=== PATIENT | male | born 1935 | race Caucasian/White ===

== ENCOUNTER 2019-03-10 11:37 | Inpatient (IN) | payer OTHER ==
[~2019-03-10] VITALS: Ht 182.9 cm; Wt 143.2 kg
[2019-03-10 12:26] LABS: BASOPHILS 0.4 % (0-2); EOSINOPHILS 2.3 % (0-7); HEMATOCRIT 40.6 % (42.0-54.0); HEMOGLOBIN 13.6 g/dL (13.5-17.5); IMMATURE GRANULOCYTES 0.4 % (0-5); LYMPHOCYTES 33.3 % (15-50); MCH 31.1 pg (26.0-34.0); MCHC 33.5 g/dL (31.0-37.0); MCV 92.7 fL (80.0-100.0); MEAN PLATELET VOLUME 10.9 fL (7.4-10.4); MONOCYTES 9.8 % (2-11); NEUTROPHILS 53.8 % (40-80); PLATELET COUNT 155 10x3/uL (130-400); RBC 4.38 10x6/uL (4.20-6.10); RDW 13.9 % (11.5-14.5); WBC 7.7 10x3/uL (4.8-10.8)
[2019-03-10 12:51] LABS: ANION GAP 8.2 mmol/L (8-16); BILIRUBIN - TOTAL 0.63 mg/dL (0.2-1.3); CALCIUM 8.9 mg/dL (8.5-10.1); CARBON DIOXIDE 32.2 mmol/L (21.0-32.0); CREATININE - SERUM 1.2 mg/dL (0.6-1.3); POTASSIUM - SERUM 4.4 mmol/L (3.5-5.1); PROTEIN - SERUM 5.4 g/dL (6.4-8.2)
[2019-03-10 13:42] LABS: CKMB 2.4 U/L (0.0-3.6)
[2019-03-10 13:47] LABS: TROPONIN-I < 0.017 ng/mL (0.000-0.060)
[2019-03-10 14:06] LABS: APPEARANCE SL CLDY (CLEAR); COLOR DK YELLOW (YELLOW)
[2019-03-10 14:07] LABS: BILIRUBIN NEGATIVE (NEGATIVE); GLUCOSE NEGATIVE (NEGATIVE); KETONE NEGATIVE (NEGATIVE); NITRITE NEGATIVE (NEGATIVE); PROTEIN 1+ mg/dL (NEGATIVE); UROBILINOGEN NORMAL (NORMAL)
[2019-03-10 14:08] LABS: BACTERIA FEW /hpf (NONE SEEN); EPITHELIAL CELLS 0-5 /hpf (0-5); MUCUS <1+ /lpf (NONE SEEN); RED CELLS - URINE 0-5 /hpf (0-5)
--- NOTE | 2019-03-10 14:21 | NUR ---
PT RESTING IN BED AT THIS TIME. WILL CON'T TO MONITOR FOR CHANGES.
--- NOTE | 2019-03-10 14:50 | NUR ---
REPORT GIVEN TO Amy PAYAN RN, UTILIZING SBAR FORMAT.
--- NOTE | 2019-03-10 17:08 | NUR ---
PT ARRIVED ON UNIT VIA STRETCHER ESCORTED BY ER STAFF AND FAMILY MEMBERS. TRANSFERRED TO BED AND POSITIONED FOR COMFORT. PT CONFUSED TO WHY HE IS HERE AND BECOMES VERBALLY ABUSIVE IF YOU DON'T GIVE THE ANSWERS HE WANTS. SIDE RAILS UP X3 AND BED ALARM IN USE FOR SAFETY.
[2019-03-10] MEDS ORDERED: LISINOPRIL20 MG PO (17:09)
[2019-03-10] MEDS ORDERED: MULTI-DAY VITAM1 TAB PO (17:09)
[2019-03-10] MEDS ORDERED: MYRBETRIQ50 MG PO (17:10)
[2019-03-10] MEDS ORDERED: NORVASC10 MG PO (17:11)
[2019-03-10] MEDS ORDERED: ZOLOFT100 MG PO (17:11)
[2019-03-10] MEDS ORDERED: ASPIRIN81 MG PO (17:12)
[2019-03-10] MEDS ORDERED: RANITIDINE HCL150 M1 PO (17:12)
[2019-03-10] MEDS ORDERED: PRAVACHOL40 MG PO (17:13)
[2019-03-10] MEDS ORDERED: ARICEPT23 MG PO (17:14)
[2019-03-10] MEDS ORDERED: [UNRECOGNIZED DRUG - OTHER] PO (17:17)
[2019-03-10] MEDS ORDERED: SEROQUEL25 MG PO (17:18)
[2019-03-10] MEDS ORDERED: K-DUR20 MEQ PO (17:18)
--- NOTE | 2019-03-10 17:25 | MORECARE ---
CASE MANAGEMENT DISCHARGE SUMMARY PATIENT: CHUCK BLANCA UNIT: [id number] ADM DATE: 03/10/19 AGE: 83 : 36 SEX: M ROOM/BED: D.2202 AUTHOR: LARRY LOERA PHYSICIAN: REFERRING PHYSICIAN: AZEB SANON DO DATE OF SERVICE: 03/10/19 Discharge Plan Patient Name: CHUCK BLANCA Facility: [facility]:[place] : 1935 Planned Disposition: Anticipated Discharge Date: Discharge Date: Expected LOS: Initial Reviewer: [email or web address] Initial Review Date: 03/10/2019 Generated: 03/10/19 6:25 pm Comments DCP- Discharge Planning Updated by [email or web address]: Hillary Rodriguez on 03/10/19 4:[address] CM met with patient, Svitlana Blanca and son Ming Blanca regarding dc plans/needs. Patient has an AMS. Patient lives with his , Nicole Blanca, who has requested that his children find placement for him either in a Senior psych, when medically cleared, then a skilled facility. CM provided a list of facilities to family. Patient is a total care patient and is caregiver, she is currently @[facility] having had surgery. PCP: Dr. Amy Antonio. Pharmacy: [facility], [facility]. DME: canflora walker. States incontinent at times. HHS: none. Family denies hospital admission in past 30 days. Transportation at time of dc: accepting facility. Emergency contact: #1 Nory Blanca (d-i-l) #[phone], #2 Nicole Blanca (d-I-l) [phone], to patient's son, Chuck Blanca Jr @[phone]. Linda Blanca () [phone]. Family states that patient has fallen multiple times and EMS was called to assist in getting patient out of the floor. CM will follow and assist with dc planning. Hillary Rodriguez RN Patient Name: CHUCK BLANCA Page [id number] at 9405 All edits/amendments must be made on the electronic document DICTATION DATE: 03/10/191723 ADULT LIVE IN CAREGIVER: LITZY 03/10/191723 RPT#: [id number] DC DATE: STATUS: ADM IN [facility] [address] [place] [address] END OF REPORT
--- NOTE | 2019-03-10 17:32 | MORECARE ---
CASE MANAGEMENT DISCHARGE SUMMARY PATIENT: CHUCK BLANCA UNIT: [id number] ADM DATE: 03/10/19 AGE: 83 : 36 SEX: M ROOM/BED: D.2202 AUTHOR: EVARISTO,DOC PHYSICIAN: REFERRING PHYSICIAN: AZEB SANON DO DATE OF SERVICE: 03/10/19 Discharge Plan Patient Name: CHUCK BLANCA Facility: [facility]:[place] : 1935 Planned Disposition: Anticipated Discharge Date: Discharge Date: Expected LOS: Initial Reviewer: [email or web address] Initial Review Date: 03/10/2019 Generated: 03/10/19 6:32 pm Comments DCP- Discharge Planning Updated by [email or web address]: Hillary Rodriguez on 03/10/19 4:[address] CM met with patient, Svitlana Blanca and son Ming Blanca regarding dc plans/needs. Patient has an AMS. Patient lives with his , Nicole Blanca, who has requested that his children find placement for him either in a Senior psych, when medically cleared, then a skilled facility. CM provided a list of facilities to family. Patient is a total care patient and is caregiver, she is currently @[facility] having had surgery. PCP: Dr. Amy Antonio. Pharmacy: [facility], [facility]. DME: canflora walker. States incontinent at times. HHS: none. Family denies hospital admission in past 30 days. Transportation at time of dc: accepting facility. Emergency contact: #1 Nory Blanca (judy-i-l) #[phone], #2 Nicole Blanca (d-I-l) [phone], to patient's son, Chuck Blanca Jr @[phone]. Linda Blanca () [phone]. Family states that patient has fallen multiple times and EMS was called to assist in getting patient out of the floor. CM will follow and assist with dc planning. Hillary Rodriguez RN DCPIA - Discharge Planning Initial Assessment Updated by [email or web address]: Hillary Rodriguez on 03/10/19 5:26 pm * Is the patient Alert and Oriented? No * How many steps to enter\exit or inside your home? 4 w/rails * PCP Dr. Amy Antonio * Pharmacy [facility]. * Preadmission Environment Home with Family * ADLs Total Dependent * Equipment Walker * Other Equipment NA * List name and contact numbers for known caregivers / representatives who currently or will assist patient after discharge: Nory Evangelist (d-i-l) [phone]. Nicole Evangelist (d-i-l) [phone]. Chuck Blanca (son) [phone]. Linda Blanca () [phone]. * Verbal permission to speak to the caregivers and representatives has been obtained from the patient. Yes * Please name any agencies selected above. NA * Additional services required to return to the preadmission environment? Yes * Can the patient safely return to the preadmission environment? No * Has this patient been hospitalized within the prior 30 days at any hospital? No Last DP export: 03/10/19 4:25 p Patient Name: CHUCK BLANCA Page 34528 at 1732 All edits/amendments must be made on the electronic document DICTATION DATE: 03/10/191730 SUPERVISOR FUSING ROOM: LITZY 03/10/191730 RPT#: [id number] DC DATE: STATUS: ADM IN [facility] [address] [place] [address] END OF REPORT
--- NOTE | 2019-03-10 19:27 | NUR ---
CALLED [facility] TO ADDRESS HOME MEDICATIONS AND MED FOR AGGRESSIVE BEHAVIOR. ORDERS RECEIVED FOR SEROQUEL AND ARICEPT PO QHS PER HOME MEDS, GEODON 20 MG IM BIDPRN, AND TO START THE ELECTROLYTE PROTOCOL.
--- NOTE | 2019-03-10 20:00 | NUR ---
PT PULLED OUT IV AND REFUSES TO HAVE RE-SITED. WILL TRY LATER TO ENCOURAGE PT TO ALLOW IV TO BE RE-SITED.
[2019-03-10 22:09] VITALS: BP 142/46; Ht 182.9 cm; Wt 143.2 kg
--- NOTE | 2019-03-10 22:34 | NUR ---
PT YELLING AND THROWING HIS URINAL IN THE FERNANDEZ. VERY UPSET THAT HIS ISN'T HERE. GAVE GEODON 20 MG IM VIA RIGHT VENTROGLUTEAL. WILL MONITOR FOR EFFECTIVENESS.
--- NOTE | 2019-03-10 23:00 | NUR ---
PT SITTING UP ON SIDE OF BED AGAIN ASKING WHERE HE IS AND WHERE HIS IS...VERY CONFUSED AND BECOMES AGGITATED. ASSISTED TO USE RESTROOM. POSITIONED BACK IN BED FOR COMFORT.
[2019-03-11 01:06] VITALS: BP 153/58
--- NOTE | 2019-03-11 04:37 | NUR ---
WAS ABLE TO TALK PT INTO ALLOWING ME TO RE-SITE HIS IV. PLACED 20 GUAGE IN RIGHT WRIST IN ONE STICK, AND RODRIGO AM LABS PRIOR TO STARTING IV FLUIDS. ENCOURAGED PT TO NOT PULL OUT IV. WILL CONTINUE TO MONITOR FOR NEEDS.
[2019-03-11 04:56] VITALS: BP 120/54
[2019-03-11 05:13] LABS: BASOPHILS 0.4 % (0-2); EOSINOPHILS 2.6 % (0-7); HEMATOCRIT 41.9 % (42.0-54.0); HEMOGLOBIN 14.2 g/dL (13.5-17.5); IMMATURE GRANULOCYTES 0.3 % (0-5); LYMPHOCYTES 31.8 % (15-50); MCH 30.9 pg (26.0-34.0); MCHC 33.9 g/dL (31.0-37.0); MCV 91.3 fL (80.0-100.0); MEAN PLATELET VOLUME 11.8 fL (7.4-10.4); MONOCYTES 9.7 % (2-11); NEUTROPHILS 55.2 % (40-80); PLATELET COUNT 170 10x3/uL (130-400); RBC 4.59 10x6/uL (4.20-6.10); RDW 13.8 % (11.5-14.5); WBC 9.1 10x3/uL (4.8-10.8)
[2019-03-11 05:32] LABS: ALKALINE PHOSPHATASE 66 U/L (46-116); ALT (SGPT) 23 U/L (10-68); BILIRUBIN - TOTAL 0.94 mg/dL (0.2-1.3); CALC OSMOLALITY 287 mosm/kg (275-300); CHLORIDE - SERUM 107 mmol/L (98-107); CREATININE - SERUM 0.9 mg/dL (0.6-1.3); GLUCOSE 114 mg/dL (74-106); MAGNESIUM - SERUM 2.2 mg/dL (1.8-2.4); PROTEIN - SERUM 6.1 g/dL (6.4-8.2); SODIUM 143 mmol/L (136-145); UREA NITROGEN 18 mg/dL (7-18); eGFR NON AFRICAN AMERICAN 86 mL/min (90-120)
[2019-03-11 06:17] LABS: POTASSIUM - SERUM 4.2 mmol/L (3.5-5.1)
--- NOTE | 2019-03-11 08:00 | NUR ---
IN PATIENTS ROOM ASSISTED TO BR. STATED HE WANTED ME TO GET THE HELL OUT OF HIS ROOM. EXPLAINED I CANT NOT LEAVE HIM BY HIMSELF. VERBALIZED UNDERSTANDING. ASSISTED PATIENT BACK TO BED. SET HIM UP TO EAT BREAKFAST. CALL LIGHT WITHIN REACH. BED ALARM ON.
--- NOTE | 2019-03-11 10:05 | NUR ---
Rehab Prescreening Consult recieved and the chart has been reviewed. She is managed Medicare and will require a preauth. She is a new admit but when workup is completed, she will need a PT/OT eval to submit to her insurance for authorization. Blanche Pascal RN Clinical Liaison, Rehab
[2019-03-11 10:15] VITALS: BP 139/67
--- NOTE | 2019-03-11 11:45 | NUR ---
PATIENT IN BED WITH EYES CLOSED RESTING QUIETLY.
[2019-03-11 12:28] VITALS: BP 136/72
--- NOTE | 2019-03-11 13:45 | NUR ---
PATIENT IN BED WITH EYES CLOSED RESTING QUIETLY. CALL LIGHT WITHIN REACH.
--- NOTE | 2019-03-11 15:13 | NUR ---
Rehab Note- PreAuth started with Kendra/tari Colons faxed in for review for possible PreAuth for inpatient acute rehab stay. Will conitnue to follow at this time. Thank you for this referral! Pastora Lovelace RN Clinical Liaison, [facility] Rehab
--- NOTE | 2019-03-11 17:00 | NUR ---
PATIENT PULLED IV OUT AT THIS TIME. REFUSES TO LET IT BE RESTARTED BECAUSE HE SAYS HE IS GOING HOME. SITTING ON SIDE OF BED FULLY DRESSED WITH BAG AT SIDE. STATED HE IS LEAVING AND WANTING TO SPEAK WITH IS . EXPLAINED I DIDNT HAVE HER NUMBER BUT I WOULD CALL FAMILY AFTER MRI. VERBALIZED UNDERSTANDING.
--- NOTE | 2019-03-11 17:05 | NUR ---
OT NOTE: PT EXHIBITS SELF LIMITING BEHAVIOR. PT COMPLETED BED MOB AND ADL MOB WITH CGA. PT COMPLETED TOILETING WITH TOTAL A FOR HYGIENE. PT COMPLETED CLOTHING MANAGEMENT WITH MIN A. PT STATED HE WANTED TO SEE HIS SO HE COULD SERVE HER DIVORCE PAPERS. THANK YOU, MERLY KRUSE
[2019-03-11 17:30] VITALS: BP 140/59
--- NOTE | 2019-03-11 20:00 | NUR ---
ALERT BUT CONFUSED WALKING OUT IN HALLWAY WITH STREET CLOTHES ON AND BAG PACKED STATES IM GOING HOME CALL SOME ONE TO COME GET ME, INSTRUCTED DR HAS NOT RELEASED HIM TO GO HOME, BECOMES AGITATED REQUESTING FAMILY BE CALLED, DAUGHTER IN LAW DEON CALLED AND SPOKE WITH PT, PT THEN AGREED TO STAY TONIGHT AND WAIT FOR DR IN AM, BACK TO ROOM STATES IM GOING TO BED NOW, REFUSED HOSPITAL GOWN, POSY MAT IN USE, CALL LIGHT IN REACH, SEE SHIFT ASSESSMENT
[2019-03-12 04:00] VITALS: BP 147/64
[2019-03-12 06:28] LABS: BASOPHILS 0.3 % (0-2); EOSINOPHILS 1.9 % (0-7); HEMATOCRIT 38.5 % (42.0-54.0); HEMOGLOBIN 12.8 g/dL (13.5-17.5); IMMATURE GRANULOCYTES 0.4 % (0-5); LYMPHOCYTES 31.6 % (15-50); MCH 30.5 pg (26.0-34.0); MCHC 33.2 g/dL (31.0-37.0); MCV 91.7 fL (80.0-100.0); NEUTROPHILS 55.8 % (40-80); PLATELET COUNT 154 10x3/uL (130-400); RDW 13.8 % (11.5-14.5); WBC 7.3 10x3/uL (4.8-10.8)
[2019-03-12 06:57] LABS: ALBUMIN 2.7 g/dL (3.4-5.0); ALKALINE PHOSPHATASE 60 U/L (46-116); ALT (SGPT) 19 U/L (10-68); BILIRUBIN - TOTAL 0.41 mg/dL (0.2-1.3); CALC OSMOLALITY 287 mosm/kg (275-300); CALCIUM 8.8 mg/dL (8.5-10.1); CHLORIDE - SERUM 108 mmol/L (98-107); GLUCOSE 117 mg/dL (74-106); POTASSIUM - SERUM 3.8 mmol/L (3.5-5.1); PROTEIN - SERUM 5.4 g/dL (6.4-8.2); SODIUM 143 mmol/L (136-145); UREA NITROGEN 18 mg/dL (7-18); eGFR NON AFRICAN AMERICAN 76 mL/min (90-120)
--- NOTE | 2019-03-12 08:00 | NUR ---
IV STARTED IN LEFT HAND FOR ST SCAN. PATIENT TO CT.
[2019-03-12 09:13] VITALS: BP 149/59
--- NOTE | 2019-03-12 09:43 | NUR ---
Rehab Note- Called to f/u on pending authorization, Lauro with Kendra/Darlene/Tim stated that their system is currently updating & are unable to look up any information at this time. Will continue to await. Pastora Lovelace RN Clinical Liaison, [facility] Rehab
--- NOTE | 2019-03-12 10:15 | NUR ---
PATIENT IN BED WITH IV INTACT.N O COMPLAINTS OR SIGNS OF DISTRESS. CALL L IGHT WITHIN REACH.
--- NOTE | 2019-03-12 11:17 | NUR ---
OT NOTE: AMB TO BATHROOM WITH CGA; TOILET TRANSFER WITH MIN ASSIST; ABLE TO DOFF AND GINETTE PULL UP WITH SET UP; TOILET HYGIENE WITH SET UP; AMB BACK TO BED WITH CGA; ALL BED MOB INDEP INCLUDING SCOOTING UP IN BED. DEON PEREZ, OTR/L
[2019-03-12 12:29] VITALS: BP 152/71
--- NOTE | 2019-03-12 12:54 | NUR ---
Rehab Note- Spoke with Misael with [facility]ra/[facility]. Was discussing the patient's acute inpatient stay- forwarded the message onto HOLDEN Rivera to contact Misael @ [phone] Ext. [phone], he staed that her acute inpatient rehab stay was still pending at this time. Will continue to await determination. Pastora Lovelace RN CLinical Liaison, [facility] Rehab
--- NOTE | 2019-03-12 13:45 | NUR ---
PATIENT SITTING UP IN BED WITH IV INTACT.N O COMPLAINTS. BA ON. CALL LIGHT WITHIN REACH.
[2019-03-12 16:14] VITALS: BP 166/70
--- NOTE | 2019-03-12 16:42 | NUR ---
OT NOTE: PT COMPLETED ADL MOB WITH SBA. PT COMPLETED TOILETING TASKS WITH CGA. PT COMPLETED BUE AROM EXS. PT COMPLETED BED MOB WITH SPV. PT EXHIBITS DECREASED SAFETY AWARENESS AND EXHIBITS SELF LIMITING BEHAVIOR. PT REQUIRED EXTENSIVE CUES FOR INCREASED SAFETY WITH ADL TASKS. THANK YOU, MERLY KRUSE
--- NOTE | 2019-03-12 18:47 | NUR ---
PATIENT SITTING UP ON SIDE OF BED WITH IV INTACT. NO COMPLAINTS OR SIGNS OF DISTRESS. CALL LIGHT WITHIN REAC. BA ON.
--- NOTE | 2019-03-12 20:00 | NUR ---
ALERT PEROIDS OF CONFUSION, SEE SHIFT ASSESSMENT, MARILYN MAT IN USE, CALL LIGHT IN REACH, NO REQUEST AT THIS TIME
[2019-03-12 20:24] VITALS: BP 154/78
[2019-03-13] VITALS (11 sets, daily range): BP systolic 104–178; BP diastolic 49–75
[2019-03-13 04:57] LABS: BASOPHILS 0.4 % (0-2); HEMOGLOBIN 13.2 g/dL (13.5-17.5); IMMATURE GRANULOCYTES 0.3 % (0-5); LYMPHOCYTES 31.7 % (15-50); MCH 30.6 pg (26.0-34.0); MCHC 33.8 g/dL (31.0-37.0); MCV 90.5 fL (80.0-100.0); MEAN PLATELET VOLUME 11.9 fL (7.4-10.4); MONOCYTES 12.1 % (2-11); NEUTROPHILS 53.5 % (40-80); PLATELET COUNT 145 10x3/uL (130-400); RBC 4.31 10x6/uL (4.20-6.10); RDW 13.5 % (11.5-14.5)
[2019-03-13 05:16] LABS: ALBUMIN 2.7 g/dL (3.4-5.0); ALKALINE PHOSPHATASE 57 U/L (46-116); BILIRUBIN - TOTAL 0.57 mg/dL (0.2-1.3); CALC OSMOLALITY 280 mosm/kg (275-300); CALCIUM 8.6 mg/dL (8.5-10.1); CARBON DIOXIDE 29.3 mmol/L (21.0-32.0); CHLORIDE - SERUM 106 mmol/L (98-107); CREATININE - SERUM 0.8 mg/dL (0.6-1.3); GLUCOSE 115 mg/dL (74-106); MAGNESIUM - SERUM 1.7 mg/dL (1.8-2.4); POTASSIUM - SERUM 3.6 mmol/L (3.5-5.1); PROTEIN - SERUM 5.5 g/dL (6.4-8.2); SODIUM 140 mmol/L (136-145); UREA NITROGEN 15 mg/dL (7-18); eGFR NON AFRICAN AMERICAN > 90 mL/min (90-120)
[2019-03-13 05:29] LABS: ALT (SGPT) 17 U/L (10-68)
--- NOTE | 2019-03-13 07:44 | NUR ---
ALERT AND ORIENTED TO SELF. LUNGS CLEAR BILATERALLY IN ALL HINDS. HEART SOUNDS S1 AND S2 HEARD IN ALL HINDS. BOWEL SOUNDS ACTIVE X 4. SKIN INTACT WITHOUT REDNESS. DENIES PAIN. DENIES NEEDS. BED LOW. MARILYN ALARM ON. CALL BEDLL AND PERSONAL ITEMS IN REACH. IV TO LEFT HAND PATENT WITHOUT REDNESS. WILL CONTINUE TO MONITOR.
--- NOTE | 2019-03-13 07:57 | NUR ---
SPOKE WITH SURGERY TO GET APPROXIMATE TIME FOR PATIENT PROCEDURE. STATED SOMETIME AFTERNOON AND "LIKELY AROUND 1300." DAUGHTER DEON NOTIFIED.
--- NOTE | 2019-03-13 09:33 | MORECARE ---
CASE MANAGEMENT DISCHARGE SUMMARY PATIENT: CHUCK BLANCA UNIT: [id number] ADM DATE: 03/10/19 AGE: 83 : 36 SEX: M ROOM/BED: D.2202 AUTHOR: EVARISTODOC PHYSICIAN: REFERRING PHYSICIAN: AZEB SANON DO DATE OF SERVICE: 03/13/19 Discharge Plan Patient Name: CHUCK BLANCA Facility: [facility]:[place] : 1935 Planned Disposition: Anticipated Discharge Date: Discharge Date: Expected LOS: Initial Reviewer: [email or web address] Initial Review Date: 03/10/2019 Generated: 03/13/19 10:33 am Comments DCP- Discharge Planning Updated by [id number]: Nicole Henry on 03/13/19 8:[address] Patient Name: CHUCK BLANCA Admission Status: ER Accout number: [id number] Admission Date: 03-10-2019 : 1935 Admission Diagnosis:URINARY TRACT INFECTION, SITE NOT SPECIFIED Attending: AZEB SANON Current LOS: 3 Anticipated DC Date: Planned Disposition: Primary Insurance: [employer] Local Discharge Planning Comments: INSURANCE HAS APPROVED [facility] FOR HIM. CM TO FOLLOW. Supervisory Historian: Nicole Henry DCP- Discharge Planning Updated by [id number]: Hillary Rodriguez on 03/10/19 4:[address] CM met with patient, Svitlana Blanca and son Ming Blanca regarding dc plans/needs. Patient has an AMS. Patient lives with his , Nicole Blanca, who has requested that his children find placement for him either in a Senior psych, when medically cleared, then a skilled facility. CM provided a list of facilities to family. Patient is a total care patient and is caregiver, she is currently @[facility] having had surgery. PCP: Dr. Amy Antonio. Pharmacy: [facility], [facility]. DME: [employer]ines. States incontinent at times. HHS: none. Family denies hospital admission in past 30 days. Transportation at time of dc: accepting facility. Emergency contact: #1 Nory Blanca (judy-i-l) #[phone], #2 Nicole Blanca (judy-I-l) [phone], to patient's son, Chuck Blanca Jr @[phone]. Linda Blanca () [phone]. Family states that patient has fallen multiple times and EMS was called to assist in getting patient out of the floor. CM will follow and assist with dc planning. Hillary Rodriguez RN DCPIA - Discharge Planning Initial Assessment Updated by [id number]: Hillary Rodriguez on 03/10/19 5:26 pm * Is the patient Alert and Oriented? No * How many steps to enter\exit or inside your home? 4 w/rails * PCP Dr. Amy Antonio * Pharmacy [facility]. * Preadmission Environment Home with Family * ADLs Total Dependent * Equipment Walker * Other Equipment NA * List name and contact numbers for known caregivers / representatives who currently or will assist patient after discharge: Nory Blanca (d-i-l) [phone]. Nicole Blanca (d-i-l) [phone]. Chuck Blanca Jr (son) [phone]. Linda Blanca () [phone]. * Verbal permission to speak to the caregivers and representatives has been obtained from the patient. Yes * Please name any agencies selected above. NA * Additional services required to return to the preadmission environment? Yes * Can the patient safely return to the preadmission environment? No * Has this patient been hospitalized within the prior 30 days at any hospital? No Last DP export: 03/10/19 4:32 p Patient Name: CHUCK BLANCA Page 35203 at 0933 All edits/amendments must be made on the electronic document DICTATION DATE: 03/13/19932 GLUE BONE CRUSHER: LITZY 03/13/19932 RPT#: [id number] DC DATE: STATUS: ADM IN [facility] [address] [place] [address] END OF REPORT
--- NOTE | 2019-03-13 12:32 | NUR ---
PATIENT SLEEPING. WILL CONTINUE TO MONITOR.
--- NOTE | 2019-03-13 13:23 | NUR ---
PREOP MEDICATIONS GIVEN PER ORDER.
--- NOTE | 2019-03-13 13:55 | NUR ---
OT NOTE: PERFORMED BED MOB WITH SPV; AMB TO BATHROOM WITH CGA; HYGIENE WITH MIN ASSIST; BED MOB WITH SPV BACK TO BED. DEON PEREZ, OTR/L
--- NOTE | 2019-03-13 14:12 | NUR ---
OT NOTE: PT COMPLETED TOILETING TASKS WITH SPV. PT COMPLETED LB DRESSING WITH SPV. PT COMPLETED UB DRESSING WITH SPV . PT COMPLETED ADL MOB WITH SBA. PT COMPLETED BED MOB WITH SPV. PT REQUIRED CUES FOR ATTENTION TO TASK AND INCREASED SAFETY. PT CONTINUALLY ASK FOR 'S WHEREABOUTS AND STATES HE WANTS TO DIVORCE HER. PT REQUIRED REDIRECTION FOR TASK COMPLETION. THANK YOU, MERLY KRUSE
--- NOTE | 2019-03-13 14:34 | NUR ---
PATIENT TAKEN FOR PROCEDURE.
--- NOTE | 2019-03-13 16:47 | NUR ---
PATIENT RETURNED FROM PROCEDURE. VITALS STABLE. DAVOL DRAIN IN PLACE TO LEFT LOWER LEG. WILL CONTINUE TO MONITOR.
--- NOTE | 2019-03-13 18:17 | NUR ---
RESTING IN BED. DENIES PAIN. DENIES NEEDS. BED LOW. CALL JESSICA AND PERSONAL ITESM IN REACH. VITALS REMAIN STABLE. WILL CONTINUE TO MONITOR.
--- NOTE | 2019-03-13 21:00 | NUR ---
PT DISCONNECTED SELF FROM HEMOVAC AND KNOTTED TUBING BECAUSE, "IT WAS LEAKING BLOOD EVERYWHERE." HAD RN UN-KNOT TUBING AND RECONNECT HEMOVAC. INFORMED PT NOT TO UNHOOK. SECURED HEMOVAC TO LEG. WILL CONTINUE TO MONITOR.
[2019-03-14 00:46] VITALS: BP 150/62
--- NOTE | 2019-03-14 04:11 | NUR ---
I have reviewed this patient and I concur with the Shift Assessment completed by the Licensed Practical Nurse today this shift.
[2019-03-14 04:58] VITALS: BP 160/56
[2019-03-14 06:05] LABS: ALBUMIN 2.8 g/dL (3.4-5.0); ALKALINE PHOSPHATASE 60 U/L (46-116); ALT (SGPT) 21 U/L (10-68); BILIRUBIN - TOTAL 0.62 mg/dL (0.2-1.3); CALC OSMOLALITY 279 mosm/kg (275-300); CALCIUM 8.6 mg/dL (8.5-10.1); CARBON DIOXIDE 30.9 mmol/L (21.0-32.0); CHLORIDE - SERUM 106 mmol/L (98-107); CREATININE - SERUM 0.8 mg/dL (0.6-1.3); GLUCOSE 107 mg/dL (74-106); MAGNESIUM - SERUM 1.7 mg/dL (1.8-2.4); POTASSIUM - SERUM 3.5 mmol/L (3.5-5.1); PROTEIN - SERUM 5.5 g/dL (6.4-8.2); SODIUM 141 mmol/L (136-145); eGFR NON AFRICAN AMERICAN > 90 mL/min (90-120)
[2019-03-14 06:11] LABS: BASOPHILS 0.4 % (0-2); EOSINOPHILS 1.7 % (0-7); HEMATOCRIT 38.9 % (42.0-54.0); HEMOGLOBIN 13.1 g/dL (13.5-17.5); IMMATURE GRANULOCYTES 0.3 % (0-5); LYMPHOCYTES 31.1 % (15-50); MCH 30.5 pg (26.0-34.0); MCHC 33.7 g/dL (31.0-37.0); MCV 90.5 fL (80.0-100.0); MEAN PLATELET VOLUME 11.5 fL (7.4-10.4); MONOCYTES 11.4 % (2-11); NEUTROPHILS 55.1 % (40-80); PLATELET COUNT 146 10x3/uL (130-400); RDW 13.4 % (11.5-14.5); UREA NITROGEN 11 mg/dL (7-18)
--- NOTE | 2019-03-14 07:36 | NUR ---
ALERT AND ORIENTED TO SELF. RESTING IN BED. LUNGS CLEAR BILATERALLY IN ALL HINDS. HEART SOUNDS S1 AND S2 HEARD IN ALL HINDS. BOWEL SOUNDS ACTIVE X 4. REFUSES TO PUT ON GOWN. WEARING BRIEF. DRAIN TO LEFT LOWER LEG IN PLACE WRAPPED WITH KERLIX D/T PATIENT PULLING DRAIN OFF THROUGHOUT THE NIGHT. BED LOW. MARILYN ALARM ON. CALL JESSICA AND PERSONAL ITEMS IN REACH. WILL CONTINUE TO MONITOR.
[2019-03-14 08:30] VITALS: BP 172/78
--- NOTE | 2019-03-14 09:49 | NUR ---
IV INFILTRATED TO LEFT WRIST. RESITED TO RIGHT WRIST.
--- NOTE | 2019-03-14 10:48 | NUR ---
SLEEPING. WILL CONTINUE TO MONITOR.
--- NOTE | 2019-03-14 11:10 | NUR ---
REQUESTED TO TALK TO . IN HOSPITAL AT [facility]. NOTIFIED SON OF PATIENT'S REQUEST. STATED WILL HAVE PATIENT'S CALL.
--- NOTE | 2019-03-14 12:00 | NUR ---
PATIENT TALKING WITH ON PHONE. DENIES NEEDS.
[2019-03-14 12:55] VITALS: BP 170/66
--- NOTE | 2019-03-14 13:55 | NUR ---
SLEEPING. WILL CONTINUE TO MONITOR.
--- NOTE | 2019-03-14 16:30 | NUR ---
RESTING IN BED. DENIES PAIN. DENIES NEEDS. WILL CONTINUE TO MONITOR.
[2019-03-14 16:38] VITALS: BP 122/69
--- NOTE | 2019-03-14 18:25 | NUR ---
OT NOTE: PT COMPLETED EOB SITTING WITH FUNCTIONAL AX WITH SPV. PT COMPLETED SIT TO STAND WITH SBA. PT COMPLETED SELF FEEDING WITH SET UP. PT COMPLETED HYGIENE WITH SBA. PT EXHIBITS SELF LIMITING BEHAVIOR. THANK YOU, MERLY KRUSE
--- NOTE | 2019-03-14 18:27 | NUR ---
SLEEPING. BED LOW. CALL JESSICA AND PERSONAL ITEMS IN REACH. FALL PRECAUTIONS IN PLACE.
[2019-03-14 20:00] VITALS: BP 163/78
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
--- NOTE | 2019-03-15 03:09 | NUR ---
I have reviewed this patient and I concur with the Shift Assessment completed by the Licensed Practical Nurse today this shift.
[2019-03-15 04:00] VITALS: BP 182/82
[2019-03-15 04:03] LABS: BASOPHILS 0.3 % (0-2); EOSINOPHILS 3.5 % (0-7); HEMATOCRIT 39.6 % (42.0-54.0); HEMOGLOBIN 13.6 g/dL (13.5-17.5); IMMATURE GRANULOCYTES 0.3 % (0-5); LYMPHOCYTES 31.7 % (15-50); MCH 30.9 pg (26.0-34.0); MCHC 34.3 g/dL (31.0-37.0); MEAN PLATELET VOLUME 11.7 fL (7.4-10.4); MONOCYTES 11.2 % (2-11); PLATELET COUNT 147 10x3/uL (130-400); RDW 13.5 % (11.5-14.5); WBC 6.1 10x3/uL (4.8-10.8)
[2019-03-15 04:24] LABS: ALBUMIN 2.9 g/dL (3.4-5.0); ALKALINE PHOSPHATASE 66 U/L (46-116); ALT (SGPT) 21 U/L (10-68); BILIRUBIN - TOTAL 0.53 mg/dL (0.2-1.3); CALC OSMOLALITY 283 mosm/kg (275-300); CARBON DIOXIDE 30.1 mmol/L (21.0-32.0); CHLORIDE - SERUM 107 mmol/L (98-107); CREATININE - SERUM 0.8 mg/dL (0.6-1.3); GLUCOSE 135 mg/dL (74-106); MAGNESIUM - SERUM 1.9 mg/dL (1.8-2.4); POTASSIUM - SERUM 3.5 mmol/L (3.5-5.1); PROTEIN - SERUM 5.6 g/dL (6.4-8.2); SODIUM 142 mmol/L (136-145); UREA NITROGEN 10 mg/dL (7-18); eGFR NON AFRICAN AMERICAN > 90 mL/min (90-120)
--- NOTE | 2019-03-15 07:39 | NUR ---
PT LETHARGIC AND NOT ANSWERING QUESTIONS AT THIS TIME. FREQUENT DRY COUGH. BREATH SOUNDS CLEAR BILAT. NO IV ACCESS AT THIS TIME. DERRICK WRAP TO LEFT LOWER LEG, DAVOL DRAIN IN PLACE, DRAINAGE BLOODY. BED LOW, CALL LIGHT IN REACH. NO OTHER NEEDS AT THIS TIME.
[2019-03-15 08:38] VITALS: BP 187/55
--- NOTE | 2019-03-15 09:53 | MORECARE ---
CASE MANAGEMENT DISCHARGE SUMMARY PATIENT: CHUCK BLANCA UNIT: [id number] ADM DATE: 03/10/19 AGE: 83 : 36 SEX: M ROOM/BED: D.2202 AUTHOR: EVARISTO,DOC PHYSICIAN: REFERRING PHYSICIAN: AZEB SANON DO DATE OF SERVICE: 03/15/19 Discharge Plan Patient Name: CHUCK BLANCA Facility: [facility]:[place] : 1935 Planned Disposition: Anticipated Discharge Date: Discharge Date: Expected LOS: Initial Reviewer: [id number] Initial Review Date: 03/10/2019 Generated: 03/15/19 10:52 am Comments DCP- Discharge Planning Updated by [id number]: Martha García on 03/15/19 8:[address] Patient's DIL (Nicole Blanca) called me and states she would like her father to go to LT and has [facility]. I called [facility] and spoke to tari Bentley faxed. CM will continue to follow and assist with discharge planning/needs. DCP- Discharge Planning Updated by [id number]: Nicole Henry on 03/13/19 8:[address] Patient Name: CHUCK BLANCA Admission Status: ER Accout number: [id number] Admission Date: 03-10-2019 : 1935 Admission Diagnosis:URINARY TRACT INFECTION, SITE NOT SPECIFIED Attending: AZEB SANON Current LOS: 3 Anticipated DC Date: Planned Disposition: Primary Insurance: [employer] Discharge Planning Comments: INSURANCE HAS APPROVED [facility] FOR HIM. CM TO FOLLOW. Termite Control Technician: Nicole Henry DCP- Discharge Planning Updated by [id number]: Hillary Rodriguez on 03/10/19 4:[address] CM met with patient, D-I-L Nory Blanca and son Ming Blanca regarding dc plans/needs. Patient has an AMS. Patient lives with his , Nicole Blanca, who has requested that his children find placement for him either in a Senior psych, when medically cleared, then a skilled facility. CM provided a list of facilities to family. Patient is a total care patient and is caregiver, she is currently @[facility] having had surgery. PCP: Dr. Amy Antonio. Pharmacy: [facility]. DME: cane, walker. States incontinent at times. HHS: none. Family denies hospital admission in past 30 days. Transportation at time of dc: accepting facility. Emergency contact: #1 Nory Blanca (d-i-l) #[phone], #2 Nicole Blanca (d-I-l) [phone], to patient's son, Chuck Blanca Jr @[phone]. Linda Blanca () [phone]. Family states that patient has fallen multiple times and EMS was called to assist in getting patient out of the floor. CM will follow and assist with dc planning. Hillary Rodriguez RN DCPIA - Discharge Planning Initial Assessment Updated by [email or web address]: Hillary Rodriguez on 03/10/19 5:26 pm * Is the patient Alert and Oriented? No * How many steps to enter\exit or inside your home? 4 w/rails * PCP Dr. Amy Antonio * Pharmacy [facility]. * Preadmission Environment Home with Family * ADLs Total Dependent * Equipment Walker * Other Equipment NA * List name and contact numbers for known caregivers / representatives who currently or will assist patient after discharge: Nory Blanca (judy-i-l) [phone]. Nicole Blanca (d-i-l) [phone]. Chuck Blanca Jr (son) [phone]. Linda Blanca () [phone]. * Verbal permission to speak to the caregivers and representatives has been obtained from the patient. Yes * Please name any agencies selected above. NA * Additional services required to return to the preadmission environment? Yes * Can the patient safely return to the preadmission environment? No * Has this patient been hospitalized within the prior 30 days at any hospital? No Coverage Notice Reviewer: [id number] - Martha García Notice Issued Date-Time: 03/15/2019 9:52 Notice Type: Patient Choice Letter Notice Delivered To: Family Member Relationship to Patient: Daughter in Law Tent Assembler Name: Nicole Blanca Delivery Method: PHONE - Phone Renetta Days: Prior Verbal Notification: Recipient Understood Notice: Yes Recipient Signature: Med Rec Note Co-signed by Attending: Coverage Notice Comment: HIRAM for [facility] Last DP export: 03/13/19 8:33 am Patient Name: CHUCK BLANCA Page [id number] at 0953 All edits/amendments must be made on the electronic document DICTATION DATE: 03/15/19951 INTERNATIONAL SALES REPRESENTATIVE: LITZY 03/15/19951 RPT#: [id number] DC DATE: STATUS: ADM IN [facility] [address] [place] [address] END OF REPORT
--- NOTE | 2019-03-15 10:01 | MORECARE ---
CASE MANAGEMENT DISCHARGE SUMMARY PATIENT: CHUCK BLANCA UNIT: [id number] ADM DATE: 03/10/19 AGE: 83 : 36 SEX: M ROOM/BED: D.2202 AUTHOR: EVARISTO,DOC PHYSICIAN: REFERRING PHYSICIAN: AZEB SANON DO DATE OF SERVICE: 03/15/19 Discharge Plan Patient Name: CHUCK BLANCA Facility: [facility]:[place] : 1935 Planned Disposition: Anticipated Discharge Date: Discharge Date: Expected LOS: Initial Reviewer: [id number] Initial Review Date: 03/10/2019 Generated: 03/15/19 11:01 am Comments DCP- Discharge Planning Updated by [email or web address]: Martha García on 03/15/19 8:[address] Patient's DIL (Nicole Blanca) called me and states she would like her father to go to LT and has chosen [place] [facility] [facility] and [facility]. I called Sarah [facility] and spoke to tari Bentley faxed. CM will continue to follow and assist with discharge planning/needs. DCP- Discharge Planning Updated by [id number]: Nicole Henry on 03/13/19 8:[address] Patient Name: CHUCK BLANCA Admission Status: ER Accout number: [id number] Admission Date: 03-10-2019 : 1935 Admission Diagnosis:URINARY TRACT INFECTION, SITE NOT SPECIFIED Attending: AZEB SANON Current LOS: 3 Anticipated DC Date: Planned Disposition: Primary Insurance: [employer] Discharge Planning Comments: INSURANCE HAS APPROVED [facility] FOR HIM. CM TO FOLLOW. Marketing Teacher: Nicole Henry DCP- Discharge Planning Updated by [email or web address]: Hillary Rodriguez on 03/10/19 4:[address] CM met with patient, D-I-L Nory Blanca and son Ming Blanca regarding dc plans/needs. Patient has an AMS. Patient lives with his , Nicole Blanca, who has requested that his children find placement for him either in a Senior psych, when medically cleared, then a skilled facility. CM provided a list of facilities to family. Patient is a total care patient and is caregiver, she is currently @[facility] having had surgery. PCP: Dr. Amy Antonio. Pharmacy: [facility]. DME: cane, walker. States incontinent at times. HHS: none. Family denies hospital admission in past 30 days. Transportation at time of dc: accepting facility. Emergency contact: #1 Nory Blanca (d-i-l) #[phone], #2 Nicole Blanca (d-I-l) [phone], to patient's son, Chuck Blanca Jr @[phone]. Linda Blanca () [phone]. Family states that patient has fallen multiple times and EMS was called to assist in getting patient out of the floor. CM will follow and assist with dc planning. Hillary Rodriguez RN DCPIA - Discharge Planning Initial Assessment Updated by [id number]: Hillary Rodriguez on 03/10/19 5:26 pm * Is the patient Alert and Oriented? No * How many steps to enter\exit or inside your home? 4 w/rails * PCP Dr. Amy Antonio * Pharmacy [facility]. * Preadmission Environment Home with Family * ADLs Total Dependent * Equipment Walker * Other Equipment NA * List name and contact numbers for known caregivers / representatives who currently or will assist patient after discharge: Nory Blanca (judy-i-l) [phone]. Nicole Blanca (d-i-l) [phone]. Chuck Blanca Jr (son) [phone]. Linda Blanca () [phone]. * Verbal permission to speak to the caregivers and representatives has been obtained from the patient. Yes * Please name any agencies selected above. NA * Additional services required to return to the preadmission environment? Yes * Can the patient safely return to the preadmission environment? No * Has this patient been hospitalized within the prior 30 days at any hospital? No External Providers External Provider: [facility] Next Contact Date: Service Request Date: Service Type: Resolution: Reviewer: Comments: Coverage Notice Reviewer: [email or web address] Bennett García Notice Issued Date-Time: 03/15/2019 9:52 Notice Type: Patient Choice Letter Notice Delivered To: Family Member Relationship to Patient: Daughter in Law Baker Test Name: Nicole Blanca Delivery Method: PHONE - Phone Renetta Days: Prior Verbal Notification: Recipient Understood Notice: Yes Recipient Signature: Med Rec Note Co-signed by Attending: Coverage Notice Comment: HIRAM for [place] [facility], then [facility] Last DP export: 03/15/19 8:53 am Patient Name: CHUCK BLANCA Page [id number] at 1001 All edits/amendments must be made on the electronic document DICTATION DATE: 03/15/19 1000 VENEER SAMPLE MAKER: DM 03/15/19 1000 RPT#: [id number] DC DATE: STATUS: ADM IN [facility] [address] [place] [address] END OF REPORT
--- NOTE | 2019-03-15 11:30 | MORECARE ---
CASE MANAGEMENT DISCHARGE SUMMARY PATIENT: CHUCK BLANCA UNIT: [id number] ADM DATE: 03/10/19 AGE: 83 : 36 SEX: M ROOM/BED: D.2202 AUTHOR: EVARISTO,DOC PHYSICIAN: REFERRING PHYSICIAN: AZEB SANON DO DATE OF SERVICE: 03/15/19 Discharge Plan Patient Name: CHUCK BLANCA Facility: [facility]:[place] : 1935 Planned Disposition: Anticipated Discharge Date: Discharge Date: Expected LOS: Initial Reviewer: [id number] Initial Review Date: 03/10/2019 Generated: 03/15/19 12:29 pm Comments DCP- Discharge Planning Updated by [email or web address]: Martha Raquel on 03/15/19 10:[address] I spoke with patient's daughter in law, Nicole Blanca, she agrees with discharging today to inpatient rehab. I called Pamela Gibson APN for discharge orders. CM will continue to follow and assist with discharge planning/needs. DCP- Discharge Planning Updated by [email or web address]: Martha Raquel on 03/15/19 8:[address] Patient's DIL (Nicole Blanca) called me and states she would like her father to go to LTC and has chosen [place] [facility] and [facility]. I called Sarah [facility] and spoke to tari Bentley faxed. CM will continue to follow and assist with discharge planning/needs. DCP- Discharge Planning Updated by [email or web address]: Nicole Henry on 03/13/19 8:[address] Patient Name: CHUCK BLANCA Admission Status: ER Accout number: [id number] Admission Date: 03-10-2019 : 1935 Admission Diagnosis:URINARY TRACT INFECTION, SITE NOT SPECIFIED Attending: AZEB SANON Current LOS: 3 Anticipated DC Date: Planned Disposition: Primary [facility] Discharge Planning Comments: INSURANCE HAS APPROVED [facility] FOR HIM. CM TO FOLLOW. Library Media Specialist: Nicole Henry DCP- Discharge Planning Updated by [email or web address]: Hillary Rodriguez on 03/10/19 4:[address] CM met with patient, D-I-L Nory Blanca and son Ming Blanca regarding dc plans/needs. Patient has an AMS. Patient lives with his , Nicole Blanca, who has requested that his children find placement for him either in a Senior psych, when medically cleared, then a skilled facility. CM provided a list of facilities to family. Patient is a total care patient and is caregiver, she is currently @[facility] having had surgery. PCP: Dr. Amy Antonio. Pharmacy: [facility]. DME: cane, walker. States incontinent at times. HHS: none. Family denies hospital admission in past 30 days. Transportation at time of dc: accepting facility. Emergency contact: #1 Nory Blanca (d-i-l) #[phone], #2 Nicole Blanca (d-I-l) [phone], to patient's son, Chuck Blanca Jr @[phone]. Linda Blanca () [phone]. Family states that patient has fallen multiple times and EMS was called to assist in getting patient out of the floor. CM will follow and assist with dc planning. Hillary Rodriguez RN DCPIA - Discharge Planning Initial Assessment Updated by [id number]: Hillary Rodriguez on 03/10/19 5:26 pm * Is the patient Alert and Oriented? No * How many steps to enter\exit or inside your home? 4 w/rails * PCP Dr. Amy Antonio * Pharmacy [facility]. * Preadmission Environment Home with Family * ADLs Total Dependent * Equipment Walker * Other Equipment NA * List name and contact numbers for known caregivers / representatives who currently or will assist patient after discharge: Nory Blanca (d-i-l) [phone]. Nicole Blanca (d-i-l) [phone]. Chuck Blanca Jr (son) [phone]. Linda Blacna () [phone]. * Verbal permission to speak to the caregivers and representatives has been obtained from the patient. Yes * Please name any agencies selected above. NA * Additional services required to return to the preadmission environment? Yes * Can the patient safely return to the preadmission environment? No * Has this patient been hospitalized within the prior 30 days at any hospital? No Coverage Notice Reviewer: [id number] Bennett García Notice Issued Date-Time: 03/15/2019 9:52 Notice Type: Patient Choice Letter Notice Delivered To: Family Member Relationship to Patient: Daughter in Law Paper Spooler Name: Nicole Blanca Delivery Method: PHONE - Phone Renetta Days: Prior Verbal Notification: Recipient Understood Notice: Yes Recipient Signature: Med Rec Note Co-signed by Attending: Coverage Notice Comment: HIRAM for [place] [facility], then [facility] Last DP export: 03/15/19 9:01 am Patient Name: CHUCK BLANCA Page [id number] at 1130 All edits/amendments must be made on the electronic document DICTATION DATE: 03/15/191128 SALES ATTENDANT: LITZY 03/15/19 112 RPT#: [id number] DC DATE: STATUS: ADM IN [facility] [address] [place] [address] END OF REPORT
[2019-03-15 13:00] VITALS: BP 151/67
--- NOTE | 2019-03-15 16:07 | MORECARE ---
CASE MANAGEMENT DISCHARGE SUMMARY PATIENT: CHUCK BLANCA UNIT: [id number] ADM DATE: 03/10/19 AGE: 83 : 36 SEX: M ROOM/BED: D.2202 AUTHOR: LARRY LOERA PHYSICIAN: REFERRING PHYSICIAN: AZEB SANON DO DATE OF SERVICE: 03/15/19 Discharge Plan Patient Name: CHUCK BLANCA Facility: [facility]:[place] : 1935 Planned Disposition: Inpatient Rehab Anticipated Discharge Date: 03/15/19 Discharge Date: Expected LOS: 5 Initial Reviewer: [id number] Initial Review Date: 03/10/2019 Generated: 03/15/19 5:07 pm Comments DCP- Discharge Planning Updated by [id number]: Martha Raquel on 03/15/19 10:[address] I spoke with patient's daughter in law, Nicole Blanca, she agrees with discharging today to inpatient rehab. I called Pamela Gibson APN for discharge orders. CM will continue to follow and assist with discharge planning/needs. DCP- Discharge Planning Updated by [email or web address]: Martha Raquel on 03/15/19 8:[address] Patient's DIL (Nicole Blanca) called me and states she would like her father to go to LTC and has chosen [facility] [facility] and [facility]. I called [facility] and spoke to tari Bentleyxjose f. CM will continue to follow and assist with discharge planning/needs. DCP- Discharge Planning Updated by [email or web address]: Nicole Henry on 03/13/19 8:[address] Patient Name: CHUCK BLANCA Admission Status: ER Accout number: [id number] Admission Date: 03-10-2019 : 1935 Admission Diagnosis:URINARY TRACT INFECTION, SITE NOT SPECIFIED Attending: AZEB SANON Current LOS: 3 Anticipated DC Date: Planned Disposition: Primary Insurance: [employer] Discharge Planning Comments: INSURANCE HAS APPROVED [facility] FOR HIM. CM TO FOLLOW. Software Quality Automation Engineer: Nicole Henry DCP- Discharge Planning Updated by [id number]: Hillary Rodriguez on 03/10/19 4:[address] CM met with patient, D-I-L Nory Blanca and son Ming Blanca regarding dc plans/needs. Patient has an AMS. Patient lives with his , Nicole Blanca, who has requested that his children find placement for him either in a Senior psych, when medically cleared, then a skilled facility. CM provided a list of facilities to family. Patient is a total care patient and is caregiver, she is currently @[facility] having had surgery. PCP: Dr. Amy Antonio. Pharmacy[facility]. DME: cane, walker. States incontinent at times. HHS: none. Family denies hospital admission in past 30 days. Transportation at time of dc: accepting facility. Emergency contact: #1 Nory Blanca (d-i-l) #[phone], #2 Nicole Blanca (d-I-l) [phone], to patient's son, Chuck Blanca Jr @[phone]. Linda Blanca () [phone]. Family states that patient has fallen multiple times and EMS was called to assist in getting patient out of the floor. CM will follow and assist with dc planning. Hillary Rodriguez RN DCPIA - Discharge Planning Initial Assessment Updated by [email or web address]: Hillary Rodriguez on 03/10/19 5:26 pm * Is the patient Alert and Oriented? No * How many steps to enter\exit or inside your home? 4 w/rails * PCP Dr. Amy Antonio * Pharmacy [facility]. * Preadmission Environment Home with Family * ADLs Total Dependent * Equipment Walker * Other Equipment NA * List name and contact numbers for known caregivers / representatives who currently or will assist patient after discharge: Nory Blanca (d-i-l) [phone]. Nicole Blanca (d-i-l) [phone]. Chuck Blanca Jr (son) [phone]. Linda Blanca () [phone]. * Verbal permission to speak to the caregivers and representatives has been obtained from the patient. Yes * Please name any agencies selected above. NA * Additional services required to return to the preadmission environment? Yes * Can the patient safely return to the preadmission environment? No * Has this patient been hospitalized within the prior 30 days at any hospital? No Coverage Notice Reviewer: [id number] Bennett García Notice Issued Date-Time: 03/15/2019 9:52 Notice Type: Patient Choice Letter Notice Delivered To: Family Member Relationship to Patient: Daughter in Law Fabrication And Assembly Supervisor Name: Nicole Blanca Delivery Method: PHONE - Phone Renetta Days: Prior Verbal Notification: Recipient Understood Notice: Yes Recipient Signature: Med Rec Note Co-signed by Attending: Coverage Notice Comment: HIRAM for [place] [facility], then [facility] Last DP export: 03/15/19 10:30 am Patient Name: CHUCK BLANCA Page [id number] at 1607 All edits/amendments must be made on the electronic document DICTATION DATE: 03/15/191605 PLASTERER MAINTENANCE: LITZY 03/15/191605 RPT#: [id number] DC DATE: STATUS: ADM IN [facility] [address] [place] [address] END OF REPORT
--- NOTE | 2019-03-15 16:15 | MORECARE ---
CASE MANAGEMENT DISCHARGE SUMMARY PATIENT: CHUCK BLANCA UNIT: [id number] ADM DATE: 03/10/19 AGE: 83 : 36 SEX: M ROOM/BED: D.2202 AUTHOR: EVARISTODOC PHYSICIAN: REFERRING PHYSICIAN: AZEB SANON DO DATE OF SERVICE: 03/15/19 Discharge Plan Patient Name: CHUCK BLANCA Facility: [facility]:[place] : 1935 Planned Disposition: Inpatient Rehab Anticipated Discharge Date: 03/15/19 Discharge Date: Expected LOS: 5 Initial Reviewer: [id number] Initial Review Date: 03/10/2019 Generated: 03/15/19 5:15 pm Comments DCP- Discharge Planning Updated by [email or web address]: Karyna Stauffer on 03/15/19 3:[address] LATE ENTRY 1100 PATIENT WAS ACCEPTED TO INPATIENT REHAB. THE DAUGHTER IN LAW HAS AGREEDED TO THE DISCHARGE TO RE[facility] AT [facility]. PATIENT WAS ASSGNED TO RM 1112 B WITH TRANSFER TIME BETWEEN 1400- 1500. DCP- Discharge Planning Updated by [id number]: Martha García on 03/15/19 10:[address] I spoke with patient's daughter in law, Nicole Blanca, she agrees with discharging today to inpatient rehab. I called Pamela Gibson APN for discharge orders. CM will continue to follow and assist with discharge planning/needs. DCP- Discharge Planning Updated by [id number]: Martha Machucaraúl on 03/15/19 8:[address] Patient's DIL (Nicole Blanca) called me and states she would like her father to go to LTC and has chosen [facility] [facility] and [facility]. I called [facility] and spoke to tari Bentleyxjose f. CM will continue to follow and assist with discharge planning/needs. DCP- Discharge Planning Updated by [id number]: Nicole Henry on 03/13/19 8:[address] Patient Name: CHUCK BLANCA Admission Status: ER Accout number: [id number] Admission Date: 03-10-2019 : 1935 Admission Diagnosis:URINARY TRACT INFECTION, SITE NOT SPECIFIED Attending: AZEB SANON Current LOS: 3 Anticipated DC Date: Planned Disposition: Primary [facility] Discharge Planning Comments: INSURANCE HAS APPROVED [facility] FOR HIM. CM TO FOLLOW. Automatic Toe Laster: Nicole Henry DCP- Discharge Planning Updated by [email or web address]: Hillary Jennifer on 03/10/19 4:[address] CM met with patient, Natasha Blanca and son Ming Blanca regarding dc plans/needs. Patient has an AMS. Patient lives with his , Nicole Blanca, who has requested that his children find placement for him either in a Senior psych, when medically cleared, then a skilled facility. CM provided a list of facilities to family. Patient is a total care patient and is caregiver, she is currently @[facility] having had surgery. PCP: Dr. Amy Antonio. Pharmacy: [facility]. DME: [facility]. States incontinent at times. HHS: none. Family denies hospital admission in past 30 days. Transportation at time of dc: accepting facility. Emergency contact: #1 Nory Blanca (natasha) #[phone], #2 Nicole Blanca (judy-I-l) [phone], to patient's son, Chuck Blanca Jr @[phone]. Linda Blanca () [phone]. Family states that patient has fallen multiple times and EMS was called to assist in getting patient out of the floor. CM will follow and assist with dc planning. Hillary Rodriguez RN DCPIA - Discharge Planning Initial Assessment Updated by [id number]: Hillary Rodriguez on 03/10/19 5:26 pm * Is the patient Alert and Oriented? No * How many steps to enter\exit or inside your home? 4 w/rails * PCP Dr. Amy Antonio * Pharmacy [facility]. * Preadmission Environment Home with Family * ADLs Total Dependent * Equipment Walker * Other Equipment NA * List name and contact numbers for known caregivers / representatives who currently or will assist patient after discharge: Nory Blanca (natasha) [phone]. Nicole Blanca (judy-i-l) [phone]. Chuck De La Vega Evangelist Nino (son) [phone]. Linda Blanca () [phone]. * Verbal permission to speak to the caregivers and representatives has been obtained from the patient. Yes * Please name any agencies selected above. NA * Additional services required to return to the preadmission environment? Yes * Can the patient safely return to the preadmission environment? No * Has this patient been hospitalized within the prior 30 days at any hospital? No Coverage Notice Reviewer: [id number] Bennett García Notice Issued Date-Time: 03/15/2019 9:52 Notice Type: Patient Choice Letter Notice Delivered To: Family Member Relationship to Patient: Daughter in Law Reel Stripper Name: Nicole Blanca Delivery Method: PHONE - Phone Renetta Days: Prior Verbal Notification: Recipient Understood Notice: Yes Recipient Signature: Med Rec Note Co-signed by Attending: Coverage Notice Comment: HIRAM for [place] [facility], then [facility] Last DP export: 03/15/19 3:07 pm Patient Name: CHUCK BLANCA Page [id number] at 1615 All edits/amendments must be made on the electronic document DICTATION DATE: 03/15/19 1614 BUCKET HOOKER: LITZY 03/15/19 1614 RPT#: [id number] DC DATE: STATUS: ADM IN [facility] [address] [place] [address] END OF REPORT
--- NOTE | 2019-03-15 16:20 | NUR ---
DISCHARGE PAPERWORK SIGNED, ALL QUESTIONS ANSWERED. PT TAKEN TO REHAB BY WHEELCHAIR.
--- NOTE | 2019-03-15 16:44 | MORECARE ---
CASE MANAGEMENT DISCHARGE SUMMARY PATIENT: CHUCK BLANCA UNIT: [id number] ADM DATE: 03/10/19 AGE: 83 : 36 SEX: M ROOM/BED: D.2202 AUTHOR: LARRY LOERA PHYSICIAN: REFERRING PHYSICIAN: AZEB SANON DO DATE OF SERVICE: 03/15/19 Discharge Plan Patient Name: CHUCK BLANCA Facility: [facility]:[place] : 1935 Planned Disposition: Inpatient Rehab Anticipated Discharge Date: 03/15/19 Discharge Date: 03/15/2019 Expected LOS: 5 Initial Reviewer: [email or web address] Initial Review Date: 03/10/2019 Generated: 03/15/19 5:44 pm Comments DCP- Discharge Planning Updated by [email or web address]: Karyna Stauffer on 03/15/19 3:[address] LATE ENTRY 1100 PATIENT WAS ACCEPTED TO INPATIENT REHAB. THE DAUGHTER IN LAW HAS AGREEDED TO THE DISCHARGE TO REHAB AT [facility]. PATIENT WAS ASSGNED TO RM 1112 B WITH TRANSFER TIME BETWEEN 1400- 1500. PATIENT IS CONFUSED AT TIMES AND VERY LETHARGIC THIS AM. DISCHARGE IMM NOT OBTAINED. DCP- Discharge Planning Updated by [id number]: Martha García on 03/15/19 10:[address] I spoke with patient's daughter in law, Nicole Blanca, she agrees with discharging today to inpatient rehab. I called Pamela Gibson APN for discharge orders. CM will continue to follow and assist with discharge planning/needs. DCP- Discharge Planning Updated by [id number]: Martha García on 03/15/19 8:[address] Patient's DIL (Nicole Blanca) called me and states she would like her father to go to LTC and has chosen [facility]. I called Sarah Beth and spoke to tari Bentley faxjose f. CM will continue to follow and assist with discharge planning/needs. DCP- Discharge Planning Updated by [email or web address]: Nicole Henry on 03/13/19 8:[address] Patient Name: CHUCK BLANCA Admission Status: ER Accout number: [id number] Admission Date: 03-10-2019 : 1935 Admission Diagnosis:URINARY TRACT INFECTION, SITE NOT SPECIFIED Attending: AZEB SANON Current LOS: 3 Anticipated DC Date: Planned Disposition: Primary Insurance: [employer] Discharge Planning Comments: INSURANCE HAS APPROVED [facility] FOR HIM. CM TO FOLLOW. Ferryboat Operator Cable: Nicole Henry DCP- Discharge Planning Updated by [id number]: Hillary Rodriguez on 03/10/19 4:[address] CM met with patient, Svitlana Blanca and son Ming Blanca regarding dc plans/needs. Patient has an AMS. Patient lives with his , Nicole Blanca, who has requested that his children find placement for him either in a Senior psych, when medically cleared, then a skilled facility. CM provided a list of facilities to family. Patient is a total care patient and is caregiver, she is currently @[facility] having had surgery. PCP: Dr. Amy Antonio. Pharmacy: [facility]. DME: cananthony hines. States incontinent at times. HHS: none. Family denies hospital admission in past 30 days. Transportation at time of dc: accepting facility. Emergency contact: #1 Nory Blanca (judy-alexey-l) #[phone], #2 Nicole Blanca (judy-I-l) [phone], to patient's son, Chuck Blanca Jr @[phone]. Linda Blanca () [phone]. Family states that patient has fallen multiple times and EMS was called to assist in getting patient out of the floor. CM will follow and assist with dc planning. Hillary Rodriguez RN DCPIA - Discharge Planning Initial Assessment Updated by [email or web address]: Hillary Rodriguez on 03/10/19 5:26 pm * Is the patient Alert and Oriented? No * How many steps to enter\exit or inside your home? 4 w/rails * PCP Dr. Amy Antonio * Pharmacy [facility]. * Preadmission Environment Home with Family * ADLs Total Dependent * Equipment Walker * Other Equipment NA * List name and contact numbers for known caregivers / representatives who currently or will assist patient after discharge: Nory Evangelist (d-i-l) [phone]. Nicole Blanca (d-i-l) [phone]. Chuck Blanca (son) [phone]. Linda Blanca () [phone]. * Verbal permission to speak to the caregivers and representatives has been obtained from the patient. Yes * Please name any agencies selected above. NA * Additional services required to return to the preadmission environment? Yes * Can the patient safely return to the preadmission environment? No * Has this patient been hospitalized within the prior 30 days at any hospital? No Coverage Notice Reviewer: [id number] Bennett García Notice Issued Date-Time: 03/15/2019 9:52 Notice Type: Patient Choice Letter Notice Delivered To: Family Member Relationship to Patient: Daughter in Law Kiss Mixer Name: Nicole Blanca Delivery Method: PHONE - Phone Renetta Days: Prior Verbal Notification: Recipient Understood Notice: Yes Recipient Signature: Med Rec Note Co-signed by Attending: Coverage Notice Comment: HIRAM for [facility], then [facility] Last DP export: 03/15/19 3:15 pm Patient Name: CHUCK BLANCA Page 22898 at 1644 All edits/amendments must be made on the electronic document DICTATION DATE: 03/15/191642 BULL RIVETER: LITZY 03/15/191642 RPT#: [id number] DC DATE:03/15/19 STATUS: DIS IN [facility] [address] [place] [address] END OF REPORT
--- NOTE | 2019-03-15 18:41 | MORECARE ---
CASE MANAGEMENT DISCHARGE SUMMARY PATIENT: CHUCK BLANCA UNIT: [id number] ADM DATE: 03/10/19 AGE: 83 : 36 SEX: M ROOM/BED: D.2202 AUTHOR: LARRY LOERA PHYSICIAN: REFERRING PHYSICIAN: AZEB SANON DO DATE OF SERVICE: 03/15/19 Discharge Plan Patient Name: CHUCK BLANCA Facility: [facility]:[place] : 1935 Planned Disposition: Inpatient Rehab Anticipated Discharge Date: 03/15/19 Discharge Date: 03/15/2019 Expected LOS: 5 Initial Reviewer: [email or web address] Initial Review Date: 03/10/2019 Generated: 03/15/19 7:41 pm Comments DCP- Discharge Planning Updated by [email or web address]: Karyna Stauffer on 03/15/19 3:[address] LATE ENTRY 1100 PATIENT WAS ACCEPTED TO INPATIENT REHAB. THE DAUGHTER IN LAW HAS AGREEDED TO THE DISCHARGE TO REHAB AT [facility]. PATIENT WAS ASSGNED TO RM 1112 B WITH TRANSFER TIME BETWEEN 1400- 1500. PATIENT IS CONFUSED AT TIMES AND VERY LETHARGIC THIS AM. DISCHARGE IMM NOT OBTAINED. DCP- Discharge Planning Updated by [email or web address]: Martha García on 03/15/19 10:[address] I spoke with patient's daughter in law, Nicole Blacna, she agrees with discharging today to inpatient rehab. I called Pamela Gibson APN for discharge orders. CM will continue to follow and assist with discharge planning/needs. DCP- Discharge Planning Updated by [id number]: Martha García on 03/15/19 8:[address] Patient's DIL (Nicole Blanca) called me and states she would like her father to go to LTC and has chosen [facility]. I called Sarah Beth and spoke to tari Bentley faxjose f. CM will continue to follow and assist with discharge planning/needs. DCP- Discharge Planning Updated by [email or web address]: Nicole Henry on 03/13/19 8:[address] Patient Name: CHUCK BLANCA Admission Status: ER Accout number: [id number] Admission Date: 03-10-2019 : 1935 Admission Diagnosis:URINARY TRACT INFECTION, SITE NOT SPECIFIED Attending: AZEB SANON Current LOS: 3 Anticipated DC Date: Planned Disposition: Primary Insurance: [employer] Discharge Planning Comments: INSURANCE HAS APPROVED [facility] FOR HIM. CM TO FOLLOW. Personnel Director: Nicole Henry DCP- Discharge Planning Updated by [id number]: Hillary Rodriguez on 03/10/19 4:[address] CM met with patient, Svitlana Blanca and son Ming Blanca regarding dc plans/needs. Patient has an AMS. Patient lives with his , Nicole Blanca, who has requested that his children find placement for him either in a Senior psych, when medically cleared, then a skilled facility. CM provided a list of facilities to family. Patient is a total care patient and is caregiver, she is currently @[facility] having had surgery. PCP: Dr. Amy Antonio. Pharmacy: [facility]. DME: cananthony hines. States incontinent at times. HHS: none. Family denies hospital admission in past 30 days. Transportation at time of dc: accepting facility. Emergency contact: #1 Nory Blanca (judy-alexey-l) #[phone], #2 Nicole Blanca (judy-I-l) [phone], to patient's son, Chuck Blanca Jr @[phone]. Linda Blanca () [phone]. Family states that patient has fallen multiple times and EMS was called to assist in getting patient out of the floor. CM will follow and assist with dc planning. Hillary Rodriguez RN DCPIA - Discharge Planning Initial Assessment Updated by [email or web address]: Hillary Rodriguez on 03/10/19 5:26 pm * Is the patient Alert and Oriented? No * How many steps to enter\exit or inside your home? 4 w/rails * PCP Dr. Amy Antonio * Pharmacy [facility]. * Preadmission Environment Home with Family * ADLs Total Dependent * Equipment Walker * Other Equipment NA * List name and contact numbers for known caregivers / representatives who currently or will assist patient after discharge: Nory Evangelist (d-i-l) [phone]. Nicole Blanca (d-i-l) [phone]. Chuck Blanca Jr (son) [phone]. Linda Blanca () [phone]. * Verbal permission to speak to the caregivers and representatives has been obtained from the patient. Yes * Please name any agencies selected above. NA * Additional services required to return to the preadmission environment? Yes * Can the patient safely return to the preadmission environment? No * Has this patient been hospitalized within the prior 30 days at any hospital? No Coverage Notice Reviewer: [id number] Bennett García Notice Issued Date-Time: 03/15/2019 9:52 Notice Type: Patient Choice Letter Notice Delivered To: Family Member Relationship to Patient: Daughter in Law Lead Pony Rider Name: Nicole Blanca Delivery Method: PHONE - Phone Renetta Days: Prior Verbal Notification: Recipient Understood Notice: Yes Recipient Signature: Med Rec Note Co-signed by Attending: Coverage Notice Comment: HIRAM for [facility], then [facility] Last DP export: 03/15/19 3:44 pm Patient Name: CHUCK BLANCA Page 40799 at 1841 All edits/amendments must be made on the electronic document DICTATION DATE: 03/15/191840 HARDBOARD GRINDER: LITZY 03/15/191840 RPT#: [id number] DC DATE:03/15/19 STATUS: DIS IN [facility] [address] [place] [address] END OF REPORT
--- NOTE | 2019-03-16 08:05 | NUR ---
OT NOTE: (DOS 03/15/19) PT COMPLETED BED MOB TASKS WITH SBA. PT COMPLETED UE AROM AXS. PT COMPLETED FACE WASH WITH SET UP. PT REQUIRED EXTENSIVE CUES FOR INCREASED TASK SEQUENCING. THANK YOU, MERLY KRUSE
== END 2019-03-15 16:21 | DRG 604 ==
LOC: D.ER 11:37 → D.MS 16:30
PROVIDERS: Family Medicine; Orthopaedic Surgery; ADMIT Family Medicine; ATTEND Family Medicine
PROC: 0JCP0ZZ Extirpation of Matter from Left Lower Leg Subcutaneous Tissue and Fascia, Open Approach (ICD-10-PCS; principal; 2019-03-13 11:15)
DX: S80.12XA Contusion of left lower leg, initial encounter (principal); G93.41 Metabolic encephalopathy; N39.0 Urinary tract infection, site not specified; F03.90 Unspecified dementia, unspecified severity, without behavioral disturbance, psychotic disturbance, mood disturbance, and anxiety; I10 Essential (primary) hypertension

== ENCOUNTER 2019-03-15 16:06 | Inpatient (IN) | payer OTHER ==
[~2019-03-15] VITALS: Ht 182.9 cm; Wt 105.2 kg
[~2019-03-15 16:06] MED LIST: ARICEPT23 MG PO; ASPIRIN81 MG PO; K-DUR20 MEQ PO; LISINOPRIL20 MG PO; MULTI-DAY VITAM1 TAB PO; MYRBETRIQ50 MG PO; NORVASC10 MG PO; PRAVACHOL40 MG PO; RANITIDINE HCL150 M1 PO; SEROQUEL25 MG PO; ZOLOFT100 MG PO; [UNRECOGNIZED DRUG - OTHER] PO
[2019-03-15 16:16] VITALS: BP 155/62; BMI 31.5
[2019-03-15 16:25] VITALS: BP 155/90
--- NOTE | 2019-03-15 17:37 | NUR ---
SITTING UP IN BED FINISHING SUPPER. IS ALERT AND ANSWERS QUESTIONS. IS CONFUSED. STILL THINKS ITS 2012. CALL LIGHT IN REACH
[2019-03-15 19:28] VITALS: BP 182/73
--- NOTE | 2019-03-15 21:37 | NUR ---
THE PATIENT APPEARED TO BE SLEEPING BUT EASILY AWOKE WHEN STAFF ENTERED HIS ROOM. BED IS IN THE LOW POSITION WITH SIDERAILS X2 AND CALL LIGHT WITHIN REACH. THE PATIENT WAS EDUCATED ON THE NEED TO CALL FOR STAFF WHENEVER HE NEEDS TO GET OUT OF BED AND DEMONSTRATES UNDERSTANDING VIA TEACHBACK METHOD. THE PATIENT APPEARS COMFORTABLE WITH NO QUESTIONS OR COCNERNS AT THIS TIME.
--- NOTE | 2019-03-16 05:10 | NUR ---
THE PATIENT IA AWAKE AND TALKING TO STAFF. HE HAS NO QUESTIONS OR CONCERNS AT THIS TIME.
[2019-03-16 07:01] LABS: BASOPHILS 0.4 % (0-2); EOSINOPHILS 3.4 % (0-7); HEMATOCRIT 38.7 % (42.0-54.0); IMMATURE GRANULOCYTES 0.4 % (0-5); LYMPHOCYTES 33.8 % (15-50); MCH 30.6 pg (26.0-34.0); MCHC 33.6 g/dL (31.0-37.0); MCV 91.1 fL (80.0-100.0); MEAN PLATELET VOLUME 11.4 fL (7.4-10.4); MONOCYTES 11.3 % (2-11); NEUTROPHILS 50.7 % (40-80); PLATELET COUNT 149 10x3/uL (130-400); RBC 4.25 10x6/uL (4.20-6.10); RDW 13.6 % (11.5-14.5)
[2019-03-16 07:29] LABS: CALC OSMOLALITY 284 mosm/kg (275-300); CALCIUM 8.9 mg/dL (8.5-10.1); CARBON DIOXIDE 30.3 mmol/L (21.0-32.0); CHLORIDE - SERUM 109 mmol/L (98-107); CREATININE - SERUM 0.9 mg/dL (0.6-1.3); GLUCOSE 113 mg/dL (74-106); SODIUM 143 mmol/L (136-145); UREA NITROGEN 10 mg/dL (7-18); eGFR NON AFRICAN AMERICAN 86 mL/min (90-120)
[2019-03-16 07:31] LABS: POTASSIUM - SERUM 4.1 mmol/L (3.5-5.1)
[2019-03-16 07:55] VITALS: BP 145/80
--- NOTE | 2019-03-16 08:15 | NUR ---
PT IN BATHROOM WITH THERAPIST TAKING SHOWER I TOLD PT THAT I BROUGHT HIS TRAY AND IT WAS ON HIS BEDSIDE TABLE HE SAID ARE YOU GONNA FEED ME. I TOLD HIM NO THAT HE WAS ABLE TO DO THAT FOR HIM SELF
[2019-03-16 11:33] VITALS: Ht 182.9 cm; Wt 105.2 kg
--- NOTE | 2019-03-16 12:54 | NUR ---
I have reviewed this patient and I concur with the Shift Assessment completed by the Licensed Practical Nurse today this shift.
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
--- NOTE | 2019-03-16 13:30 | NUR ---
CALLED HIS DAUGHTER AND EXPLAINED HIS BEHAVOIR DAUGHTER SAID THAT SHE WOULD LIKE FOR HIM TO HAVE A PSYCH CONSULT WILL ADRESS WITH DR NGUYEN
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
--- NOTE | 2019-03-16 18:15 | NUR ---
PT RESTING IN BED WITH EYES OPEN WATCHING TV REFUSED TO EAT SUPPER SAID IT STUNK GET IT OUT OF ROOM CALL LIGHT IN REACH BED ALARM ON
--- NOTE | 2019-03-16 18:27 | NUR ---
HELPED PATIENT OUT OF BR TO BED. REPLACED SMALL DRESSING TO L LEG, PATIENT HAD TAKEN OFF PER SELF. DOES NOT LIKE TO BE INSTRUCTED ON TRANSFERS OR SAFETY. WOULDN'T WAIT FOR US TO POSITION WC OR TO LOCK WC. JUMPED OUT OF CHAIR AND WHEN WE TRIED TO SUPPORT HIM FOR SAFETY (TOUCHED HIM ARM) HE SAID "DON'T TOUCH ME."
--- NOTE | 2019-03-16 20:00 | NUR ---
THE PATIENT WAS LYING IN BED AND WATCHING TELEVISION WHEN STAFF ENTERED HIS ROOM. BED IS IN THE LOW POSITION WITH SIDERAILS X2 AND CALL LIGHT WITHIN REACH. THE PATIENT WAS EDUCATED ON THE NEED TO CALL FOR STAFF WHENEVER HE NEEDS TO GET OUT OF BED. RE-EDUCATION IS NEEDED. THE PATIENT APPEARS COMFORTABLE WITH NO QUESTIONS OR COCNERNS AT THIS TIME.
[2019-03-16 20:38] VITALS: BP 157/65
--- NOTE | 2019-03-17 07:40 | NUR ---
PT RESTING ON THE SIDE OF BED SHAVING CALL LIGHT IN REACH WILL MONITER
--- NOTE | 2019-03-17 12:46 | NUR ---
I have reviewed this patient and I concur with the Shift Assessment completed by the Licensed Practical Nurse today this shift.
--- NOTE | 2019-03-17 17:49 | NUR ---
PT RESTING IN BED WITH EYES OPEN CALL LIGHT IN REACH WILL MONITER
--- NOTE | 2019-03-17 20:25 | NUR ---
THE PATIENT WAS LYING IN BED AND WATCHING TELEVISION WHEN STAFF ENTERED HIS ROOM. BED IS IN THE LOW POSITION WITH SIDERAILS X2 AND CALL LIGHT WITHIN REACH. THE PATIENT WAS EDUCATED TO CALL FOR STAFF WHENEVER HE NEEDS TO GET OUT OF BED. FURTHER EDUCATION NEEDED. THE PATIENT APPEARS COMFORTABLE WITH NO QUESTIONS OR COCNERNS AT THIS TIME.
[2019-03-17 20:37] VITALS: BP 130/64
[2019-03-18 06:32] LABS: BASOPHILS 0.4 % (0-2); EOSINOPHILS 3.7 % (0-7); HEMATOCRIT 43.3 % (42.0-54.0); HEMOGLOBIN 14.4 g/dL (13.5-17.5); IMMATURE GRANULOCYTES 0.6 % (0-5); LYMPHOCYTES 27.6 % (15-50); MCH 30.7 pg (26.0-34.0); MCHC 33.3 g/dL (31.0-37.0); MCV 92.3 fL (80.0-100.0); MEAN PLATELET VOLUME 11.8 fL (7.4-10.4); MONOCYTES 10.3 % (2-11); NEUTROPHILS 57.4 % (40-80); PLATELET COUNT 109 10x3/uL (130-400); RBC 4.69 10x6/uL (4.20-6.10); RDW 13.6 % (11.5-14.5); WBC 7.3 10x3/uL (4.8-10.8)
[2019-03-18 06:46] LABS: CALC OSMOLALITY 288 mosm/kg (275-300); CALCIUM 9.1 mg/dL (8.5-10.1); CARBON DIOXIDE 29.3 mmol/L (21.0-32.0); CHLORIDE - SERUM 108 mmol/L (98-107); CREATININE - SERUM 0.9 mg/dL (0.6-1.3); GLUCOSE 118 mg/dL (74-106); POTASSIUM - SERUM 4.1 mmol/L (3.5-5.1); SODIUM 144 mmol/L (136-145); eGFR NON AFRICAN AMERICAN 86 mL/min (90-120)
[2019-03-18 06:59] LABS: UREA NITROGEN 14 mg/dL (7-18)
--- NOTE | 2019-03-18 09:06 | NUR ---
PT AM MEDS ADMINISTERED. PT RESTING IN BED AND DENIES NEEDS. WCTM.
[2019-03-18 09:29] VITALS: BP 142/65
--- NOTE | 2019-03-18 10:03 | NUR ---
SPOKE WTH DAUGHTER N LAW AND THE FAMILY WANTS PATIENT TO DISCHARGE TO [facility] INSURANCE APPROVES. WILL CONTINE TO FOLLOW WITH PATIENT.
--- NOTE | 2019-03-18 11:13 | NUR ---
NUTRITION F/U CHART REVIEWED, PT OOR. TOLERATING REG DIET BUT PO INTAKE VARIES FROM MEAL TO MEAL. WILL CONTINUE TO PROVIDE DIET, MONITOR PO INTAKE. RD FOLLOWING
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
--- NOTE | 2019-03-18 19:15 | NUR ---
RESTING IN BED WITH EYES CLOSED AND RESPIRATIONS UNLABORED. NO ACUTE DISTRESS NOTED. CALL LIGHT IN REACH.
[2019-03-18 20:22] VITALS: BP 164/63
--- NOTE | 2019-03-19 02:22 | NUR ---
RESTING IN BED WITH RESPIRAITONS [id number]. NO DISTRESS NOTED. CALL SHALONDA NEGRON.
--- NOTE | 2019-03-19 05:04 | NUR ---
AWAKE AND SITTING ON SIDE OF BED DRINKING COFFEE. WANTS HIS TO COME HERE. I TOLD HIM PERHAPS SHE WOULD VISIT LATER THIS MORNING. HE DID SLEEP LONG INTERVALS TONIGHT. NO ACUTE DISTRESS NOTED.
[2019-03-19 08:00] VITALS: BP 140/59
--- NOTE | 2019-03-19 08:16 | NUR ---
PT AM MEDS ADMINISTERED. PRN ATIVAN GIVEN FOR AGITATION THIS AM. PT DENIES NEEDS. WCTM.
--- NOTE | 2019-03-19 19:36 | NUR ---
RESTING IN BED WITH EYES CLOSED AND RESPIRATIONS UNLABORED. NO ACUTE DISTRESS NOTED. CALL LIGHT IN REACH.
[2019-03-19 20:02] VITALS: BP 130/47
--- NOTE | 2019-03-20 03:43 | NUR ---
RESTING IN BED WITH RESPIRATIONS UNLABORED. NO DISTRESS NOTED. CALL LIGHTIN REACH.
--- NOTE | 2019-03-20 04:57 | NUR ---
RESTING IN BED WITH RESPIRATIONS UNLABORED. NO DISTRESS NOTED. CALL LIGHT IN REACH.
[2019-03-20 08:02] VITALS: BP 154/81
--- NOTE | 2019-03-20 08:04 | NUR ---
ALERT WITH CONFUSION NOTED. NO C/O PAIN. CL IN REACH. RESP EVEN AND UNLABORED.
[2019-03-20 08:20] LABS: CALC OSMOLALITY 288 mosm/kg (275-300); CALCIUM 8.8 mg/dL (8.5-10.1); CARBON DIOXIDE 32.9 mmol/L (21.0-32.0); CHLORIDE - SERUM 107 mmol/L (98-107); CREATININE - SERUM 0.9 mg/dL (0.6-1.3); GLUCOSE 136 mg/dL (74-106); SODIUM 143 mmol/L (136-145); UREA NITROGEN 19 mg/dL (7-18); eGFR NON AFRICAN AMERICAN 86 mL/min (90-120)
[2019-03-20 08:23] LABS: BASOPHILS 0.2 % (0-2); EOSINOPHILS 2.2 % (0-7); HEMATOCRIT 42.1 % (42.0-54.0); HEMOGLOBIN 13.9 g/dL (13.5-17.5); IMMATURE GRANULOCYTES 0.5 % (0-5); LYMPHOCYTES 24.9 % (15-50); MCH 30.9 pg (26.0-34.0); MCV 93.6 fL (80.0-100.0); MEAN PLATELET VOLUME 11.7 fL (7.4-10.4); MONOCYTES 9.4 % (2-11); NEUTROPHILS 62.8 % (40-80); RDW 13.9 % (11.5-14.5); WBC 8.8 10x3/uL (4.8-10.8)
[2019-03-20 08:25] LABS: PLATELET COUNT 172 10x3/uL (130-400)
--- NOTE | 2019-03-20 12:09 | RHP ---
PATIENT: CHUCK FERNANDEZ MEDICAL RECORD: [id number] ACCOUNT: [id number] LOCATION:[place] [address] : [birth year] ADMISSION DATE: 03/15/19 REHABILITATION HISTORY AND PHYSICAL EXAMINATION POST ADMISSION PHYSICIAN EXAMINATION DATE OF ADMISSION: 03/15/2019 ADMITTING DIAGNOSIS: Metabolic encephalopathy. HISTORY OF PRESENT ILLNESS: The patient admitted for a nontraumatic diagnosis of metabolic encephalopathy. The patient is an 83-year-old morbidly obese gentleman with dementia and hypertension, presented to ED with left leg swelling. He had increased confusion, weakness, recent falls and loss of ADLs. He was admitted to the acute hospital with UTI, multiple falls, fracture of the left tibial tuberosity. He had an orthopedic surgery consult for left knee during his acute stay and an I&D for hematoma. He has progressed with therapy and is confused. His confusion is slowly clearing. He is continued on IV antibiotics, receiving OT and PT. Monitoring intake and output. He has got increased confusion, impaired mobility, gait disturbance, deconditioning, debility, he is high fall risk and self-care deficits. These are all barriers to his discharge home. He lives at home with his . He was recently being hospitalized. He is moderately independent with his mobility with use of single point cane, was independent with moderately independent with his ADLs prior to this hospitalization. Currently set up for max assist with ADLs and mod assist to total assist with mobility. He and his family would like for him to return home at his prior level of functioning or better if possible. COMORBIDITIES: Include altered mental status, mass of lower leg, fracture of the left tibial tuberosity, morbid obesity, dementia, UTI, metabolic encephalopathy, multiple falls, fracture of the left tibial tuberosity, left tib-fib hematoma, dementia and hypertension. PAST MEDICAL HISTORY: Significant for problems with his vision. He has also got a history of hypertension and also dementia. PAST SURGICAL HISTORY: Includes a total knee replacement. ALLERGIES: No known drug allergies. CURRENT MEDICATIONS: Include a multivitamin daily, lisinopril 20 mg daily, aspirin chewable 81 mg daily, Norvasc 10 mg daily, Zoloft 50 mg b.i.d., famotidine 20 mg b.i.d., Seroquel 25 mg at bedtime, Pravachol 40 mg at bedtime, potassium 10 mEq at bedtime, Aricept 20 mg at bedtime and also polyethylene glycol 17 grams in 8 ounces of water daily. HABITS: No current alcohol or tobacco use. FAMILY HISTORY: Noncontributory. SOCIAL HISTORY: The patient hopes to return back home and get back to his prior level of functioning. REVIEW OF SYSTEMS: GENERAL: He does complain of weakness and fatigue. HISTORY AND PHYSICAL [id number] CHUCK FERNANDEZ HEENT: Denies cold, cough, or congestion. CARDIOVASCULAR: Denies any chest pain. LUNGS: Does complain of occasional shortness of breath. PHYSICAL EXAMINATION: VITAL SIGNS: Stable. He is afebrile. GENERAL: A morbidly obese gentleman in no acute distress upon exam. HEENT: Normocephalic and atraumatic. Mucosa moist. NECK: Supple, with no lymphadenopathy. LUNGS: Clear in upper herrera. HEART: Regular rate and rhythm. No murmurs, rubs or gallops. ABDOMEN: Benign. EXTREMITIES: Does have postop changes noted, but normal postop swelling. No signs of infection. NEUROLOGIC: He does have difficulty with mentation. LABORATORY DATA: His white count is 7.0, H&H of 13 and 38 and platelet count is noted to be 149. Sodium 143, potassium 4.1, BUN and creatinine of 10 and 0.9, blood sugar is noted to be 113. ASSESSMENT: This is an 83-year-old gentleman admitted to the rehab with a working diagnosis of metabolic encephalopathy complicated by a fracture of his lower extremity. The patient has potential to make improvement. We instituted the following multidisciplinary therapies include, but not limited to physical, occupational, respiratory, speech, nutritional services, prosthetics and orthotics. Given his complex medical condition and risks for more complications, rehabilitation services cannot be provided at a low level of care such as skilled nurse facility. PLAN: 1. Admit to [facility] for inpatient therapy to include the following disciplines; A. Physical therapy to improve gait, all transfer skills and bed mobility to a modified independent level. B. Occupational therapy to a modified independent level. C. Case management to assist with discharge planning and placement options. D. Nutrition to assist with nutritional needs. E. Rehabilitation nursing to assist in monitoring the patient's underlying medical conditions and to assist with any type of bowel or bladder management. 2. The patient's current medication and medical care will be continued. 3. The patient will be placed on standard fall precautions. 4. The patient's estimated length of stay is approximately 7-10 days. 5. We will discuss this patient during care team staff meeting this week. TRANSINT:[id number] Voice Confirmation ID: [id number] DOCUMENT ID: [id number] ALLYSSA notes whether there has been none or any medical/functional change since admission: - No change since prescreen. ALLYSSA attests patient continues to be appropriate for IRF: - Continues to be appropriate. HISTORY AND PHYSICAL [id number] CHUCK FERNANDEZ,FLIP RICKS MD at 1209 CC: [id number] DICTATION DATE: 03/16/19913 FAMILY LITERACY COORDINATOR: 03/16/19 0949 ADM IN [place] [id number] [place] [id number]
--- NOTE | 2019-03-20 12:49 | NUR ---
SHOWER GIVEN TODAY PER OT.
--- NOTE | 2019-03-20 12:56 | NUR ---
DR HERNANDEZ NOTIFIED OF PATIENT STILL MAKING INAPPROPRIATE COMMENTS TO WOMEN ABOUT THEIR BODY PARTS. HE WILL SPEAK TO PATIENT AGAIN TODAY.
--- NOTE | 2019-03-20 13:18 | NUR ---
REFUSED TO DO THERAPY THIS AFTERNOON.
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
--- NOTE | 2019-03-20 17:19 | NUR ---
NO CHANGE IN ASSESSMENT. RESTING WO DISTRESS. CL IN REACH.
[2019-03-20 21:28] VITALS: BP 143/65
--- NOTE | 2019-03-21 04:33 | NUR ---
I have reviewed this patient and I concur with the Shift Assessment completed by the Licensed Practical Nurse today this shift.
--- NOTE | 2019-03-21 04:34 | NUR ---
I have reviewed this patient and I concur with the Shift Assessment completed by the Licensed Practical Nurse today this shift.
--- NOTE | 2019-03-21 06:49 | NUR ---
PT IN BED LOWEST POSITION, EYES CLOSED, AROUSES EASILY, RESPIRATIONS EVEN AND UNLABORED, NO IMMEDIATE NEEDS NOTED, FLUIDS AND CALL LIGHT WITHIN REACH
[2019-03-21 08:00] VITALS: BP 156/60
[2019-03-21] MEDS ORDERED: GEODON20 MG PO (08:27)
--- NOTE | 2019-03-21 09:40 | NUR ---
PATIENT HAS BEEN ACCEPTED TO [facility] AND WILL TRANSPORT THERE VIA FACILITY VAN TODAY PER FAMILY REQUEST. FACILITY WILL MAKE A FOLLOW UP APPOINTMENT WITH PATIENT PCP, DR. DARWIN SALCIDO AT DISCHARGE . NO HOME HEALTH OR DME NEEDED AT THIS TIME.PATIENT CHOICE FORM AND IMFM FORMS SIGNED, COPY SENT WITH PATIENT. DISCHARGE INSTRUCTIONS WITH FIM DATA FAXED TO PCP, SNF AND REVIEWED WITH PATIENT PER NURSE.
--- NOTE | 2019-03-21 09:50 | NUR ---
PT AM MEDS ADMINISTERED. PT DISCHARGE INSTRUCTIONS REV'D. PT IS CONFUSED TO WHY HE IS GOING TO [facility] AND IS REQUESTING TO BE WITH HIS . CALLED PHONE NUMBER ON RECORD, NO ANSWER. WAITING ON [facility] STAFF TO ARRIVE TO LINE SERVICE ATTENDANT PT AT THIS TIME.
--- NOTE | 2019-03-21 11:39 | NUR ---
PT DISCHARGED WITH [facility] AT THIS TIME.
--- NOTE | 2019-03-21 13:10 | NUR ---
CLINICAL UPDATES WITH CLINICAL DISCHARGE FAXED TO MARGAR[facility] AT , AUTH. # [id number] WITH CONFORMATION RECIEVED
--- NOTE | 2019-03-21 13:25 | PN ---
PATIENT:CHUCK FERNANDEZ MEDICAL RECORD: [id number] LOCATION:[facility]111 ADMISSION DATE: 03/15/19 PROGRESS NOTE DATE OF SERVICE: 03/20/2019 SUBJECTIVE: The patient's case was discussed with staff. He has no new complaint. OBJECTIVE: The patient denies intent to harm himself or others. He denies that he has had any interactions that are problematic with the staff. He is poorly oriented. He says he wants to go home. He does not want to be on rehab. He does not want to be on the behavioral unit. ASSESSMENT: 1. Major depression. 2. Senile dementia of the Alzheimer's type. PLAN: The patient has been started on medications. I think they have been effective. There have been some reports of some threatening behavior where he shook his fist or raised his cane at someone in anger, but no actual open aggression that I am aware of. On the other hand, he has also been very inappropriate with the staff, rude, abusive, condescending, and made a number of sexually inappropriate comments. I think that this is probably related to his underlying personality and is unlikely to respond to either therapy or pharmacologic management. I suspect he has probably been an exceptionally pleasant man through much of his adult life and now that he has developed dementia he has lost the filters that prevented him from interacting in that way. He is taking the Geodon and I think that has helped his behavior. He is also taking the Zoloft for his depression. He does not meet criteria for an inpatient psychiatric hospitalization and he does not want an inpatient psychiatric hospitalization and frankly the symptoms that I could address or treat are very marginal at best. Because of his inappropriate behavior and only marginal participation in any kind of therapy, I would suggest that he just be discharged if he is not manageable there. I do not think there is much that can be done about his underlying personality disorder and behaviors beyond sternly and strictly enforcing civilized protocol in his interactions with others. Naturally, the decision to discharge him lies solely in the hands of the attending physician, but I do not think he would benefit from a stay on geropsych unit. TRANSINT:[id number] Voice Confirmation ID: [id number] DOCUMENT ID: [id number] GE HERNANDEZ MD at 3709 CC: [id number] DICTATION DATE: 03/20/19 1308 MERCHANDISE EXECUTION LEADER: 03/20/19 1331 DIS IN 03/21/19 [place] [id number] [place] [id number]
== END 2019-03-21 11:40 | DRG 71 ==
LOC: D.REHAB 16:06
PROVIDERS: ADMIT Emergency Medicine; ATTEND Emergency Medicine
DX: G93.41 Metabolic encephalopathy (principal); F03.91 Unspecified dementia, unspecified severity, with behavioral disturbance; N39.0 Urinary tract infection, site not specified; E66.01 Morbid (severe) obesity due to excess calories; S82.152D Displaced fracture of left tibial tuberosity, subsequent encounter for closed fracture with routine healing; I10 Essential (primary) hypertension; T14.8XXD Other injury of unspecified body region, subsequent encounter; W19.XXXD Unspecified fall, subsequent encounter; R22.40 Localized swelling, mass and lump, unspecified lower limb; Z68.31 Body mass index [BMI] 31.0-31.9, adult

== ENCOUNTER 2019-04-09 18:22 | Inpatient (IN) | payer OTHER ==
[~2019-04-09] VITALS: Ht 182.9 cm; Wt 144.1 kg
[~2019-04-09 18:22] MED LIST changes: +GEODON20 MG PO
[2019-04-09 20:23] VITALS: BP 138/57
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
--- NOTE | 2019-04-09 22:25 | NUR ---
PATIENT CAME OUT OF ROOM AND STATED, "I HEARD LATTER DAY MUSIC! DID YOU HEAR IT? I MAY NOT BE WELL AFTER ALL!" PATIENT'S HEARING AIDS WERE OUT AT THE TIME.
--- NOTE | 2019-04-09 22:44 | NUR ---
NEW ADMIT TO DOCTOR HERNANDEZ FROM [facility] RELATED TO ALTERED MENTAL STATUS AND AGGRESSION WITH STAFF. PATIENT RECEIVED VIA EMS. NOTED ANXIETY AND AGITATION ON ADMIT. REFUSED ADMIT ASSESSMENT. PATIENTS CALLED AND ADMIT CONSENT RECEIVED. CODE WORD OF INJURY RECEIVED. CODE STATUS OF DNR RECEIVED. REDIRECT AND REORIENT NEEDED. RESTING IN BED WITH EYES CLOSED AT THIS TIME.
[2019-04-09] MEDS ORDERED: MELATONIN 3 MG1 TAB PO (23:30)
[2019-04-09] MEDS ORDERED: NYAMYC60 GM TP (23:34)
[2019-04-09] MEDS ORDERED: KLOR-CON 1010 MEQ PO (23:38)
[2019-04-09 23:54] VITALS: BMI 43.2
[2019-04-10 06:29] LABS: BASOPHILS 0.3 % (0-2); EOSINOPHILS 2.2 % (0-7); HEMATOCRIT 43.1 % (42.0-54.0); HEMOGLOBIN 14.5 g/dL (13.5-17.5); IMMATURE GRANULOCYTES 0.3 % (0-5); LYMPHOCYTES 31.6 % (15-50); MCH 30.7 pg (26.0-34.0); MCHC 33.6 g/dL (31.0-37.0); MCV 91.1 fL (80.0-100.0); MONOCYTES 10.7 % (2-11); NEUTROPHILS 54.9 % (40-80); PLATELET COUNT 159 10x3/uL (130-400); RBC 4.73 10x6/uL (4.20-6.10); RDW 13.4 % (11.5-14.5); WBC 7.8 10x3/uL (4.8-10.8)
[2019-04-10 07:20] LABS: ALBUMIN 3.1 g/dL (3.4-5.0); ALKALINE PHOSPHATASE 80 U/L (46-116); ALT (SGPT) 15 U/L (10-68); BILIRUBIN - TOTAL 0.79 mg/dL (0.2-1.3); CALC OSMOLALITY 284 mosm/kg (275-300); CARBON DIOXIDE 31.9 mmol/L (21.0-32.0); CHLORIDE - SERUM 104 mmol/L (98-107); CHOL - HDL RATIO 3.3 ratio (2.3-4.9); CHOLESTEROL, TOTAL 147 mg/dL (0-200); CREATININE - SERUM 0.9 mg/dL (0.6-1.3); GLUCOSE 132 mg/dL (74-106); HDL CHOLESTEROL 45 mg/dL (32-96); LDL CHOLESTEROL 74 mg/dL (0-100); LDL-HDL RATIO 1.6 ratio (1.5-3.5); POTASSIUM - SERUM 3.9 mmol/L (3.5-5.1); PROTEIN - SERUM 6.6 g/dL (6.4-8.2); SODIUM 142 mmol/L (136-145); THYROID STIMULATING HORMONE 1.86 uIU/mL (0.36-3.74); TRIGLYCERIDE 141 mg/dL (30-200); UREA NITROGEN 13 mg/dL (7-18); eGFR NON AFRICAN AMERICAN 86 mL/min (90-120)
--- NOTE | 2019-04-10 10:26 | NUR ---
RECEIVED PATIENT IN DINING ROOM FOR B'FAST, ALERT, CALM, COOPERATIVE, NO EXIT-SEEKING NOTED THUS FAR TODAY. PT EAGERLY AWAITING THE ARRIVAL OF DOCTOR. NO BEHAVIORAL ISSUES NOTED AT THIS TIME. CONT POC DIRECTED.
[2019-04-10 10:59] VITALS: BP 135/69
[2019-04-10 12:46] VITALS: BMI 43.2
[2019-04-10 13:40] VITALS: Ht 182.9 cm; Wt 144.1 kg
--- NOTE | 2019-04-10 21:52 | NUR ---
PATIENT IS CONFUSED, DEMANDING, CAN MAKE NEEDS KNOWN, COMPLIANT WITH MEDS. WILL FOLLOW POC
[2019-04-11 06:09] LABS: RAPID PLASMA REAGIN Non Reactive (Non Reactive)
--- NOTE | 2019-04-11 10:37 | NUR ---
Team Treatment Review: Diet: Regular Diet PO Intake: 73% avg per 3 meals Wt: 317 lbs (No recent wt changes) Meds: KCl, MVI -Will Monitor Closely -Will Provide supplements if PO <50% for meals -Clinical Dietitian Following
[2019-04-11 10:44] VITALS: BP 141/53
--- NOTE | 2019-04-11 11:21 | PSY ---
PATIENT NAME:CHUCK FERNANDEZ MEDICAL RECORD: [id number] : 36 LOCATION:[facility]Y Gonzalez6 ADMISSION DATE: 04/09/19 ACCOUNT: [id number] PSYCHIATRIC EVALUATION DATE OF EVALUATION: 04/10/19 PSYCHIATRIC EVALUATION IDENTIFYING DATA: The patient is 83 years old and he is admitted to the hospital on a voluntary basis. CHIEF COMPLAINT: Agitation. HISTORY OF PRESENT ILLNESS: The patient lives in a local halfway. He has a history of dementia and he has been or was agitated. He apparently has been disruptive at the halfway. Upon arriving here, he continued to be disruptive, making verbal attacks on the staff and throwing racial epithets about. When interviewed, he is cooperative, but clearly quite confused. He apparently does not take this business very seriously and he is being flippant and making jokes that are not wildly inappropriate, but they are designed either to cover or mask the fact that he can answer questions clearly because he cannot remember or perhaps some other reason. He, for this reason, is giving me information that I do not think is very reliable. I actually do know the patient from previous contact. About a month ago, he was hospitalized on the rehab unit for deconditioning of all things. I did not know that that was something that rehab units did. At any rate, he was aggressive and verbally abusive with the staff there and I saw him. At that time, I diagnosed him with dementia and said that he was delirious secondary to multiple metabolic factors. He, at that time, did not want to be admitted to the behavioral unit and was not having symptoms that were acute enough to mandate it. PAST MEDICAL HISTORY: Significant for hypertension and obesity. He has also had a total knee replacement, although I cannot remember which side. PAST PSYCHIATRIC HISTORY: Significant for the interaction I had with him a month ago and diagnosed him with dementia. I suspect he has a long-standing history of being an exceptionally difficult and unpleasant man, but he probably was able to mask most of his thoughts and behaviors to be functional in a civil society. He was in the [employer] for many years and retired as a senior master sergeant, so I know he at least in the past had the ability to control his impulses. FAMILY HISTORY: Unknown. ALLERGIES: No known drug allergies. CURRENT MEDICINES: See the admission's MAR. SOCIAL HISTORY: The patient is . He does have adult children. He has no history of drug or alcohol abuse at least by his report. MENTAL STATUS EXAMINATION: The patient is awake, alert, and oriented to person and place only. He is not oriented to situation. His mood is angry. His affect is constricted. Thought processes are circumstantial and he is minimally cooperative with the mental status exam. Either by direct examination or inference, his memory, concentration, and abstraction abilities are at least moderately impaired. He denies thoughts of harming himself or others. He denies psychotic symptoms and in fact is very insulted by the questions. ASSETS: Supportive family members. LIABILITIES: Limited insight. DIAGNOSTIC IMPRESSION: AXIS I: Major neurocognitive disorder of the Alzheimer's type with behavioral disturbances. AXIS II: Cluster B personality traits. AXIS III: Obesity, hypertension, and osteoarthritis. AXIS IV: Moderate psychosocial stressors. AXIS V: Global assessment of functioning is 30. PLAN: The patient is admitted to the hospital secondary to confused, agitated, vulgar, disruptive, and combative behavior at the halfway. He has displayed some of those behaviors here just in the first 18 hours of his admission. At this point, I am going to enroll him in the usual pradhan therapies and activities and we will continue to observe. I am going to continue his medications from the halfway and I will be starting him on medications for mood stabilization as appropriate based upon the outcome of my evaluation. I am hopeful that he can return to the halfway and be cared for. It appears that that is the least restrictive environment that is practically available to him and his is also a patient at that particular halfway. TRANSINT:[id number] Voice Confirmation ID: [id number] DOCUMENT ID: [id number] GE HERNANDEZ MD at 1121 CC: [id number] DICTATION DATE: 04/10/19 1650 EMERGENCY SERVICE WORKER: 04/10/19 191 [facility] IN [facility] [address] [place] [id number]
--- NOTE | 2019-04-11 18:32 | NUR ---
CONFUSED AND DISORIENTED.VERY POOR SHORT TERM MEMORY.COMPLIANT WITH STAFF AND MEDS.CAN TRANSFER SELF FROM WHEELCHAIR TO CHAIR,ETC.WILL CONTINUE WITH PLAN OF CARE,MONITOR FOR CHANGES AND SAFETY,
[2019-04-11 19:36] VITALS: BP 103/76
--- NOTE | 2019-04-11 21:00 | NUR ---
PATIENT IS VERY CONFUSED, DEMANDING AT TIMES, HE DOES NOT RESPECT OTHERS. COMPLIANT WITH MEDS, WILL FOLLOW POC
[2019-04-12 08:23] VITALS: BP 145/64
--- NOTE | 2019-04-12 15:14 | PN ---
PATIENT:CHUCK FERNANDEZ MEDICAL RECORD: [id number] LOCATION:[facility] Barnhart112 ADMISSION DATE: 04/09/19 PROGRESS NOTE DATE OF SERVICE: 04/11/2019 SUBJECTIVE: The patient's case was discussed with staff. He has no new complaint. OBJECTIVE: The patient is eating and sleeping well, but he has been very aggressive and disruptive with the staff. ASSESSMENT: No change in diagnoses. PLAN: Current medicines have been reviewed and will be maintained. I am going to give them another day to see if they are going to have any effect on his behaviors. TRANSINT:[id number] Voice Confirmation ID: [id number] DOCUMENT ID: [id number] GE HERNANDEZ MD at 1514 CC: [id number] DICTATION DATE: 04/11/19 1303 PAPER BOX MAKER: 04/11/19 1315 ADM IN [place] [id number] [place] [address]
--- NOTE | 2019-04-12 16:13 | NUR ---
SPOKE WITH PATIENT . CODEWORD GIVEN. INQUIRED ABOUT PATIENT BEHAVIOR AND IF SHE SHOULD COME TO VISIT DURING WEEKEND VISITATION HOURS. NURSE DID EXPLAIN WE WOULD RECOMMAND TIME FOR PATIENT TO SETTLE INTO ENVIROMENT BEFORE VISITORS. NURSE RECOMMANDED IF COMING FOR VISIT TO CALL AND SEE HOW THE PATIENT IS DOING THAT DAY FOR VISITATION.
--- NOTE | 2019-04-12 18:13 | NUR ---
PATIENT WANTED TO SPEAK WITH POLICE OFFICERS. THIS NURSE HAD SECURITY COME TO THE UNIT TO SPEAK WITH PATIENT. PRIOR TO SECURITY COMING TO UNIT PATIENT WAS VERY AGITATED WITH STAFF AND SACARSTIC. WHEN SECURITY CAME HE BECOME CALM AND TALKED WITH SECURITY. PATIENT HAS POOR SHORT TERM MEMORY. WILL CONT TO REDIRECT AND PLAN OF CARE.
[2019-04-12 20:50] VITALS: BP 102/56
--- NOTE | 2019-04-13 03:33 | NUR ---
B) patient is alert and oriented to person and place at times, calm and cooperative, I) Administered scheduled medications as ordered, redirected and reoriented as needed, R) Mediation compliant, follows instructions P) Continue plan of care.
[2019-04-13 06:59] LABS: APPEARANCE TURBID (CLEAR); BACTERIA NONE SEEN /hpf (NONE SEEN); BILIRUBIN NEGATIVE (NEGATIVE); COLOR BROWN (YELLOW); GLUCOSE NEGATIVE (NEGATIVE); KETONE SMALL mg/dL (NEGATIVE); NITRITE NEGATIVE (NEGATIVE); PROTEIN 2+ mg/dL (NEGATIVE); RED CELLS - URINE >50 /hpf (0-5); UROBILINOGEN NORMAL (NORMAL); WHITE CELLS - URINE RARE /hpf (0-5)
[2019-04-13 08:06] VITALS: BP 125/54
--- NOTE | 2019-04-13 11:16 | PN ---
PATIENT:CHUCK FERNANDEZ MEDICAL RECORD: [id number] LOCATION:JOS[facility] Barnhart112 ADMISSION DATE: 04/09/19 PROGRESS NOTE DATE OF SERVICE: 04/12/2019 SUBJECTIVE: The patient's case was discussed with staff. He has no new complaint. OBJECTIVE: The patient is severely impaired cognitively. Repeatedly, asks the same questions and then argues with the answers. He does so in a way that is marginally confrontational. He has almost no insight about his situation or his inability to properly care for himself. He is convinced that he has nothing wrong with his cognition. ASSESSMENT: No change in diagnoses. PLAN: The patient will be given Aricept at a dose of 5 mg at bedtime. Aricept is being used to treat his underlying cognitive impairment. He will be monitored for clinical changes associated with its use. TRANSINT:[id number] Voice Confirmation ID: [id number] DOCUMENT ID: [id number] GE HERNANDEZ MD at 1116 CC: [id number] DICTATION DATE: 04/12/19 1522 TECHNICAL SUPPORT CONSULTANT: 04/12/19 1528 ADM IN [place] [id number] [place] [id number]
--- NOTE | 2019-04-13 14:14 | NUR ---
IS ORIENTED TO SELF ONLY.HAS VERY POOR SHORT TERM MEMORY.STATES"I'M JUST COMMING BACK FROM [place],I HAVEN'T SEEN MY IN 3 YEARS." REPEATEDLY ASK THE SAME QUESTIONS OVER AND OVER.IS COMPLIANT WITH STAFF AND MEDS.NO EXIT SEEKING OBSERVED TODAY.WILL CONTINUE WITH PLAN OF CARE,MONITOR FOR SAFETY AND CHANGES.
[2019-04-13 20:40] VITALS: BP 116/59
--- NOTE | 2019-04-14 01:56 | NUR ---
B) Patient is alert and oriented to person, can be oriented to place but he will soon forget, I) Administered scheduled medications as ordered, oriented as needed, assisted with needs R) Mediation compliant, transfer independantly P) Continue plan of care.
[2019-04-14 07:00] VITALS: BP 112/65
--- NOTE | 2019-04-14 11:09 | NUR ---
RECEIVED PATIENT IN D/R FOR B'FAST, ALERT, CALM, POOR SHORT TERM MEMORY, DEMANDING, CONFUSED, INSISTS THAT HE IS BEING HELD HOSTAGE. NO AGGRESSION. COOPERATIVE WITH PLAN OF CARE. CONT POC INCLUDING MEDS AND GROUP THERAPY DIRECTED.
--- NOTE | 2019-04-14 13:34 | PN ---
PATIENT:CHUCK FERNANDEZ MEDICAL RECORD: [id number] LOCATION:JOSY Gonzalez ADMISSION DATE: 04/09/19 PROGRESS NOTE DATE OF SERVICE: 04/13/2019 SUBJECTIVE: The patient's case was discussed with staff. He has no new complaint. OBJECTIVE: The patient is somewhat sleepy today. I am not sure what I can attribute this to. He did not receive any p.r.n. medication last night. ASSESSMENT: No change in diagnoses. PLAN: The patient's medicines have been reviewed. I am going to consolidate his antidepressant into a single daily dose. He is not receiving anything on a scheduled basis that would be notoriously responsible for his sedation. TRANSINT:[id number] Voice Confirmation ID: [id number] DOCUMENT ID: [id number] GE HERNANDEZ MD at 1334 CC: [id number] DICTATION DATE: 04/13/19 1121 PERFUME AND TOILET WATER MAKER: 04/13/19 1141 ADM IN [place] [id number] [place] [address]
--- NOTE | 2019-04-14 21:37 | NUR ---
B.) PATIENT IS DEMANDING AT TIMES. HE IS AMBULATORY BUT WITH AN UNSTEADY GAIT. I.) PROVIDED PM MEDICATIONS. INFORMED OF FALL RISK AND OFFERED A WHEELCHAIR FOR ASSISTANCE. R.) PATIENT IS COMPLIANT WITH ALL MEDICATIONS. PT USES ZIA-CHAIR TO ASSIST. P.) CONTINUE PLAN OF CARE
[2019-04-15 07:00] VITALS: BP 146/72
--- NOTE | 2019-04-15 14:03 | NUR ---
PT IS AWAKE AND ALERT TO PERSON AND PLACE. CALM AND COOPERATIVE WITH ASSESSMENT. REDIRECT AND REORIENT NEEDED. MED COMPLIANT. NO AGGRESSION. FALL PRECAUTIONS IN PLACE. WILL CPOC.
[2019-04-15 20:27] VITALS: BP 163/65
--- NOTE | 2019-04-15 21:09 | NUR ---
RECEIVED IN DAYROOM. SITTING IN A WHEELCHAIR WITH STAFF AND PEERS BY HIS SIDE. CALM AND COOPERATIVE WITH CARE AND ASSESSMENT. NO SIGNS OF AGGRESSION. CONFUSED. POOR SHORT TERM MEMORY. REDIRECT AND REORIENT NEEDED. STANDING AT NURSES STATION AT THIS TIME TALKING TO STAFF. CONTINUE PLAN OF CARE.
--- NOTE | 2019-04-15 21:36 | NUR ---
GROIN WITH REDNESS NOTED. NYSTOP POWDER APPLIED TO GROIN AREA PER ORDERS.
[2019-04-16 07:00] VITALS: BP 132/70
--- NOTE | 2019-04-16 07:34 | NUR ---
REC'D PT SITING IN W/C WITH PEERS IN HALLWAY BY THE NURSES STATION. PT IS VERY DEMANDING THIS MORNING. PT IS DEMANDING STAFF CALL HIS AND HE LEAVES UNIT AT THIS TIME. REDIRECTED AND REORIENTED PER STAFF. PT BECOMES UPSET AND ROLLS AWAY IN HIS W/C. PT IS VERY CONFUSED. PT HAS NO OR VERY LITTLE SHORT TERM MEMORY AT THIS TIME. PT ROLLED HIMSELF TO BATHROOM AFTER BECOMING UPSET. SHORTLY AFTER PT CAN NOT REMEMBER HE WAS UPSET AND DEMANDING TO LEAVE THE UNIT. MED COMPLIANT. COOPERATIVE WITH ASSESSMENT. FALL PRECAUTIONS IN PLACE. WILL CPOC.
--- NOTE | 2019-04-16 14:05 | PN ---
PATIENT:CHUCK FERNANDEZ MEDICAL RECORD: [id number] LOCATION:JOSY Gonzalez ADMISSION DATE: 04/09/19 PROGRESS NOTE DATE OF SERVICE: 04/14/2019 SUBJECTIVE: The patient's case was discussed with staff. He has no new complaint. OBJECTIVE: The patient is cooperative and has severe memory impairment. He insists he can care for himself, but he cannot get up out of the wheelchair without assistance. ASSESSMENT: No change in diagnoses. PLAN: The patient will be maintained on current medicines. His long-term prognosis is guarded. TRANSINT:[id number] Voice Confirmation ID: [id number] DOCUMENT ID: [id number] GE HERNANDEZ MD at 1405 CC: [id number] DICTATION DATE: 04/14/19 1351 VARNISH DIPPER: 04/14/19 1744 ADM IN [place] [id number] [place] [address]
--- NOTE | 2019-04-16 14:05 | PN ---
PATIENT:CHUCK FERNANDEZ MEDICAL RECORD: [id number] LOCATION:JOSY Gonzalez ADMISSION DATE: 04/09/19 PROGRESS NOTE DATE OF SERVICE: 04/15/2019 SUBJECTIVE: The patient's case was discussed with staff. He has no new complaint. OBJECTIVE: The patient is demanding and rude, but he has not been so in a way that is dangerous to others at this point, at least today. He has almost no insight about his situation everyday, seems to think he has met me for the first time. He insists he can go home and care for himself, which obviously is not the case. ASSESSMENT: No change in diagnoses. PLAN: The patient is in need of 14-kiuw-x-day supervision. His underlying personality is one that is somewhat abrasive. I would think he could reasonably be managed in long-term care at this point if there is tolerance for his vulgar and aggressive language. TRANSINT:[id number] Voice Confirmation ID: [id number] DOCUMENT ID: [id number] GE HERNANDEZ MD at 1405 CC: [id number] DICTATION DATE: 04/15/19 1417 ENTRY LEVEL MANAGER: 04/15/19 1504 ADM IN [facility] [address] [place] [address]
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
[2019-04-16 18:52] VITALS: BP 143/57
--- NOTE | 2019-04-16 19:18 | NUR ---
RECEIVED IN BEDROOM. RESTING QUIETLY IN BED WITH EYES OPEN. CALM AND COOPERATIVE WITH CARE AND ASSESSMENT. DEMANDING AT TIMES. POOR SHORT TERM MEMORY. NO SIGNS OF AGGRESSION. REDIRECT AND REORIENT NEEDED. RESTING IN BED WITH EYES CLOSED AT THIS TIME. CONTINUE PLAN OF CARE
--- NOTE | 2019-04-17 08:37 | NUR ---
PATIENT WAS AT DESK IN WHEELCHAIR AND STARTED ARGUING, AND THREATENED THIS NURSE TO COME OVER NUSES DESK AND TAKE CARE OF HER. DIFFICULT TO REDIRECT. HE WAS DEMANDING TO GO TO [facility]. HE GOT UPSET, FINALLY WENT TO HIS ROOM AND GOT IN BED. ATIVAN 0.5 MG AND HALDOL 2 MG IM GIVEN FOR SEVER AGITATION.
--- NOTE | 2019-04-17 08:37 | NUR ---
PHARMACY NOTIFIED OF SITUATION: ATIVAN 0.5 MG PO, ACCIDENTALLY RETURNED ATIVAN IM 0.5 MG. BUT ATIVAN 0.5 MG IM NOT RETURNED DUE TO PO ATIVAN RETURNED. IM NOT WASTEDIN PYXIS DUE TO SHOWS RETURNED. SPOKE WITH PARTH IN PHARMACY. NOTE PLACED IN INTERNAL BIN.
--- NOTE | 2019-04-17 09:30 | NUR ---
GOOD RESULTS OBTAINED FROM PRN MEDICATION. CALMER AND IN BETTER MOOD.
[2019-04-17 09:41] VITALS: BP 116/66
--- NOTE | 2019-04-17 14:19 | NUR ---
Nutrition Note: Diet: Regular PO ~62% avg. x last 5 days Wt trend stable +BM Labs and meds reviewed RD will continue to monitor
--- NOTE | 2019-04-17 15:09 | PN ---
PATIENT:CHUCK FERNANDEZ MEDICAL RECORD: [id number] LOCATION:JOSY Barnhart112 ADMISSION DATE: 04/09/19 PROGRESS NOTE DATE OF SERVICE: 04/16/2019 SUBJECTIVE: The patient's case was discussed with staff. He has no new complaint. OBJECTIVE: The patient is sleeping well and he is also eating well. He is over 300 pounds and that is way too much weight for his frame. 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 The patient is sleeping well, but he becomes easily agitated and angry. On a couple of occasions today, it has required 2 staff members to move him from the day room and then interact with him and redirect him. He did not require p.r.n. medication, but that was only because he was being monitored in a 1:1 situation. His short-term memory is so bad that he soon forgot what he was angry about and he could be returned to the day room, but then the same thing happened again. I think at this time in a less restrictive and less well staffed environment such as any detention that his anger would likely lead to an incident that would be unacceptable. ASSESSMENT: No change in diagnoses. PLAN: Somewhat reluctantly I am going to try the patient on a low dose of Klonopin to see if that will take the edge off his anger. Certainly worsening his cognition is an issue, but weighing the risks and benefit, I think that it is reasonable to try this. There is no real issue with making a little unsteady since he is wheelchair bound. TRANSINT:[id number] Voice Confirmation ID: [id number] DOCUMENT ID: [id number] GE HERNANDEZ MD at 1509 CC: [id number] DICTATION DATE: 04/16/19 1425 GARDE MANGER: 04/16/19 1629 ADM IN [place] [id number] [place] [address]
--- NOTE | 2019-04-17 15:12 | NUR ---
PT IS SITTING IN DAYROOM IN W/C WITH PEERS. ALERT TO PERSON. CALM AMD COOPERATIVE WITH ASSESSMENT. MED COMPLIANT. REDIRECT AND REORIENT NEEDED. FALL PRECAUTIONS IN PLACE. WILL CPOC.
[2019-04-17 19:39] VITALS: BP 120/60
--- NOTE | 2019-04-17 20:49 | NUR ---
B) Patient is alert and oriented to person, very short memory, demanding at times, has made threats toward staff, ' I am glad I'm not a violent man' I) Administered scheduled medications as ordered, redirected as needed, monitored for safety R) Mediation compliant, impatient and attention seeking, P) Continue plan of care.
--- NOTE | 2019-04-18 09:00 | NUR ---
RECEIVED PATIENT FOR B'FAST, DROWSY, CALM, COOPERATIVE, CONFUSED, ORIENTED TO PERSON. MEDS ADMIN PER ORDERS WITH COMPLETE MED COMPLIANCE NOTED. COOPERATIVE PLAN OF CARE AND STAFF REQUESTS, NO EXIT-SEEKING NOTED. CONTINUE POC DIRECTED.
[2019-04-18 13:13] VITALS: BP 132/68
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
[2019-04-19 05:19] VITALS: BP 130/67
[2019-04-19 07:53] VITALS: BP 123/50
--- NOTE | 2019-04-19 16:29 | PN ---
PATIENT:CHUCK FERNANDEZ MEDICAL RECORD: [id number] LOCATION:[facility] ADMISSION DATE: 04/09/19 PROGRESS NOTE DATE OF SERVICE: 04/18/2019 SUBJECTIVE: The patient's case was discussed with staff. He has no new complaint. OBJECTIVE: The patient once again meets me for the first time by his recollection. He has had a rough path few days lately. He has been very agitated and p.r.n.'ed multiple times. Today, I informed him about the plan. He seems calm and I know he will not remember this, but I feel it is important to at least tell him once or twice what is going to happen and why. I tell him that he cannot go back home. His is unable to care for him and that he is unable to care for himself and that he is going to be going to a [facility]. He argues with me a little as he has done before about being able to care for himself and insisting that his can care for him even though that is not true, but I am pleased to say he did not lose control of his temper. In fact, it was somewhat sad to see him, so despondent and his eyes teared up. He is not suicidal though and again he did not lose his temper when I told him this. I have given him parts of this when I felt like it was appropriate on previous days, but this is the first time I have given him the whole story in a way that is coherent and logical and I have to say he tolerated it well. ASSESSMENT: No change in diagnoses. PLAN: Current medicines and therapies will be maintained. Long-term prognosis is guarded. TRANSINT:[id number] Voice Confirmation ID: [id number] DOCUMENT ID: [id number] GE HERNANDEZ MD at 1629 CC: [id number] DICTATION DATE: 04/19/19 4130 SENIOR UI UX DEVELOPER: 04/19/19 1606 ADM IN [place] [address] [place] [address]
[2019-04-19 21:00] VITALS: BP 132/64
--- NOTE | 2019-04-20 02:51 | NUR ---
PATIENT IS CONFUSED ALWAYS, NO INSIGHT TO SITUATION, CAN MAKE NEEDS KNOWN, SOMEWHAT DEMANDING AT TIMES. COMPLIANT WITH MEDS. WILL FOLLOW POC
--- NOTE | 2019-04-20 09:30 | PN ---
PATIENT:CHUCK FERNANDEZ MEDICAL RECORD: [id number] LOCATION:[facility] ADMISSION DATE: 04/09/19 PROGRESS NOTE DATE OF SERVICE: 04/19/2019 SUBJECTIVE: The patient's case was discussed with staff. He has no new complaint. OBJECTIVE: The patient is in good behavioral control. He once again met me for the first time today and was startled when I told him things about his past history. He clearly has no short term memory. He has been agitated since I saw him and has required p.r.n. medication. ASSESSMENT: No change in diagnoses. PLAN: I am going to start the patient on a scheduled dose of gabapentin to assist with his mood stabilization. Hopefully, he will respond reasonably to this. I think his overall personality state is one that is accustomed to the behaviors he is displaying and that much of what we are seeing is coarsening of an underlying personality style that has been somewhat maximized by the dementia, which of course is inhibiting him or making him less inhibited. TRANSINT:[id number] Voice Confirmation ID: [id number] DOCUMENT ID: [id number] GE HERNANDEZ MD at 0930 CC: [id number] DICTATION DATE: 04/19/19 1705 CAROUSEL ATTENDANT: 04/19/19 2315 ADM IN [place] [id number] [place] [address]
[2019-04-20 13:07] VITALS: BP 146/74
--- NOTE | 2019-04-20 15:22 | NUR ---
ARGUMENTIVE,WANTS TO LEAVE FACILITY.WILL NOT REDIRECT.CHASED MHT DOWN FERNANDEZ ,POUNDING ON DOOR SHE IS TRYING TO CLOSE IT.ATIVAN 0.5MG AND HALDOL 2MG IM TO LEFT DELTOID.SECURITY WAS CALLED AND HERE TO ASSIST.WOOD CALKER HERE.
--- NOTE | 2019-04-20 16:30 | NUR ---
GOOD RESPONSE TO ATIVAN AND HALDOL INJECTION.SITTING QUIETLY IN RECLINER WITH EYES CLOSED.
--- NOTE | 2019-04-21 02:20 | NUR ---
PATIENT IS CONFUSED, ALWAYS HAS TO BE ORIENTED TO PLACE. PT. IS DEMANDING AND DEMEANING TO OTHERS. COMPLIANT WITH MEDS. WILL FOLLOW POC
[2019-04-21 03:11] VITALS: BP 144/76
[2019-04-21 10:32] VITALS: BP 108/43
--- NOTE | 2019-04-21 10:49 | PN ---
PATIENT:CHUCK FERNANDEZ MEDICAL RECORD: [id number] LOCATION:[facility] ADMISSION DATE: 04/09/19 PROGRESS NOTE DATE OF SERVICE: 04/20/2019 SUBJECTIVE: The patient's case was discussed with staff. He has no new complaint. OBJECTIVE: The patient is significantly calmer. He is sleeping well. He again thinks he is meeting me for the first time today that is consistent with his presentation. He has virtually no short term memory. ASSESSMENT: No change in diagnoses. PLAN: The patient requires 84-ysoz-p-day supervision. What is not clear is what environment or situation would be the least restrictive. TRANSINT:[id number] Voice Confirmation ID: [id number] DOCUMENT ID: [id number] GE HERNANDEZ MD at 1049 CC: [id number] DICTATION DATE: 04/20/19 1131 LEAD SOFTWARE ENGINEER: 04/20/19 1402 ADM IN [place] [id number] [place] [address]
[2019-04-21 20:00] VITALS: BP 139/85
--- NOTE | 2019-04-22 00:09 | NUR ---
RECEIVED IN DAYROOM. RESTING IN A WHEELCHAIR. CALM AND COOPERATIVE WITH CARE AND ASSESSMENT. NO SIGNS OF AGGRESSION. REDIRECT AND REORIENT NEEDED. ASSIST TO BED. RESTING WITH EYES CLOSED. CONTINUE PLAN OF CARE
[2019-04-22 07:00] VITALS: BP 121/64
--- NOTE | 2019-04-22 13:58 | NUR ---
PT IS AWAKE AND ALERT TO PERSON. PT CAN BE VERY DEMADING AND ATTENTION SEEKING WITH STAFF AT TIMES. CALM AND COOPERATIVE WITH ASSESSMENT. MED COMPLIANT. FALL PRECAUTIONS IN PLACE. WILL CPOC.
--- NOTE | 2019-04-22 16:47 | PN ---
PATIENT:CHUCK FERNANDEZ MEDICAL RECORD: [id number] LOCATION:[facility] ADMISSION DATE: 04/09/19 PROGRESS NOTE DATE OF SERVICE: 04/21/2019 SUBJECTIVE: The patient's case was discussed with staff. He has no new complaint. OBJECTIVE: The patient is calm and cooperative today. He did not eat much food yesterday, only about an average of 25% of what was offered to him through the day. This is certainly of concern; however, as he is morbidly obese, it is not an immediate concern. TRANSINT:[id number] Voice Confirmation ID: [id number] DOCUMENT ID: [id number] GE HERNANDEZ MD at 1647 CC: [id number] DICTATION DATE: 04/21/19 1203 SILVER CHASER: 04/21/19 1524 ADM IN [facility] [address] [place] [address]
[2019-04-22 20:03] VITALS: BP 167/86
--- NOTE | 2019-04-22 21:39 | NUR ---
B.) PT IS ALERT AND ORIENTED TO SELF. HE IS OFTEN DISORIENTED OF HIS LOCATION AND SITUATION. HE STATES THAT HE WANTS TO GO HOME TO HIS . I.) PROVIDED PM MEDICATIONS AND REDIRECTED NEEDED. R.) COMPLIANT WITH PM MEDICATIONS. STILL REMAINS CONFUSED DESPITE MULTIPLE ATTEMPTS TO REORIENT. P.) CONTINUE PLAN OF CARE.
[2019-04-23 07:00] VITALS: BP 116/71
--- NOTE | 2019-04-23 14:57 | PN ---
PATIENT:CHUCK FERNANDEZ MEDICAL RECORD: [id number] LOCATION:[facility] ADMISSION DATE: 04/09/19 PROGRESS NOTE DATE OF SERVICE: 04/22/2019 SUBJECTIVE: The patient's case was discussed with staff. He has no new complaint. OBJECTIVE: The patient is in good behavioral control with limited insight about his condition. He does tolerate his medicines well. ASSESSMENT: No change in diagnoses. PLAN: Brief supportive and educational interventions were made. Long-term prognosis is guarded. TRANSINT:[id number] Voice Confirmation ID: [id number] DOCUMENT ID: [id number] GE HERNANDEZ MD at 1457 CC: [id number] DICTATION DATE: 04/22/19 170 GAS REVERSER: 04/22/19 192 ADM IN [place] [address] [place] [address]
--- NOTE | 2019-04-23 15:53 | NUR ---
Nutrition Follow-up: Diet: Regular + Ensure with meals PO intake: 53% average x 9 meals/3 days Wt: 311 (04/21/19)- noted pt down 7# since admit Labs reviewed, started Megace yesterday +BM RD Following
--- NOTE | 2019-04-23 20:30 | NUR ---
RECEIVED SITTING IN CHAIR. MOBILE IN WHEELCHAIR AND CAN AMBULATE SHORT DISTANCES. ASSISTED TO BED. ASKING ABOUT GATHERING ALL HIS CLOTHES. ORIENTED TO SELF AND TIME BUT NOT PLACE OR SITUATION. PATIENT IS DEMANDING AND IMPATIENT. POOR INTERACTION WITH PEERS. ATTEMPTS TO TELL PEERS WHAT TO DO. ADMINISTER MEDS Q SHIFT AND MONITOR COMPLIANCE. REDIRECT WHEN TELLS OTHERS WHAT TO DO. MED COMPLIANT. POOR REDIRECTION. PT BECOMES ARGUMENTATIVE AND WILL BECOME LOUD AND DEMANDING. CONTINUE POC AND PROVIDE SAFE ENVIRONMENT.
[2019-04-23 21:25] VITALS: BP 120/56
[2019-04-24 10:13] VITALS: BP 128/49
--- NOTE | 2019-04-24 13:03 | NUR ---
RECEIVED PATIENT IN DINING ROOM FOR B'FAST, ALERT, CALM, ARGUMENTATIVE WITH MEDS. HOWEVER, MEDS WERE ADMIN PER ORDERS AND PATIENT WAS COMPLIANT. COOPERATIVE WITH PLAN OF CARE, BUT GRUMBLES QUITE OFTEN. CONT POC DIRECTED.
--- NOTE | 2019-04-24 14:55 | PN ---
PATIENT:CHUCK FERNANDEZ MEDICAL RECORD: [id number] LOCATION:[facility] ADMISSION DATE: 04/09/19 PROGRESS NOTE DATE OF SERVICE: 04/23/2019 SUBJECTIVE: The patient's case was discussed with staff. He has no new complaint. OBJECTIVE: The patient is eating and sleeping well. He has been much less agitated. ASSESSMENT: No change in diagnoses. PLAN: Current medicines have been reviewed and will be maintained. Long-term prognosis is guarded. TRANSINT:[id number] Voice Confirmation ID: [id number] DOCUMENT ID: [id number] GE HERNANDEZ MD at 1455 CC: [id number] DICTATION DATE: 04/23/19 1519 CAR FERRIER: 04/23/19 1615 ADM IN [place] [address] [place] [address]
--- NOTE | 2019-04-24 20:30 | NUR ---
RECEIVED PATIENT SITTING IN A WHEELCHAIR IN THE DAYROOM. PATIENT IS DEMANDING. ANGERS EASILY IF EVERYTHING IS NOT DONE THE WAY HE EXPECTS IT TO BE AND WILL ACT OUT PHYSICALLY AND VERBALLY. ALSO TRIES TO TELL PEERS WHAT TO DO. ADMINISTER MEDS PER ORDERS AND MONITOR COMPLIANCE. REDIRECT FOR INAPPROPRIATE BEHAVIORS. MED COMPLIANT. POOR REDIRECTION AND AT TIMES HAS TO BE REMOVED FROM THE DAYROOM UNTIL CAN FOLLOW REDIRECTION. CONTINUE POC AND PROVIDE SAFE ENVIRONMENT.
[2019-04-24 22:52] VITALS: BP 125/60
[2019-04-25 09:00] VITALS: BP 114/51
--- NOTE | 2019-04-25 12:23 | NUR ---
NUTRITION F//U CHART REVIEWED. 7.6# WT LOSS SINCE ADMIT WT OF 317.8# REG DIET, PO INTAKE APPEARS TO HAVE IMPROVED 95% AVERAGE INTAKE RECENT MEALS. NOTE MEGACE HAS BEEN STARTED AND ENSURE ADDED TO MEALS. WILL CONTINUE TO HONOR FOOD PREFERENCES, MONITOR PO INTAKE AND WT, PROVIDE ENSURE. RD FOLLOWING
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
[2019-04-25] MEDS ORDERED: DONEPEZIL HCL10 MG PO (14:47)
[2019-04-25] MEDS ORDERED: KLONOPIN0.5 MG PO (14:48)
[2019-04-25] MEDS ORDERED: GABAPENTIN100 MG PO (14:48)
[2019-04-25] MEDS ORDERED: ZOLOFT100 MG PO (14:48)
[2019-04-25] MEDS ORDERED: LINZESS145 MCG PO (14:49)
[2019-04-25] MEDS ORDERED: MELATONIN 3 MG1 TAB PO (14:49)
[2019-04-25] MEDS ORDERED: FLORAJEN3 CAPS460 MG PO (14:49)
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
[2019-04-25 19:31] VITALS: BP 120/60
--- NOTE | 2019-04-26 09:15 | NUR ---
PATIENT SITTING IN CHAIR EATING BREAKFAST. RESP EVEN AND NONLABORED. NO ACUTE DISTRESS NOTED. PATIENT IS COOPERATIVE THIS SHIFT. PT COMPLIANT WITH MEDS, ASSESSMENTS AND VITALS. NO BEHAVIORS NOTED. PREVIOUS SHIFT DID NOT REPORT ANY BEHAVIORS THIS SHIFT. PT CAN TRANSFER. CHAIR ALARM IN PLACE AND ACTIVE. ASSIST 1X WITH TRANSFER. WILL CONT PLAN OF CARE.
[2019-04-26 09:56] VITALS: BP 142/70
--- NOTE | 2019-04-26 15:42 | PN ---
PATIENT:CHUCK FERNANDEZ MEDICAL RECORD: [id number] LOCATION:[facility] ADMISSION DATE: 04/09/19 PROGRESS NOTE DATE OF SERVICE: 04/25/2019 SUBJECTIVE: The patient's case was discussed with staff. He has no new complaint. OBJECTIVE: The patient is eating and sleeping well. He has no active thoughts of harming himself and has not been aggressive. I think he has reached his baseline level of functioning and does not represent a direct danger to himself or others. I think he can be transitioned out of the hospital tomorrow. TRANSINT:[id number] Voice Confirmation ID: [id number] DOCUMENT ID: [id number] GE HERNANDEZ MD at 1542 CC: [id number] DICTATION DATE: 04/25/19 144 PAYING TELLER: 04/25/[address] [facility] [address] [place] [address]
[2019-04-26 20:00] VITALS: BP 121/49
--- NOTE | 2019-04-26 22:20 | NUR ---
B.) PT IS ALERT AND ORIENTED TO SELF ONLY. NO BEHAVIORS NOTED THE PAST TWO SHIFTS. I.) PROVIDED PM MEDICATIONS PRESCRIBED. R.) COMPLIANT WITH ALL MEDICATIONS P.) CONTINUE PLAN OF CARE
--- NOTE | 2019-04-27 08:08 | NUR ---
Called Jaylyn Rivero APN, the patient's blood pressure is low, and his pulse is 38 manually. She ordered lab and an EKG. His EKG shows low voltage QRS, and an incomplete right bundle branch block, and possible lateral infarct, age undetermined.
[2019-04-27 08:54] LABS: BASOPHILS 0.2 % (0-2); EOSINOPHILS 1.7 % (0-7); HEMATOCRIT 42.3 % (42.0-54.0); HEMOGLOBIN 14.2 g/dL (13.5-17.5); IMMATURE GRANULOCYTES 0.2 % (0-5); LYMPHOCYTES 30.1 % (15-50); MCH 30.5 pg (26.0-34.0); MCHC 33.6 g/dL (31.0-37.0); MEAN PLATELET VOLUME 11.6 fL (7.4-10.4); MONOCYTES 9.7 % (2-11); NEUTROPHILS 58.1 % (40-80); PLATELET COUNT 187 10x3/uL (130-400); RBC 4.65 10x6/uL (4.20-6.10); RDW 14.1 % (11.5-14.5); WBC 9.7 10x3/uL (4.8-10.8)
[2019-04-27 09:09] LABS: ALBUMIN 2.9 g/dL (3.4-5.0); ANION GAP 12.2 mmol/L (8-16); BILIRUBIN - TOTAL 0.63 mg/dL (0.2-1.3); CALCIUM 9.2 mg/dL (8.5-10.1); CARBON DIOXIDE 27.6 mmol/L (21.0-32.0); CREATININE - SERUM 1.2 mg/dL (0.6-1.3); POTASSIUM - SERUM 4.8 mmol/L (3.5-5.1); PROTEIN - SERUM 5.6 g/dL (6.4-8.2)
[2019-04-27 10:51] VITALS: BP 102/47
--- NOTE | 2019-04-27 11:35 | NUR ---
RECEIVED PATIENT IN DINING ROOM FOR B'FAST, ALERT, CALM, CONFUSED, COOPERATIVE. ORIENTED TO PERSON. POOR STM. LARGE DIARRHEA STOOL NOTED BUT WITHIN 20 MINUTES PATIENT HAD FORGOTTEN ABOUT HAVING DIARRHEA, MEDS ADMIN PER ORDERS WITH COMPLETE MED COMPLIANCE NOTED. COOPERATIVE WITH PLAN OF CARE, CONT POC DIRECTED.
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
[2019-04-27 15:14] LABS: CKMB 2.3 U/L (0.0-3.6); CREATINE KINASE 117 UL (21-232)
[2019-04-27 15:18] LABS: TROPONIN-I < 0.017 ng/mL (0.000-0.060)
[2019-04-27 20:00] VITALS: BP 151/73
[2019-04-27 20:32] LABS: CREATINE KINASE 120 UL (21-232)
[2019-04-27 20:33] LABS: TROPONIN-I < 0.017 ng/mL (0.000-0.060)
[2019-04-28 02:16] LABS: CKMB 1.8 U/L (0.0-3.6); CREATINE KINASE 106 UL (21-232); TROPONIN-I < 0.017 ng/mL (0.000-0.060)
--- NOTE | 2019-04-28 03:39 | NUR ---
B) patient is alert and oriented to person, restless at times changing seats frequently, calm and cooperative I) Administered scheduled medications as ordered, assisted with ambulation and self care, R) Mediation compliant, calm and quiet P) Continue plan of care.
[2019-04-28 07:00] VITALS: BP 147/76
--- NOTE | 2019-04-28 09:58 | NUR ---
PATIENT ALERT, CALM, APPETITE GOOD FOR B'FAST, COOPERATIVE. MEDS ADMIN PER ORDERS WITH COMPLETE MED COMPLIANCE NOTED. MEMORY CONT POOR, NO AGGRESSION NOTED. CONT POC DIRECTED.
--- NOTE | 2019-04-28 12:29 | PN ---
PATIENT:CHUCK FERNANDEZ MEDICAL RECORD: [id number] LOCATION:[facility]hart112 ADMISSION DATE: 04/09/19 PROGRESS NOTE DATE OF SERVICE: 04/27/2019 SUBJECTIVE: The patient's case was discussed with staff. He has no new complaint. OBJECTIVE: The patient is in good behavioral control with limited insight about his condition. He has not been aggressive today. ASSESSMENT: No change in diagnoses. PLAN: Current medicines have been reviewed and will be maintained. Long-term prognosis is guarded. TRANSINT:[id number] Voice Confirmation ID: [id number] DOCUMENT ID: [id number] GE HERNANDEZ MD at 1229 CC: [id number] DICTATION DATE: 04/27/19 1233 ENVIRONMENTAL DESIGNER: 04/27/19 1444 ADM IN [place] [address] [place] [address]
[2019-04-28 20:15] VITALS: BP 125/68
--- NOTE | 2019-04-28 23:09 | NUR ---
B.) PT IS ALERT AND ORIENTED TO SELF ONLY. HE HAS POOR INSIGHT INTO HIS SITUATION. I.) REORIENT TO SITUATION OFTEN. R.) DESPITE MULTIPLE ATTEMPTS TO REORIENT HE REMAINS CONFUSED ABOUT HIS SITUATION. P.) CONTINUE PLAN OF CARE
[2019-04-29 07:00] VITALS: BP 142/56
--- NOTE | 2019-04-29 12:59 | NUR ---
RECEIVED PT IN DINING ROOM FOR B'FAST, ALERT, CALM, CONFUSED, DEMANDING AT TIMES. MEDS ADMIN PER ORDERS WITH COMPLETE MED COMPLIANCE NOTED. COOPERATIVE WITH PLAN OF CARE. PT TO DISCHARGE FROM UNIT LATER THIS SHIFT.
--- NOTE | 2019-04-29 14:28 | PN ---
PATIENT:CHUCK FERNANDEZ MEDICAL RECORD: [id number] LOCATION:[facility]hart112 ADMISSION DATE: 04/09/19 PROGRESS NOTE DATE OF SERVICE: 04/28/2019 SUBJECTIVE: The patient's case was discussed with staff. He has no new complaint. OBJECTIVE: The patient denies intent to harm himself or others. He is tolerating his medicines well. Eye contact is fair. ASSESSMENT: No change in diagnoses. PLAN: Current medicines will be maintained. I anticipate he can be transitioned out of the hospital soon. He has had no aggression this weekend. TRANSINT:[id number] Voice Confirmation ID: [id number] DOCUMENT ID: [id number] GE HERNANDEZ MD at 1428 CC: [id number] DICTATION DATE: 04/28/19 1241 AUTOMATION TEST ENGINEER: 04/28/[address] [facility] [address] [place] [id number]
--- NOTE | 2019-04-29 14:30 | EC ---
PATIENT:CHUCK FERNANDEZ DATE OF SERVICE: 04/09/19 SEX: M MEDICAL RECORD: [id number] DATE OF : 37 LOCATION:[facility] AGE OF PATIENT: 83 ADMISSION DATE: 04/09/19 REFERRING PHYSICIAN: INTERPRETING PHYSICIAN: LEATHA RICHMOND MD ECHOCARDIOGRAM REPORT ECHO CHARGES 4 ECHO COMPLETE Date: 04/28/19 CLINICAL DIAGNOSIS: BRADYCARDIA ECHOCARDIOGRAPHIC MEASUREMENTS (adult normal given) AC root (d.<3.7cm) 3.8 cm LV Septum d (<1.2 cm> 1.1 cm Valve Excursion 1.7 cm LV Septum (systole) 1.4 cm Left Atria (s.<4.0cm> 3.9 cm LVPW d(<1.2cm) 1.0 cm RV (d.<2.3cm) 3.7 cm LVPW (sytole) 1.1 cm LV diastole(<5.6CM) 4.8 cm MV E-F(>70mm/sec) cm LV systole 3.7 cm LVOT Diameter 2.2 cm MV exc.(>10mm) cm Est.ejection fraction (50-75%) % DOPPLER: LVIT cm/sec A 116 cm/sec E 68 cm/sec LA cm/sec RVSP 17.5 mmHg LVOT 119 cm/sec AOP1/2T m/s Asc. Ao 149 cm/sec RVOT cm/sec RA cm/sec PA cm/sec AV Gradient Peak 8.9 mmHg AV Mean 5.0 mmHg AV Area 3.0 cm MV Gradient Peak 5.3 mmHg MV Mean 2.8 mmHg MV Area cm COMMENTS: Product Designer: Angelika [facility] Bilingual Office Assistant: 3 Dr. Mendoza TAPE# PACS Pericardial Effusion N DATE OF SERVICE: Adequate 2D, color flow, spectral Doppler, and M-Mode. No LVH. LV internal dimensions are normal. Wall motion is normal. EF is greater than or equal to 55%. Aortic valve is tricuspid. No evidence of stenosis by Doppler interrogation. Left atrium is normal. Mitral valve shows no prolapse. Trace MR. Right-sided chambers are grossly normal. Trace TR. TRANSINT:[id number] Voice Confirmation ID: [id number] DOCUMENT ID: [id number] ECHOCARDIOGRAM REPORT [id number] CHUCK FERNANDEZ LEATHA RICHMOND MD at 1430 CC: [id number] DICTATION DATE: 04/29/19917 AIRLINE RESERVATIONIST: 04/29/1942 ADM IN [facility] [address] [place] [address]
--- NOTE | 2019-04-29 14:33 | NUR ---
REPORT CALLED TO [facility], PERSONAL BELONGINGS RETURNED TO PATIENT. DISCHARGED FROM UNIT IN C/O [facility] PERSONNEL. PT DENIES PAIN, NO S/S DISTRESS, NO BEHAVIORAL ISSUES NOTED.
--- NOTE | 2019-05-01 11:35 | DS ---
PATIENT:CHUCK FERNANDEZ :37 MEDICAL RECORD: [id number] DISCHARGE SUMMARY ADMISSION DATE: 04/09/19 DISCHARGE DATE: 04/29/19 IDENTIFYING DATA: The patient is 83 years old and he was admitted to the hospital on a voluntary basis because of agitation. The patient lives in a local assisted and has a history of dementia. He has been quite agitated at times. He apparently had been disruptive at the assisted and had made some verbal attacks on the staff through some racial epithets or bout, and was generally uncooperative and threatening. He is a very angry man. He is also a very large man over 300 pounds and the assisted felt they could simply not manage him in this condition. HOSPITAL COURSE: The patient was admitted to the hospital and fully evaluated from both a medical, psychological, and social standpoint. He was treated with both mood stabilizing and memory enhancing medications. He was initially extremely disruptive and verbally abusive, but did calm through the course of the hospitalization and it was subsequently felt that he could reasonably be transitioned out of the hospital into a assisted. He indeed was subsequently transitioned to a assisted. DISCHARGE DIAGNOSES: AXIS I: Major neurocognitive disorder of the Alzheimer's type with behavioral disturbances. AXIS II: Cluster B personality traits. AXIS III: Obesity, hypertension and osteoarthritis. AXIS IV: Moderate psychosocial stressors. AXIS V: Global assessment of functioning is 35. PLAN: At the time of discharge, the patient was in good behavioral control with limited insight about his condition. He does tolerate his medicines well. His long-term prognosis is guarded. TRANSINT:[id number] Voice Confirmation ID: [id number] DOCUMENT ID: [id number] GE HERNANDEZ MD at 1135 CC: [id number] DICTATION DATE: 04/30/19 1638 DATA NETWORK ARCHITECT: 04/30/19 2322 DIS IN 04/29/19 [place] [address] [place] [address]
== END 2019-04-29 14:34 | DRG 57 ==
LOC: D.PSYCH 18:22
PROVIDERS: Family Medicine; ADMIT Psychiatry & Neurology Psychiatry; ATTEND Psychiatry & Neurology Psychiatry
DX: G30.9 Alzheimer's disease, unspecified (principal); F02.81 Dementia in other diseases classified elsewhere, unspecified severity, with behavioral disturbance; E66.9 Obesity, unspecified; I10 Essential (primary) hypertension; M19.90 Unspecified osteoarthritis, unspecified site; S82.155D Nondisplaced fracture of left tibial tuberosity, subsequent encounter for closed fracture with routine healing; R53.81 Other malaise; R32 Unspecified urinary incontinence; E78.5 Hyperlipidemia, unspecified; K21.9 Gastro-esophageal reflux disease without esophagitis; F32.9 Major depressive disorder, single episode, unspecified

== ENCOUNTER 2019-05-24 01:52 | Inpatient (IN) | payer OTHER ==
[~2019-05-24] VITALS: Ht 182.9 cm; Wt 128.7 kg
[~2019-05-24 01:52] MED LIST changes: +DONEPEZIL HCL10 MG PO; +FLORAJEN3 CAPS460 MG PO; +GABAPENTIN100 MG PO; +KLONOPIN0.5 MG PO; +KLOR-CON 1010 MEQ PO; +LINZESS145 MCG PO; +MELATONIN 3 MG1 TAB PO; +NYAMYC60 GM TP
[2019-05-24 02:07] LABS: BASOPHILS 0.3 % (0-2); EOSINOPHILS 3.2 % (0-7); HEMOGLOBIN 14.6 g/dL (13.5-17.5); IMMATURE GRANULOCYTES 0.6 % (0-5); LYMPHOCYTES 31.2 % (15-50); MCH 31.1 pg (26.0-34.0); MCHC 34.8 g/dL (31.0-37.0); MCV 89.6 fL (80.0-100.0); MEAN PLATELET VOLUME 11.4 fL (7.4-10.4); MONOCYTES 9.5 % (2-11); NEUTROPHILS 55.2 % (40-80); PLATELET COUNT 200 10x3/uL (130-400); RBC 4.69 10x6/uL (4.20-6.10); RDW 13.5 % (11.5-14.5); WBC 10.1 10x3/uL (4.8-10.8)
--- NOTE | 2019-05-24 02:20 | NUR ---
PT SENT FROM [facility] FOR ABNORMAL LABS, ELEVATED D-DIMER DUE TO PT HAVING BLUE FINGER TIPS.
[2019-05-24 02:22] LABS: ALBUMIN 2.7 g/dL (3.4-5.0); ALKALINE PHOSPHATASE 120 U/L (46-116); ALT (SGPT) 29 U/L (10-68); BILIRUBIN - TOTAL 0.61 mg/dL (0.2-1.3); CALC OSMOLALITY 281 mosm/kg (275-300); CALCIUM 8.8 mg/dL (8.5-10.1); CARBON DIOXIDE 29.3 mmol/L (21.0-32.0); CHLORIDE - SERUM 107 mmol/L (98-107); GLUCOSE 109 mg/dL (74-106); POTASSIUM - SERUM 4.3 mmol/L (3.5-5.1); PROTEIN - SERUM 5.5 g/dL (6.4-8.2); SODIUM 140 mmol/L (136-145); UREA NITROGEN 19 mg/dL (7-18); eGFR NON AFRICAN AMERICAN 76 mL/min (90-120)
[2019-05-24 02:30] LABS: PRO BNP 330 pg/mL (0-450); TROPONIN-I < 0.017 ng/mL (0.000-0.060)
--- NOTE | 2019-05-24 03:20 | NUR ---
OXYGEN DECREASED TO 2 LPM PER ABG RESULTS.
--- NOTE | 2019-05-24 04:00 | NUR ---
URINE SENT TO LAB.
--- NOTE | 2019-05-24 04:09 | NUR ---
PT BREIF CHANGED. PT HAD MACERATED SKIN AROUND BUTTOCKS AND ANUS THAT WAS TENDER TO TOUCH. PT CLEANED WITH WIPES AND BED LINENS STRAIGHTENED. PT TURNED ON RIGHT SIDE FOR COMFORT AT THIS TIME.
--- NOTE | 2019-05-24 04:19 | NUR ---
PT WAS SENT FROM [facility].
[2019-05-24 05:25] VITALS: BP 132/60; BMI 39.3
[2019-05-24] MEDS ORDERED: ASPIRIN81 MG PO (05:57)
[2019-05-24] MEDS ORDERED: IPRAT-ALBUT 0.5-3 ML UPD (05:58)
[2019-05-24] MEDS ORDERED: FUROSEMIDE10 MG/M1 PO (06:00)
[2019-05-24] MEDS ORDERED: FUROSEMIDE20 MG PO (06:01)
--- NOTE | 2019-05-24 07:54 | NUR ---
SLEEPING, FAMILY AT BEDSIDE. TELEMEMERTY SHOWS SR [id number] DEGREE BLOCK.BED ALARM ON. LEFT WRIST WITH NS AT 125. O2 AT 2 L/M PER NC. WILL MONITOR
[2019-05-24 12:53] VITALS: Ht 182.9 cm; Wt 128.7 kg
[2019-05-24 13:45] VITALS: BP 146/56
--- NOTE | 2019-05-24 14:40 | NUR ---
I have reviewed this patient and I concur with the Shift Assessment completed by the Licensed Practical Nurse today this shift.
--- NOTE | 2019-05-24 15:34 | EC ---
PATIENT:CHUCK FERNANDEZ DATE OF SERVICE: 05/24/19 SEX: M MEDICAL RECORD: [id number] DATE OF : 37 LOCATION:D. D.212 AGE OF PATIENT: 83 ADMISSION DATE: 05/24/19 REFERRING PHYSICIAN: INTERPRETING PHYSICIAN: JUAN DAVID FREDERICK MD ECHOCARDIOGRAM REPORT ECHO CHARGES 5 ECHO LIMITED Date: 05/24/19 1 DOPPLER ECHO COLOR FLOW 2 DOPPLER ECHO PULSE CLINICAL DIAGNOSIS: ARRHYTHMIAS ECHOCARDIOGRAPHIC MEASUREMENTS (adult normal given) AC root (d.<3.7cm) 0 cm LV Septum d (<1.2 cm> 0 cm Valve Excursion 0 cm LV Septum (systole) 0 cm Left Atria (s.<4.0cm> 0 cm LVPW d(<1.2cm) 0 cm RV (d.<2.3cm) 0 cm LVPW (sytole) 0 cm LV diastole(<5.6CM) 0 cm MV E-F(>70mm/sec) 0 cm LV systole 0 cm LVOT Diameter 2.2 cm MV exc.(>10mm) 0 cm Est.ejection fraction (50-75%) 0 % DOPPLER: LVIT cm/sec A 0 cm/sec E 0 cm/sec LA 0 cm/sec RVSP 23.4 mmHg LVOT 0 cm/sec AOP1/2T 0 m/s Asc. Ao 0 cm/sec RVOT 0 cm/sec RA 0 cm/sec PA 0 cm/sec AV Gradient Peak 0 mmHg AV Mean 0 mmHg AV Area 0 cm MV Gradient Peak 0 mmHg MV Mean 0 mmHg MV Area 0 cm COMMENTS: LIMITED STUDY (2-D,COLOR,DOPPLER) COMPLETE ECHO DONE ON 04/28/19 Resin Coater: Margret RIOSOE Study Hall Supervisor: 1 Dr. Frederick TAPE# PACS Pericardial Effusion N DATE OF SERVICE: 05/24/2019 PROCEDURE: Echocardiogram. FINDINGS: 1. Left ventricular chamber size is within normal limits. Left ventricular systolic function is normal at 45% to 50%. 2. Left atrium, right atrium, and right ventricular chamber sizes are mildly dilated. 3. Valvular structures have normal structure and motion. ECHOCARDIOGRAM REPORT [id number] CHUCK FERNANDEZ 4. Doppler interrogation reveals no significant valvular insufficiency or stenosis and pulmonary systolic pressure is estimated at 23 mmHg. 5. No evidence of pericardial effusion or left ventricular thrombus. TRANSINT:[id number] Voice Confirmation ID: [id number] DOCUMENT ID: [id number] JUAN DAVID FREDERICK MD at 1534 CC: [id number] DICTATION DATE: 05/24/19 1135 COMMANDER POLICE RESERVES: 05/24/19 1252 ADM IN [facility] [address] [place] [address]
--- NOTE | 2019-05-24 16:16 | MORECARE ---
CASE MANAGEMENT DISCHARGE SUMMARY PATIENT: CHUCK FERNANDEZ UNIT: [id number] ADM DATE: 05/24/19 AGE: 83 : 36 SEX: M ROOM/BED: D.2120 AUTHOR: LARRY LOERA PHYSICIAN: REFERRING PHYSICIAN: DRAKE JAUREGUI MD DATE OF SERVICE: 05/24/19 Discharge Plan Patient Name: CHUCK FERNANDEZ [facility] [facility] 1935 Planned Disposition: Nursing Facility [facility] Anticipated Discharge Date: Discharge Date: Expected LOS: Initial Reviewer: [email or web address] Initial Review Date: 05/24/2019 Generated: 05/24/19 5:16 pm Patient Name: CHUCK FERNANDEZ Page 25170 at 1616 All edits/amendments must be made on the electronic document DICTATION DATE: 05/24/19 1615 OCEAN LIFEGUARD SPECIALIST: LITZY 05/24/195 RPT#: [id number] DC DATE: STATUS: ADM IN [facility] [address] [place] [address] END OF REPORT
--- NOTE | 2019-05-24 16:26 | MORECARE ---
CASE MANAGEMENT DISCHARGE SUMMARY PATIENT: CHUCK FERNANDEZ UNIT: [id number] ADM DATE: 05/24/19 AGE: 83 : 36 SEX: M ROOM/BED: D.2120 AUTHOR: LARRY LOERA PHYSICIAN: REFERRING PHYSICIAN: DRAKE JAUREGUI MD DATE OF SERVICE: 05/24/19 Discharge Plan Patient Name: CHUCK FERNANDEZ Facility: [facility]:[place] : 1935 Planned Disposition: Nursing Facility LUCY Cert Anticipated Discharge Date: Discharge Date: Expected LOS: Initial Reviewer: [email or web address] Initial Review Date: 05/24/2019 Generated: 05/24/19 5:26 pm DCPIA - Discharge Planning Initial Assessment Updated by [email or web address]: Suzy Chapman on 05/24/19 4:20 pm * How many steps to enter\exit or inside your home? * PCP Amy SALCIDO * Pharm[facility] * Preadmission Environment Custodial Facility * Facility Name [facility] * ADLs Partial Dependent * Partial ADLs (Assistance needed) Ambulation Bathing Dressing Eating Medication Management Toileting Transfers * Other Equipment BEDRAILS, WALKER W SEAT, STEP IN SHOWER WITH GRAB BARS * List name and contact numbers for known caregivers / representatives who currently or will assist patient after discharge: JHONY FERNANDEZ - - [phone] DEONNA / MRATHA FERNANDEZ - SON/ DIL - [phone], * Verbal permission to speak to the caregivers and representatives has been obtained from the patient. Yes * Community resources currently utilized None * Additional services required to return to the preadmission environment? No * Can the patient safely return to the preadmission environment? Yes * Has this patient been hospitalized within the prior 30 days at any hospital? Yes Last DP export: 05/24/19 3:16 p Patient Name: CHUCK FERNANEDZ Page 71929 at 1626 All edits/amendments must be made on the electronic document DICTATION DATE: 05/24/198 TEXTILES AND CLOTHING TEACHER: LITZY 05/24/191624 RPT#: [id number] DC DATE: STATUS: ADM IN [facility] [address] [place] [address] END OF REPORT
[2019-05-24 16:32] VITALS: BP 121/57
--- NOTE | 2019-05-24 16:42 | MORECARE ---
CASE MANAGEMENT DISCHARGE SUMMARY PATIENT: CHUCK FERNANDEZ UNIT: [id number] ADM DATE: 05/24/19 AGE: 83 : 36 SEX: M ROOM/BED: D.4520 AUTHOR: EVARISTO,DOC PHYSICIAN: REFERRING PHYSICIAN: DRAKE JAUREGUI MD DATE OF SERVICE: 05/24/19 Discharge Plan Patient Name: CHUCK FERNANDEZ Facility: [facility]:[place] : 1935 Planned Disposition: Nursing Facility LUCY Cert Anticipated Discharge Date: Discharge Date: Expected LOS: Initial Reviewer: [email or web address] Initial Review Date: 05/24/2019 Generated: 05/24/19 5:41 pm Comments DCP- Discharge Planning Updated by [email or web address]: Suzy Chapman on 05/24/19 3:[address] Patient Name: CHUCK FERNANDEZ Admission Status: ER Accout number: [id number] Admission Date: 05-24-2019 : 1935 Admission Diagnosis: Attending: DRAKE JAUREGUI Current LOS: 1 Anticipated DC Date: Planned Disposition: Nursing Facility [facility] Cert [facility] Discharge Planning Comments: CM met with patient and spouse (Jhony) at bedside after explaining CM role and obtaining verbal consent. Patient was admitted from [facility]. Patient's spouse is requesting placement into [facility] upon discharge into Assisted Care. Jhony (spouse) states that she has been working with Rosemarie at [place] trying to get this arranged. Patient will need ONEL his [facility]. CM discussed availability / needs of home health and medical equipment. Patient's denies any discharge needs at this time. CM will continue to follow and assist as needed with discharge planning / needs. Supervisor Curing Room: Suzy Chapman DCPIA - Discharge Planning Initial Assessment Updated by [email or web address]: Suzy Chapman on 05/24/19 4:20 pm * How many steps to enter\exit or inside your home? * PCP Amy SALCIDO * Pharmacy [facility] * Preadmission Environment Snf Facility * Facility Name [facility] * ADLs Partial Dependent * Partial ADLs (Assistance needed) Ambulation Bathing Dressing Eating Medication Management Toileting Transfers * Other Equipment BEDRAILS, WALKER W SEAT, STEP IN SHOWER WITH GRAB BARS * List name and contact numbers for known caregivers / representatives who currently or will assist patient after discharge: JHONY FERNANDEZ - - [phone] DEONNA / MARTHA FERNANDEZ - SON/ DIL - [phone], * Verbal permission to speak to the caregivers and representatives has been obtained from the patient. Yes * Community resources currently utilized None * Additional services required to return to the preadmission environment? No * Can the patient safely return to the preadmission environment? Yes * Has this patient been hospitalized within the prior 30 days at any hospital? Yes Last DP export: 05/24/19 3:26 p Patient Name: CHUCK FERNANDEZ Page 27460 at 1642 All edits/amendments must be made on the electronic document DICTATION DATE: 05/24/191640 ADJUNCT LATIN PROFESSOR: LITZY 05/24/191640 RPT#: [id number] DC DATE: STATUS: ADM IN [facility] [address] [place] [address] END OF REPORT
--- NOTE | 2019-05-24 17:25 | MORECARE ---
CASE MANAGEMENT DISCHARGE SUMMARY PATIENT: CHUCK FERNANDEZ UNIT: [id number] ADM DATE: 05/24/19 AGE: 83 : 36 SEX: M ROOM/BED: D.8860 AUTHOR: EVARISTODOC PHYSICIAN: REFERRING PHYSICIAN: DRAKE JAUREGUI MD DATE OF SERVICE: 05/24/19 Discharge Plan Patient Name: CHUCK FERNANDEZ Facility: [facility]:[place] : 1935 Planned Disposition: Nursing Facility LUCY Cert Anticipated Discharge Date: Discharge Date: Expected LOS: Initial Reviewer: [email or web address] Initial Review Date: 05/24/2019 Generated: 05/24/19 6:25 pm Comments DCP- Discharge Planning Updated by [id number]: Suzy Chapman on 05/24/19 4:[address] Patient Name: CHUCK FERNANDEZ Admission Status: ER Accout number: [id number] Admission Date: 05-24-2019 : 1935 Admission Diagnosis: Attending: DRAKE JAUREGUI Current LOS: 1 Anticipated DC Date: Planned Disposition: Nursing Facility [facility] Cert [facility] Discharge Planning Comments: CM met with patient and spouse (Jhony) at bedside after explaining CM role and obtaining verbal consent. [facility] Patient's spouse is requesting placement into [facility] upon discharge into Snf Care. Jhony (spouse) states that she has been working with Rosemarie at [place] trying to get this arranged. Patient will need ONEL [facility]. CM discussed availability / needs of home health and medical equipment. Patient's denies any discharge needs at this time. CM will continue to follow and assist as needed with discharge planning / needs. Mathematical Technician: Suzy Chapman Appended by Suzy Chapman on 05/24/2019 17:23 CDT: [phone] to find out patients status at facility and if he was LTC / SNF bed. CM was going to find out if patient would need a ONEL before return to facility. CM was also going to inform them that family was seeking a different facility. CM will continue to follow and assist as needed with discharge planning / needs. DCPIA - Discharge Planning Initial Assessment Updated by [id number]: Suzy Chapman on 05/24/19 4:20 pm * How many steps to enter\exit or inside your home? * PCP Amy SALCIDO * Pharmacy [facility] * Preadmission Environment [facility] * Facility Name [facility] * ADLs Partial Dependent * Partial ADLs (Assistance needed) Ambulation Bathing Dressing Eating Medication Management Toileting Transfers * Other Equipment BEDRAILS, WALKER W SEAT, STEP IN SHOWER WITH GRAB BARS * List name and contact numbers for known caregivers / representatives who currently or will assist patient after discharge: JHONY FERNANDEZ - - [phone] DEONNA / MARTHA HALL - SON/ [facility] - [phone], * Verbal permission to speak to the caregivers and representatives has been obtained from the patient. Yes * Community resources currently utilized None * Additional services required to return to the preadmission environment? No * Can the patient safely return to the preadmission environment? Yes * Has this patient been hospitalized within the prior 30 days at any hospital? Yes Last DP export: 05/24/19 3:42 p Patient Name: CHUCK FERNANDEZ Page 02453 at 1720 All edits/amendments must be made on the electronic document DICTATION DATE: 05/24/191724 K 12 SCHOOL PROFESSIONAL: LITZY 05/24/191724 RPT#: [id number] DC DATE: STATUS: ADM IN [facility] [address] [place] [address] END OF REPORT
--- NOTE | 2019-05-24 18:09 | NUR ---
LYING QUIETLY. NO NEEDS VOICED.FAMILY AT BEDSIDE.TELEMERTY SHOWS SR WITH 1ST DEGREE AV BLOCK.BED ALARM ON. WILL MONITOR
--- NOTE | 2019-05-24 19:40 | NUR ---
RECEIVED BEDSIDE REPORT. PATIENT IS AAO TO PERSON. RESPIRATIONS ARE EVEN AND UNLABORED. PATIENT REMAINS ON 2L NASAL CANNULA. NO S/S OF DISTRESS. NO C/O PAIN. FAMILY AT BEDSIDE. CALL LIGHT WITHIN REACH. WILL CPOC.
[2019-05-24 20:00] VITALS: BP 133/55
[2019-05-25] VITALS: BP 130/61
[2019-05-25 04:00] VITALS: BP 136/76
[2019-05-25 05:22] LABS: BASOPHILS 0.3 % (0-2); EOSINOPHILS 2.1 % (0-7); HEMATOCRIT 38.6 % (42.0-54.0); HEMOGLOBIN 12.9 g/dL (13.5-17.5); IMMATURE GRANULOCYTES 0.4 % (0-5); LYMPHOCYTES 19.2 % (15-50); MCH 30.1 pg (26.0-34.0); MCHC 33.4 g/dL (31.0-37.0); MCV 90.2 fL (80.0-100.0); MEAN PLATELET VOLUME 11.6 fL (7.4-10.4); PLATELET COUNT 172 10x3/uL (130-400); RBC 4.28 10x6/uL (4.20-6.10); RDW 13.5 % (11.5-14.5); WBC 11.9 10x3/uL (4.8-10.8)
[2019-05-25 05:45] LABS: CALC OSMOLALITY 279 mosm/kg (275-300); CALCIUM 8.2 mg/dL (8.5-10.1); CHLORIDE - SERUM 109 mmol/L (98-107); CREATININE - SERUM 0.9 mg/dL (0.6-1.3); GLUCOSE 101 mg/dL (74-106); SODIUM 140 mmol/L (136-145); eGFR NON AFRICAN AMERICAN 86 mL/min (90-120)
[2019-05-25 05:48] LABS: UREA NITROGEN 14 mg/dL (7-18)
--- NOTE | 2019-05-25 07:15 | NUR ---
PT RESTING IN BED, SHIFT ASSESSMENT PERFORMED. DENIES ANY NEEDS AT THIS TIME. WILL CONT TO FOLLOW POC
[2019-05-25 08:53] VITALS: BP 128/64
--- NOTE | 2019-05-25 12:10 | NUR ---
PT RESTING IN BED EATING LUNCH, FAMILY AT BEDSIDE. DENIES ANY NEEDS AT THIS TIME, WILL CONT TO FOLLOW POC.
[2019-05-25 13:54] VITALS: BP 159/74
--- NOTE | 2019-05-25 15:07 | NUR ---
PIV TO LEFT WRIST INFILTRATED, PIV REMOVED WITH CATHETER TIP INTACT. 20G PIV INSERTED TO RIGHT AC X2 ATTEMPTS. PT TOLERATED WELL
--- NOTE | 2019-05-25 17:00 | NUR ---
PT WENT TO PT ROOM TO CHECK TELEMETRY. UPON ASSESSMENT, PT HAD PULLED OUT BOTH PIV, CATHETER TIPS WERE STILL INTACT. TELEMETRY WAS SITTING ON BEDSIDE TABLE, REPLACED TELEMETRY ON PT. BED ALARM ON. CALL LIGHT WITHIN REACH
[2019-05-25 18:25] VITALS: BP 127/61
[2019-05-25 20:00] VITALS: BP 105/42
--- NOTE | 2019-05-25 23:02 | NUR ---
INITIAL ROUNDS COMPLETED AT 1920 HRS. PT INCONTINENT OF URINE. INCONTINENT CARE DONE. ASSESSMENT COMPLETED AT 2010 HRS. VSS. SR WITH 1ST DEGREE AV BLOCK HR 78. PT ALERT AND ORIENTED TO PERSON ONLY. ATTEMPTED TO REORIENT TO PLACE, TIME AND SITUATION WITHOUT SUCCESS. NO IV AT THIS TIME. O2 2LNC. LUNGS DIMIMINISHED IN BASES BILAT. HER. BUTTOCKS EXCORIATED. CHENG'S BUTTE PASTE PLACE ON EXCORIATED AREAS. BED ALRM IN USE. PT INCONTINENT OF URINE AND STOOL AT 2200 HRS. INCONTINENT CARE DONE. REPOSITIONED IN BED FOR COMFORT. PM PO MEDS GIVEN. IV STARTED #22 TO L HAND WITH ATTEMPT X1. PT VERY UNCOOPERATIVE. IVAB STARTED AT THAT TIME. PT CURRENTLY PULLING ON BLANKETS. SR UP X2, CALL LIGHT WITHIN REACH AND BED ALARM ON.
[2019-05-26] VITALS: BP 104/46
--- NOTE | 2019-05-26 01:46 | NUR ---
PT RESTING WITH EYES CLOSED. RESP EVEN AND REGULAR. SR UP X2, CALL LIGHT WITHIN REACH.
[2019-05-26 04:00] VITALS: BP 111/48
--- NOTE | 2019-05-26 04:13 | NUR ---
PT RESTING WITH EYES CLOSED. RESP EVEN AND REGULAR. SR UP X2, CALL LIGHT WITHIN REACH AND BED ALARM ON.
--- NOTE | 2019-05-26 06:18 | NUR ---
VSS THROUGHOUT NIGHT. SR WITH 1ST DEGREE AV BLOCK RATE IN 50'S TO 70'S. RESTED WELL AFTER PM MED ADMINISTRATION. THIS AM OPENS EYES TO VERBAL STIMULI, FOLLOWS COMMANDS THEN QUICKLY FALLS BACK TO SLEEP. CLEAN AND DRY AT THIS TIME. NEEDS MET; WILL CONTINUE TO MONITOR.
[2019-05-26 07:30] VITALS: BP 139/62
--- NOTE | 2019-05-26 09:30 | NUR ---
PT VERY LETHARGIC AND HARD TO AROUSE EVEN WITH STERNAL RUB. TIFF MARSHALL HERE ON THE FLOOR AND ASSESSED PT. NEW ORDER RECIEVED TO GIVE FLUMAZENIL NOW. ONE TIME DOSE GIVEN AND PT BEGAN TO WAKE UP. PT ABLE TO ANSWER SIMPLE YES NO QUESTIONS. PT THIRSTY AND TOOK A DRINK OF NECTAR THICK WATER AND ASKED FOR HIS FOOD. NEW ORDER FROM TIFF MARSHALL TO DECREASE CLONAZEPAM TO 0.5MG DAILY.
[2019-05-26 10:23] LABS: BASOPHILS 0.4 % (0-2); EOSINOPHILS 3.9 % (0-7); HEMATOCRIT 38.6 % (42.0-54.0); IMMATURE GRANULOCYTES 0.9 % (0-5); LYMPHOCYTES 27.2 % (15-50); MCH 30.7 pg (26.0-34.0); MCHC 33.7 g/dL (31.0-37.0); MEAN PLATELET VOLUME 11.5 fL (7.4-10.4); MONOCYTES 9.7 % (2-11); NEUTROPHILS 57.9 % (40-80); PLATELET COUNT 160 10x3/uL (130-400); RBC 4.24 10x6/uL (4.20-6.10); RDW 13.8 % (11.5-14.5); WBC 7.7 10x3/uL (4.8-10.8)
[2019-05-26 10:33] LABS: CALC OSMOLALITY 279 mosm/kg (275-300); CALCIUM 8.6 mg/dL (8.5-10.1); CHLORIDE - SERUM 110 mmol/L (98-107); GLUCOSE 88 mg/dL (74-106); POTASSIUM - SERUM 3.9 mmol/L (3.5-5.1); SODIUM 141 mmol/L (136-145); UREA NITROGEN 12 mg/dL (7-18); eGFR NON AFRICAN AMERICAN 76 mL/min (90-120)
[2019-05-26 11:30] VITALS: BP 142/78
--- NOTE | 2019-05-26 12:15 | NUR ---
PT RESTING IN BED, TRAY SET UP PROVIDED. FAMILY AT BEDSIDE, DENIES ANY NEEDS AT THIS TIME, WILL CONT TO FOLLOW POC
[2019-05-26 15:30] VITALS: BP 142/58
--- NOTE | 2019-05-26 18:27 | NUR ---
PT RESTING IN BED, BED ALARM ON DENIES ANY NEEDS AT THIS TIME. WILL CONT TO FOLLOW POC
[2019-05-26 20:00] VITALS: BP 130/88
--- NOTE | 2019-05-26 20:05 | NUR ---
INITIAL ROUNDS COMPLETED AT 191 HRS. PT ALERT, DENIES ANY DISCOMFORT. ASSESSMENT COMPLETED AT 194 HRS, O2 2LNC. 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 IV TO L HAND WITH NS AT 50CC/HR. IV PATENT. LUNGS DIMINISHED IN BASES BILAT. BUTTOCKS EXCORIATED. CHENG'S APPLIED. SR UP X3, CALL LIGHT WITHIN REACH AND BED ALARM ON.
--- NOTE | 2019-05-26 20:48 | NUR ---
PT PULLED IV OUT WITH CATHETER INTACT.
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
--- NOTE | 2019-05-26 23:36 | NUR ---
PT PULLED OUT IV WITH CATHETER INTACT. NEW IV STARTED #22 TO INNER L FA WITH ATEMPT X1. PT UNCOOPERATIVE DURING PROCEDURE.
[2019-05-27] VITALS: BP 118/53
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
--- NOTE | 2019-05-27 00:54 | NUR ---
MONITOR PATCHES REPLACED ON PT >10 TIMES THIS SHIFT SO FAR. REFUSES TO WEAR. BLACK LEATHER BUFFER NOTIFIED.
--- NOTE | 2019-05-27 02:03 | NUR ---
PT PICKING AT BLANKETS. NO DISTRESS NOTED. SR UP X2, CALL LIGHT WITHIN REACH AND BED ALARM ON.
[2019-05-27 04:30] VITALS: BP 149/72
[2019-05-27 04:40] LABS: BASOPHILS 0.4 % (0-2); EOSINOPHILS 4.6 % (0-7); HEMATOCRIT 38.1 % (42.0-54.0); HEMOGLOBIN 12.8 g/dL (13.5-17.5); IMMATURE GRANULOCYTES 0.7 % (0-5); LYMPHOCYTES 31.3 % (15-50); MCHC 33.6 g/dL (31.0-37.0); MCV 89.2 fL (80.0-100.0); MEAN PLATELET VOLUME 11.7 fL (7.4-10.4); MONOCYTES 10.2 % (2-11); NEUTROPHILS 52.8 % (40-80); PLATELET COUNT 163 10x3/uL (130-400); RBC 4.27 10x6/uL (4.20-6.10); RDW 13.4 % (11.5-14.5); WBC 7.2 10x3/uL (4.8-10.8)
--- NOTE | 2019-05-27 04:41 | NUR ---
PT INCONTINENT OF URINE. INCONTINENT CARE DONE. PT UNCOOPERTIVE DURING ACTIVITY. MONITOR PLACED BACK ON PT. VSS. SR UP X2, CALL LIGHT WITHIN REACH.
[2019-05-27 04:54] LABS: CALC OSMOLALITY 289 mosm/kg (275-300); CALCIUM 8.4 mg/dL (8.5-10.1); CHLORIDE - SERUM 112 mmol/L (98-107); GLUCOSE 81 mg/dL (74-106); POTASSIUM - SERUM 3.4 mmol/L (3.5-5.1); SODIUM 146 mmol/L (136-145); UREA NITROGEN 12 mg/dL (7-18); eGFR NON AFRICAN AMERICAN 76 mL/min (90-120)
--- NOTE | 2019-05-27 05:41 | NUR ---
VSS THROUGHOUT NIGHT. SR WITH 1ST DEGREE AV BLOCK AND PVC'S PER CM. PT CURRENTLY RESTING WITH EYES CLOSED. RESP EVEN AND REGULAR. SR UP X2, CALL LIGHT WITHIN REACH.
--- NOTE | 2019-05-27 07:19 | NUR ---
AWAKE AND CONFUSED. PT PULLS TELEMERTY OFF AND IVS OUT. IV WAS REPLACED 5 TIMES LAST NIGHT AND 1 TIME THIS MORNING. WILL TALK WITH DR ABOUT CHANGING MEDS TO PO. NO NEEDS NOTED. SR UP WITH BED ALARM ON
[2019-05-27 08:30] VITALS: BP 153/60
--- NOTE | 2019-05-27 12:05 | NUR ---
I have reviewed this patient and I concur with the Shift Assessment completed by the Licensed Practical Nurse today this shift.
--- NOTE | 2019-05-27 12:52 | NUR ---
Nutrition Follow-up: Pt sleeping. No family at bedside. Chart reviewed. Pt seen by ST who rec regular solids and nectar thick liquids. Noted IVs pulled out multiple times. Diet: Regular, Shallow Water Thick Liquids PO intake: 0-50% Wt: 286# Last BM: 05/26 Labs noted: Na 146, K+ 3.4, Ca 8.4 Meds noted: Lasix, Micro K, NS 0.9% @ 125 mL/hr Continue current diet as tolerated. +Ensure with meals. RD following.
[2019-05-27 13:04] VITALS: BP 169/84
--- NOTE | 2019-05-27 14:11 | MORECARE ---
CASE MANAGEMENT DISCHARGE SUMMARY PATIENT: CHUCK FERNANDEZ UNIT: [id number] ADM DATE: 05/24/19 AGE: 83 : 36 SEX: M ROOM/BED: D.2120 AUTHOR: EVARISTO,DOC PHYSICIAN: REFERRING PHYSICIAN: DRAKE JAUREGUI MD DATE OF SERVICE: 05/27/19 Discharge Plan Patient Name: CHUCK FERNANDEZ Facility: [facility]:[place] : 1935 Planned Disposition: Nursing Facility LUCY Cert Anticipated Discharge Date: Discharge Date: Expected LOS: Initial Reviewer: [email or web address] Initial Review Date: 05/24/2019 Generated: 05/27/19 3:10 pm Comments DCP- Discharge Planning Updated by [email or web address]: Guy Almaraz on 05/27/19 1:[address] Patient Name: CHUCK FERNANDEZ Encounter No: [id number] : 1935 Primary Insurance: [employer] Anticipated DC Date: Planned Disposition: Nursing Facility LUCY Cert External Planned Provider: TO BE DETERMINED DCP follow-up note: CM SPOKE TO PT'S SPOUSE, LINDA, AT HER REQUEST AT NURSES STATION. LINDA REPORTS SHE DOES NOT WANT PT PLACED BACK AT THE [facility] AT DISCHARGE. PT [facility] TO ADMISSION TO [facility] AND SHE WOULD LIKE TO SEE IF PT CAN GO BACK THERE BUT CANNOT GET ANYONE THERE TO RETURN HER CALLS. PT'S SPOUSE WILL BE GOING TO [place] TODAY TO LOOK AT [facility] FOR POSSIBLE PLACEMENT THERE PT'S DAUGHTER LIVES IN [place]. CHOICE SIGNED FOR [facility], [facility] AND [facility]. IMPORTANT MESSAGE FROM MEDICARE PROVIDED AND EXPLAINED. CM [facility], , SPOKE TO CONNIE WHO WILL ACCEPT REFERRAL AND CONSIDER PT FOR INTERMEDIATE CARE. CM FA[facility], .CM SPOKE TO NANCY OF THE [facility], , WHO CALLED FOR UPDATE. CM ADVISED THAT FAMILY DOES NOT WANT PT TO RETURN TO FACILITY AT HOSPITAL DISCHARGE. CM WAITING ADMISSION DETERMINATION FROM [facility]. Guy Almaraz, CASE MANAGEMENT DCP- Discharge Planning Updated by [email or web address]: Suzy Chapman on 05/24/19 4:[address] Patient Name: CHUCK FERNANDEZ Admission Status: ER Accout number: [id number] Admission Date: 05-24-2019 : 1935 Admission Diagnosis: Attending: DRAKE JAUREGUI Current LOS: 1 Anticipated DC Date: Planned Disposition: Nursing Facility [facility] Primary Insurance: [employer] Discharge Planning Comments: CM met with patient and spouse (Linda) at bedside after explaining CM role and obtaining verbal consent. [facility] Patient's spouse is requesting placement into [facility] upon discharge into Custodial Care. Linda (spouse) states that she has been working with Connie at [place] trying to get this arranged. Patient will need ONEL his last admission was into Snf. CM discussed availability / needs of home health and medical equipment. Patient's denies any discharge needs at this time. CM will continue to follow and assist as needed with discharge planning / needs. Aircraft Pilot: Suzy Chapman Appended by Suzy Chapman on 05/24/2019 17:23 CDT: [phone] to find out patients status at facility and if he was LTC / SNF bed. CM was going to find out if patient would need a ONEL before return to facility. CM was also going to inform them that family was seeking a different facility. CM will continue to follow and assist as needed with discharge planning / needs. DCPIA - Discharge Planning Initial Assessment Updated by [id number]: Suzy Chapman on 05/24/19 4:20 pm * How many steps to enter\exit or inside your home? * PCP Amy SALCIDO * Pharmacy [facility] * Preadmission Environment [facility] Home Facility * Facility Name [facility] * ADLs Partial Dependent * Partial ADLs (Assistance needed) Ambulation Bathing Dressing Eating Medication Management Toileting Transfers * Other Equipment BEDRAILS, WALKER W SEAT, STEP IN SHOWER WITH GRAB BARS * List name and contact numbers for known caregivers / representatives who currently or will assist patient after discharge: LINDA FERNANDEZ - - [phone] DEONNA / MARTHA FERNANDEZ - SON/ DIL - [phone], * Verbal permission to speak to the caregivers and representatives has been obtained from the patient. Yes * Community resources currently utilized None * Additional services required to return to the preadmission environment? No * Can the patient safely return to the preadmission environment? Yes * Has this patient been hospitalized within the prior 30 days at any hospital? Yes Last DP export: 05/24/19 4:25 p Patient Name: CHUCK FERNANDEZ Page 66927 at 1411 All edits/amendments must be made on the electronic document DICTATION DATE: 05/27/191409 SALES ASSISTANT ENTERTAINMENT AND MEDIA: LITZY 05/27/191409 RPT#: [id number] DC DATE: STATUS: ADM IN [facility] [address] [place] [address] END OF REPORT
--- NOTE | 2019-05-27 14:19 | MORECARE ---
CASE MANAGEMENT DISCHARGE SUMMARY PATIENT: CHUCK FERNANDEZ UNIT: [id number] ADM DATE: 05/24/19 AGE: 83 : 36 SEX: M ROOM/BED: D.2120 AUTHOR: EVARISTO,DOC PHYSICIAN: REFERRING PHYSICIAN: DRAKE JAUREGUI MD DATE OF SERVICE: 05/27/19 Discharge Plan Patient Name: CHUCK FERNANDEZ Facility: [facility]:[place] : 1935 Planned Disposition: Nursing Facility [facility] Cert Anticipated Discharge Date: Discharge Date: Expected LOS: Initial Reviewer: [id number] Initial Review Date: 05/24/2019 Generated: 05/27/19 3:19 pm Comments DCP- Discharge Planning Updated by [id number]: Guy Almaraz on 05/27/19 1:[address] Patient Name: CHUCK FERNANDEZ Encounter No: [id number] : 1935 Primary Insurance: NOVASYSMCR Anticipated DC Date: Planned Disposition: Nursing Facility L[facility] Cert External Planned Provider: TO BE DETERMINED DCP follow-up note: CM SPOKE TO PT'S SPOUSE, LINDA, AT HER REQUEST AT NURSES STATION. LINDA REPORTS SHE DOES NOT WANT PT PLACED BACK AT THE [facility] AT DISCHARGE. PT WAS [facility] TO ADMISSION TO THE [facility] AND SHE WOULD LIKE TO SEE IF PT CAN GO BACK THERE BUT CANNOT GET ANYONE THERE TO RETURN HER CALLS. PT'S SPOUSE WILL BE GOING TO [place] TODAY TO LOOK AT [facility] AND [facility] FOR POSSIBLE PLACEMENT THERE PT'S DAUGHTER LIVES IN [place]. CHOICE SIGNED FOR [facility], [facility]. IMPORTANT MESSAGE FROM MEDICARE PROVIDED AND EXPLAINED. CM [facility]ED [facility], , SPOKE TO CONNIE WHO WILL ACCEPT REFERRAL AND CONSIDER PT FOR [facility]. CM FAXED REFERRAL TO [facility], .CM SPOKE TO NANCY OF THE [facility], , WHO CALLED FOR UPDATE. CM ADVISED THAT FAMILY DOES NOT WANT PT TO RETURN TO FACILITY AT HOSPITAL DISCHARGE. CM WAITING ADMISSION DETERMINATION FROM [facility]. Guy Almaraz, CASE MANAGEMENT DCP- Discharge Planning Updated by [id number]: Suzy Chapman on 05/24/19 4:[address] Patient Name: CHUCK FERNANDEZ Admission Status: ER Accout number: [id number] Admission Date: 05-24-2019 : 1935 Admission Diagnosis: Attending: DRAKE JAUREGUI Current LOS: 1 Anticipated DC Date: Planned Disposition: Nursing Facility [facility] Primary Insurance: [employer] Discharge Planning Comments: CM met with patient and spouse (Linda) at bedside after explaining CM role and obtaining verbal consent. [facility] Patient's spouse is requesting placement into [facility]. Linda (spouse) states that she has been working with Connie at [place] trying to get this arranged. Patient will need ONEL his last admission was into Nursing Home. CM discussed availability / needs of home health and medical equipment. Patient's denies any discharge needs at this time. CM will continue to follow and assist as needed with discharge planning / needs. Reception: Suzy Chapman Appended by Suzy Chapman on 05/24/2019 17:23 CDT: [phone] to find out patients status at facility and if he was LTC / SNF bed. CM was going to find out if patient would need a ONEL before return to facility. CM was also going to inform them that family was seeking a different facility. CM will continue to follow and assist as needed with discharge planning / needs. DCPIA - Discharge Planning Initial Assessment Updated by [id number]: Suzy Chapman on 05/24/19 4:20 pm * How many steps to enter\exit or inside your home? * PCP Amy SALCIDO * [facility] * Preadmission Environment Snf Facility * Facility [facility] * ADLs Partial Dependent * Partial ADLs (Assistance needed) Ambulation Bathing Dressing Eating Medication Management Toileting Transfers * Other Equipment BEDRAILS, WALKER W SEAT, STEP IN SHOWER WITH GRAB BARS * List name and contact numbers for known caregivers / representatives who currently or will assist patient after discharge: LINDA FERNANDEZ - - [phone] DEONNA / MARTHA FERNANDEZ - SON/ DIL - [phone], * Verbal permission to speak to the caregivers and representatives has been obtained from the patient. Yes * Community resources currently utilized None * Additional services required to return to the preadmission environment? No * Can the patient safely return to the preadmission environment? Yes * Has this patient been hospitalized within the prior 30 days at any hospital? Yes External Providers External Provider: [facility] Next Contact Date: 05/27/2019 Service Request Date: Service Type: Resolution: Reviewer: Comments: Last DP export: 05/27/19 1:10 p Patient Name: CHUCK FERNANDEZ Page [id number] at 1419 All edits/amendments must be made on the electronic document DICTATION DATE: 05/27/191418 HYDROELECTRIC MECHANIC: LITZY 05/27/191418 RPT#: [id number] DC DATE: STATUS: ADM IN [facility] [address] [place] [address] END OF REPORT
[2019-05-27 15:56] VITALS: BP 162/78
[2019-05-27 20:00] VITALS: BP 105/54
[2019-05-28] VITALS: BP 110/46
[2019-05-28 04:00] VITALS: BP 120/55
[2019-05-28 06:34] LABS: BASOPHILS 0.3 % (0-2); EOSINOPHILS 3.5 % (0-7); HEMATOCRIT 38.4 % (42.0-54.0); HEMOGLOBIN 13.4 g/dL (13.5-17.5); IMMATURE GRANULOCYTES 0.7 % (0-5); LYMPHOCYTES 30.3 % (15-50); MCH 30.5 pg (26.0-34.0); MCHC 34.9 g/dL (31.0-37.0); MCV 87.5 fL (80.0-100.0); MEAN PLATELET VOLUME 12.2 fL (7.4-10.4); MONOCYTES 9.5 % (2-11); NEUTROPHILS 55.7 % (40-80); PLATELET COUNT 179 10x3/uL (130-400); RBC 4.39 10x6/uL (4.20-6.10); RDW 13.1 % (11.5-14.5); WBC 7.2 10x3/uL (4.8-10.8)
[2019-05-28 08:16] LABS: CALC OSMOLALITY 290 mosm/kg (275-300); CALCIUM 8.8 mg/dL (8.5-10.1); CARBON DIOXIDE 28.9 mmol/L (21.0-32.0); CHLORIDE - SERUM 111 mmol/L (98-107); CREATININE - SERUM 0.9 mg/dL (0.6-1.3); GLUCOSE 88 mg/dL (74-106); SODIUM 147 mmol/L (136-145); UREA NITROGEN 12 mg/dL (7-18); eGFR NON AFRICAN AMERICAN 86 mL/min (90-120)
[2019-05-28 08:17] LABS: POTASSIUM - SERUM 4.3 mmol/L (3.5-5.1)
[2019-05-28 10:03] VITALS: BP 148/65
--- NOTE | 2019-05-28 11:30 | MORECARE ---
CASE MANAGEMENT DISCHARGE SUMMARY PATIENT: CHUCK FERNANDEZ UNIT: [id number] ADM DATE: 05/24/19 AGE: 83 : 36 SEX: M ROOM/BED: D.2120 AUTHOR: EVARISTO,DOC PHYSICIAN: REFERRING PHYSICIAN: DARKE JAUREGUI MD DATE OF SERVICE: 05/28/19 Discharge Plan Patient Name: CHUCK FERNANDEZ Facility: [facility]:[place] : 1935 Planned Disposition: Nursing Facility [facility] Cert Anticipated Discharge Date: Discharge Date: Expected LOS: Initial Reviewer: [id number] Initial Review Date: 05/24/2019 Generated: 05/28/19 12:29 pm Comments DCP- Discharge Planning Updated by [id number]: Guy Almaraz on 05/27/19 1:[address] Patient Name: CHUCK FERNANDEZ Encounter No: [id number] : 1935 Primary Insurance: NOVASYSMCR Anticipated DC Date: Planned Disposition: Nursing Facility [facility] Cert External Planned Provider: TO BE DETERMINED DCP follow-up note: CM SPOKE TO PT'S SPOUSE, LINDA, AT HER REQUEST AT NURSES STATION. LINDA REPORTS SHE DOES NOT WANT PT PLACED BACK AT THE [facility] AT DISCHARGE. PT WAS [facility] TO ADMISSION TO THE [facility] AND SHE WOULD LIKE TO SEE IF PT CAN GO BACK THERE BUT CANNOT GET ANYONE THERE TO RETURN HER CALLS. PT'S SPOUSE WILL BE GOING TO [place] TODAY TO LOOK AT [facility] AND [facility] FOR POSSIBLE PLACEMENT THERE PT'S DAUGHTER LIVES IN [place]. CHOICE SIGNED FOR [facility], [facility] AND [facility]. IMPORTANT MESSAGE FROM MEDICARE PROVIDED AND EXPLAINED. CM [facility]ED [facility], , SPOKE TO ROSEMARIE WHO WILL ACCEPT REFERRAL AND CONSIDER PT FOR [facility] [employer] CARE. CM FA[facility]ED [facility], .CM SPOKE TO NANCY OF THE [facility], , WHO CALLED FOR UPDATE. CM ADVISED THAT FAMILY DOES NOT WANT PT TO RETURN TO FACILITY AT HOSPITAL DISCHARGE. CM WAITING ADMISSION DETERMINATION FROM [facility]. Guy Almaraz, CASE MANAGEMENT DCP- Discharge Planning Updated by [id number]: Suzy Chapman on 05/24/19 4:[address] Patient Name: CHUCK FERNANDEZ Admission Status: ER Accout number: [id number] Admission Date: 05-24-2019 : 1935 Admission Diagnosis: Attending: DRAKE JAUREGUI Current LOS: 1 Anticipated DC Date: Planned Disposition: Nursing Facility [facility] Primary Insurance: [employer] Discharge Planning Comments: CM met with patient and spouse (Linda) at bedside after explaining CM role and obtaining verbal consent. [facility] Patient's spouse is [facility]. Linda (spouse) states that she has been working with Rosemarie at [place] trying to get this arranged. Patient will need ONEL his last admission was into [facility]. CM discussed availability / needs of home health and medical equipment. Patient's denies any discharge needs at this time. CM will continue to follow and assist as needed with discharge planning / needs. Business Data Analyst: Suzy Chapman Appended by Suzy Chapman on 05/24/2019 17:23 CDT: [phone] to find out patients status at facility and if he was LTC / SNF bed. CM was going to find out if patient would need a ONEL before return to facility. CM was also going to inform them that family was seeking a different facility. CM will continue to follow and assist as needed with discharge planning / needs. DCPIA - Discharge Planning Initial Assessment Updated by [id number]: Suzy Chapman on 05/24/19 4:20 pm * How many steps to enter\exit or inside your home? * PCP Amy SALCIDO * Pharmacy [facility] * Preadmission Environment Snf Facility * Facility Name [facility] * ADLs Partial Dependent * Partial ADLs (Assistance needed) Ambulation Bathing Dressing Eating Medication Management Toileting Transfers * Other Equipment BEDRAILS, WALKER W SEAT, STEP IN SHOWER WITH GRAB BARS * List name and contact numbers for known caregivers / representatives who currently or will assist patient after discharge: LINDA FERNANDEZ - - [phone] DEONNA / MARTHA FERNANDEZ - SON/ DIL - [phone], * Verbal permission to speak to the caregivers and representatives has been obtained from the patient. Yes * Community resources currently utilized None * Additional services required to return to the preadmission environment? No * Can the patient safely return to the preadmission environment? Yes * Has this patient been hospitalized within the prior 30 days at any hospital? Yes External Providers External Provider: [facility] Next Contact Date: 05/28/2019 Service Request Date: Service Type: Resolution: Reviewer: Comments: Coverage Notice Reviewer: STACIE Almaraz Notice Issued Date-Time: 05/27/2019 9:50 Notice Type: IM Discharge Notice Notice Delivered To: Family Member Relationship to Patient: Spouse Chop Saw Operator Name: LINDA FERNANDEZ Delivery Method: HAND - Hand Delivered Renetta Days: Prior Verbal Notification: Recipient Understood Notice: Yes Recipient Signature: Yes Med Rec Note Co-signed by Attending: Coverage Notice Comment: Reviewer: STACIE Almaraz Notice Issued Date-Time: 05/27/2019 9:50 Notice Type: Patient Choice Letter Notice Delivered To: Family Member Relationship to Patient: Spouse Chop Saw Operator Name: LINDA FERNANDEZ Delivery Method: HAND - Hand Delivered Renetta Days: Prior Verbal Notification: Recipient Understood Notice: Yes Recipient Signature: Yes Med Rec Note Co-signed by Attending: Coverage Notice Comment: ELIER SINGH LENANEYDA Last DP export: 05/27/19 1:19 p Patient Name: CHUCK FERNANDEZ Page 31726 at 1130 All edits/amendments must be made on the electronic document DICTATION DATE: 05/28/19 1129 FORGE SHOP MACHINE REPAIRER: LITZY 05/28/19 1129 RPT#: [id number] DC DATE: STATUS: ADM IN [facility] [address] [place] [address] END OF REPORT
--- NOTE | 2019-05-28 11:43 | MORECARE ---
CASE MANAGEMENT DISCHARGE SUMMARY PATIENT: CHUCK FERNANDEZ UNIT: [id number] ADM DATE: 05/24/19 AGE: 83 : 36 SEX: M ROOM/BED: D.2120 AUTHOR: EVARISTO,DOC PHYSICIAN: REFERRING PHYSICIAN: DRAKE JAUREGUI MD DATE OF SERVICE: 05/28/19 Discharge Plan Patient Name: CHUCK FERNANDEZ Facility: [facility]:[place] : 1935 Planned Disposition: Nursing Facility [facility] Cert Anticipated Discharge Date: Discharge Date: Expected LOS: Initial Reviewer: [id number] Initial Review Date: 05/24/2019 Generated: 05/28/19 12:43 pm Comments DCP- Discharge Planning Updated by [id number]: Guy Almaraz on 05/28/19 10:[address] Patient Name: CHUCK FERNANDEZ Encounter No: [id number] : 1935 Primary Insurance: NOVASYSMCR Anticipated DC Date: Planned Disposition: Nursing Facility [facility] Cert External Planned Provider: [facility], ALF CARE MEDICAID BED DCP follow-up note: CM FAXED UPDATE TO ROSEMARIE AT [facility], . CM CALLED AND SPOKE TO JENY OF [facility], , DISCUSSED REFERRAL FOR [facility], FAXED REFERRAL TO [facility] VIA JENY AT [phone]. CM WAITING ADMISSION DETERMINATIONS FROM [facility]. Guy Almaraz, IHSAN MOREJON DCP- Discharge Planning Updated by [email or web address]: Guy Almaraz on 05/27/19 1:[address] Patient Name: CHUCK FERNANDEZ Encounter No: [id number] : 1935 Primary Insurance: NOVASYSMCR Anticipated DC Date: Planned Disposition: Nursing Facility [facility] Cert External Planned Provider: TO BE DETERMINED DCP follow-up note: CM SPOKE TO PT'S SPOUSE, LINDA, AT HER REQUEST AT NURSES STATION. LINDA REPORTS SHE DOES NOT WANT PT PLACED BACK AT THE [facility] AT DISCHARGE. PT WAS IN [facility] PRIOR TO ADMISSION TO THE [facility] AND SHE WOULD LIKE TO SEE IF PT CAN GO BACK THERE BUT CANNOT GET ANYONE THERE TO RETURN HER CALLS. PT'S SPOUSE WILL BE GOING TO [place] TODAY TO LOOK AT [facility] FOR POSSIBLE PLACEMENT THERE PT'S DAUGHTER LIVES IN [place]. CHOICE SIGNED FOR [facility], [facility]. IMPORTANT MESSAGE FROM MEDICARE PROVIDED AND EXPLAINED. CM CALLED [facility], , SPOKE TO ROSEMARIE WHO WILL ACCEPT REFERRAL AND CONSIDER PT FOR ALF CARE. CM FAXED REFERRAL TO [facility], .CM SPOKE TO NANCY OF [facility], , WHO CALLED FOR UPDATE. CM ADVISED THAT FAMILY DOES NOT WANT PT TO RETURN TO FACILITY AT HOSPITAL DISCHARGE. CM WAITING ADMISSION [facility] Guy Almaraz, CASE MANAGEMENT DCP- Discharge Planning Updated by [id number]: Suzy Chapman on 05/24/19 4:[address] Patient Name: CHUCK FERNANDEZ Admission Status: ER Accout number: [id number] Admission Date: 05-24-2019 : 1935 Admission Diagnosis: Attending: DRAKE JAUREGUI Current LOS: 1 Anticipated DC Date: Planned Disposition: Nursing Facility [facility] Primary Insurance: [employer] Discharge Planning Comments: CM met with patient and spouse (Linda) at bedside after explaining CM role and obtaining verbal consent. [facility] Patient's spouse is requesting placement [facility]. Linda (spouse) states that she has been working with Rosemarie at [place] trying to get this arranged. Patient will need ONEL his last admission was into [facility]illed Nursing. CM discussed availability / needs of home health and medical equipment. Patient's denies any discharge needs at this time. CM will continue to follow and assist as needed with discharge planning / needs. Medical Supervisor: Suzy Chapman Appended by Suzy Chapman on 05/24/2019 17:23 CDT: CM [phone] to find out patients status at facility and if he was LTC / SNF bed. CM was going to find out if patient would need a ONEL before return to facility. CM was also going to inform them that family was seeking a different facility. CM will continue to follow and assist as needed with discharge planning / needs. DCPIA - Discharge Planning Initial Assessment Updated by [id number]: Suzy Chapman on 05/24/19 4:20 pm * How many steps to enter\exit or inside your home? * PCP Amy SLACIDO * Pharmacy [facility] * Preadmission Environment Residential Facility * Facility Name [facility] * ADLs Partial Dependent * Partial ADLs (Assistance needed) Ambulation Bathing Dressing Eating Medication Management Toileting Transfers * Other Equipment BEDRAILS, WALKER W SEAT, STEP IN SHOWER WITH GRAB BARS * List name and contact numbers for known caregivers / representatives who currently or will assist patient after discharge: LINDA FERNANDEZ - - [phone] DEONNA / MARTHA FERNANDEZ - SON/ DIL - [phone], * Verbal permission to speak to the caregivers and representatives has been obtained from the patient. Yes * Community resources currently utilized None * Additional services required to return to the preadmission environment? No * Can the patient safely return to the preadmission environment? Yes * Has this patient been hospitalized within the prior 30 days at any hospital? Yes Coverage Notice Reviewer: [id number] Bennett Almaraz Notice Issued Date-Time: 05/27/2019 9:50 Notice Type: IM Discharge Notice Notice Delivered To: Family Member Relationship to Patient: Spouse Squeezer Operator Name: LINDA FERNANDEZ Delivery Method: HAND - Hand Delivered Renetta Days: Prior Verbal Notification: Recipient Understood Notice: Yes Recipient Signature: Yes Med Rec Note Co-signed by Attending: Coverage Notice Comment: Reviewer: [id number] Bennett Almaraz Notice Issued Date-Time: 05/27/2019 9:50 Notice Type: Patient Choice Letter Notice Delivered To: Family Member Relationship to Patient: Spouse Squeezer Operator Name: LINDA FERNANDEZ Delivery Method: HAND - Hand Delivered Renetta Days: Prior Verbal Notification: Recipient Understood Notice: Yes Recipient Signature: Yes Med Rec Note Co-signed by Attending: Coverage Notice Comment: ELIER SINGH [facility] Last DP export: 05/28/19 10:30 a Patient Name: CHUCK FERNANDEZ Page 93055 at 1143 All edits/amendments must be made on the electronic document DICTATION DATE: 05/28/19 1143 COOK CHEF: LITZY 05/28/19 1143 RPT#: [id number] DC DATE: STATUS: ADM IN [facility] [address] [place] [address] END OF REPORT
[2019-05-28 12:00] VITALS: BP 123/61
--- NOTE | 2019-05-28 16:20 | MORECARE ---
CASE MANAGEMENT DISCHARGE SUMMARY PATIENT: CHUCK FERNANDEZ UNIT: [id number] ADM DATE: 05/24/19 AGE: 83 : 36 SEX: M ROOM/BED: D.2120 AUTHOR: EVARISTO,DOC PHYSICIAN: REFERRING PHYSICIAN: DRAKE JAUREGUI MD DATE OF SERVICE: 05/28/19 Discharge Plan Patient Name: CHUCK FERNANDEZ Facility: [facility]:[place] : 1935 Planned Disposition: Nursing Facility L[facility] Cert Anticipated Discharge Date: Discharge Date: Expected LOS: Initial Reviewer: [id number] Initial Review Date: 05/24/2019 Generated: 05/28/19 5:20 pm Comments DCP- Discharge Planning Updated by [id number]: Guy Almaraz on 05/28/19 10:[address] Patient Name: CHUCK FERNANDEZ Encounter No: [id number] : 1935 Primary Insurance: NOVASYSMCR Anticipated DC Date: Planned Disposition: Nursing Facility [facility] Cert External Planned Provider: [facility], [employer] MEDICAID BED DCP follow-up note: CM FAXED UPDATE TO ROSEMARIE AT [facility], . CM CALLED AND SPOKE TO JENY OF [facility], , DISCUSSED REFERRAL FOR SENIOR LIVING CARE, FAXED REFERRAL TO [facility] VIA JENY AT [phone]. CM WAITING ADMISSION DETERMINATIONS FROM [facility]. Guy Almaraz, IHSAN MOREJON DCP- Discharge Planning Updated by [id number]: Guy Almaraz on 05/27/19 1:[address] Patient Name: CHUCK FERNANDEZ Encounter No: [id number] : 1935 Primary Insurance: NOVASYSMCR Anticipated DC Date: Planned Disposition: Nursing Facility [facility] Cert External Planned Provider: TO BE DETERMINED DCP follow-up note: CM SPOKE TO PT'S SPOUSE, LINDA, AT HER REQUEST AT NURSES STATION. LINDA REPORTS SHE DOES NOT WANT PT PLACED BACK AT [facility] AT DISCHARGE. PT WAS [facility]IOR TO ADMISSION TO [facility] AND SHE WOULD LIKE TO SEE IF PT CAN GO BACK THERE BUT CANNOT GET ANYONE THERE TO RETURN HER CALLS. PT'S SPOUSE WILL BE GOING TO [place] TODAY TO LOOK AT [facility] FOR POSSIBLE PLACEMENT THERE PT'S DAUGHTER LIVES IN [place]. CHOICE SIGNED FOR [facility], [facility]. IMPORTANT MESSAGE FROM MEDICARE PROVIDED AND EXPLAINED. CM CALLED [facility], , SPOKE TO ROSEMARIE WHO WILL ACCEPT REFERRAL AND CONSIDER PT FOR SENIOR LIVING CARE. CM FAXED REFERRAL TO [facility], .CM SPOKE TO NANCY OF [facility], , WHO CALLED FOR UPDATE. CM ADVISED THAT FAMILY DOES NOT WANT PT TO RETURN TO FACILITY AT HOSPITAL DISCHARGE. CM WAITING ADMISSION DETERMINATION FROM [facility] Guy Almaraz, CASE MANAGEMENT DCP- Discharge Planning Updated by [id number]: Suzy Chapman on 05/24/19 4:[address] Patient Name: CHUCK FERNANDEZ Admission Status: ER Accout number: [id number] Admission Date: 05-24-2019 : 1935 Admission Diagnosis: Attending: DRAKE JAUREGUI Current LOS: 1 Anticipated DC Date: Planned Disposition: Nursing Facility [facility] Primary Insurance: [employer] Discharge Planning Comments: CM met with patient and spouse (Linda) at bedside after explaining CM role and obtaining verbal consent. [facility] Patient's spouse is requesting placement into [facility] upon discharge into [facility]. Linda (spouse) states that she has been working with Rosemarie at [place] trying to get this arranged. Patient will need ONEL his [facility] into [facility]. CM discussed availability / needs of home health and medical equipment. Patient's denies any discharge needs at this time. CM will continue to follow and assist as needed with discharge planning / needs. Debate Director: Suzy Chapman Appended by Suzy Chapman on 05/24/2019 17:23 CDT: CM attempted to call [facility] [phone] to find out patients status at facility and if he was LTC / SNF bed. CM was going to find out if patient would need a ONEL before return to facility. CM was also going to inform them that family was seeking a different facility. CM will continue to follow and assist as needed with discharge planning / needs. DCPIA - Discharge Planning Initial Assessment Updated by [id number]: Suzy Chapman on 05/24/19 4:20 pm * How many steps to enter\exit or inside your home? * PCP Amy SALCIDO * [facility] * Preadmission Environment [facility] Facility * Facility Name [facility] * ADLs Partial Dependent * Partial ADLs (Assistance needed) Ambulation Bathing Dressing Eating Medication Management Toileting Transfers * Other Equipment BEDRAILS, WALKER W SEAT, STEP IN SHOWER WITH GRAB BARS * List name and contact numbers for known caregivers / representatives who currently or will assist patient after discharge: LINDA FERNANDEZ - - [phone] DEONNA / MARTHA FERNANDEZ - SON/ DIL - [phone], * Verbal permission to speak to the caregivers and representatives has been obtained from the patient. Yes * Community resources currently utilized None * Additional services required to return to the preadmission environment? No * Can the patient safely return to the preadmission environment? Yes * Has this patient been hospitalized within the prior 30 days at any hospital? Yes External Providers External Provider: [facility] Next Contact Date: 05/28/2019 Service Request Date: Service Type: Resolution: Reviewer: Comments: Coverage Notice Reviewer: [id number] Bennett Almaraz Notice Issued Date-Time: 05/27/2019 9:50 Notice Type: IM Discharge Notice Notice Delivered To: Family Member Relationship to Patient: Spouse Coding Analyst Name: LINDA FERNANDEZ Delivery Method: HAND - Hand Delivered Renetta Days: Prior Verbal Notification: Recipient Understood Notice: Yes Recipient Signature: Yes Med Rec Note Co-signed by Attending: Coverage Notice Comment: Reviewer: [id number] Bennett Almaraz Notice Issued Date-Time: 05/27/2019 9:50 Notice Type: Patient Choice Letter Notice Delivered To: Family Member Relationship to Patient: Spouse Coding Analyst Name: LINDA FERNANDEZ Delivery Method: HAND - Hand Delivered Renetta Days: Prior Verbal Notification: Recipient Understood Notice: Yes Recipient Signature: Yes Med Rec Note Co-signed by Attending: Coverage Notice Comment: ELIER SINGH ENC[facility] Last DP export: 05/28/19 10:43 a Patient Name: CHUCK FERNANDEZ Page 11517 at 1620 All edits/amendments must be made on the electronic document DICTATION DATE: 05/28/191619 RECRUITMENT OFFICER: LITZY 05/28/191619 RPT#: [id number] DC DATE: STATUS: ADM IN [facility] [address] [place] [address] END OF REPORT
--- NOTE | 2019-05-28 16:32 | MORECARE ---
CASE MANAGEMENT DISCHARGE SUMMARY PATIENT: CHUCK FERNANDEZ UNIT: [id number] ADM DATE: 05/24/19 AGE: 83 : 36 SEX: M ROOM/BED: D.2120 AUTHOR: EVARISTO,DOC PHYSICIAN: REFERRING PHYSICIAN: DRAKE JAUREGUI MD DATE OF SERVICE: 05/28/19 Discharge Plan Patient Name: CHUCK FERNANDEZ Facility: [facility]:[place] : 1935 Planned Disposition: Nursing Facility [facility] Cert Anticipated Discharge Date: Discharge Date: Expected LOS: Initial Reviewer: [id number] Initial Review Date: 05/24/2019 Generated: 05/28/19 5:31 pm Comments DCP- Discharge Planning Updated by [email or web address]: Guy Almaraz on 05/28/19 3:[address] Patient Name: CHUCK FERNANDEZ Encounter No: [id number] : 1935 Primary Insurance: NOVASYSMCR Anticipated DC Date: Planned Disposition: Nursing Facility [facility] Cert External Planned Provider: [facility], HALF-WAY CARE MEDICAID BED DCP follow-up note: CM FAXED UPDATE TO ROSEMARIE AT [facility], . CM CALLED AND SPOKE TO [facility], , DISCUSSED REFERRAL FOR HALF-WAY CARE, FAXED REFERRAL TO [facility] VIA JENY AT [phone]. CM WAITING ADMISSION DETERMINATIONS FROM [facility]. Guy Almaraz, CASE MANAGEMENT Appended by Guy Almaraz on 05/28/2019 16:22 CDT: CM RECEIVED CALL FROM ROSEMARIE OF [facility], THEY WILL NOT ACCEPT PT. CM FAXED REFERRAL TO [facility] AT [phone]. CM RECEIVED MESSAGE FROM JENY [facility], THEY ARE STILL CONSIDERING PT FOR GROOVER OPERATOR CARE. CM NOTIFED PT'S SPOUSE, JULIANA FERNANDEZ, . CM CONTINUES TO WAIT ADMISSION DETERMINATIONS FROM [facility] FOR [facility] OPERATOR CARE. IHSAN TORO DCP- Discharge Planning Updated by [id number]: Guy Almaraz on 05/27/19 1:[address] Patient Name: CHUCK FERNANDEZ Encounter No: [id number] : 1935 Primary Insurance: NOVASYSMCR Anticipated DC Date: Planned Disposition: Nursing Facility [facility] Cert External Planned Provider: TO BE DETERMINED DCP follow-up note: CM SPOKE TO PT'S SPOUSE, LINDA, AT HER REQUEST AT NURSES STATION. LINDA REPORTS SHE DOES NOT WANT PT PLACED BACK AT THE [facility] AT DISCHARGE. PT [facility] TO ADMISSION TO THE [facility] AND SHE WOULD LIKE TO SEE IF PT CAN GO BACK THERE BUT CANNOT GET ANYONE THERE TO RETURN HER CALLS. PT'S SPOUSE WILL BE GOING TO [place] TODAY TO LOOK AT [facility] FOR POSSIBLE PLACEMENT THERE PT'S DAUGHTER LIVES IN [place]. CHOICE SIGNED FOR [facility], [facility]. IMPORTANT MESSAGE FROM MEDICARE PROVIDED AND EXPLAINED. CM CALLED [facility], , SPOKE TO ROSEMARIE WHO WILL ACCEPT REFERRAL AND CONSIDER PT FOR HALF-WAY CARE. CM FAXED REFERRAL TO [facility], .CM SPOKE TO [facility], , WHO CALLED FOR UPDATE. CM ADVISED THAT FAMILY DOES NOT WANT PT TO RETURN TO FACILITY AT HOSPITAL DISCHARGE. CM WAITING ADMISSION DETERMINATION FROM [facility]. Guy Almaraz, CASE MANAGEMENT DCP- Discharge Planning Updated by [id number]: Suzy Chapman on 05/24/19 4:[address] Patient Name: CHUCK FERNANDEZ Admission Status: ER Accout number: [id number] Admission Date: 05-24-2019 : 1935 Admission Diagnosis: Attending: DRAKE JAUREGUI Current LOS: 1 Anticipated DC Date: Planned Disposition: Nursing Facility [facility] Cert Primary Insurance: NOVASYSMCR Discharge Planning Comments: CM met with patient and spouse (Linda) at bedside after explaining CM role and obtaining verbal consent. [facility] Patient's spouse is requesting placement into [facility]. Linda (spouse) states that she has been working with Rosemarie at [place] trying to get this arranged. Patient will need ONEL his last admission was into [facility]. CM discussed availability / needs of home health and medical equipment. Patient's denies any discharge needs at this time. CM will continue to follow and assist as needed with discharge planning / needs. Public Housing Manager: Suzy Chapman Appended by Suzy Chapman on 05/24/2019 17:23 CDT: CM attempted to call [facility] [phone] to find out patients status at facility and if he was LTC / SNF bed. CM was going to find out if patient would need a ONEL before return to facility. CM was also going to inform them that family was seeking a different facility. CM will continue to follow and assist as needed with discharge planning / needs. DCPIA - Discharge Planning Initial Assessment Updated by [id number]: Suzy Chapman on 05/24/19 4:20 pm * How many steps to enter\exit or inside your home? * PCP Amy SALCIDO * [facility] * Preadmission Environment Shelter Facility * Facility [facility] * ADLs Partial Dependent * Partial ADLs (Assistance needed) Ambulation Bathing Dressing Eating Medication Management Toileting Transfers * Other Equipment BEDRAILS, WALKER W SEAT, STEP IN SHOWER WITH GRAB BARS * List name and contact numbers for known caregivers / representatives who currently or will assist patient after discharge: LINDA FENRANDEZ - - [phone] DEONNA / MARTHA HALL - SON/ [facility] - [phone], * Verbal permission to speak to the caregivers and representatives has been obtained from the patient. Yes * Community resources currently utilized None * Additional services required to return to the preadmission environment? No * Can the patient safely return to the preadmission environment? Yes * Has this patient been hospitalized within the prior 30 days at any hospital? Yes Coverage Notice Reviewer: [id number] Bennett Almaraz Notice Issued Date-Time: 05/27/2019 9:50 Notice Type: IM Discharge Notice Notice Delivered To: Family Member Relationship to Patient: Spouse Mooner Name: LINDA FERNANDEZ Delivery Method: HAND - Hand Delivered Renetta Days: Prior Verbal Notification: Recipient Understood Notice: Yes Recipient Signature: Yes Med Rec Note Co-signed by Attending: Coverage Notice Comment: Reviewer: [id number] Almaraz Notice Issued Date-Time: 05/27/2019 9:50 Notice Type: Patient Choice Letter Notice Delivered To: Family Member Relationship to Patient: Spouse Mooner Name: LINDA FERNANDEZ Delivery Method: HAND - Hand Delivered Renetta Days: Prior Verbal Notification: Recipient Understood Notice: Yes Recipient Signature: Yes Med Rec Note Co-signed by Attending: Coverage Notice Comment: ELIER SINGH [facility]NC[facility] Last DP export: 05/28/19 3:20 p Patient Name: CHUCK FERNANDEZ Page [id number] at 1632 All edits/amendments must be made on the electronic document DICTATION DATE: 05/28/19 1631 DIRECTOR OF PATIENT CARE: LITZY 05/28/19 1631 RPT#: [id number] DC DATE: STATUS: ADM IN [facility] [address] [place] [address] END OF REPORT
[2019-05-28 17:00] VITALS: BP 154/62
[2019-05-28 20:00] VITALS: BP 114/72
--- NOTE | 2019-05-28 21:05 | NUR ---
[facility] MEDS GIVEN CRUSHED IN [place], PT TOOK WITH OUT DIFFICULTY. BED LOW, CL IN REACH, BED ALARM IN USE.
--- NOTE | 2019-05-28 23:43 | NUR ---
RESTING ON RIGHT SIDE, RESPERATIONS EVEN AND UNLABORED.
[2019-05-29 00:30] VITALS: BP 105/60
[2019-05-29 04:30] VITALS: BP 127/65
[2019-05-29 05:59] LABS: BASOPHILS 0.3 % (0-2); EOSINOPHILS 3.3 % (0-7); HEMATOCRIT 39.3 % (42.0-54.0); HEMOGLOBIN 13.5 g/dL (13.5-17.5); IMMATURE GRANULOCYTES 0.7 % (0-5); MCH 30.1 pg (26.0-34.0); MCHC 34.4 g/dL (31.0-37.0); MCV 87.7 fL (80.0-100.0); MEAN PLATELET VOLUME 11.9 fL (7.4-10.4); MONOCYTES 9.7 % (2-11); PLATELET COUNT 187 10x3/uL (130-400); RBC 4.48 10x6/uL (4.20-6.10); RDW 13.4 % (11.5-14.5)
[2019-05-29 06:43] LABS: CALC OSMOLALITY 291 mosm/kg (275-300); CALCIUM 9.4 mg/dL (8.5-10.1); CARBON DIOXIDE 28.6 mmol/L (21.0-32.0); CHLORIDE - SERUM 110 mmol/L (98-107); CREATININE - SERUM 0.9 mg/dL (0.6-1.3); GLUCOSE 107 mg/dL (74-106); POTASSIUM - SERUM 3.7 mmol/L (3.5-5.1); SODIUM 146 mmol/L (136-145); UREA NITROGEN 15 mg/dL (7-18); eGFR NON AFRICAN AMERICAN 86 mL/min (90-120)
--- NOTE | 2019-05-29 07:53 | MORECARE ---
CASE MANAGEMENT DISCHARGE SUMMARY PATIENT: CHUCK FERNANDEZ UNIT: [id number] ADM DATE: 05/24/19 AGE: 83 : 36 SEX: M ROOM/BED: D.2120 AUTHOR: EVARISTO,DOC PHYSICIAN: REFERRING PHYSICIAN: DRAKE JAUREGUI MD DATE OF SERVICE: 05/29/19 Discharge Plan Patient Name: CHUCK FERNANDEZ Facility: [facility]:[place] : 1935 Planned Disposition: Nursing Facility [facility] Cert Anticipated Discharge Date: Discharge Date: Expected LOS: Initial Reviewer: [id number] Initial Review Date: 05/24/2019 Generated: 05/29/19 8:53 am Comments DCP- Discharge Planning Updated by [id number]: Guy Almaraz on 05/28/19 3:[address] Patient Name: CHUCK FERNANDEZ Encounter No: [id number] : 1935 Primary Insurance: NOVASYSMCR Anticipated DC Date: Planned Disposition: Nursing Facility [facility] Cert External Planned Provider: [facility], ALF CARE MEDICAID BED DCP follow-up note: CM FAXED UPDATE TO ROSEMARIE AT [facility], . CM CALLED AND SPOKE TO [facility], , DISCUSSED REFERRAL FOR ALF CARE, FAXED REFERRAL TO [facility] VIA JENY AT [phone]. CM WAITING ADMISSION DETERMINATIONS FROM [facility]. Guy Almaraz, CASE MANAGEMENT Appended by Guy Almaraz on 05/28/2019 16:22 CDT: CM RECEIVED CALL FROM ROSEMARIE OF [facility], THEY WILL NOT ACCEPT PT. CM FAXED REFERRAL TO [facility] AT [phone]. CM RECEIVED MESSAGE FROM [facility], THEY ARE STILL CONSIDERING PT FOR NUT SIFTER CARE. CM NOTIFED PT'S SPOUSE, JULIANA FERNANDEZ, . CM CONTINUES TO WAIT ADMISSION DETERMINATIONS FROM [facility] FOR NUT SIFTER CARE. IHSAN TORO DCP- Discharge Planning Updated by [id number]: Guy Almaraz on 05/27/19 1:[address] Patient Name: CHUCK FERNANDEZ Encounter No: [id number] : 1935 Primary Insurance: NOVASYSMCR Anticipated DC Date: Planned Disposition: Nursing Facility [facility] Cert External Planned Provider: TO BE DETERMINED DCP follow-up note: CM SPOKE TO PT'S SPOUSE, LINDA, AT HER REQUEST AT NURSES STATION. LINDA REPORTS SHE DOES NOT WANT PT PLACED BACK AT THE [facility] AT DISCHARGE. [facility] [place] [facility]ION TO [facility] AND SHE WOULD LIKE TO SEE IF PT CAN GO BACK THERE BUT CANNOT GET ANYONE THERE TO RETURN HER CALLS. PT'S SPOUSE WILL BE GOING TO [place] TODAY TO LOOK AT [facility] FOR POSSIBLE PLACEMENT THERE PT'S DAUGHTER LIVES IN [place]. CHOICE SIGNED FOR [facility]. IMPORTANT MESSAGE FROM MEDICARE PROVIDED AND EXPLAINED. CM CALLED [facility], , SPOKE TO ROSEMARIE WHO WILL ACCEPT REFERRAL AND CONSIDER PT FOR ALF CARE. CM FAXED REFERRAL TO [facility], .CM SPOKE TO [facility], , WHO CALLED FOR UPDATE. CM ADVISED THAT FAMILY DOES NOT WANT PT TO RETURN TO FACILITY AT HOSPITAL DISCHARGE. CM WAITING ADMISSION DETERMINATION FROM [facility]. Guy Almaraz, CASE MANAGEMENT DCP- Discharge Planning Updated by [id number]: Suzy Chapman on 05/24/19 4:[address] Patient Name: CHUCK FERNANDEZ Admission Status: ER Accout number: [id number] Admission Date: 05-24-2019 : 1935 Admission Diagnosis: Attending: DRAKE JAUREGUI Current LOS: 1 Anticipated DC Date: Planned Disposition: Nursing Facility [facility] Cert Primary Insurance: NOVASYSMCR Discharge Planning Comments: CM met with patient and spouse (Linda) at bedside after explaining CM role and obtaining verbal consent. [facility] Patient's spouse is requesting placement into [facility]. Linda (spouse) states that she has been working with Rosemarie at [place] trying to get this arranged. Patient will need ONEL [facility]. CM discussed availability / needs of home health and medical equipment. Patient's denies any discharge needs at this time. CM will continue to follow and assist as needed with discharge planning / needs. Stock Checkerer: Suzy Chapman Appended by Suzy Chapman on 05/24/2019 17:23 CDT: CM attempted to call [facility] [phone] to find out patients status at facility and if he was LTC / SNF bed. CM was going to find out if patient would need a ONEL before return to facility. CM was also going to inform them that family was seeking a different facility. CM will continue to follow and assist as needed with discharge planning / needs. DCPIA - Discharge Planning Initial Assessment Updated by [id number]: Suzy Chapman on 05/24/19 4:20 pm * How many steps to enter\exit or inside your home? * PCP Amy SALCIDO * Pharmacy [facility] * Preadmission Environment Senior Living Facility * Facility Name [facility] * ADLs Partial Dependent * Partial ADLs (Assistance needed) Ambulation Bathing Dressing Eating Medication Management Toileting Transfers * Other Equipment BEDRAILS, WALKER W SEAT, STEP IN SHOWER WITH GRAB BARS * List name and contact numbers for known caregivers / representatives who currently or will assist patient after discharge: LINDA FERNANDEZ - - [phone] DEONNA / MARTHA HALL - SON/ [facility] - [phone], * Verbal permission to speak to the caregivers and representatives has been obtained from the patient. Yes * Community resources currently utilized None * Additional services required to return to the preadmission environment? No * Can the patient safely return to the preadmission environment? Yes * Has this patient been hospitalized within the prior 30 days at any hospital? Yes Coverage Notice Reviewer: [id number] Bennett Almaraz Notice Issued Date-Time: 05/27/2019 9:50 Notice Type: IM Discharge Notice Notice Delivered To: Family Member Relationship to Patient: Spouse Clinical Data Manager Name: LINDA FERNANDEZ Delivery Method: HAND - Hand Delivered Renetta Days: Prior Verbal Notification: Recipient Understood Notice: Yes Recipient Signature: Yes Med Rec Note Co-signed by Attending: Coverage Notice Comment: Reviewer: [id number] Almaraz Notice Issued Date-Time: 05/27/2019 9:50 Notice Type: Patient Choice Letter Notice Delivered To: Family Member Relationship to Patient: Spouse Clinical Data Manager Name: LIDNA FERNANDEZ Delivery Method: HAND - Hand Delivered Renetta Days: Prior Verbal Notification: Recipient Understood Notice: Yes Recipient Signature: Yes Med Rec Note Co-signed by Attending: Coverage Notice Comment: ELIER SINGH [facility]NC[facility] Last DP export: 05/28/19 3:32 p Patient Name: CHUCK FERNANDEZ Page [id number] at 0753 All edits/amendments must be made on the electronic document DICTATION DATE: 05/29/19751 DRAMATIC ART TEACHER: LITZY 05/29/19 075 RPT#: [id number] DC DATE: STATUS: ADM IN [facility] [address] [place] [address] END OF REPORT
--- NOTE | 2019-05-29 07:56 | NUR ---
ASSESSMENT DONE. DENIES NEEDS
--- NOTE | 2019-05-29 08:05 | MORECARE ---
CASE MANAGEMENT DISCHARGE SUMMARY PATIENT: CHUCK FERNANDEZ UNIT: [id number] ADM DATE: 05/24/19 AGE: 83 : 36 SEX: M ROOM/BED: D.2120 AUTHOR: EVARISTO,DOC PHYSICIAN: REFERRING PHYSICIAN: DRAKE JAUREGUI MD DATE OF SERVICE: 05/29/19 Discharge Plan Patient Name: CHUCK FERNANDEZ Facility: [facility]:[place] : 1935 Planned Disposition: Nursing Facility [facility] Cert Anticipated Discharge Date: Discharge Date: Expected LOS: Initial Reviewer: [id number] Initial Review Date: 05/24/2019 Generated: 05/29/19 9:05 am Comments DCP- Discharge Planning Updated by [email or web address]: Carmen Munoz on 05/29/19 7:[address] Patient Name: CHUCK FERNANDEZ Encounter No: [id number] : 1935 Primary Insurance: [employer]YSMCR Anticipated DC Date: Planned Disposition: Nursing Facility [facility] Cert External Planned Provider: [facility] OR [facility], LONG TERM CARE MEDICAID BED CM FAXED REFERRAL UPDATE TO [facility] VIA [employer] AT [phone]. CM FAXED REFERRAL UPDATE TO [facility] AT [phone]. PT HAS BEEN DECLINED PLACEMENT BY [facility]. [facility] WILL ACCEPT PT BACK BUT PT'S SPOUSE REFUSES. CM CONTINUES TO WAIT ADMISSION DETERMINATIONS FROM [facility] AND [facility] FOR LONG-TERM CARE. CARMEN MUNOZ, CASE MANAGEMENT DCP- Discharge Planning Updated by [email or web address]: Carmen Munoz on 05/28/19 3:[address] Patient Name: CHUCK FERNANDEZ Encounter No: [id number] : 1935 Primary Insurance: [employer]YSMCR Anticipated DC Date: Planned Disposition: Nursing Facility [facility] Cert External Planned Provider: [facility], LIABILITY CLAIMS ADJUSTER CARE MEDICAID BED DCP follow-up note: CM FAXED UPDATE TO ROSEMARIE AT [facility], . CM CALLED AND SPOKE TO JENY OF [facility], , DISCUSSED REFERRAL FOR LIABILITY CLAIMS ADJUSTER CARE, FAXED REFERRAL TO [facility] [employer]IA [employer] AT [phone]. CM WAITING ADMISSION DETERMINATIONS FROM [facility]. Carmen Munoz, CASE MANAGEMENT Appended by Carmen Munoz on 05/28/2019 16:22 CDT: CM RECEIVED CALL FROM ROSEMARIE OF [facility], THEY WILL NOT ACCEPT PT. CM FAXED REFERRAL TO [facility] AT [phone]. CM RECEIVED MESSAGE FROM JENY OF [facility], THEY ARE STILL CONSIDERING PT FOR LIABILITY CLAIMS ADJUSTER CARE. CM NOTIFED PT'S SPOUSE, JULIANA FERNANDEZ, . CM CONTINUES TO WAIT ADMISSION DETERMINATIONS FROM [facility] AND [facility]HAB FOR LONG-TERM CARE. IHSAN TORO MANAGEMENT DCP- Discharge Planning Updated by [id number]: Carmen Munoz on 05/27/19 1:[address] Patient Name: CHUCK FERNANDEZ Encounter No: [id number] : 1935 Primary Insurance: NOVASYSMCR Anticipated DC Date: Planned Disposition: Nursing Facility [facility] Cert External Planned Provider: TO BE DETERMINED DCP follow-up note: CM SPOKE TO PT'S SPOUSE, LINDA, AT HER REQUEST AT NURSES STATION. LINDA REPORTS SHE DOES NOT WANT PT PLACED BACK AT THE [facility] AT DISCHARGE. PT WAS IN [facility] PRIOR TO ADMISSION TO THE [facility] AND SHE WOULD LIKE TO SEE IF PT CAN GO BACK THERE BUT CANNOT GET ANYONE THERE TO RETURN HER CALLS. PT'S SPOUSE WILL BE GOING TO [place] TODAY TO LOOK AT [facility] AND [facility] FOR POSSIBLE PLACEMENT THERE PT'S DAUGHTER LIVES IN [place]. CHOICE SIGNED FOR [facility], [facility] AND [facility]. IMPORTANT MESSAGE FROM MEDICARE PROVIDED AND EXPLAINED. CM CALLED [facility], , SPOKE TO ROSEMARIE WHO WILL ACCEPT REFERRAL AND CONSIDER PT FOR LONG-TERM CARE. CM FAXED REFERRAL TO [facility], .CM SPOKE TO [facility], , WHO CALLED FOR UPDATE. CM ADVISED THAT FAMILY DOES NOT WANT PT TO RETURN TO FACILITY AT HOSPITAL DISCHARGE. CM WAITING ADMISSION DETERMINATION FROM [facility]. Carmen Munoz, CASE MANAGEMENT DCP- Discharge Planning Updated by [id number]: Suzy Chapman on 05/24/19 4:[address] Patient Name: CHUCK FERNANDEZ Admission Status: ER Accout number: [id number] Admission Date: 05-24-2019 : 1935 Admission Diagnosis: Attending: DRAKE JAUREGUI Current LOS: 1 Anticipated DC Date: Planned Disposition: Nursing Facility [facility] Primary Insurance: [employer] Discharge Planning Comments: CM met with patient and spouse (Linda) at bedside after explaining CM role and obtaining verbal consent. [facility] Patient's spouse is requesting placement into [facility]. Linda (spouse) states that she has been working with Rosemarie at [place] trying to get this arranged. Patient will need ONEL [facility]. CM discussed availability / needs of home health and medical equipment. Patient's denies any discharge needs at this time. CM will continue to follow and assist as needed with discharge planning / needs. Manager Financial Reporting: Suzy Chapman Appended by Suzy Chapman on 05/24/2019 17:23 CDT: [facility] [phone] to find out patients status at facility and if he was LTC / SNF bed. CM was going to find out if patient would need a ONEL before return to facility. CM was also going to inform them that family was seeking a different facility. CM will continue to follow and assist as needed with discharge planning / needs. DCPIA - Discharge Planning Initial Assessment Updated by [id number]: Suzy Chapman on 05/24/19 4:20 pm * How many steps to enter\exit or inside your home? * PCP Amy SALCIDO * Pharmacy [facility] * Preadmission Environment Care Home Facility * Facility Name [facility] * ADLs Partial Dependent * Partial ADLs (Assistance needed) Ambulation Bathing Dressing Eating Medication Management Toileting Transfers * Other Equipment BEDRAILS, WALKER W SEAT, STEP IN SHOWER WITH GRAB BARS * List name and contact numbers for known caregivers / representatives who currently or will assist patient after discharge: LINDA FERNANDEZ - - [phone] DEONNA / MARTHA JIM - SON/ DIL - [phone], * Verbal permission to speak to the caregivers and representatives has been obtained from the patient. Yes * Community resources currently utilized None * Additional services required to return to the preadmission environment? No * Can the patient safely return to the preadmission environment? Yes * Has this patient been hospitalized within the prior 30 days at any hospital? Yes Coverage Notice Reviewer: [id number] Bennett Munoz Notice Issued Date-Time: 05/27/2019 9:50 Notice Type: IM Discharge Notice Notice Delivered To: Family Member Relationship to Patient: Spouse Knife Setter Assembler Name: LINDA FERNANDEZ Delivery Method: HAND - Hand Delivered Renetta Days: Prior Verbal Notification: Recipient Understood Notice: Yes Recipient Signature: Yes Med Rec Note Co-signed by Attending: Coverage Notice Comment: Reviewer: [id number] Bennett Munoz Notice Issued Date-Time: 05/27/2019 9:50 Notice Type: Patient Choice Letter Notice Delivered To: Family Member Relationship to Patient: Spouse Knife Setter Assembler Name: LINDA FERNANDEZ Delivery Method: HAND - Hand Delivered Renetta Days: Prior Verbal Notification: Recipient Understood Notice: Yes Recipient Signature: Yes Med Rec Note Co-signed by Attending: Coverage Notice Comment: ELIER SINGH ENCORE Last DP export: 05/29/19 6:53 a Patient Name: CHUCK FERNANDEZ Page [id number] at 0805 All edits/amendments must be made on the electronic document DICTATION DATE: 05/29/19 08 SUPERVISOR TUMBLERS: LITZY 05/29/19 08 RPT#: [id number] DC DATE: STATUS: ADM IN [facility] [address] [place] [address] END OF REPORT
[2019-05-29 08:35] VITALS: BP 160/49
--- NOTE | 2019-05-29 09:27 | MORECARE ---
CASE MANAGEMENT DISCHARGE SUMMARY PATIENT: CHUCK FERNANDEZ UNIT: [id number] ADM DATE: 05/24/19 AGE: 83 : 36 SEX: M ROOM/BED: D.2120 AUTHOR: EVARISTO,DOC PHYSICIAN: REFERRING PHYSICIAN: DRAKE JAUREGUI MD DATE OF SERVICE: 05/29/19 Discharge Plan Patient Name: CHUCK FERNANDEZ Facility: [facility]:[place] : 1935 Planned Disposition: Nursing Facility [facility] Cert Anticipated Discharge Date: Discharge Date: Expected LOS: Initial Reviewer: [id number] Initial Review Date: 05/24/2019 Generated: 05/29/19 10:27 am Comments DCP- Discharge Planning Updated by [id number]: Carmen Munoz on 05/29/19 8:[address] Patient Name: CHUCK FERNANDEZ Encounter No: [id number] : 1935 Primary Insurance: [employer] Anticipated DC Date: Planned Disposition: Nursing Facility [facility] Cert External Planned Provider: [facility] OR [facility], LONG TERM CARE MEDICAID BED CM FAXED REFERRAL UPDATE TO [facility] VIA JENY AT [phone]. CM FAXED REFERRAL UPDATE TO [facility] AT [phone]. PT HAS BEEN DECLINED PLACEMENT BY [facility]. [facility] WILL ACCEPT PT BACK BUT PT'S SPOUSE REFUSES. CM CONTINUES TO WAIT ADMISSION DETERMINATIONS FROM [facility] AND [facility] FOR GROUP HOME CARE. CARMEN MUNOZ CASE MANAGEMENT Appended by Carmen Munoz on 05/29/2019 9:25 CDT: CM RECEIVED CALL FROM [facility], THEY RECEIVED REFERRAL AND ARE SCREENING FOR ADMISSION. CM RECEIVED MESSAGE FROM JENY [facility], THEY WILL NOT ACCEPT PT. PT HAS BEEN DECLINED PLACEMENT BY [facility] AND [facility]. [facility] WILL ACCEPT PT BACK BUT PT'S SPOUSE REFUSES. CM CONTINUES TO WAIT ADMISSION DETERMINATION FROM [facility] FOR ROASTER HELPER CARE. IHSAN TORO DCP- Discharge Planning Updated by [email or web address]: Carmen Munoz on 05/28/19 3:[address] Patient Name: CHUCK FERNANDEZ Encounter No: [id number] : 1935 Primary Insurance: [employer]YSMCR Anticipated DC Date: Planned Disposition: Nursing Facility [facility] Cert External Planned Provider: [facility], GROUP HOME CARE MEDICAID BED DCP follow-up note: CM FAXED UPDATE TO ROSEMARIE AT [facility], . CM CALLED AND SPOKE TO JENY OF [facility], , DISCUSSED REFERRAL FOR ROASTER HELPER CARE, FAXED REFERRAL TO [facility] VIA JENY AT [phone]. CM WAITING ADMISSION DETERMINATIONS FROM [facility]. Carmen Munoz, CASE MANAGEMENT Appended by Carmen Munoz on 05/28/2019 16:22 CDT: CM RECEIVED CALL FROM ROSEMARIE OF [facility], THEY WILL NOT ACCEPT PT. CM FAXED REFERRAL TO [facility] AT [phone]. CM RECEIVED MESSAGE FROM JENY OF [facility], THEY ARE STILL CONSIDERING PT FOR GROUP HOME CARE. CM NOTIFED PT'S SPOUSE, JULIANA FERNANDEZ, . CM CONTINUES TO WAIT ADMISSION DETERMINATIONS FROM [facility] FOR GROUP HOME CARE. CARMEN MUNOZ, CASE MANAGEMENT DCP- Discharge Planning Updated by [id number]: Carmen Munoz on 05/27/19 1:[address] Patient Name: CHUCK FERNANDEZ Encounter No: [id number] : 1935 Primary Insurance: [employer] Anticipated DC Date: Planned Disposition: Nursing Facility [facility] Cert External Planned Provider: TO BE DETERMINED DCP follow-up note: CM SPOKE TO PT'S SPOUSE, LINDA, AT HER REQUEST AT NURSES STATION. LINDA REPORTS SHE DOES NOT WANT PT PLACED BACK AT THE [facility] AT DISCHARGE. PT WAS IN [facility] PRIOR TO ADMISSION TO THE [facility] AND SHE WOULD LIKE TO SEE IF PT CAN GO BACK THERE BUT CANNOT GET ANYONE THERE TO RETURN HER CALLS. PT'S SPOUSE WILL BE GOING TO [place] TODAY TO LOOK AT [facility] AND [facility] FOR POSSIBLE PLACEMENT THERE PT'S DAUGHTER LIVES IN [place]. CHOICE SIGNED FOR [facility], [facility] AND [facility]. IMPORTANT MESSAGE FROM MEDICARE PROVIDED AND EXPLAINED. CM CALLED [facility], , SPOKE TO ROSEMARIE WHO WILL ACCEPT REFERRAL AND CONSIDER PT FOR ROASTER HELPER CARE. CM FA[facility]ED [facility]ERR[facility], .CM SPOKE TO NANCY OF [facility], , WHO CALLED FOR UPDATE. CM ADVISED THAT FAMILY DOES NOT WANT PT TO RETURN TO FACILITY AT HOSPITAL DISCHARGE. CM WAITING ADMISSION DETERMINATION FROM [facility] Carmen Munoz, CASE MANAGEMENT DCP- Discharge Planning Updated by [id number]: Suzy Chapman on 05/24/19 4:[address] Patient Name: CHUCK FERNANDEZ Admission Status: ER Accout number: [id number] Admission Date: 05-24-2019 : 1935 Admission Diagnosis: Attending: DRAKE JAUREGUI Current LOS: 1 Anticipated DC Date: Planned Disposition: Nursing Facility [facility] Primary Insurance: [employer] Discharge Planning Comments: CM met with patient and spouse (Linda) at bedside after explaining CM role and obtaining verbal consent. [facility] Patient's spouse is requesting placement into [facility]. Linda (spouse) states that she has been working with Rosemarie at [place] trying to get this arranged. Patient will need ONEL his last admission [facility] into [facility]. CM discussed availability / needs of home health and medical equipment. Patient's denies any discharge needs at this time. CM will continue to follow and assist as needed with discharge planning / needs. Wire Drawer: Suzy Chapman Appended by Suzy Chapman on 05/24/2019 17:23 CDT: CM attempted to call [facility] [phone] to find out patients status at facility and if he was LTC / SNF bed. CM was going to find out if patient would need a ONEL before return to facility. CM was also going to inform them that family was seeking a different facility. CM will continue to follow and assist as needed with discharge planning / needs. DCPIA - Discharge Planning Initial Assessment Updated by [id number]: Suzy Chapman on 05/24/19 4:20 pm * How many steps to enter\exit or inside your home? * PCP Amy SALCIDO * Pharmacy [facility] * Preadmission Environment Half-Way Facility * Facility Name [facility] * ADLs Partial Dependent * Partial ADLs (Assistance needed) Ambulation Bathing Dressing Eating Medication Management Toileting Transfers * Other Equipment BEDRAILS, WALKER W SEAT, STEP IN SHOWER WITH GRAB BARS * List name and contact numbers for known caregivers / representatives who currently or will assist patient after discharge: LINDA FERNANDEZ - - [phone] DEONNA / MARTHA FERNANDEZ - SON/ DIL - [phone], * Verbal permission to speak to the caregivers and representatives has been obtained from the patient. Yes * Community resources currently utilized None * Additional services required to return to the preadmission environment? No * Can the patient safely return to the preadmission environment? Yes * Has this patient been hospitalized within the prior 30 days at any hospital? Yes Coverage Notice Reviewer: [id number] Munoz Notice Issued Date-Time: 05/27/2019 9:50 Notice Type: IM Discharge Notice Notice Delivered To: Family Member Relationship to Patient: Spouse Manager Business Process Name: LINDA FERNANDEZ Delivery Method: HAND - Hand Delivered Renetta Days: Prior Verbal Notification: Recipient Understood Notice: Yes Recipient Signature: Yes Med Rec Note Co-signed by Attending: Coverage Notice Comment: Reviewer: [email or web address] Munoz Notice Issued Date-Time: 05/27/2019 9:50 Notice Type: Patient Choice Letter Notice Delivered To: Family Member Relationship to Patient: Spouse Manager Business Process Name: LINDA FERNANDEZ Delivery Method: HAND - Hand Delivered Renetta Days: Prior Verbal Notification: Recipient Understood Notice: Yes Recipient Signature: Yes Med Rec Note Co-signed by Attending: Coverage Notice Comment: ELIER SINGH ENCORE Last DP export: 05/29/19 7:05 a Patient Name: CHUCK FERNANDEZ Page [id number] at 0927 All edits/amendments must be made on the electronic document DICTATION DATE: 05/29/19926 SUPERVISOR CONTACT AND SERVICE CLERKS: LITZY 05/29/19926 RPT#: [id number] DC DATE: STATUS: ADM IN [facility] [address] [facility] [place] [address] END OF REPORT
--- NOTE | 2019-05-29 09:43 | NUR ---
I have reviewed this patient and I concur with the Shift Assessment completed by the Licensed Practical Nurse today this shift.
--- NOTE | 2019-05-29 12:34 | NUR ---
Nutrition Follow-up: Pt's reports poor PO intake but drinks thickened Ensure. No N/V/C/D. Diet: Regular PO intake: 0-50% Wt: 283# (286# on 05/27) Last BM: 05/28 Labs noted: Na 146, Glu 107 Meds noted: Lasix, Micro K Continue regular diet with consistencies per ST. May consider appetite stimulant. RD following.
--- NOTE | 2019-05-29 12:37 | MORECARE ---
CASE MANAGEMENT DISCHARGE SUMMARY PATIENT: CHUCK FERNANDEZ UNIT: [id number] ADM DATE: 05/24/19 AGE: 83 : 36 SEX: M ROOM/BED: D.2120 AUTHOR: EVARISTO,DOC PHYSICIAN: REFERRING PHYSICIAN: DRAKE JAUREGUI MD DATE OF SERVICE: 05/29/19 Discharge Plan Patient Name: CHUCK FERNANDEZ Facility: [facility]:[place] : 1935 Planned Disposition: Nursing Facility LUCY Cert Anticipated Discharge Date: Discharge Date: Expected LOS: Initial Reviewer: [id number] Initial Review Date: 05/24/2019 Generated: 05/29/19 1:37 pm Comments DCP- Discharge Planning Updated by [id number]: Carmen Munoz on 05/29/19 11:[address] Patient Name: CHUCK FERNANDEZ Encounter No: [id number] : 1935 Primary Insurance: NOVASYSMCR Anticipated DC Date: Planned Disposition: Nursing Facility LUCY Cert External Planned Provider: [facility], AGRICULTURAL SERVICE TECHNICIAN CARE MEDICAID BED DCP follow-up note: CM SPOKE TO CAMILO VILLAFANA [facility] WHO MET WITH PT AND SPOUSE IN ROOM. SHE IS GOING TO TRY TO FIND OUT STATUS OF MEDICAID APPLICATION AND ASKED CM TO CONTACT [facility] TO DETERMINE IF PT NEEDS A ONEL OR NOT. CM CALLED [facility], , SPOKE TO JAE WHO LOOKED UP PT AND INFORMED CM THAT PT IS NON PASRR AND DOES NOT REQUIRE ASSESSMENT OR REASSESSMENT UNLESS PT IS HOMICIDAL OR SUICIDAL. PT DOES NOT REQUIRE ONEL CLEARANCE TO MOVE TO A NEW NURSING FACILITY. PT HAS BEEN DECLINED PLACEMENT BY [facility] AND [facility]. [facility] WILL ACCEPT PT BACK BUT PT'S SPOUSE REFUSES. CM CONTINUES TO WAIT ADMISSION DETERMINATION FROM [facility] AND REHAB FOR AGRICULTURAL SERVICE TECHNICIAN CARE. CARMEN MUNOZ CASE MANAGEMENT DCP- Discharge Planning Updated by [id number]: Carmen Munoz on 05/29/19 8:[address] Patient Name: HCUCK FERNANDEZ Encounter No: [id number] : 1935 Primary Insurance: NOVASYSMCR Anticipated DC Date: Planned Disposition: Nursing Facility LUCY Cert External Planned Provider: [facility] OR [facility] TERM CARE MEDICAID BED CM FAXED REFERRAL UPDATE TO [facility] VIA [employer] AT [phone]. CM FAXED REFERRAL UPDATE TO [facility] AT [phone]. PT HAS BEEN DECLINED PLACEMENT BY [facility]. [facility] WILL ACCEPT PT BACK BUT PT'S SPOUSE REFUSES. CM CONTINUES TO WAIT ADMISSION DETERMINATIONS FROM [facility] AND [facility] FOR AGRICULTURAL SERVICE TECHNICIAN CARE. CARMEN MUNOZ, CASE MANAGEMENT Appended by Carmen Munoz on 05/29/2019 9:25 CDT: CM RECEIVED CALL FROM CAMILO VILLAFANA [facility], THEY RECEIVED REFERRAL AND ARE SCREENING FOR ADMISSION. CM RECEIVED MESSAGE FROM JEN[facility], THEY WILL NOT ACCEPT PT. PT HAS BEEN DECLINED PLACEMENT BY [facility] AND [facility]. [facility] WILL ACCEPT PT BACK BUT PT'S SPOUSE REFUSES. CM CONTINUES TO WAIT ADMISSION DETERMINATION FROM [facility] FOR AGRICULTURAL SERVICE TECHNICIAN CARE. ISHAN TORO DCP- Discharge Planning Updated by [id number]: Carmen Munoz on 05/28/19 3:[address] Patient Name: CHUCK FERNANDEZ Encounter No: [id number] : 1935 Primary Insurance: NOVASYSMCR Anticipated DC Date: Planned Disposition: Nursing Facility LUCY Cert External Planned Provider: [facility], [facility] MEDICAID BED DCP follow-up note: CM FAXED UPDATE TO ROSEMARIE AT [facility], . CM CALLED AND SPOKE TO [facility]EN[facility], , DISCUSSED REFERRAL FOR [facility], FAXED REFERRAL TO [facility] VIA JEN[facility] AT [phone]. CM WAITING ADMISSION DETERMINATIONS FROM [facility]. Carmen Munoz CASE MANAGEMENT Appended by Carmen Munoz on 05/28/2019 16:22 CDT: CM RECEIVED CALL FROM ROSEMARIE OF [facility], THEY WILL NOT ACCEPT PT. CM FAXED REFERRAL TO [facility] AT [phone]. CM RECEIVED MESSAGE FROM [facility], THEY ARE STILL CONSIDERING PT FOR [facility]. CM NOTIFED PT'S SPOUSE, JULIANA FERNANDEZ, . CM CONTINUES TO WAIT ADMISSION DETERMINATIONS FROM [facility] AND [facility] FOR [facility] CARE. CARMEN MUNOZ, CASE MANAGEMENT DCP- Discharge Planning Updated by [id number]: Carmen Munoz on 05/27/19 1:[address] Patient Name: CHUCK FERNANDEZ Encounter No: [id number] : 1935 Primary Insurance: NOVASYSMCR Anticipated DC Date: Planned Disposition: Nursing Facility [facility] Cert External Planned Provider: TO BE DETERMINED DCP follow-up note: CM SPOKE TO PT'S SPOUSE, LINDA, AT HER REQUEST AT NURSES STATION. LINDA REPORTS SHE DOES NOT WANT PT PLACED BACK AT THE [facility] AT DISCHARGE. PT WAS IN [facility] PRIOR TO ADMISSION TO THE [facility] AND SHE WOULD LIKE TO SEE IF PT CAN GO BACK THERE BUT CANNOT GET ANYONE THERE TO RETURN HER CALLS. PT'S SPOUSE WILL BE GOING TO [place] TODAY TO LOOK AT [facility] AND [facility] FOR POSSIBLE PLACEMENT THERE PT'S DAUGHTER LIVES IN [place]. CHOICE SIGNED FOR [facility], [facility] AND [facility]. IMPORTANT MESSAGE FROM MEDICARE PROVIDED AND EXPLAINED. CM CALLED [facility], , SPOKE TO ROSEMARIE WHO WILL ACCEPT REFERRAL AND CONSIDER PT FOR AGRICULTURAL SERVICE TECHNICIAN CARE. CM FAXED REFERRAL TO [facility], .CM SPOKE TO [facility], , WHO CALLED FOR UPDATE. CM ADVISED THAT FAMILY DOES NOT WANT PT TO RETURN TO FACILITY AT HOSPITAL DISCHARGE. CM WAITING ADMISSION DETERMINATION FROM [facility]. Carmen Munoz CASE MANAGEMENT DCP- Discharge Planning Updated by [id number]: Suzy Chapman on 05/24/19 4:[address] Patient Name: CHUCK FERNANDEZ Admission Status: ER Accout number: [id number] Admission Date: 05-24-2019 : 1935 Admission Diagnosis: Attending: DRAKE JAUREGUI Current LOS: 1 Anticipated DC Date: Planned Disposition: Nursing Facility [facility] Cert Primary Insurance: NOVASYSMCR Discharge Planning Comments: CM met with patient and spouse (Linda) at bedside after explaining CM role and obtaining verbal consent. Patient was admitted from [facility]. Patient's spouse is requesting placement into [facility] into [facility]. Linda (spouse) states that she has been working with Rosemarie at [facility] trying to get this arranged. Patient will need ONEL his last admission was into [facility]. CM discussed availability / needs of home health and medical equipment. Patient's denies any discharge needs at this time. CM will continue to follow and assist as needed with discharge planning / needs. Paper Sales Representative: Suzy Chapman Appended by Suzy Chapman on 05/24/2019 17:23 CDT: CM attempted to call [facility] [phone] to find out patients status at facility and if he was LTC / SNF bed. CM was going to find out if patient would need a ONEL before return to facility. CM was also going to inform them that family was seeking a different facility. CM will continue to follow and assist as needed with discharge planning / needs. DCPIA - Discharge Planning Initial Assessment Updated by [id number]: Suzy Chapman on 05/24/19 4:20 pm * How many steps to enter\exit or inside your home? * PCP Amy SALCIDO * [facility] * Preadmission Environment [facility] * Facility Name [facility] * ADLs Partial Dependent * Partial ADLs (Assistance needed) Ambulation Bathing Dressing Eating Medication Management Toileting Transfers * Other Equipment BEDRAILS, WALKER W SEAT, STEP IN SHOWER WITH GRAB BARS * List name and contact numbers for known caregivers / representatives who currently or will assist patient after discharge: LINDA FERNANDEZ - - [phone] DEONNA / MARTHA JIM - SON/ [facility] - [phone], * Verbal permission to speak to the caregivers and representatives has been obtained from the patient. Yes * Community resources currently utilized None * Additional services required to return to the preadmission environment? No * Can the patient safely return to the preadmission environment? Yes * Has this patient been hospitalized within the prior 30 days at any hospital? Yes Coverage Notice Reviewer: [id number] - Carmen Munoz Notice Issued Date-Time: 05/27/2019 9:50 Notice Type: IM Discharge Notice Notice Delivered To: Family Member Relationship to Patient: Spouse High School Teacher Name: LINDA FERNANDEZ Delivery Method: HAND - Hand Delivered Renetta Days: Prior Verbal Notification: Recipient Understood Notice: Yes Recipient Signature: Yes Med Rec Note Co-signed by Attending: Coverage Notice Comment: Reviewer: [id number] - Carmen Munoz Notice Issued Date-Time: 05/27/2019 9:50 Notice Type: Patient Choice Letter Notice Delivered To: Family Member Relationship to Patient: Spouse High School Teacher Name: LINDA FERNANDEZ Delivery Method: HAND - Hand Delivered Renetta Days: Prior Verbal Notification: Recipient Understood Notice: Yes Recipient Signature: Yes Med Rec Note Co-signed by Attending: Coverage Notice Comment: ELIER SINGH [facility] Last DP export: 05/29/19 8:27 a Patient Name: CHUCK FERNANDEZ Page 56871 at 1237 All edits/amendments must be made on the electronic document DICTATION DATE: 05/29/19 1237 RESOURCE SPECIALIST: LITZY 05/29/19 1237 RPT#: [id number] DC DATE: STATUS: ADM IN [facility] [address] [place] [address] END OF REPORT
[2019-05-29 12:45] VITALS: BP 101/46
--- NOTE | 2019-05-29 14:11 | MORECARE ---
CASE MANAGEMENT DISCHARGE SUMMARY PATIENT: CHUCK FERNANDEZ UNIT: [id number] ADM DATE: 05/24/19 AGE: 83 : 36 SEX: M ROOM/BED: D.2120 AUTHOR: EVARISTO,DOC PHYSICIAN: REFERRING PHYSICIAN: DRAKE JAUREGUI MD DATE OF SERVICE: 05/29/19 Discharge Plan Patient Name: CHUCK FERNANDEZ Facility: [facility]:[place] : 1935 Planned Disposition: Nursing Facility [facility] Cert Anticipated Discharge Date: 05/30/19 Discharge Date: Expected LOS: 6 Initial Reviewer: [id number] Initial Review Date: 05/24/2019 Generated: 05/29/19 3:11 pm Comments DCP- Discharge Planning Updated by [email or web address]: Carmen Munoz on 05/29/19 11:[address] Patient Name: CHUCK FERNANDEZ Encounter No: [id number] : 1935 Primary Insurance: NOVASYSMCR Anticipated DC Date: Planned Disposition: Nursing Facility [facility] Cert External Planned Provider: [facility], CORRECTION CARE MEDICAID BED DCP follow-up note: CM SPOKE TO CAMILO VILLAFANA [facility] WHO MET WITH PT AND SPOUSE IN ROOM. SHE IS GOING TO TRY TO FIND OUT STATUS OF MEDICAID APPLICATION AND ASKED CM TO CONTACT [facility] TO DETERMINE IF PT NEEDS A ONEL OR NOT. CM CALLED [facility], , SPOKE TO JAE WHO LOOKED UP PT AND INFORMED CM THAT PT IS NON PASRR AND DOES NOT REQUIRE ASSESSMENT OR REASSESSMENT UNLESS PT IS HOMICIDAL OR SUICIDAL. PT DOES NOT REQUIRE ONEL CLEARANCE TO MOVE TO A NEW NURSING FACILITY. PT HAS BEEN DECLINED PLACEMENT BY [facility] AND [facility]. [facility] WILL ACCEPT PT BACK BUT PT'S SPOUSE REFUSES. CM CONTINUES TO WAIT ADMISSION DETERMINATION FROM [facility] FOR [facility] CARE. CARMEN MUNOZ, CASE MANAGEMENT DCP- Discharge Planning Updated by [id number]: Carmen Munoz on 05/29/19 8:[address] Patient Name: CHUCK FERNANDEZ Encounter No: [id number] : 1935 Primary Insurance: NOVASYSMCR Anticipated DC Date: Planned Disposition: Nursing Facility [facility] Cert External Planned Provider: [facility] OR [facility], [facility]RECTION CARE MEDICAID BED CM FAXED REFERRAL UPDATE TO [facility] VIA [email or web address] AT [phone]. CM FAXED REFERRAL UPDATE TO [facility] AT [phone]. PT HAS BEEN DECLINED PLACEMENT BY [facility]. [facility] WILL ACCEPT PT BACK BUT PT'S SPOUSE REFUSES. CM CONTINUES TO WAIT ADMISSION DETERMINATIONS FROM [facility] AND [facility] FOR KNOCKUP WORKER CARE. CARMEN MUNOZ, CASE MANAGEMENT Appended by Carmen Munoz on 05/29/2019 9:25 CDT: CM RECEIVED CALL FROM CAMILO OF [facility], THEY RECEIVED REFERRAL AND ARE SCREENING FOR ADMISSION. CM RECEIVED MESSAGE FROM JENY [facility], THEY WILL NOT ACCEPT PT. PT HAS BEEN DECLINED PLACEMENT BY [facility] AND [facility]. [facility] WILL ACCEPT PT BACK BUT PT'S SPOUSE REFUSES. CM CONTINUES TO WAIT ADMISSION DETERMINATION FROM [facility] FOR KNOCKUP WORKER CARE. IHSAN TORO DCP- Discharge Planning Updated by [id number]: Carmen Munoz on 05/28/19 3:[address] Patient Name: CHUCK FERNANDEZ Encounter No: [id number] : 1935 Primary Insurance: NOVASYCR Anticipated DC Date: Planned Disposition: Nursing Facility [facility] Cert External Planned Provider: [facility], KNOCKUP WORKER CARE MEDICAID BED DCP follow-up note: CM FAXED UPDATE TO ROSEMARIE AT [facility], . CM CALLED AND SPOKE TO JENY [facility], , DISCUSSED REFERRAL FOR KNOCKUP WORKER CARE, FAXED REFERRAL TO [facility] VIA [facility]EN[facility] AT [phone]. CM WAITING ADMISSION DETERMINATIONS FROM [facility]. Carmen Munoz CASE MANAGEMENT Appended by Carmen Munoz on 05/28/2019 16:22 CDT: CM RECEIVED CALL FROM ROSEMARIE OF [facility], THEY WILL NOT ACCEPT PT. CM FAXED REFERRAL TO [facility] AT [phone]. CM RECEIVED MESSAGE FROM JENY [facility], THEY ARE STILL CONSIDERING PT FOR KNOCKUP WORKER CARE. CM NOTIFED PT'S SPOUSE, JULIANA FERNANDEZ, . CM CONTINUES TO WAIT ADMISSION DETERMINATIONS FROM [facility] AND [facility] FOR KNOCKUP WORKER CARE. CAREMN MUNOZ CASE MANAGEMENT DCP- Discharge Planning Updated by [id number]: Carmen Munoz on 05/27/19 1:[address] Patient Name: CHUCK FERNANDEZ Encounter No: [id number] : 1935 Primary Insurance: NOVASYSMCR Anticipated DC Date: Planned Disposition: Nursing Facility [facility] Cert External Planned Provider: TO BE DETERMINED DCP follow-up note: CM SPOKE TO PT'S SPOUSE, LINDA, AT HER REQUEST AT NURSES STATION. LINDA REPORTS SHE DOES NOT WANT PT PLACED BACK AT THE [facility] AT DISCHARGE. PT WAS IN [facility] PRIOR TO ADMISSION TO THE [facility] AND SHE WOULD LIKE TO SEE IF PT CAN GO BACK THERE BUT CANNOT GET ANYONE THERE TO RETURN HER CALLS. PT'S SPOUSE WILL BE GOING TO [place] TODAY TO LOOK AT [facility] AND [facility] FOR POSSIBLE PLACEMENT THERE PT'S DAUGHTER LIVES IN [place]. CHOICE SIGNED FOR [facility], [facility] AND [facility]. IMPORTANT MESSAGE FROM MEDICARE PROVIDED AND EXPLAINED. CM CALLED [facility], , SPOKE TO ROSEMARIE WHO WILL ACCEPT REFERRAL AND CONSIDER PT FOR KNOCKUP WORKER CARE. CM [facility], .CM SPOKE TO [facility], , WHO CALLED FOR UPDATE. CM ADVISED THAT FAMILY DOES NOT WANT PT TO RETURN TO FACILITY AT HOSPITAL DISCHARGE. CM WAITING ADMISSION DETERMINATION FROM [facility]. Carmen Munoz, CASE MANAGEMENT DCP- Discharge Planning Updated by [id number]: Suzy Chapman on 05/24/19 4:[address] Patient Name: CHUCK FERNANDEZ Admission Status: ER Accout number: [id number] Admission Date: 05-24-2019 : 1935 Admission Diagnosis: Attending: DRAKE JAUREGUI Current LOS: 1 Anticipated DC Date: Planned Disposition: Nursing Facility [facility] Cert Primary Insurance: NOVASYSMCR Discharge Planning Comments: CM met with patient and spouse (Linda) at bedside after explaining CM role and obtaining verbal consent. Patient was admitted from [facility]. Patient's spouse is requesting placement into [facility] upon discharge into [facility]. Linda (spouse) states that she has been working with Rosemarei at [facility] trying to get this arranged. Patient will need ONEL his last admission [facility]. CM discussed availability / needs of home health and medical equipment. Patient's denies any discharge needs at this time. CM will continue to follow and assist as needed with discharge planning / needs. Timber Mill Worker: Suzy Chapman Appended by Suzy Chapman on 05/24/2019 17:23 CDT: CM attempted to call [facility] [phone] to find out patients status at facility and if he was LTC / SNF bed. CM was going to find out if patient would need a ONEL before return to facility. CM was also going to inform them that family was seeking a different facility. CM will continue to follow and assist as needed with discharge planning / needs. DCPIA - Discharge Planning Initial Assessment Updated by [id number]: Suzy Chapman on 05/24/19 4:20 pm * How many steps to enter\exit or inside your home? * PCP Amy SALCIDO * Pharmacy [facility] * Preadmission Environment [facility] * Facility Name [facility] * ADLs Partial Dependent * Partial ADLs (Assistance needed) Ambulation Bathing Dressing Eating Medication Management Toileting Transfers * Other Equipment BEDRAILS, WALKER W SEAT, STEP IN SHOWER WITH GRAB BARS * List name and contact numbers for known caregivers / representatives who currently or will assist patient after discharge: LINDA FERNANDEZ - - [phone] DEONNA / MARTHA FERNANDEZ - SON/ [facility] - [phone], * Verbal permission to speak to the caregivers and representatives has been obtained from the patient. Yes * Community resources currently utilized None * Additional services required to return to the preadmission environment? No * Can the patient safely return to the preadmission environment? Yes * Has this patient been hospitalized within the prior 30 days at any hospital? Yes Coverage Notice Reviewer: [id number] - Carmen Munoz Notice Issued Date-Time: 05/27/2019 9:50 Notice Type: IM Discharge Notice Notice Delivered To: Family Member Relationship to Patient: Spouse Sandblast Operator Name: LINDA FERNANDEZ Delivery Method: HAND - Hand Delivered Renetta Days: Prior Verbal Notification: Recipient Understood Notice: Yes Recipient Signature: Yes Med Rec Note Co-signed by Attending: Coverage Notice Comment: Reviewer: [id number] - Carmen Munoz Notice Issued Date-Time: 05/27/2019 9:50 Notice Type: Patient Choice Letter Notice Delivered To: Family Member Relationship to Patient: Spouse Sandblast Operator Name: LINDA FERNANDEZ Delivery Method: HAND - Hand Delivered Renetta Days: Prior Verbal Notification: Recipient Understood Notice: Yes Recipient Signature: Yes Med Rec Note Co-signed by Attending: Coverage Notice Comment: ELIER SINGH [facility] Last DP export: 05/29/19 11:37 a Patient Name: CHUCK FERNANDEZ Page 46869 at 1411 All edits/amendments must be made on the electronic document DICTATION DATE: 05/29/19 141 BACTERIOLOGY PROFESSOR: LITZY 05/29/19 1411 RPT#: [id number] DC DATE: STATUS: ADM IN [facility] [address] [place] [address] END OF REPORT
--- NOTE | 2019-05-29 14:30 | MORECARE ---
CASE MANAGEMENT DISCHARGE SUMMARY PATIENT: CHUCK FERNANDEZ UNIT: [id number] ADM DATE: 05/24/19 AGE: 83 : 37 SEX: M ROOM/BED: D.7180 AUTHOR: EVARISTODOC PHYSICIAN: REFERRING PHYSICIAN: DRAKE JAUREGUI MD DATE OF SERVICE: 05/29/19 Discharge Plan Patient Name: CHUCK FERNANDEZ Facility: [facility]:[place] : 1935 Planned Disposition: Nursing Facility [facility] Cert Anticipated Discharge Date: 05/30/19 Discharge Date: Expected LOS: 6 Initial Reviewer: [id number] Initial Review Date: 05/24/2019 Generated: 05/29/19 3:29 pm Comments DCP- Discharge Planning Updated by [id number]: Carmen Munoz on 05/29/19 1:[address] Patient Name: CHUCK FERNANDEZ Encounter No: [id number] : 1935 Primary Insurance: NOVASYSMCR Anticipated DC Date: 05-30-2019 Planned Disposition: Nursing Facility [facility] Cert External Planned Provider: [facility] CUSTOD[facility] MEDICAID BED DCP follow-up note: HOLDEN RECEIVED CALL FROM CAMILO OF [facility]. CM INFORMED HER THAT PT DOES NOT NEED NEW ONEL ASSESSMENT PER JAE OF [facility]. CAMILO WILL CALL ONEL AND GET DOCUMENT FAXED TO THEM. THEY WILL ACCEPT PT TOMORROW FOR FILM OR TAPE LIBRARIAN CARE. PT'S SPOUSE WILL NEED TO COME TO FACILITY TOMORROW MORNING TO COMPLETE FILM OR TAPE LIBRARIAN CARE MEDICAID APPLICATION AT 8:30AM. CM CALLED PT'S SPOUSE AT HOME, SHE IS WILLING TO DO MEDICAID APPLICATION AND WILL BE AT THE FACILITY FIRST THING IN THE MORNING. SHE WILL BRING NECESSARY DOCUMENTS FOR MEDICAID APPLICATION. PT'S SPOUSE IN AGREEMENT WITH DISCHARGE TO [facility] TOMORROW. IMPORTANT MESSAGE FROM MEDICARE EXPLAINED VIA PHONE AND WAS PREVIOUSLY PROVIDED IN PERSON. HOLDEN NOTIFIED RADHA BROWN. FOR DISCHARGE TO FILM OR TAPE LIBRARIAN CARE ON 05-30-19 AT [facility] AND REHAB, FAX DISCHARGE INFORMATION TO [facility] AT [phone]. NURSE REPORT TO BE CALLED TO [facility] AT [phone]. PT TO TRANSPORT VIA AMBULANCE. IHSAN Toro DCP- Discharge Planning Updated by [id number]: Carmen Munoz on 05/29/19 11:[address] Patient Name: CHUCK FERNANDEZ Encounter No: [id number] : 1935 Primary Insurance: NOVASYSMCR Anticipated DC Date: Planned Disposition: Nursing Facility [facility] Cert External Planned Provider: [facility], FILM OR TAPE LIBRARIAN CARE MEDICAID BED DCP follow-up note: CM SPOKE TO CAMILO VILLAFANA [facility] WHO MET WITH PT AND SPOUSE IN ROOM. SHE IS GOING TO TRY TO FIND OUT STATUS OF MEDICAID APPLICATION AND ASKED CM TO CONTACT [facility] TO DETERMINE IF PT NEEDS A ONEL OR NOT. CM CALLED [facility], , SPOKE TO JAE WHO LOOKED UP PT AND INFORMED CM THAT PT IS NON PASRR AND DOES NOT REQUIRE ASSESSMENT OR REASSESSMENT UNLESS PT IS HOMICIDAL OR SUICIDAL. PT DOES NOT REQUIRE ONEL CLEARANCE TO MOVE TO A NEW NURSING FACILITY. PT HAS BEEN DECLINED PLACEMENT BY [facility] AND [facility]. [facility] WILL ACCEPT PT BACK BUT PT'S SPOUSE REFUSES. CM CONTINUES TO WAIT ADMISSION DETERMINATION FROM [facility] AND [facility]HAB FOR FILM OR TAPE LIBRARIAN CARE. CARMEN MUNOZ, CASE MANAGEMENT DCP- Discharge Planning Updated by [id number]: Carmen Munoz on 05/29/19 8:[address] Patient Name: CHUCK FERNANDEZ Encounter No: [id number] : 1935 Primary Insurance: NOVASYSMCR Anticipated DC Date: Planned Disposition: Nursing Facility [facility] Cert External Planned Provider: [facility] OR [facility] MEDICAID BED CM FAXED REFERRAL UPDATE TO [facility]IA [employer] AT [phone]. CM FAXED REFERRAL UPDATE TO [facility] AT [phone]. PT HAS BEEN DECLINED PLACEMENT BY [facility]. [facility] WILL ACCEPT PT BACK BUT PT'S SPOUSE REFUSES. CM CONTINUES TO WAIT ADMISSION DETERMINATIONS FROM [facility] AND [facility] AND REHAB FOR FILM OR TAPE LIBRARIAN CARE. CARMEN MUNOZ, CASE MANAGEMENT Appended by Carmen Munoz on 05/29/2019 9:25 CDT: CM RECEIVED CALL FROM CAMILO VILLAFANA [facility], THEY RECEIVED REFERRAL AND ARE SCREENING FOR ADMISSION. CM RECEIVED MESSAGE FROM JENY OF [facility], THEY WILL NOT ACCEPT PT. [facility] AND [facility]. [facility] WILL ACCEPT PT BACK BUT PT'S SPOUSE REFUSES. CM CONTINUES TO WAIT ADMISSION DETERMINATION FROM [facility] AND [facility]HAB FOR CUSTODIAL CARE. IHSAN TORO MANAGEMENT DCP- Discharge Planning Updated by [id number]: Carmen Munoz on 05/28/19 3:[address] Patient Name: CHUCK FERNANDEZ Encounter No: [id number] : 1935 Primary Insurance: NOVASYSMCR Anticipated DC Date: Planned Disposition: Nursing Facility [facility] Cert External Planned Provider: [facility], CUSTODIAL CARE MEDICAID BED DCP follow-up note: CM FAXED UPDATE TO ROSEMARIE AT [facility], . CM CALLED AND SPOKE TO GILL OF [facility], , DISCUSSED REFERRAL FOR CUSTODIAL CARE, FAXED REFERRAL TO [facility] VIA [employer] AT [phone]. CM WAITING ADMISSION DETERMINATIONS FROM [facility]. Carmen Munoz, CASE MANAGEMENT Appended by Carmen Munoz on 05/28/2019 16:22 CDT: CM RECEIVED CALL FROM ROSEMARIE OF [facility], THEY WILL NOT ACCEPT PT. CM FAXED REFERRAL TO [facility] AT [phone]. CM RECEIVED MESSAGE FROM JENY OF [facility], THEY ARE STILL CONSIDERING PT FOR FILM OR TAPE LIBRARIAN CARE. CM NOTIFED PT'S SPOUSE, JULIANA FERNANDEZ, . CM CONTINUES TO WAIT ADMISSION DETERMINATIONS FROM [facility] AND [facility] AND REHAB FOR CUSTODIAL CARE. IHSAN TORO DCP- Discharge Planning Updated by [id number]: Carmen Munoz on 05/27/19 1:[address] Patient Name: CHUCK FERNANDEZ Encounter No: [id number] : 1935 Primary Insurance: NOVASYSMCR Anticipated DC Date: Planned Disposition: Nursing Facility [facility] Cert External Planned Provider: TO BE DETERMINED DCP follow-up note: CM SPOKE TO PT'S SPOUSE, LINDA, AT HER REQUEST AT [employer]. LINDA REPORTS SHE DOES NOT WANT PT PLACED BACK AT THE [facility] AT DISCHARGE. PT WAS IN [facility] PRIOR TO ADMISSION TO THE [facility] AND SHE WOULD LIKE TO SEE IF PT CAN GO BACK THERE BUT CANNOT GET ANYONE THERE TO RETURN HER CALLS. PT'S SPOUSE WILL BE GOING TO [place] TODAY TO LOOK AT [facility] FOR POSSIBLE PLACEMENT THERE PT'S DAUGHTER LIVES IN [place]. CHOICE SIGNED FOR [facility], [facility]. IMPORTANT MESSAGE FROM MEDICARE PROVIDED AND EXPLAINED. CM CALLED [facility], , SPOKE TO ROSEMARIE WHO WILL ACCEPT REFERRAL AND CONSIDER PT FOR FILM OR TAPE LIBRARIAN CARE. CM FAXED REFERRAL TO [facility], .CM SPOKE TO NANCY OF [facility], , WHO CALLED FOR UPDATE. CM ADVISED THAT FAMILY DOES NOT WANT PT TO RETURN TO FACILITY AT HOSPITAL DISCHARGE. CM WAITING ADMISSION DETERMINATION FROM [facility] AND [facility]. Carmen Munoz, CASE MANAGEMENT DCP- Discharge Planning Updated by [id number]: Suzy Chapman on 05/24/19 4:[address] Patient Name: CHUCK FERNANDEZ Admission Status: ER Accout number: [id number] Admission Date: 05-24-2019 : 1935 Admission Diagnosis: Attending: DRAKE JAUREGUI Current LOS: 1 Anticipated DC Date: Planned Disposition: Nursing Facility [facility] Primary Insurance: [employer] Discharge Planning Comments: CM met with patient and spouse (Linda) at bedside after explaining CM role and obtaining verbal consent. [facility] Patient's spouse is requesting placement into [facility] upon discharge into [facility]. Linda (spouse) states that she has been working with Rosemarie at [facility] trying to get this arranged. Patient will need ONEL his last admission [facility]. CM discussed availability / needs of home health and medical equipment. Patient's denies any discharge needs at this time. CM will continue to follow and assist as needed with discharge planning / needs. Head Coach: Suzy Chapman Appended by Suzy Chapman on 05/24/2019 17:23 CDT: CM attempted to call [phone] to find out patients status at facility and if he was LTC / SNF bed. CM was going to find out if patient would need a ONEL before return to facility. CM was also going to inform them that family was seeking a different facility. CM will continue to follow and assist as needed with discharge planning / needs. DCPIA - Discharge Planning Initial Assessment Updated by [id number]: Suzy Chapman on 05/24/19 4:20 pm * How many steps to enter\exit or inside your home? * PCP Amy SALCIDO * Pharmacy [facility] * Preadmission Environment Long-Term Facility * Facility Name [facility] * ADLs Partial Dependent * Partial ADLs (Assistance needed) Ambulation Bathing Dressing Eating Medication Management Toileting Transfers * Other Equipment BEDRAILS, WALKER W SEAT, STEP IN SHOWER WITH GRAB BARS * List name and contact numbers for known caregivers / representatives who currently or will assist patient after discharge: LINDA FERNANDEZ - - [phone] DEONNA / MARTHA FERNANDEZ - SON/ DIL - [phone], * Verbal permission to speak to the caregivers and representatives has been obtained from the patient. Yes * Community resources currently utilized None * Additional services required to return to the preadmission environment? No * Can the patient safely return to the preadmission environment? Yes * Has this patient been hospitalized within the prior 30 days at any hospital? Yes Coverage Notice Reviewer: [id number] Munoz Notice Issued Date-Time: 05/27/2019 9:50 Notice Type: IM Discharge Notice Notice Delivered To: Family Member Relationship to Patient: Spouse Catalytic Converter Operator Helper Name: LINDA FERNANDEZ Delivery Method: HAND - Hand Delivered Renetta Days: Prior Verbal Notification: Recipient Understood Notice: Yes Recipient Signature: Yes Med Rec Note Co-signed by Attending: Coverage Notice Comment: Reviewer: [id number] Munoz Notice Issued Date-Time: 05/27/2019 9:50 Notice Type: Patient Choice Letter Notice Delivered To: Family Member Relationship to Patient: Spouse Catalytic Converter Operator Helper Name: LINDA FERNANDEZ Delivery Method: HAND - Hand Delivered Renetta Days: Prior Verbal Notification: Recipient Understood Notice: Yes Recipient Signature: Yes Med Rec Note Co-signed by Attending: Coverage Notice Comment: [facility] Reviewer: [id number] Munoz Notice Issued Date-Time: 05/29/2019 14:10 Notice Type: IM Discharge Notice Notice Delivered To: Family Member Relationship to Patient: Spouse Catalytic Converter Operator Helper Name: LINDA FERNANDEZ Delivery Method: HAND - Hand Delivered Renetta Days: Prior Verbal Notification: Recipient Understood Notice: Yes Recipient Signature: Yes Med Rec Note Co-signed by Attending: Coverage Notice Comment: Last DP export: 05/29/19 1:11 p Patient Name: CHUCK FERNANDEZ Page [id number] at 1430 All edits/amendments must be made on the electronic document DICTATION DATE: 05/29/191428 BLOCK OUT MACHINE OPERATOR: LITZY 05/29/191428 RPT#: [id number] DC DATE: STATUS: ADM IN [facility] [address] [place] [address] END OF REPORT
[2019-05-29 16:45] VITALS: BP 125/59
--- NOTE | 2019-05-29 17:18 | NUR ---
WITHOUT CHAMGES NOTED AT THIS TIME. DENIES NEEDS
--- NOTE | 2019-05-29 19:42 | NUR ---
PATIENT IS RESTING BED. BREATHING IS UNLABORED AND EVEN. PATIENT DENIES ANY PAIN OR CONCERNS AT THIS TIME. BED IN THE LOWEST POSTION AND CALL LIGHT IS IN REACH.
[2019-05-30 01:14] VITALS: BP 122/54
[2019-05-30 05:07] VITALS: BP 120/46
[2019-05-30 06:21] LABS: CALC OSMOLALITY 282 mosm/kg (275-300); CALCIUM 9.1 mg/dL (8.5-10.1); CARBON DIOXIDE 28.9 mmol/L (21.0-32.0); CHLORIDE - SERUM 107 mmol/L (98-107); GLUCOSE 100 mg/dL (74-106); POTASSIUM - SERUM 3.7 mmol/L (3.5-5.1); SODIUM 142 mmol/L (136-145); UREA NITROGEN 13 mg/dL (7-18); eGFR NON AFRICAN AMERICAN 76 mL/min (90-120)
[2019-05-30 06:29] LABS: HEMATOCRIT 37.9 % (42.0-54.0); HEMOGLOBIN 13.5 g/dL (13.5-17.5); MCH 31.1 pg (26.0-34.0); MCHC 35.6 g/dL (31.0-37.0); MCV 87.3 fL (80.0-100.0); MEAN PLATELET VOLUME 12.8 fL (7.4-10.4); PLATELET COUNT 174 10x3/uL (130-400); RBC 4.34 10x6/uL (4.20-6.10); RDW 13.5 % (11.5-14.5); WBC 7.9 10x3/uL (4.8-10.8)
[2019-05-30 07:45] LABS: BASOPHILS 1 % (0-2); EOSINOPHILS 1 % (0-7); LYMPHOCYTES 37 % (15-50); MONOCYTES 4 % (2-11); NEUTROPHILS 56 % (40-80); PLATELET ESTIMATE NORMAL
[2019-05-30] MEDS ORDERED: LEVOFLOXACIN500 MG PO (08:01)
--- NOTE | 2019-05-30 08:42 | NUR ---
REPOSITIONED IN BED FOR BRKF. CALL LIGHT IN REACH. WILL MONITOR NEEDS.
[2019-05-30 08:47] VITALS: BP 157/66
--- NOTE | 2019-05-30 09:39 | MORECARE ---
CASE MANAGEMENT DISCHARGE SUMMARY PATIENT: CHUCK FERNANDEZ UNIT: [id number] ADM DATE: 05/24/19 AGE: 83 : 37 SEX: M ROOM/BED: D.0690 AUTHOR: EVARISTODOC PHYSICIAN: REFERRING PHYSICIAN: DRAKE JAUREGUI MD DATE OF SERVICE: 05/30/19 Discharge Plan Patient Name: CHUCK FERNANDEZ Facility: [facility]:[place] : 1935 Planned Disposition: Nursing Facility [facility] Cert Anticipated Discharge Date: 05/30/19 Discharge Date: Expected LOS: 6 Initial Reviewer: [id number] Initial Review Date: 05/24/2019 Generated: 05/30/19 10:39 am Comments DCP- Discharge Planning Updated by [id number]: Carmen Munoz on 05/29/19 1:[address] Patient Name: CHUCK FERNANDEZ Encounter No: [id number] : 1935 Primary Insurance: NOVASYSMCR Anticipated DC Date: 05-30-2019 Planned Disposition: Nursing Facility [facility] Cert External Planned Provider[facility] LONG-[facility]M [facility] MEDICAID BED DCP follow-up note: HOLDEN RECEIVED CALL FROM CAMILO OF [facility]. CM INFORMED HER THAT PT DOES NOT NEED NEW ONEL ASSESSMENT PER JAE OF [facility]. CAMILO WILL CALL ONEL AND GET DOCUMENT FAXED TO THEM. THEY WILL ACCEPT PT TOMORROW FOR LONG-TERM CARE. PT'S SPOUSE WILL NEED TO COME TO FACILITY TOMORROW MORNING TO COMPLETE SAP BPC ARCHITECT CARE MEDICAID APPLICATION AT 8:30AM. CM CALLED PT'S SPOUSE AT HOME, SHE IS WILLING TO DO MEDICAID APPLICATION AND WILL BE AT THE FACILITY FIRST THING IN THE MORNING. SHE WILL BRING NECESSARY DOCUMENTS FOR MEDICAID APPLICATION. PT'S SPOUSE IN AGREEMENT WITH DISCHARGE TO [facility] TOMORROW. IMPORTANT MESSAGE FROM MEDICARE EXPLAINED VIA PHONE AND WAS PREVIOUSLY PROVIDED IN PERSON. HOLDEN NOTIFIED RADHA BROWN. FOR DISCHARGE TO LONG-TERM CARE ON 05-30-19 AT [facility], FAX DISCHARGE INFORMATION TO [facility] AT [phone]. NURSE REPORT TO BE CALLED TO [facility] AT [phone]. PT TO TRANSPORT VIA AMBULANCE. IHSAN Toro DCP- Discharge Planning Updated by [id number]: Carmen Munoz on 05/29/19 11:[address] Patient Name: CHUCK FERNANDEZ Encounter No: [id number] : 1935 Primary Insurance: NOVASYSMCR Anticipated DC Date: Planned Disposition: Nursing Facility [facility] Cert External Planned Provider: [facility], SAP BPC ARCHITECT CARE MEDICAID BED DCP follow-up note: CM SPOKE TO CAMILO VILLAFANA [facility] WHO MET WITH PT AND SPOUSE IN ROOM. SHE IS GOING TO TRY TO FIND OUT STATUS OF MEDICAID APPLICATION AND ASKED CM TO CONTACT [facility] TO DETERMINE IF PT NEEDS A ONEL OR NOT. CM CALLED [employer], , SPOKE TO JAE WHO LOOKED UP PT AND INFORMED CM THAT PT IS NON PASRR AND DOES NOT REQUIRE ASSESSMENT OR REASSESSMENT UNLESS PT IS HOMICIDAL OR SUICIDAL. PT DOES NOT REQUIRE ONEL CLEARANCE TO MOVE TO A NEW NURSING FACILITY. PT HAS BEEN DECLINED PLACEMENT BY [facility] AND [facility]. [facility] WILL ACCEPT PT BACK BUT PT'S SPOUSE REFUSES. CM CONTINUES TO WAIT ADMISSION DETERMINATION FROM [facility] FOR SAP BPC ARCHITECT CARE. CARMEN MUNOZ, CASE MANAGEMENT DCP- Discharge Planning Updated by [id number]: Carmen Munoz on 05/29/19 8:[address] Patient Name: CHUCK FERNANDEZ Encounter No: [id number] : 1935 Primary Insurance: NOVASYSMCR Anticipated DC Date: Planned Disposition: Nursing Facility [facility] Cert External Planned Provider: [facility] OR [facility] MEDICAID BED CM FAXED REFERRAL UPDATE TO [facility] VIA [employer] AT [phone]. CM FAXED REFERRAL UPDATE TO [facility] AT [phone]. PT HAS BEEN DECLINED PLACEMENT BY [facility]. THE [facility] WILL ACCEPT PT BACK BUT PT'S SPOUSE REFUSES. CM CONTINUES TO WAIT ADMISSION DETERMINATIONS FROM [facility] AND [facility] FOR SAP BPC ARCHITECT CARE. CARMEN MUNOZ, CASE MANAGEMENT Appended by Carmen Munoz on 05/29/2019 9:25 CDT: CM RECEIVED CALL FROM CAMILO VILLAFANA [facility], THEY RECEIVED REFERRAL AND ARE SCREENING FOR ADMISSION. CM RECEIVED MESSAGE FROM JENY OF [facility], THEY WILL NOT ACCEPT PT. PT HAS BEEN [facility]CLINED PLACEMENT [facility] AND [facility]. THE [facility] WILL ACCEPT PT BACK BUT PT'S SPOUSE REFUSES. CM CONTINUES TO WAIT ADMISSION DETERMINATION FROM [facility] FOR SAP BPC ARCHITECT CARE. IHSAN TORO MANAGEMENT DCP- Discharge Planning Updated by [id number]: Carmen Munoz on 05/28/19 3:[address] Patient Name: CHUCK FERNANDEZ Encounter No: [id number] : 1935 Primary Insurance: NOVASYSMCR Anticipated DC Date: Planned Disposition: Nursing Facility [facility] Cert External Planned Provider: [facility], LONG-TERM CARE MEDICAID BED DCP follow-up note: CM FAXED UPDATE TO ROSEMARIE AT [facility], . CM CALLED AND SPOKE TO HUNTER OF [facility], , DISCUSSED REFERRAL FOR SAP BPC ARCHITECT CARE, FAXED REFERRAL TO [facility] VIA [employer] AT [phone]. CM WAITING ADMISSION DETERMINATIONS FROM [facility]. Carmen Munoz, CASE MANAGEMENT Appended by Carmen Munoz on 05/28/2019 16:22 CDT: CM RECEIVED CALL FROM ROSEMARIE OF [facility], THEY WILL NOT ACCEPT PT. CM FAXED REFERRAL TO [facility] AT [phone]. CM RECEIVED MESSAGE FROM JENY OF [facility], THEY ARE STILL CONSIDERING PT FOR SAP BPC ARCHITECT CARE. CM NOTIFED PT'S SPOUSE, JULIANA FERNANDEZ, . CM CONTINUES TO WAIT ADMISSION DETERMINATIONS FROM [facility] AND [facility] FOR SAP BPC ARCHITECT CARE. IHSAN TORO DCP- Discharge Planning Updated by [id number]: Carmen Munoz on 05/27/19 1:[address] Patient Name: CHUCK FERNANDEZ Encounter No: [id number] : 1935 Primary Insurance: NOVASYSMCR Anticipated DC Date: Planned Disposition: Nursing Facility [facility] Cert External Planned Provider: TO BE DETERMINED DCP follow-up note: CM SPOKE TO PT'S SPOUSE, LINDA, AT HER REQUEST AT [employer] [facility]. LINDA REPORTS SHE DOES NOT WANT PT PLACED BACK AT THE [facility] AT DISCHARGE. PT WAS [facility] PRIOR TO ADMISSION TO THE [facility] AND SHE WOULD LIKE TO SEE IF PT CAN GO BACK THERE BUT CANNOT GET ANYONE THERE TO RETURN HER CALLS. PT'S SPOUSE WILL BE GOING TO [place] TODAY TO LOOK AT [facility] FOR POSSIBLE PLACEMENT THERE PT'S DAUGHTER LIVES IN [place]. CHOICE SIGNED FOR [facility], [facility]. IMPORTANT MESSAGE FROM MEDICARE PROVIDED AND EXPLAINED. CM CALLED [facility], , SPOKE TO ROSEMARIE WHO WILL ACCEPT REFERRAL AND CONSIDER PT FOR LONG-TERM CARE. CM FAXED REFERRAL TO [facility], .CM SPOKE TO NANCY OF [facility], , WHO CALLED FOR UPDATE. CM ADVISED THAT FAMILY DOES NOT WANT PT TO RETURN TO FACILITY AT HOSPITAL DISCHARGE. CM WAITING ADMISSION DETERMINATION FROM [facility]. Carmen Munoz, CASE MANAGEMENT DCP- Discharge Planning Updated by [id number]: Suzy Chapman on 05/24/19 4:[address] Patient Name: CHUCK FERNANDEZ Admission Status: ER Accout number: [id number] Admission Date: 05-24-2019 : 1935 Admission Diagnosis: Attending: DRAKE JAUREGUI Current LOS: 1 Anticipated DC Date: Planned Disposition: Nursing Facility [facility] Primary Insurance: [employer] Discharge Planning Comments: CM met with patient and spouse (Linda) at bedside after explaining CM role and obtaining verbal consent. [facility] Patient's spouse is requesting placement into [facility] upon discharge into Detention Care. Linda (spouse) states that she has been working with Rosemarie at [facility] trying to get this arranged. Patient will need ONEL his last admission was into Longterm. CM discussed availability / needs of home health and medical equipment. Patient's denies any discharge needs at this time. CM will continue to follow and assist as needed with discharge planning / needs. Rounding And Backing Machine Operator: Suzy Chapman Appended by Suzy Chapman on 05/24/2019 17:23 CDT: CM attempted to call [facility] [phone] to find out patients status at facility and if he was LTC / SNF bed. CM was going to find out if patient would need a ONEL before return to facility. CM was also going to inform them that family was seeking a different facility. CM will continue to follow and assist as needed with discharge planning / needs. DCPIA - Discharge Planning Initial Assessment Updated by [id number]: Suzy Chapman on 05/24/19 4:20 pm * How many steps to enter\exit or inside your home? * PCP Amy SALCIDO * Pharmacy [facility] * Preadmission Environment [facility] * Facility Name [facility] * ADLs Partial Dependent * Partial ADLs (Assistance needed) Ambulation Bathing Dressing Eating Medication Management Toileting Transfers * Other Equipment BEDRAILS, WALKER W SEAT, STEP IN SHOWER WITH GRAB BARS * List name and contact numbers for known caregivers / representatives who currently or will assist patient after discharge: LINDA FERNANDEZ - - [phone] DEONNA / MARTHA FERNANDEZ - SON/ DIL - [phone], * Verbal permission to speak to the caregivers and representatives has been obtained from the patient. Yes * Community resources currently utilized None * Additional services required to return to the preadmission environment? No * Can the patient safely return to the preadmission environment? Yes * Has this patient been hospitalized within the prior 30 days at any hospital? Yes Coverage Notice Reviewer: [id number] Munoz Notice Issued Date-Time: 05/27/2019 9:50 Notice Type: IM Discharge Notice Notice Delivered To: Family Member Relationship to Patient: Spouse Theatrical Agent Name: LINDA FERNANDEZ Delivery Method: HAND - Hand Delivered Renetta Days: Prior Verbal Notification: Recipient Understood Notice: Yes Recipient Signature: Yes Med Rec Note Co-signed by Attending: Coverage Notice Comment: Reviewer: [id number] Munoz Notice Issued Date-Time: 05/27/2019 9:50 Notice Type: Patient Choice Letter Notice Delivered To: Family Member Relationship to Patient: Spouse Theatrical Agent Name: LINDA FERNANDEZ Delivery Method: HAND - Hand Delivered Renetta Days: Prior Verbal Notification: Recipient Understood Notice: Yes Recipient Signature: Yes Med Rec Note Co-signed by Attending: Coverage Notice Comment: [facility] Reviewer: [id number] Munoz Notice Issued Date-Time: 05/29/2019 14:10 Notice Type: IM Discharge Notice Notice Delivered To: Family Member Relationship to Patient: Spouse Theatrical Agent Name: LINDA FERNANDEZ Delivery Method: HAND - Hand Delivered Renetta Days: Prior Verbal Notification: Recipient Understood Notice: Yes Recipient Signature: Yes Med Rec Note Co-signed by Attending: Coverage Notice Comment: Last DP export: 05/29/19 1:30 p Patient Name: CHUCK FERNANDEZ Page [id number] at 0939 All edits/amendments must be made on the electronic document DICTATION DATE: 05/30/19937 MOLDER FOAM RUBBER: [id number] 05/30/19937 RPT#: [id number] DC DATE: STATUS: ADM IN [facility] [address] [place] [address] END OF REPORT
--- NOTE | 2019-05-30 09:45 | MORECARE ---
CASE MANAGEMENT DISCHARGE SUMMARY PATIENT: CHUCK FERNANDEZ UNIT: [id number] ADM DATE: 05/24/19 AGE: 83 : 37 SEX: M ROOM/BED: D.2120 AUTHOR: LARRY LOERA PHYSICIAN: REFERRING PHYSICIAN: DRAKE JAUREGUI MD DATE OF SERVICE: 05/30/19 Discharge Plan Patient Name: CHUCK FERNANDEZ Facility: [facility]:[place] : 1935 Planned Disposition: Nursing Facility [facility] Cert Anticipated Discharge Date: 05/30/19 Discharge Date: Expected LOS: 6 Initial Reviewer: [id number] Initial Review Date: 05/24/2019 Generated: 05/30/19 10:45 am Comments DCP- Discharge Planning Updated by [id number]: Carmen Munoz on 05/30/19 8:[address] Patient Name: CHUCK FERNANDEZ Encounter No: [id number] : 1935 Primary Insurance: NOVASYSMCR Anticipated DC Date: 05-30-2019 Planned Disposition: Nursing Facility [facility] Cert External Planned Provider: [facility], JAIL CARE MEDICAID BED DCP follow-up note: CM [facility] WHO INFORMED CM THAT THERE MAY BE A PROBLEM WITH ACCEPTING PT FOR SEMICONDUCTOR DIES LOADER CARE. PT DOES NOT CURRENLTLY QUALIFY FOR JAIL CARE MEDICAID DUE TO ASSETS. [facility] REFERRED PT'S SPOUSE TO AN ADVANCED MANUFACTURING ENGINEER TO MEET TODAY TO SEE IF THERE IS SOMETHING THAT CAN BE DONE TO ASSIST PT'S SPOUSE. RADHA BROWN NOTIFIED. [facility] WILL NOT ACCEPT PT FOR SEMICONDUCTOR DIES LOADER CARE UNTIL FINANCIAL ARRANGEMENTS CAN BE COMPLETED BY PT'S SPOUSE. Carmen Munoz, CASE MANAGEMENT DCP- Discharge Planning Updated by [id number]: Carmen Munoz on 05/29/19 1:[address] Patient Name: CHUCK FERNANDEZ Encounter No: [id number] : 1935 Primary Insurance: NOVASYSMCR Anticipated DC Date: 05-30-2019 Planned Disposition: Nursing Facility [facility] Cert External Planned Provider: [facility], SEMICONDUCTOR DIES LOADER CARE MEDICAID BED DCP follow-up note: CM RECEIVED CALL FROM [employer]. CM INFORMED HER THAT PT DOES NOT NEED NEW ONEL ASSESSMENT PER JAE VILLAFANA [employer] [facility]. CAMILO WILL CALL [facility] AND GET DOCUMENT FAXED TO THEM. THEY WILL ACCEPT PT TOMORROW FOR SEMICONDUCTOR DIES LOADER CARE. PT'S SPOUSE WILL NEED TO COME TO FACILITY TOMORROW MORNING TO COMPLETE JAIL CARE MEDICAID APPLICATION AT 8:30AM. CM CALLED PT'S SPOUSE AT HOME, SHE IS WILLING TO DO MEDICAID APPLICATION AND WILL BE AT THE FACILITY FIRST THING IN THE MORNING. SHE WILL BRING NECESSARY DOCUMENTS FOR MEDICAID APPLICATION. PT'S SPOUSE IN AGREEMENT WITH DISCHARGE TO [facility] TOMORROW. IMPORTANT MESSAGE FROM MEDICARE EXPLAINED VIA PHONE AND WAS PREVIOUSLY PROVIDED IN PERSON. CM NOTIFIED RADHA BROWN. FOR DISCHARGE TO JAIL CARE ON 05-30-19 AT [facility], FAX DISCHARGE INFORMATION TO [facility] AT [phone]. NURSE REPORT TO BE CALLED TO [facility] AT [phone]. PT TO TRANSPORT VIA AMBULANCE. Carmen Munoz, CASE MANAGEMENT DCP- Discharge Planning Updated by [id number]: Carmen Munoz on 05/29/19 11:[address] Patient Name: CHUCK FERNANDEZ Encounter No: [id number] : 1935 Primary Insurance: NOVASYSMCR Anticipated DC Date: Planned Disposition: Nursing Facility [facility] Cert External Planned Provider: [facility], JAIL CARE MEDICAID BED DCP follow-up note: CM SPOKE TO CAMILO OF [facility] WHO MET WITH PT AND SPOUSE IN ROOM. SHE IS GOING TO TRY TO FIND OUT STATUS OF MEDICAID APPLICATION AND ASKED CM TO CONTACT ON[facility] TO DETERMINE IF PT NEEDS A ONEL OR NOT. CM CALLED [employer] , SPOKE TO JAE WHO LOOKED UP PT AND INFORMED CM THAT PT IS NON PASRR AND DOES NOT REQUIRE ASSESSMENT OR REASSESSMENT UNLESS PT IS HOMICIDAL OR SUICIDAL. PT DOES NOT REQUIRE ONEL CLEARANCE TO MOVE TO A NEW NURSING FACILITY. PT HAS BEEN DECLINED PLACEMENT BY [facility] AND [facility]. [facility] WILL ACCEPT PT BACK BUT PT'S SPOUSE REFUSES. CM CONTINUES TO WAIT ADMISSION DETERMINATION FROM [facility] FOR [facility]. CARMEN MUNOZ, CASE MANAGEMENT DCP- Discharge Planning Updated by [id number]: Carmen Munoz on 05/29/19 8:[address] Patient Name: CHUCK FERNANDEZ Encounter No: [id number] : 1935 Primary Insurance: NOVASYSMCR Anticipated DC Date: Planned Disposition: Nursing Facility [facility] Cert External Planned Provider: [facility] MEDICAID BED CM FAXED REFERRAL UPDATE TO [facility] VIA JENY AT [phone]. CM FAXED REFERRAL UPDATE TO [facility] AT [phone]. PT HAS BEEN DECLINED PLACEMENT BY [facility]. [facility] WILL ACCEPT PT BACK BUT PT'S SPOUSE REFUSES. CM CONTINUES TO WAIT ADMISSION DETERMINATIONS FROM [facility] AND [facility] FOR SEMICONDUCTOR DIES LOADER CARE. CARMEN MUNOZ, CASE MANAGEMENT Appended by Carmen Munoz on 05/29/2019 9:25 CDT: CM RECEIVED CALL FROM CAMILO VILLAFANA [facility], THEY RECEIVED REFERRAL AND ARE SCREENING FOR ADMISSION. CM RECEIVED MESSAGE FROM [facility]EN[facility], THEY WILL NOT ACCEPT PT. PT HAS BEEN DECLINED PLACEMENT BY [facility] AND [facility]. [facility] WILL ACCEPT PT BACK BUT PT'S SPOUSE REFUSES. CM CONTINUES TO WAIT ADMISSION DETERMINATION FROM [facility] FOR SEMICONDUCTOR DIES LOADER CARE. IHSAN TORO MANAGEMENT DCP- Discharge Planning Updated by [id number]: Carmen Munoz on 05/28/19 3:[address] Patient Name: CHUCK FERNANDEZ Encounter No: [id number] : 1935 Primary Insurance: NOVASYSMCR Anticipated DC Date: Planned Disposition: Nursing Facility [facility] Cert External Planned Provider: [facility], SEMICONDUCTOR DIES LOADER CARE MEDICAID BED DCP follow-up note: CM FAXED UPDATE TO ROSEMARIE AT [facility], . CM CALLED AND SPOKE TO JENY [facility], , DISCUSSED REFERRAL FOR SEMICONDUCTOR DIES LOADER CARE, FAXED REFERRAL TO [facility] VIA JENY AT [phone]. CM WAITING ADMISSION DETERMINATIONS FROM [facility]. Carmen Munoz, CASE MANAGEMENT Appended by Carmen Munoz on 05/28/2019 16:22 CDT: CM RECEIVED CALL FROM ROSEMARIE OF [facility], THEY WILL NOT ACCEPT PT. CM FAXED REFERRAL TO [facility] AT [phone]. CM RECEIVED MESSAGE FROM JENY OF [facility], THEY ARE STILL CONSIDERING PT FOR JAIL CARE. CM NOTIFED PT'S SPOUSE, JULIANA FERNANDEZ, . CM CONTINUES TO WAIT ADMISSION DETERMINATIONS FROM [facility] FOR SEMICONDUCTOR DIES LOADER CARE. CARMEN MUNZO, CASE MANAGEMENT DCP- Discharge Planning Updated by [id number]: Carmen Munoz on 05/27/19 1:[address] Patient Name: CHUCK FERNANDEZ Encounter No: [id number] : 1935 Primary Insurance: NOVASYSMCR Anticipated DC Date: Planned Disposition: Nursing Facility [facility] Cert External Planned Provider: TO BE DETERMINED DCP follow-up note: CM SPOKE TO PT'S SPOUSE, LINDA, AT HER REQUEST AT NURSES STATION. LINDA REPORTS SHE DOES NOT WANT PT PLACED BACK AT [facility] AT DISCHARGE. PT WAS [facility] PRIOR TO ADMISSION TO [facility] AND SHE WOULD LIKE TO SEE IF PT CAN GO BACK THERE BUT CANNOT GET ANYONE THERE TO RETURN HER CALLS. PT'S SPOUSE WILL BE GOING TO [place] TODAY TO LOOK AT [facility] FOR POSSIBLE PLACEMENT THERE PT'S DAUGHTER LIVES IN [place]. CHOICE SIGNED FOR [facility], [facility] AND [facility]. IMPORTANT MESSAGE FROM MEDICARE PROVIDED AND EXPLAINED. [facility], , SPOKE TO ROSEMARIE WHO WILL ACCEPT REFERRAL AND CONSIDER PT FOR SEMICONDUCTOR DIES LOADER CARE. CM FAXED REFERRAL TO [facility], .CM SPOKE TO NANCY OF [facility], , WHO CALLED FOR UPDATE. CM ADVISED THAT FAMILY DOES NOT WANT PT TO RETURN TO FACILITY AT HOSPITAL DISCHARGE. CM WAITING ADMISSION DETERMINATION FROM [facility]. Carmen Munoz, CASE MANAGEMENT DCP- Discharge Planning Updated by [id number]: Suzy Montoyar on 05/24/19 4:[address] Patient Name: CHUCK FERNANDEZ Admission Status: ER Accout number: [id number] Admission Date: 05-24-2019 : 1935 Admission Diagnosis: Attending: DRAKE JAUREGUI Current LOS: 1 Anticipated DC Date: Planned Disposition: Nursing Facility [facility] Cert Primary Insurance: NOVASYSMCR Discharge Planning Comments: CM met with patient and spouse (Linda) at bedside after explaining CM role and obtaining verbal consent. Patient was admitted from [facility]. Patient's spouse is [facility]. Linda (spouse) states that she has been working with Rosemarie at [facility] trying to get this arranged. Patient will need ONEL his [facility]. CM discussed availability / needs of home health and medical equipment. Patient's denies any discharge needs at this time. CM will continue to follow and assist as needed with discharge planning / needs. Business Solutions Director: Suzy Chapman Appended by Suzy Chapman on 05/24/2019 17:23 CDT: [phone] find out patients status at facility and if he was LTC / SNF bed. CM was going to find out if patient would need a ONEL before return to facility. CM was also going to inform them that family was seeking a different facility. CM will continue to follow and assist as needed with discharge planning / needs. DCPIA - Discharge Planning Initial Assessment Updated by [id number]: Suzy Chapman on 05/24/19 4:20 pm * How many steps to enter\exit or inside your home? * PCP Amy SALCIDO * Pharmacy [facility] * Preadmission Environment [facility] * [facility] Name [facility] * ADLs Partial Dependent * Partial ADLs (Assistance needed) Ambulation Bathing Dressing Eating Medication Management Toileting Transfers * Other Equipment BEDRAILS, WALKER W SEAT, STEP IN SHOWER WITH GRAB BARS * List name and contact numbers for known caregivers / representatives who currently or will assist patient after discharge: LINDA FERNANDEZ - - [phone] DEONNA / MARTHA FERNANDEZ - SON/ [facility] - [phone], * Verbal permission to speak to the caregivers and representatives has been obtained from the patient. Yes * Community resources currently utilized None * Additional services required to return to the preadmission environment? No * Can the patient safely return to the preadmission environment? Yes * Has this patient been hospitalized within the prior 30 days at any hospital? Yes Coverage Notice Reviewer: [id number] - Carmen Munoz Notice Issued Date-Time: 05/27/2019 9:50 Notice Type: IM Discharge Notice Notice Delivered To: Family Member Relationship to Patient: Spouse Netsuite Consultant Name: LINDA FERNANDEZ Delivery Method: HAND - Hand Delivered Renetta Days: Prior Verbal Notification: Recipient Understood Notice: Yes Recipient Signature: Yes Med Rec Note Co-signed by Attending: Coverage Notice Comment: Reviewer: STACIE Munoz Notice Issued Date-Time: 05/27/2019 9:50 Notice Type: Patient Choice Letter Notice Delivered To: Family Member Relationship to Patient: Spouse Netsuite Consultant Name: LINDA FERNANDEZ Delivery Method: HAND - Hand Delivered Renetta Days: Prior Verbal Notification: Recipient Understood Notice: Yes Recipient Signature: Yes Med Rec Note Co-signed by Attending: Coverage Notice Comment: ELIER SINGH [place] Reviewer: [id number] Munoz Notice Issued Date-Time: 05/29/2019 14:10 Notice Type: IM Discharge Notice Notice Delivered To: Family Member Relationship to Patient: Spouse Netsuite Consultant Name: LINDA FERNANDEZ Delivery Method: HAND - Hand Delivered Renetta Days: Prior Verbal Notification: Recipient Understood Notice: Yes Recipient Signature: Yes Med Rec Note Co-signed by Attending: Coverage Notice Comment: Last DP export: 05/30/19 8:39 a Patient Name: CHUCK FERNANDEZ Page [id number] at 0945 All edits/amendments must be made on the electronic document DICTATION DATE: 05/30/19944 TRAPPER BIRD: [id number] 05/30/19944 RPT#: [id number] DC DATE: STATUS: ADM IN [facility] [address] [place] [address] END OF REPORT
[2019-05-30 12:30] VITALS: BP 151/71
--- NOTE | 2019-05-30 13:18 | MORECARE ---
CASE MANAGEMENT DISCHARGE SUMMARY PATIENT: CHUCK FERNANDEZ UNIT: [id number] ADM DATE: 05/24/19 AGE: 83 : 37 SEX: M ROOM/BED: D.2120 AUTHOR: EVARISTODOC PHYSICIAN: REFERRING PHYSICIAN: DRAKE JAUREGUI MD DATE OF SERVICE: 05/30/19 Discharge Plan Patient Name: CHUCK FERNANDEZ Facility: [facility]:[place] : 1935 Planned Disposition: Nursing Facility [facility] Cert Anticipated Discharge Date: 05/30/19 Discharge Date: Expected LOS: 6 Initial Reviewer: [id number] Initial Review Date: 05/24/2019 Generated: 05/30/19 2:17 pm Comments DCP- Discharge Planning Updated by [email or web address]: Carmen Munoz on 05/30/19 12:[address] Patient Name: CHUCK FERNANDEZ Encounter No: [id number] : 1935 Primary Insurance: NOVASYSMCR Anticipated DC Date: 05-30-2019 Planned Disposition: Nursing Facility [facility] Cert External Planned Provider: [facility], CUSTODIAL CARE MEDICAID BED DCP follow-up note: CM RECEIVED CALL FROM DARRICK WHO INFORMED CM THAT PT'S SPOUSE DID MEET WITH THE VP TALENT MANAGEMENT NITZA AND THEY ARE WAITING FOR ALL LEGAL MATTERS TO BE IN ORDER PRIOR TO ACCEPTING PT FOR CUSTODIAL CARE. CAMILO EXPECTS THIS TO BE COMPLETED NO LATER THAN TOMORROW, 05-31-19, BUT STATES THAT THE "BALL IS IN [address]RS[address] [place]ER[place]S COURT." [facility] WILL NOT ACCEPT PT FOR GREEN [facility]AT PACKER CARE UNTIL FINANCIAL ARRANGEMENTS CAN BE COMPLETED BY PT'S SPOUSE. Carmen Munoz, CASE MANAGEMENT DCP- Discharge Planning Updated by [email or web address]: Carmen Munoz on 05/30/19 8:[address] Patient Name: CHUCK FERNANDEZ Encounter No: [id number] : 1935 Primary Insurance: NOVASYSMCR Anticipated DC Date: 05-30-2019 Planned Disposition: Nursing Facility [facility] Cert External Planned Provider: [facility], GREEN [facility] P[facility] CARE MEDICAID BED DCP follow-up note: CM RECEIVED CALL FROM DARRICK WHO INFORMED CM THAT THERE MAY BE A PROBLEM WITH ACCEPTING PT FOR GREEN MEAT PACKER CARE. PT DOES NOT CURRENLTLY QUALIFY FOR CUSTODIAL CARE MEDICAID DUE TO ASSETS. [facility] HAS REFERRED PT'S SPOUSE TO AN VP TALENT MANAGEMENT TO MEET TODAY TO SEE IF THERE IS SOMETHING THAT CAN BE DONE TO ASSIST PT'S SPOUSE. RADHA BROWN NOTIFIED. [facility] WILL NOT ACCEPT PT FOR CUSTODIAL CARE UNTIL FINANCIAL ARRANGEMENTS CAN BE COMPLETED BY PT'S SPOUSE. IHSAN Toro DCP- Discharge Planning Updated by [id number]: Carmen Munoz on 05/29/19 1:[address] Patient Name: CHUCK FERNANDEZ Encounter No: [id number] : 1935 Primary Insurance: NOVASYSMCR Anticipated DC Date: 05-30-2019 Planned Disposition: Nursing Facility [facility] Cert External Planned Provider: [facility], CUSTODIAL CARE MEDICAID BED DCP follow-up note: CM RECEIVED CALL FROM CAMILO OF [facility]. HOLDEN INFORMED HER THAT PT DOES NOT NEED NEW ONEL ASSESSMENT PER JAE OF [facility]. CAMILO WILL CALL ONEL AND GET DOCUMENT FAXED TO THEM. THEY WILL ACCEPT PT TOMORROW FOR [facility] MEAT PACKER CARE. PT'S SPOUSE WILL NEED TO COME TO FACILITY TOMORROW MORNING TO COMPLETE CUSTODIAL CARE MEDICAID APPLICATION AT 8:30AM. CM CALLED PT'S SPOUSE AT HOME, SHE IS WILLING TO DO MEDICAID APPLICATION AND WILL BE AT THE FACILITY FIRST THING IN THE MORNING. SHE WILL BRING NECESSARY DOCUMENTS FOR MEDICAID APPLICATION. PT'S SPOUSE IN AGREEMENT WITH DISCHARGE TO [facility] TOMORROW. IMPORTANT MESSAGE FROM MEDICARE EXPLAINED VIA PHONE AND WAS PREVIOUSLY PROVIDED IN PERSON. CM NOTIFIED RADHA BROWN. FOR DISCHARGE TO [facility] ON 05-30-19 AT [facility], FAX DISCHARGE INFORMATION TO [facility] AT [phone]. NURSE REPORT TO BE CALLED TO [facility] AT [phone]. PT TO TRANSPORT VIA AMBULANCE. IHSAN Toro DCP- Discharge Planning Updated by [email or web address]: Carmen Munoz on 05/29/19 11:[address] Patient Name: CHUCK FERNANDEZ Encounter No: [id number] : 1935 Primary Insurance: NOVASYSMCR Anticipated DC Date: Planned Disposition: Nursing Facility [facility] Cert External Planned Provider: [facility], CUSTODIAL CARE MEDICAID BED DCP follow-up note: CM SPOKE TO CAMILO OF [facility] WHO MET WITH PT AND SPOUSE IN ROOM. SHE IS GOING TO TRY TO FIND OUT STATUS OF MEDICAID APPLICATION AND ASKED CM TO CONTACT [facility] TO DETERMINE IF PT NEEDS A ONEL OR NOT. CM CALLED [facility], , SPOKE TO JAE WHO LOOKED UP PT AND INFORMED CM THAT PT IS NON PASRR AND DOES NOT REQUIRE ASSESSMENT OR REASSESSMENT UNLESS PT IS HOMICIDAL OR SUICIDAL. PT DOES NOT REQUIRE ONEL CLEARANCE TO MOVE TO A NEW NURSING FACILITY. PT HAS BEEN DECLINED PLACEMENT BY [facility] AND [facility]. [facility] WILL ACCEPT PT BACK BUT PT'S SPOUSE REFUSES. CM CONTINUES TO WAIT ADMISSION DETERMINATION FROM [facility] FOR CUSTODIAL CARE. CARMEN MUNOZ CASE MANAGEMENT DCP- Discharge Planning Updated by [id number]: Carmen Munoz on 05/29/19 8:[address] Patient Name: CHUCK FERNANDEZ Encounter No: [id number] : 1935 Primary Insurance: NOVASYCR Anticipated DC Date: Planned Disposition: Nursing Facility [facility] Cert External Planned Provider: [facility] OR [facility] MEDICAID BED CM FAXED REFERRAL UPDATE TO [facility] VIA [employer] AT [phone]. CM FAXED REFERRAL UPDATE TO [facility] AT [phone]. PT HAS BEEN DECLINED PLACEMENT BY [facility]. [facility] WILL ACCEPT PT BACK BUT PT'S SPOUSE REFUSES. CM CONTINUES TO WAIT ADMISSION DETERMINATIONS FROM [facility] AND [facility] FOR CUSTODIAL CARE. CARMEN MUNOZ, CASE MANAGEMENT Appended by Carmen Munoz on 05/29/2019 9:25 CDT: CM RECEIVED CALL FROM CAMILO VILLAFANA [facility], THEY RECEIVED REFERRAL AND ARE SCREENING FOR ADMISSION. CM RECEIVED MESSAGE FROM JENY OF [facility], THEY WILL NOT ACCEPT PT. PT HAS BEEN DECLINED PLACEMENT BY [facility] AND [facility]. [facility] WILL ACCEPT PT BACK BUT PT'S SPOUSE REFUSES. CM CONTINUES TO WAIT ADMISSION DETERMINATION FROM [facility] FOR GREEN MEAT PACKER CARE. IHSAN TORO MANAGEMENT DCP- Discharge Planning Updated by [email or web address]: Carmen Munoz on 05/28/19 3:[address] Patient Name: CHUCK FERNANDEZ Encounter No: [id number] : 1935 Primary Insurance: NOVASYSMCR Anticipated DC Date: Planned Disposition: Nursing Facility [facility] Cert External Planned Provider: [facility], GREEN MEAT PACKER CARE MEDICAID BED DCP follow-up note: CM FAXED UPDATE TO ROSEMARIE AT [facility], . CM CALLED AND SPOKE TO [facility], , DISCUSSED REFERRAL FOR [facility]ER CARE, FAXED REFERRAL TO [facility] VIA [facility] AT [phone]. CM WAITING ADMISSION DETERMINATIONS FROM [facility]. Carmen Munoz, CASE MANAGEMENT Appended by Carmen Munoz on 05/28/2019 16:22 CDT: CM RECEIVED CALL FROM ROSEMARIE OF [facility], THEY WILL NOT ACCEPT PT. CM FAXED REFERRAL TO [facility] AT [phone]. CM RECEIVED MESSAGE FROM JENY [facility], THEY ARE STILL CONSIDERING PT FOR CUSTODIAL CARE. CM NOTIFED PT'S SPOUSE, JULIANA FERNANDEZ, . CM CONTINUES TO WAIT ADMISSION DETERMINATIONS FROM [facility] FOR CUSTODIAL CARE. CARMEN MUNOZ, CASE MANAGEMENT DCP- Discharge Planning Updated by [id number]: Carmen Munoz on 05/27/19 1:[address] Patient Name: CHUCK FERNANDEZ Encounter No: [id number] : 1935 Primary Insurance: NOVASYSMCR Anticipated DC Date: Planned Disposition: Nursing Facility [facility] Cert External Planned Provider: TO BE DETERMINED DCP follow-up note: CM SPOKE TO PT'S SPOUSE, LINDA, AT HER REQUEST AT NURSES STATION. LINDA REPORTS SHE DOES NOT WANT PT PLACED BACK AT THE [facility] AT DISCHARGE. PT WAS IN [facility] PRIOR TO ADMISSION TO THE [facility] AND SHE WOULD LIKE TO SEE IF PT CAN GO BACK THERE BUT CANNOT GET ANYONE THERE TO RETURN HER CALLS. PT'S SPOUSE WILL BE GOING TO [place] TODAY TO LOOK AT [facility] AND [facility] FOR POSSIBLE PLACEMENT THERE PT'S DAUGHTER LIVES IN [place]. CHOICE SIGNED FOR [facility], [facility] AND [facility]. IMPORTANT MESSAGE FROM MEDICARE PROVIDED AND EXPLAINED. CM CALLED [facility], , SPOKE TO ROSEMARIE WHO WILL ACCEPT REFERRAL AND CONSIDER PT FOR GREEN MEAT PACKER CARE. CM FAXED REFERRAL TO [facility], .CM SPOKE TO NANCY OF [facility], , WHO CALLED FOR UPDATE. CM ADVISED THAT FAMILY DOES NOT WANT PT TO RETURN TO FACILITY AT HOSPITAL DISCHARGE. CM WAITING ADMISSION DETERMINATION FROM [facility] AND [facility]. Carmen Munoz, CASE MANAGEMENT DCP- Discharge Planning Updated by [id number]: Suzy Chapman on 05/24/19 4:[address] Patient Name: CHUCK FERNANDEZ Admission Status: ER Accout number: [id number] Admission Date: 05-24-2019 : 1935 Admission Diagnosis: Attending: DRAKE JAUREGUI Current LOS: 1 Anticipated DC Date: Planned Disposition: Nursing Facility [facility] Cert Primary Insurance: [employer] Discharge Planning Comments: CM met with patient and spouse (Linda) at bedside after explaining CM role and obtaining verbal consent. Patient was admitted from [facility]. Patient's spouse is requesting placement into [facility] upon discharge into [facility]. Linda (spouse) states that she has been working with Rosemarie at [facility] trying to get this arranged. Patient will need ONEL [facility] CM discussed availability / needs of home health and medical equipment. Patient's denies any discharge needs at this time. CM will continue to follow and assist as needed with discharge planning / needs. Rand Sewer: Suzy Chapman Appended by Suzy Chapman on 05/24/2019 17:23 CDT: [phone] to find out patients status at facility and if he was LTC / SNF bed. CM was going to find out if patient would need a ONEL before return to facility. CM was also going to inform them that family was seeking a different facility. CM will continue to follow and assist as needed with discharge planning / needs. DCPIA - Discharge Planning Initial Assessment Updated by [id number]: Suzy Chapman on 05/24/19 4:20 pm * How many steps to enter\\exit or inside your home? * PCP Amy SALCIDO * Pharmacy [facility] * Preadmission Environment Snf Facility * Facility Name [facility] * ADLs Partial Dependent * Partial ADLs (Assistance needed) Ambulation Bathing Dressing Eating Medication Management Toileting Transfers * Other Equipment BEDRAILS, WALKER W SEAT, STEP IN SHOWER WITH GRAB BARS * List name and contact numbers for known caregivers / representatives who currently or will assist patient after discharge: LINDA FERNANDEZ - - [phone] DEONNA / MARTHA FERNANDEZ - SON/ DIL - [phone], * Verbal permission to speak to the caregivers and representatives has been obtained from the patient. Yes * Community resources currently utilized None * Additional services required to return to the preadmission environment? No * Can the patient safely return to the preadmission environment? Yes * Has this patient been hospitalized within the prior 30 days at any hospital? Yes Coverage Notice Reviewer: [id number] Munoz Notice Issued Date-Time: 05/27/2019 9:50 Notice Type: IM Discharge Notice Notice Delivered To: Family Member Relationship to Patient: Spouse Camp Dishwasher Name: LINDA FERNANDEZ Delivery Method: HAND - Hand Delivered Renetta Days: Prior Verbal Notification: Recipient Understood Notice: Yes Recipient Signature: Yes Med Rec Note Co-signed by Attending: Coverage Notice Comment: Reviewer: STACIE Munoz Notice Issued Date-Time: 05/27/2019 9:50 Notice Type: Patient Choice Letter Notice Delivered To: Family Member Relationship to Patient: Spouse Camp Dishwasher Name: LINDA FERNANDEZ Delivery Method: HAND - Hand Delivered Renetta Days: Prior Verbal Notification: Recipient Understood Notice: Yes Recipient Signature: Yes Med Rec Note Co-signed by Attending: Coverage Notice Comment: ELIER SINGH ENCORE Reviewer: [id number] Munoz Notice Issued Date-Time: 05/29/2019 14:10 Notice Type: IM Discharge Notice Notice Delivered To: Family Member Relationship to Patient: Spouse Camp Dishwasher Name: LINDA FERNANDEZ Delivery Method: HAND - Hand Delivered Renetta Days: Prior Verbal Notification: Recipient Understood Notice: Yes Recipient Signature: Yes Med Rec Note Co-signed by Attending: Coverage Notice Comment: Last DP export: 05/30/19 8:45 a Patient Name: CHUCK FERNANDEZ Page [id number] at 1318 All edits/amendments must be made on the electronic document DICTATION DATE: 05/30/191316 REPORTING COORDINATOR: LITZY 05/30/191316 RPT#: [id number] DC DATE: STATUS: ADM IN [facility] [address] [place] [address] END OF REPORT
[2019-05-30 16:40] VITALS: BP 132/45
[2019-05-30 20:00] VITALS: BP 152/67
[2019-05-31 00:32] VITALS: BP 126/54
[2019-05-31 04:00] VITALS: BP 151/57
--- NOTE | 2019-05-31 07:02 | NUR ---
REPORT RECEIVED. WILL CONTINUE WITH POC. PT CURRENTLY LYING SEMI FOWLERS. CALL LIGHT W/I REACH. PT CURRENTLY UNDERGONG RESP TRX. RR EVEN AND UNLABORED. NO PIV NOTED. NO TELEMETRY NOTED. NO S/S OF DISTRESS NOTED. WILL CTM.
[2019-05-31 08:50] VITALS: BP 108/60
--- NOTE | 2019-05-31 10:17 | NUR ---
I have reviewed this patient and I concur with the Shift Assessment completed by the Licensed Practical Nurse today this shift.
--- NOTE | 2019-05-31 10:58 | NUR ---
Nutrition Follow-up: PO intake continues to be <=50%. Being seen by ST; no s/s of aspiration with regular food or thin liquids yesterday. Awaiting placement. Diet: Regular PO intake: 26% avg x 7 meals Wt: 284# Last BM: 05/31 per chart Labs reviewed Meds noted: Lasix, Micro K +Ensure with meals. May consider appetite stimulant and possibly nutrition support 2/2 ongoing poor PO intake. RD following.
[2019-05-31 12:21] VITALS: BP 135/55
--- NOTE | 2019-05-31 12:40 | MORECARE ---
CASE MANAGEMENT DISCHARGE SUMMARY PATIENT: CHUCK FERNANDEZ UNIT: [id number] ADM DATE: 05/24/19 AGE: 83 : 37 SEX: M ROOM/BED: D.2120 AUTHOR: EVARISTODOC PHYSICIAN: REFERRING PHYSICIAN: DRAKE JAUREGUI MD DATE OF SERVICE: 05/31/19 Discharge Plan Patient Name: CHUCK FERNANDEZ Facility: [facility]:[place] : 1935 Planned Disposition: Nursing Facility [facility] Cert Anticipated Discharge Date: 05/31/19 Discharge Date: Expected LOS: 7 Initial Reviewer: [id number] Initial Review Date: 05/24/2019 Generated: 05/31/19 1:40 pm Comments DCP- Discharge Planning Updated by [id number]: Carmen Munoz on 05/30/19 12:[address] Patient Name: CHUCK FERNANDEZ Encounter No: [id number] : 1935 Primary Insurance: NOVASYSMCR Anticipated DC Date: 05-30-2019 Planned Disposition: Nursing Facility [facility] Cert External Planned Provider: [facility], DETENTION CARE MEDICAID BED DCP follow-up note: CM RECEIVED CALL FROM DARRICK WHO INFORMED CM THAT PT'S SPOUSE DID MEET WITH THE HR ASSOCIATE NITZA AND THEY ARE WAITING FOR ALL LEGAL MATTERS TO BE IN ORDER PRIOR TO ACCEPTING PT FOR DETENTION CARE. CAMILO EXPECTS THIS TO BE COMPLETED NO LATER THAN TOMORROW, 05-31-19, BUT STATES THAT THE "BALL IS IN [address] COURT." [facility] WILL NOT ACCEPT PT FOR CORE DRILLER CARE UNTIL FINANCIAL ARRANGEMENTS CAN BE COMPLETED BY PT'S SPOUSE. Carmen Munoz, CASE MANAGEMENT DCP- Discharge Planning Updated by [id number]: Carmen Munoz on 05/30/19 8:[address] Patient Name: CHUCK FERNANDEZ Encounter No: [id number] : 1935 Primary Insurance: NOVASYSMCR Anticipated DC Date: 05-30-2019 Planned Disposition: Nursing Facility [facility] Cert External Planned Provider: [facility], CORE DRILLER CARE MEDICAID BED DCP follow-up note: CM RECEIVED CALL FROM DARRICK WHO INFORMED CM THAT THERE MAY BE A PROBLEM WITH ACCEPTING PT FOR CORE DRILLER CARE. PT DOES NOT CURRENLTLY QUALIFY FOR DETENTION CARE MEDICAID DUE TO ASSETS. [facility] HAS REFERRED PT'S SPOUSE TO AN HR ASSOCIATE TO MEET TODAY TO SEE IF THERE IS SOMETHING THAT CAN BE DONE TO ASSIST PT'S SPOUSE. RADHA BROWN NOTIFIED. [facility] WILL NOT ACCEPT PT FOR DETENTION CARE UNTIL FINANCIAL ARRANGEMENTS CAN BE COMPLETED BY PT'S SPOUSE. IHSAN Toro DCP- Discharge Planning Updated by [id number]: Carmen Munoz on 05/29/19 1:[address] Patient Name: CHUCK FERNANDEZ Encounter No: [id number] : 1935 Primary Insurance: NOVASYSMCR Anticipated DC Date: 05-30-2019 Planned Disposition: Nursing Facility [facility] Cert External Planned Provider: [facility], DETENTION CARE MEDICAID BED DCP follow-up note: CM RECEIVED CALL FROM CAMILO OF [facility]. HOLDEN INFORMED HER THAT PT DOES NOT NEED NEW ONEL ASSESSMENT PER JAE OF [facility]. CAMILO WILL CALL ONEL AND GET DOCUMENT FAXED TO THEM. THEY WILL ACCEPT PT TOMORROW FOR CORE DRILLER CARE. PT'S SPOUSE WILL NEED TO COME TO FACILITY TOMORROW MORNING TO COMPLETE DETENTION CARE MEDICAID APPLICATION AT 8:30AM. CM CALLED PT'S SPOUSE AT HOME, SHE IS WILLING TO DO MEDICAID APPLICATION AND WILL BE AT THE FACILITY FIRST THING IN THE MORNING. SHE WILL BRING NECESSARY DOCUMENTS FOR MEDICAID APPLICATION. PT'S SPOUSE IN AGREEMENT WITH DISCHARGE TO [facility] TOMORROW. IMPORTANT MESSAGE FROM MEDICARE EXPLAINED VIA PHONE AND WAS PREVIOUSLY PROVIDED IN PERSON. CM NOTIFIED RADHA BROWN. FOR DISCHARGE TO CORE DRILLER CARE ON 05-30-19 AT [facility], FAX DISCHARGE INFORMATION TO [facility] AT [phone]. NURSE REPORT TO BE CALLED TO [facility] AT [phone]. PT TO TRANSPORT VIA AMBULANCE. IHSAN Toro DCP- Discharge Planning Updated by [id number]: Carmen Munoz on 05/29/19 11:[address] Patient Name: CHUCK FERNANDEZ Encounter No: [id number] : 1935 Primary Insurance: NOVASYSMCR Anticipated DC Date: Planned Disposition: Nursing Facility [facility] Cert External Planned Provider: [facility], DETENTION CARE MEDICAID BED DCP follow-up note: CM SPOKE TO CAMILO OF [facility] WHO MET WITH PT AND SPOUSE IN ROOM. SHE IS GOING TO TRY TO FIND OUT STATUS OF MEDICAID APPLICATION AND ASKED CM TO CONTACT [facility] TO DETERMINE IF PT NEEDS A ONEL OR NOT. CM CALLED [facility], , SPOKE TO JAE WHO LOOKED UP PT AND INFORMED CM THAT PT IS NON PASRR AND DOES NOT REQUIRE ASSESSMENT OR REASSESSMENT UNLESS PT IS HOMICIDAL OR SUICIDAL. PT DOES NOT REQUIRE ONEL CLEARANCE TO MOVE TO A NEW NURSING FACILITY. PT HAS BEEN DECLINED PLACEMENT BY [facility] AND [facility]. [facility] WILL ACCEPT PT BACK BUT PT'S SPOUSE REFUSES. CM CONTINUES TO WAIT ADMISSION DETERMINATION FROM [facility] FOR DETENTION CARE. CARMEN MUNOZ CASE MANAGEMENT DCP- Discharge Planning Updated by [id number]: Carmen Munoz on 05/29/19 8:[address] Patient Name: CHUCK FERNANDEZ Encounter No: [id number] : 1935 Primary Insurance: NOVASYCR Anticipated DC Date: Planned Disposition: Nursing Facility [facility] Cert External Planned Provider: [facility] MED[facility] BED CM FAXED REFERRAL UPDATE TO [facility]IA [employer] AT [phone]. CM FAXED REFERRAL UPDATE TO [facility] AT [phone]. PT HAS BEEN DECLINED PLACEMENT BY [facility]. [facility] WILL ACCEPT PT BACK BUT PT'S SPOUSE REFUSES. CM CONTINUES TO WAIT ADMISSION DETERMINATIONS FROM [facility] AND [facility] FOR DETENTION CARE. CARMEN MUNOZ, CASE MANAGEMENT Appended by Carmen Munoz on 05/29/2019 9:25 CDT: CM RECEIVED CALL FROM CAMILO VILLAFANA [facility], THEY RECEIVED REFERRAL AND ARE SCREENING FOR ADMISSION. CM RECEIVED MESSAGE FROM JENY OF [facility], THEY WILL NOT ACCEPT PT. PT HAS BEEN DECLINED PLACEMENT BY [facility] AND [facility]. [facility] WILL ACCEPT PT BACK BUT PT'S SPOUSE REFUSES. CM CONTINUES TO WAIT ADMISSION DETERMINATION FROM [facility] FOR CORE DRILLER CARE. IHSAN TORO MANAGEMENT DCP- Discharge Planning Updated by [id number]: Carmen Munoz on 05/28/19 3:[address] Patient Name: CHUCK FERNANDEZ Encounter No: [id number] : 1935 Primary Insurance: NOVASYSMCR Anticipated DC Date: Planned Disposition: Nursing Facility [facility] Cert External Planned Provider: [facility], CORE DRILLER CARE MEDICAID BED DCP follow-up note: CM FAXED UPDATE TO ROSEMARIE AT [facility], . CM CALLED AND SPOKE TO [facility], , DISCUSSED REFERRAL FOR CORE DRILLER CARE, FAXED REFERRAL TO [facility] VIA [facility] AT [phone]. CM WAITING ADMISSION DETERMINATIONS FROM [facility]. Carmen Munoz, CASE MANAGEMENT Appended by Carmen Munoz on 05/28/2019 16:22 CDT: CM RECEIVED CALL FROM ROSEMARIE OF [facility], THEY WILL NOT ACCEPT PT. CM FAXED REFERRAL TO [facility] AT [phone]. CM RECEIVED MESSAGE FROM JENY [facility], THEY ARE STILL CONSIDERING PT FOR DETENTION CARE. CM NOTIFED PT'S SPOUSE, JULIANA FERNANDEZ, . CM CONTINUES TO WAIT ADMISSION DETERMINATIONS FROM [facility] FOR DETENTION CARE. CARMEN MUNOZ, CASE MANAGEMENT DCP- Discharge Planning Updated by [id number]: Carmen Munoz on 05/27/19 1:[address] Patient Name: CHUCK FERNANDEZ Encounter No: [id number] : 1935 Primary Insurance: NOVASYSMCR Anticipated DC Date: Planned Disposition: Nursing Facility [facility] Cert External Planned Provider: TO BE DETERMINED DCP follow-up note: CM SPOKE TO PT'S SPOUSE, LINDA, AT HER REQUEST AT NURSES STATION. LINDA REPORTS SHE DOES NOT WANT PT PLACED BACK AT THE [facility] AT DISCHARGE. PT WAS IN [facility] PRIOR TO ADMISSION TO THE [facility] AND SHE WOULD LIKE TO SEE IF PT CAN GO BACK THERE BUT CANNOT GET ANYONE THERE TO RETURN HER CALLS. PT'S SPOUSE WILL BE GOING TO [place] TODAY TO LOOK AT [facility] AND [facility] FOR POSSIBLE PLACEMENT THERE PT'S DAUGHTER LIVES IN [place]. CHOICE SIGNED FOR [facility], [facility] AND [facility]. IMPORTANT MESSAGE FROM MEDICARE PROVIDED AND EXPLAINED. CM CALLED [facility], , SPOKE TO ROSEMARIE WHO WILL ACCEPT REFERRAL AND CONSIDER PT FOR CORE DRILLER CARE. CM FAXED REFERRAL TO [facility], .CM SPOKE TO NANCY OF [facility], , WHO CALLED FOR UPDATE. CM ADVISED THAT FAMILY DOES NOT WANT PT TO RETURN TO FACILITY AT HOSPITAL DISCHARGE. CM WAITING ADMISSION DETERMINATION FROM [facility]. Carmen Munoz, CASE MANAGEMENT DCP- Discharge Planning Updated by [id number]: Suzy Chapman on 05/24/19 4:[address] Patient Name: CHUCK FERNANDEZ Admission Status: ER Accout number: [id number] Admission Date: 05-24-2019 : 1935 Admission Diagnosis: Attending: DRAKE JAUREGUI Current LOS: 1 Anticipated DC Date: Planned Disposition: Nursing Facility [facility] Cert Primary Insurance: [employer] Discharge Planning Comments: CM met with patient and spouse (Linda) at bedside after explaining CM role and obtaining verbal consent. Patient was admitted from [facility]. Patient's spouse is requesting placement into [facility] upon discharge into [facility]. Linda (spouse) states that she has been working with Rosemarie at [facility] trying to get this arranged. Patient will need ONEL his last admission was into [facility]. CM discussed availability / needs of home health and medical equipment. Patient's denies any discharge needs at this time. CM will continue to follow and assist as needed with discharge planning / needs. Professional Skateboarder: Suyz Chapman Appended by Suzy Chapman on 05/24/2019 17:23 CDT: [phone] to find out patients status at facility and if he was LTC / SNF bed. CM was going to find out if patient would need a ONEL before return to facility. CM was also going to inform them that family was seeking a different facility. CM will continue to follow and assist as needed with discharge planning / needs. DCPIA - Discharge Planning Initial Assessment Updated by [id number]: Suzy Chapman on 05/24/19 4:20 pm * How many steps to enter\\exit or inside your home? * PCP Amy SALCIDO * Pharmacy [facility] * Preadmission Environment Assisted Facility * Facility Name [facility] * ADLs Partial Dependent * Partial ADLs (Assistance needed) Ambulation Bathing Dressing Eating Medication Management Toileting Transfers * Other Equipment BEDRAILS, WALKER W SEAT, STEP IN SHOWER WITH GRAB BARS * List name and contact numbers for known caregivers / representatives who currently or will assist patient after discharge: LINDA FERNANDEZ - - [phone] DEONNA / MARTHA FERNANDEZ - SON/ DIL - [phone], * Verbal permission to speak to the caregivers and representatives has been obtained from the patient. Yes * Community resources currently utilized None * Additional services required to return to the preadmission environment? No * Can the patient safely return to the preadmission environment? Yes * Has this patient been hospitalized within the prior 30 days at any hospital? Yes Coverage Notice Reviewer: [id number] Munoz Notice Issued Date-Time: 05/27/2019 9:50 Notice Type: IM Discharge Notice Notice Delivered To: Family Member Relationship to Patient: Spouse Side Trimmer Name: LINDA FERNANDEZ Delivery Method: HAND - Hand Delivered Renetta Days: Prior Verbal Notification: Recipient Understood Notice: Yes Recipient Signature: Yes Med Rec Note Co-signed by Attending: Coverage Notice Comment: Reviewer: STACIE Munoz Notice Issued Date-Time: 05/27/2019 9:50 Notice Type: Patient Choice Letter Notice Delivered To: Family Member Relationship to Patient: Spouse Side Trimmer Name: LINDA FERNANDEZ Delivery Method: HAND - Hand Delivered Renetta Days: Prior Verbal Notification: Recipient Understood Notice: Yes Recipient Signature: Yes Med Rec Note Co-signed by Attending: Coverage Notice Comment: ELIER SINGH [place] Reviewer: [id number] Munoz Notice Issued Date-Time: 05/29/2019 14:10 Notice Type: IM Discharge Notice Notice Delivered To: Family Member Relationship to Patient: Spouse Side Trimmer Name: LINDA FERNANDEZ Delivery Method: HAND - Hand Delivered Renetta Days: Prior Verbal Notification: Recipient Understood Notice: Yes Recipient Signature: Yes Med Rec Note Co-signed by Attending: Coverage Notice Comment: Last DP export: 05/30/19 12:18 p Patient Name: CHUCK FERNANDEZ Page [id number] at 1240 All edits/amendments must be made on the electronic document DICTATION DATE: 05/31/191239 PEAT SHREDDER TENDER: LITZY 05/31/19 1240 RPT#: [id number] DC DATE: STATUS: ADM IN [facility] [address] [place] [address] END OF REPORT
--- NOTE | 2019-05-31 13:02 | MORECARE ---
CASE MANAGEMENT DISCHARGE SUMMARY PATIENT: CHUCK FERNANDEZ UNIT: [id number] ADM DATE: 05/24/19 AGE: 83 : 36 SEX: M ROOM/BED: D.2120 AUTHOR: EVARISTODOC PHYSICIAN: REFERRING PHYSICIAN: DRAKE JAUREGUI MD DATE OF SERVICE: 05/31/19 Discharge Plan Patient Name: CHUCK FERNANDEZ Facility: [facility]:[place] : 1935 Planned Disposition: Nursing Facility [facility] Cert Anticipated Discharge Date: 05/31/19 Discharge Date: Expected LOS: 7 Initial Reviewer: [id number] Initial Review Date: 05/24/2019 Generated: 05/31/19 2:02 pm Comments DCP- Discharge Planning Updated by [id number]: Carmen Munoz on 05/31/19 11:[address] Patient Name: CHUCK FERNANDEZ Encounter No: [id number] : 1935 Primary Insurance: NOVASYSMCR Anticipated DC Date: 05-31-2019 Planned Disposition: Nursing Facility [facility] Cert External Planned Provider: [facility], SNF CARE MEDICAID BED DCP follow-up note: CM [facility]. PT'S SPOUSE HAS COMPLETED ALL ARRANGEMENTS FOR SNF CARE WITH [facility]. RN HOLDEN HOUSE NOTIFIED RADHA BLOUNTEARS FOR DISCHARGE ORDERS. CM FAXED DISCHARGE INFORMATION TO [facility] AT [phone]. NURSE REPORT TO BE CALLED TO [facility] AT [phone]. PT TO TRANSPORT VIA AMBULANCE. IHSAN Toro DCP- Discharge Planning Updated by [id number]: Carmen Munoz on 05/30/19 12:[address] Patient Name: CHUCK FERNANDEZ Encounter No: [id number] : 1935 Primary Insurance: NOVASYSMCR Anticipated DC Date: 05-30-2019 Planned Disposition: Nursing Facility [facility] Cert External Planned Provider: [facility], STUNNER AND SHACKLER CARE MEDICAID BED DCP follow-up note: CM RECEIVED CALL FROM CAMILO [facility] WHO INFORMED CM THAT PT'S SPOUSE DID MEET WITH THE [employer] MACHINE OPERATOR NITZA AND THEY ARE WAITING FOR ALL LEGAL MATTERS TO BE IN ORDER PRIOR TO ACCEPTING PT FOR STUNNER AND SHACKLER CARE. CAMILO EXPECTS THIS TO BE COMPLETED NO LATER THAN TOMORROW, 05-31-19, BUT STATES THAT THE "BALL IS IN [address] [place] [address]." [facility] WILL NOT ACCEPT PT FOR STUNNER AND SHACKLER CARE UNTIL FINANCIAL ARRANGEMENTS CAN BE COMPLETED BY PT'S SPOUSE. Carmen Munoz CASE MANAGEMENT DCP- Discharge Planning Updated by [id number]: Carmen Munoz on 05/30/19 8:[address] Patient Name: CHUCK FERNANDEZ Encounter No: [id number] : 1935 Primary Insurance: NOVASYSMCR Anticipated DC Date: 05-30-2019 Planned Disposition: Nursing Facility [facility] Cert External Planned Provider: [facility], SNF CARE MEDICAID BED DCP follow-up note: CM RECEIVED CALL FROM CAMILO VILLAFANA [facility] WHO INFORMED CM THAT THERE MAY BE A PROBLEM WITH ACCEPTING PT FOR SNF CARE. PT DOES NOT CURRENLTLY QUALIFY FOR SNF CARE MEDICAID DUE TO ASSETS. [facility] HAS REFERRED PT'S SPOUSE TO AN [employer] MACHINE OPERATOR TO MEET TODAY TO SEE IF THERE IS SOMETHING THAT CAN BE DONE TO ASSIST PT'S SPOUSE. RADHA BROWN NOTIFIED. [facility] WILL NOT ACCEPT PT FOR SNF CARE UNTIL FINANCIAL ARRANGEMENTS CAN BE COMPLETED BY PT'S SPOUSE. Carmen Munoz CASE MANAGEMENT DCP- Discharge Planning Updated by [id number]: Carmen Munoz on 05/29/19 1:[address] Patient Name: CHUCK FERNANDEZ Encounter No: [id number] : 1935 Primary Insurance: NOVASYSMCR Anticipated DC Date: 05-30-2019 Planned Disposition: Nursing Facility [facility] Cert External Planned Provider: [facility], SNF CARE MEDICAID BED DCP follow-up note: CM RECEIVED CALL FROM CAMILO VILLAFANA [employer]. CM INFORMED HER THAT PT DOES NOT NEED NEW ONEL ASSESSMENT PER JAE OF [facility]. CAMILO WILL CALL [facility] AND GET DOCUMENT FAXED TO THEM. THEY WILL ACCEPT PT TOMORROW FOR STUNNER AND SHACKLER CARE. PT'S SPOUSE WILL NEED TO COME TO FACILITY TOMORROW MORNING TO COMPLETE SNF CARE MEDICAID APPLICATION AT 8:30AM. CM CALLED PT'S SPOUSE AT HOME, SHE IS WILLING TO DO MEDICAID APPLICATION AND WILL BE AT THE FACILITY FIRST THING IN THE MORNING. SHE WILL BRING NECESSARY DOCUMENTS FOR MEDICAID APPLICATION. PT'S SPOUSE IN AGREEMENT WITH DISCHARGE TO [facility] TOMORROW. IMPORTANT MESSAGE FROM MEDICARE EXPLAINED VIA PHONE AND WAS PREVIOUSLY PROVIDED IN PERSON. CM NOTIFIED RADHA BROWN. FOR DISCHARGE TO STUNNER AND SHACKLER CARE ON 05-30-19 AT [facility], FAX DISCHARGE INFORMATION TO [facility] AT [phone]. NURSE REPORT TO BE CALLED TO [facility] AT [phone]. PT TO TRANSPORT VIA AMBULANCE. Carmen Munoz CASE MANAGEMENT DCP- Discharge Planning Updated by [id number]: Carmen Munoz on 05/29/19 11:[address] Patient Name: CHUCK FERNANDEZ Encounter No: [id number] : 1935 Primary Insurance: NOVASYSMCR Anticipated DC Date: Planned Disposition: Nursing Facility [facility] Cert External Planned Provider: [facility], SNF [facility] MEDICAID BED DCP follow-up note: CM SPOKE TO CAMILO OF [facility] WHO MET WITH PT AND SPOUSE IN ROOM. SHE IS GOING TO TRY TO FIND OUT STATUS OF MEDICAID APPLICATION AND ASKED CM TO [place] [facility] [place] IF PT NEEDS A [place]EL OR NOT. CM [place] [facility] [place] , SPOKE TO JAE WHO LOOKED UP PT AND INFORMED CM THAT PT IS NON PASRR AND DOES NOT REQUIRE ASSESSMENT OR REASSESSMENT UNLESS PT IS HOMICIDAL OR SUICIDAL. PT DOES NOT REQUIRE ONEL CLEARANCE TO MOVE TO A NEW NURSING FACILITY. [facility]. THE [facility] WILL ACCEPT PT BACK BUT PT'S SPOUSE REFUSES. CM CONTINUES TO WAIT ADMISSION DETERMINATION FROM [facility] FOR STUNNER AND SHACKLER CARE. CARMEN MUNOZ CASE DARLEEN DCP- Discharge Planning Updated by [id number]: Carmen Munoz on 05/29/19 8:[address] Patient Name: CHUCK FERNANDEZ Encounter No: [id number] : 1935 Primary Insurance: NOVASYSMCR Anticipated DC Date: Planned Disposition: Nursing Facility [facility] Cert External Planned Provider: [facility] OR [facility] TERM [facility] MEDICAID BED CM FAXED REFERRAL UPDATE TO [facility] AT [phone]. CM FAXED REFERRAL UPDATE TO [facility] AT [phone]. PT HAS BEEN DECLINED PLACEMENT BY [facility]. THE [facility] WILL ACCEPT PT BACK BUT PT'S SPOUSE REFUSES. CM CONTINUES TO WAIT ADMISSION DETERMINATIONS FROM [facility] AND [facility] FOR STUNNER AND SHACKLER CARE. CARMEN MUNOZ CASE MANAGEMENT Appended by Carmen Munoz on 05/29/2019 9:25 CDT: CM RECEIVED CALL FROM CAMILO VILLAFANA [facility], THEY RECEIVED REFERRAL AND ARE SCREENING FOR ADMISSION. CM RECEIVED MESSAGE FROM [facility], THEY WILL NOT ACCEPT PT. PT HAS BEEN DECLINED PLACEMENT BY [facility] AND [facility]. THE [facility] WILL ACCEPT PT BACK BUT PT'S SPOUSE REFUSES. CM CONTINUES TO WAIT ADMISSION DETERMINATION FROM [facility] FOR SNF CARE. IHSAN TORO DCP- Discharge Planning Updated by [id number]: Carmen Munoz on 05/28/19 3:[address] Patient Name: CHUCK FERNANDEZ Encounter No: [id number] : 1935 Primary Insurance: NOVASYCR Anticipated DC Date: Planned Disposition: Nursing Facility [facility] Cert External Planned Provider: [facility], STUNNER AND SHACKLER CARE MEDICAID BED DCP follow-up note: CM FAXED UPDATE TO ROSEMARIE AT [facility], . [facility] , [facility]CUSSED [facility]FERRAL FOR SNF CARE, FAXED REFERRAL TO [facility] AT [phone]. CM WAITING ADMISSION DETERMINATIONS FROM [facility]. Carmen Munoz CASE MANAGEMENT Appended by Carmen Munoz on 05/28/2019 16:22 CDT: CM RECEIVED CALL FROM ROSEMARIE OF [facility], THEY WILL NOT ACCEPT PT. CM FAXED REFERRAL TO [facility] AT [phone]. CM RECEIVED MESSAGE FROM [facility], THEY ARE STILL CONSIDERING PT FOR SNF CARE. CM NOTIFED PT'S SPOUSE, JULIANA FERNANDEZ, . CM CONTINUES TO WAIT ADMISSION DETERMINATIONS FROM [facility] AND [facility] FOR SNF CARE. IHSAN TORO DCP- Discharge Planning Updated by [id number]: Carmen Munoz on 05/27/19 1:[address] Patient Name: CHUCK FERNANDEZ Encounter No: [id number] : 1935 Primary Insurance: NOVASYSMCR Anticipated DC Date: Planned Disposition: Nursing Facility [facility] Cert External Planned Provider: TO BE DETERMINED DCP follow-up note: CM SPOKE TO PT'S SPOUSE, LINDA, AT HER REQUEST AT NURSES STATION. LINDA REPORTS SHE DOES NOT WANT PT PLACED BACK AT THE [facility] AT DISCHARGE. PT WAS IN [facility] PRIOR TO ADMISSION TO THE [facility] AND SHE WOULD LIKE TO SEE IF PT CAN GO BACK THERE BUT CANNOT GET ANYONE THERE TO RETURN HER CALLS. PT'S SPOUSE WILL BE GOING TO [place] TODAY TO LOOK AT [facility] FOR POSSIBLE PLACEMENT THERE PT'S DAUGHTER LIVES IN [place]. CHOICE SIGNED FOR [facility], [facility]. IMPORTANT MESSAGE FROM MEDICARE PROVIDED AND EXPLAINED. CM CALLED [facility], , SPOKE TO ROSEMARIE WHO WILL ACCEPT REFERRAL AND CONSIDER PT FOR STUNNER AND SHACKLER CARE. CM FAXED REFERRAL TO [facility], .CM SPOKE TO [facility], , WHO CALLED FOR UPDATE. CM ADVISED THAT FAMILY DOES NOT WANT PT TO RETURN TO FACILITY AT HOSPITAL DISCHARGE. CM WAITING ADMISSION DETERMINATION FROM [facility]. Carmen Munoz, CASE MANAGEMENT DCP- Discharge Planning Updated by [id number]: Suzy Chapman on 05/24/19 4:[address] Patient Name: CHUCK FERNANDEZ Admission Status: ER Accout number: [id number] Admission Date: 05-24-2019 : 1935 Admission Diagnosis: Attending: DRAKE JAUREGUI Current LOS: 1 Anticipated DC Date: Planned Disposition: Nursing Facility [facility] Cert Primary Insurance: NOVASYSMCR Discharge Planning Comments: CM met with patient and spouse (Linda) at bedside after explaining CM role and obtaining verbal consent. [facility] Patient's spouse is requesting [facility]. Linda (spouse) states that she has been working with Rosemarie at [facility] trying to get this arranged. Patient will need ONEL his [facility]. CM discussed availability / needs of home health and medical equipment. Patient's denies any discharge needs at this time. CM will continue to follow and assist as needed with discharge planning / needs. Electronics Supervisor: Suzy Chapman Appended by Suzy Chapman on 05/24/2019 17:23 CDT: CM attempted to call [facility] [phone] to find out patients status at facility and if he was LTC / SNF bed. CM was going to find out if patient would need a ONEL before return to facility. CM was also going to inform them that family was seeking a different facility. CM will continue to follow and assist as needed with discharge planning / needs. DCPIA - Discharge Planning Initial Assessment Updated by [id number]: Suzy Chapman on 05/24/19 4:20 pm * How many steps to enter\\exit or inside your home? * PCP Amy SALCIDO * Pharmacy [facility] * Preadmission Environment [facility] * Facility Name [facility] * ADLs Partial Dependent * Partial ADLs (Assistance needed) Ambulation Bathing Dressing Eating Medication Management Toileting Transfers * Other Equipment BEDRAILS, WALKER W SEAT, STEP IN SHOWER WITH GRAB BARS * List name and contact numbers for known caregivers / representatives who currently or will assist patient after discharge: LINDA FERNANDEZ - - [phone] DEONNA / MARTHA HALL - SON/ [facility] - [phone], * Verbal permission to speak to the caregivers and representatives has been obtained from the patient. Yes * Community resources currently utilized None * Additional services required to return to the preadmission environment? No * Can the patient safely return to the preadmission environment? Yes * Has this patient been hospitalized within the prior 30 days at any hospital? Yes Coverage Notice Reviewer: [id number] Bennett Munoz Notice Issued Date-Time: 05/29/2019 14:10 Notice Type: IM Discharge Notice Notice Delivered To: Family Member Relationship to Patient: Spouse Core Sucker Name: LINDA FERNANDEZ Delivery Method: HAND - Hand Delivered Renetta Days: Prior Verbal Notification: Recipient Understood Notice: Yes Recipient Signature: Yes Med Rec Note Co-signed by Attending: Coverage Notice Comment: Reviewer: [id number] Munoz Notice Issued Date-Time: 05/27/2019 9:50 Notice Type: IM Discharge Notice Notice Delivered To: Family Member Relationship to Patient: Spouse Core Sucker Name: LINDA FERNANDEZ Delivery Method: HAND - Hand Delivered Renetta Days: Prior Verbal Notification: Recipient Understood Notice: Yes Recipient Signature: Yes Med Rec Note Co-signed by Attending: Coverage Notice Comment: Reviewer: [id number] Bennett Munoz Notice Issued Date-Time: 05/27/2019 9:50 Notice Type: Patient Choice Letter Notice Delivered To: Family Member Relationship to Patient: Spouse Core Sucker Name: LINDA FERNANDEZ Delivery Method: HAND - Hand Delivered Renetta Days: Prior Verbal Notification: Recipient Understood Notice: Yes Recipient Signature: Yes Med Rec Note Co-signed by Attending: Coverage Notice Comment: [facility] Last DP export: 05/31/19 11:40 a Patient Name: CHUCK FERNANDEZ Page [id number] at 1302 All edits/amendments must be made on the electronic document DICTATION DATE: 05/31/19 1302 TEEN COUNSELOR: LITZY 05/31/19 1302 RPT#: [id number] DC DATE: STATUS: ADM IN [facility] [address] [place] [address] END OF REPORT
--- NOTE | 2019-05-31 13:57 | MORECARE ---
CASE MANAGEMENT DISCHARGE SUMMARY PATIENT: CHUCK FERNANDEZ UNIT: [id number] ADM DATE: 05/24/19 AGE: 83 : [birth year] SEX: M ROOM/BED: D.2120 AUTHOR: EVARISTODOC PHYSICIAN: REFERRING PHYSICIAN: DRAKE JAUREGUI MD DATE OF SERVICE: 05/31/19 Discharge Plan Patient Name: CHUCK FERNANDEZ Facility: [facility]:[place] : 1935 Planned Disposition: Nursing Facility [facility] Cert Anticipated Discharge Date: 05/31/19 Discharge Date: Expected LOS: 7 Initial Reviewer: [id number] Initial Review Date: 05/24/2019 Generated: 05/31/19 2:56 pm Comments DCP- Discharge Planning Updated by [email or web address]: Carmen Munoz on 05/31/19 11:[address] Patient Name: CHUCK FERNANDEZ Encounter No: [id number] : 1935 Primary Insurance: NOVASYSMCR Anticipated DC Date: 05-31-2019 Planned Disposition: Nursing Facility [facility] Cert External Planned Provider: [facility], [facility] MEDICAID BED DCP follow-up note: CM [facility], [facility]. PT'S SPOUSE HAS COMPLETED ALL ARRANGEMENTS FOR [facility] WITH [facility]. RN HOLDEN HOUSE NOTIFIED RADHA BLOUNTEARS FOR DISCHARGE ORDERS. CM FAXED DISCHARGE INFORMATION TO [facility] AT [phone]. NURSE REPORT TO BE CALLED TO [facility] AT [phone]. PT TO TRANSPORT VIA AMBULANCE. IHSAN Toro DCP- Discharge Planning Updated by [id number]: Carmen Munoz on 05/30/19 12:[address] Patient Name: CHUCK FERNANDEZ Encounter No: [id number] : 1935 Primary Insurance: NOVASYSMCR Anticipated DC Date: 05-30-2019 Planned Disposition: Nursing Facility [facility] Cert External Planned Provider: [facility], PRODUCT SAFETY ENGINEER CARE MEDICAID BED DCP follow-up note: CM RECEIVED CALL FROM [facility]ILO [facility] WHO INFORMED CM THAT PT'S SPOUSE DID MEET WITH THE GRANTS ASSISTANT NITZA AND THEY ARE WAITING FOR ALL LEGAL MATTERS TO BE IN ORDER PRIOR TO ACCEPTING PT FOR PRODUCT SAFETY ENGINEER CARE. CAMILO EXPECTS THIS TO BE COMPLETED NO LATER THAN TOMORROW, 05-31-19, BUT STATES THAT THE "BALL IS IN [place]RS. [place]ERNAN[place]S COURT." [facility] WILL NOT ACCEPT PT FOR PRODUCT SAFETY ENGINEER CARE UNTIL FINANCIAL ARRANGEMENTS CAN BE COMPLETED BY PT'S SPOUSE. Carmen Munoz CASE MANAGEMENT DCP- Discharge Planning Updated by [email or web address]: Carmen Munoz on 05/30/19 8:[address] Patient Name: CHUCK FERNANDEZ Encounter No: [id number] : 1935 Primary Insurance: NOVASYSMCR Anticipated DC Date: 05-30-2019 Planned Disposition: Nursing Facility [facility] Cert External Planned Provider: [facility], [facility] MEDICAID BED DCP follow-up note: CM RECEIVED CALL FROM CAMILO VILLAFANA [facility] WHO INFORMED CM THAT THERE MAY BE A PROBLEM WITH ACCEPTING PT FOR [facility] CARE. PT DOES NOT CURRENLTLY QUALIFY FOR [facility] CARE MEDICAID DUE TO ASSETS. [facility] HAS REFERRED PT'S SPOUSE TO AN GRANTS ASSISTANT TO MEET TODAY TO SEE IF THERE IS SOMETHING THAT CAN BE DONE TO ASSIST PT'S SPOUSE. RADHA BROWN NOTIFIED. [facility] WILL NOT ACCEPT PT FOR [facility] UNTIL FINANCIAL ARRANGEMENTS CAN BE COMPLETED BY PT'S SPOUSE. Carmen Munoz CASE MANAGEMENT DCP- Discharge Planning Updated by [id number]: Carmen Munoz on 05/29/19 1:[address] Patient Name: CHUCK FERNANDEZ Encounter No: [id number] : 1935 Primary Insurance: NOVASYSMCR Anticipated DC Date: 05-30-2019 Planned Disposition: Nursing Facility [facility] Cert External Planned Provider: [facility], [facility] MEDICAID BED DCP follow-up note: CM RECEIVED CALL FROM CAMILO [facility]. CM INFORMED HER THAT PT DOES NOT NEED NEW ONEL ASSESSMENT PER JAE OF [employer]. CAMILO WILL CALL [facility] AND GET DOCUMENT FAXED TO THEM. THEY WILL ACCEPT PT TOMORROW FOR PRODUCT SAFETY ENGINEER CARE. PT'S SPOUSE WILL NEED TO COME TO FACILITY TOMORROW MORNING TO COMPLETE [facility] C[facility] MEDICAID APPLICATION AT 8:30AM. CM CALLED PT'S SPOUSE AT HOME, SHE IS WILLING TO DO MEDICAID APPLICATION AND WILL BE AT THE FACILITY FIRST THING IN THE MORNING. SHE WILL BRING NECESSARY DOCUMENTS FOR MEDICAID APPLICATION. PT'S SPOUSE IN AGREEMENT WITH DISCHARGE TO [facility] TOMORROW. IMPORTANT MESSAGE FROM MEDICARE EXPLAINED VIA PHONE AND WAS PREVIOUSLY PROVIDED IN PERSON. CM NOTIFIED RADHA BROWN. FOR DISCHARGE TO PRODUCT SAFETY ENGINEER CARE ON 05-30-19 AT [facility], FAX DISCHARGE INFORMATION TO [facility] AT [phone]. NURSE REPORT TO BE CALLED TO [facility] AT [phone]. PT TO TRANSPORT VIA AMBULANCE. Carmen Munoz CASE MANAGEMENT DCP- Discharge Planning Updated by [id number]: Carmen Munoz on 05/29/19 11:[address] Patient Name: CHUCK FERNANDEZ Encounter No: [id number] : 1935 Primary Insurance: NOVASYSMCR Anticipated DC Date: Planned Disposition: Nursing Facility [facility] Cert External Planned Provider: [facility], [facility] MEDICAID BED DCP follow-up note: CM SPOKE TO CAMILO OF [facility] WHO MET WITH PT AND SPOUSE IN ROOM. SHE IS GOING TO TRY TO FIND OUT STATUS OF MEDICAID APPLICATION AND ASKED CM TO CONTACT [facility] TO DETERMINE IF PT NEEDS A ONEL OR NOT. CM CALLED [facility], , SPOKE TO JAE WHO LOOKED UP PT AND INFORMED CM THAT PT IS NON PASRR AND DOES NOT REQUIRE ASSESSMENT OR REASSESSMENT UNLESS PT IS HOMICIDAL OR SUICIDAL. PT DOES NOT REQUIRE ONEL CLEARANCE TO MOVE TO A NEW NURSING FACILITY. PT [facility] BEEN [facility] PLACEMENT [facility] AND [facility]. [facility] WILL ACCEPT PT BACK BUT PT'S SPOUSE REFUSES. CM CONTINUES TO WAIT ADMISSION DETERMINATION FROM [facility] FOR PRODUCT SAFETY ENGINEER CARE. CARMEN MUNOZ CASE DARLEEN DCP- Discharge Planning Updated by [id number]: Carmen Munoz on 05/29/19 8:[address] Patient Name: CHUCK FERNANDEZ Encounter No: [id number] : 1935 Primary Insurance: NOVASYSMCR Anticipated DC Date: Planned Disposition: Nursing Facility [facility] Cert External Planned Provider: [facility] OR [facility] MEDICAID BED CM FAXED REFERRAL UPDATE TO [facility] VIA JENY AT [phone]. CM FAXED REFERRAL UPDATE TO [facility] AT [phone]. PT HAS BEEN DECLINED PLACEMENT BY [facility]. [facility] WILL ACCEPT PT BACK BUT PT'S SPOUSE REFUSES. CM CONTINUES TO WAIT ADMISSION DETERMINATIONS FROM [facility] AND [facility] FOR PRODUCT SAFETY ENGINEER CARE. CARMEN MUNOZ CASE MANAGEMENT Appended by Carmen Munoz on 05/29/2019 9:25 CDT: CM RECEIVED CALL FROM CAMILO VILLAFANA [facility], THEY RECEIVED REFERRAL AND ARE SCREENING FOR ADMISSION. CM RECEIVED MESSAGE FROM [facility], THEY WILL NOT ACCEPT PT. PT HAS BEEN DECLINED PLACEMENT BY [facility] AND [facility]. [facility] WILL ACCEPT PT BACK BUT PT'S SPOUSE REFUSES. CM CONTINUES TO WAIT ADMISSION DETERMINATION FROM [facility] FOR MCC CARE. IHSAN TORO DCP- Discharge Planning Updated by [id number]: Carmen Munoz on 05/28/19 3:[address] Patient Name: CHUCK FERNANDEZ Encounter No: [id number] : 1935 Primary Insurance: NOVASYCR Anticipated DC Date: Planned Disposition: Nursing Facility [facility] Cert External Planned Provider: [facility], PRODUCT SAFETY ENGINEER CARE MEDICAID BED DCP follow-up note: CM FAXED UPDATE TO ROSEMARIE AT [facility], . [facility], , DISCUSSED REFERRAL FOR [facility], FAXED REFERRAL TO [facility] VIA JENY AT [phone]. CM WAITING ADMISSION DETERMINATIONS FROM [facility]. Carmen Munoz CASE MANAGEMENT Appended by Carmen Munoz on 05/28/2019 16:22 CDT: CM RECEIVED CALL FROM ROSEMARIE OF [facility], THEY WILL NOT ACCEPT PT. CM FAXED REFERRAL TO [facility] AT [phone]. CM RECEIVED MESSAGE FROM [facility], THEY ARE STILL CONSIDERING PT FOR [facility] CARE. CM NOTIFED PT'S SPOUSE, JULIANA FERNANDEZ, . CM CONTINUES TO WAIT ADMISSION DETERMINATIONS FROM [facility] AND [facility] FOR [facility] CARE. IHSAN TORO DCP- Discharge Planning Updated by [email or web address]: Carmen Munoz on 05/27/19 1:[address] Patient Name: CHUCK FERNANDEZ Encounter No: [id number] : 1935 Primary Insurance: NOVASYSMCR Anticipated DC Date: Planned Disposition: Nursing Facility [facility] Cert External Planned Provider: TO BE DETERMINED DCP follow-up note: CM SPOKE TO PT'S SPOUSE, LINDA, AT HER REQUEST AT NURSES STATION. LINDA REPORTS SHE DOES NOT WANT PT PLACED BACK AT THE [facility] AT DISCHARGE. PT WAS IN [facility] PRIOR TO ADMISSION TO [facility] AND SHE WOULD LIKE TO SEE IF PT CAN GO BACK THERE BUT CANNOT GET ANYONE THERE TO RETURN HER CALLS. PT'S SPOUSE WILL BE GOING TO [place] TODAY TO LOOK AT [facility] FOR POSSIBLE PLACEMENT THERE PT'S DAUGHTER LIVES IN [place]. CHOICE SIGNED FOR [facility], [facility]. IMPORTANT MESSAGE FROM MEDICARE PROVIDED AND EXPLAINED. CM CALLED [facility], , SPOKE TO ROSEMARIE WHO WILL ACCEPT REFERRAL AND CONSIDER PT FOR PRODUCT SAFETY ENGINEER CARE. CM FAXED REFERRAL TO [facility], .CM SPOKE TO [facility], , WHO CALLED FOR UPDATE. CM ADVISED THAT FAMILY DOES NOT WANT PT TO RETURN TO FACILITY AT HOSPITAL DISCHARGE. CM WAITING ADMISSION DETERMINATION FROM [facility]. Carmen Munoz, CASE MANAGEMENT DCP- Discharge Planning Updated by [id number]: Suzy Chapman on 05/24/19 4:[address] Patient Name: CHUCK FERNANDEZ Admission Status: ER Accout number: [id number] Admission Date: 05-24-2019 : 1935 Admission Diagnosis: Attending: DRAKE JAUREGUI Current LOS: 1 Anticipated DC Date: Planned Disposition: Nursing Facility [facility] Cert Primary Insurance: NOVASYSMCR Discharge Planning Comments: CM met with patient and spouse (Linda) at bedside after explaining CM role and obtaining verbal consent. [facility] Patient's spouse is requesting placement into [facility] upon discharge into [facility]. Linda (spouse) states that she has been working with Rosemarie at [facility] trying to get this arranged. Patient will need ONEL his [facility]. CM discussed availability / needs of home health and medical equipment. Patient's denies any discharge needs at this time. CM will continue to follow and assist as needed with discharge planning / needs. Polyethylene Combiner: Suzy Chapman Appended by Suzy Chapman on 05/24/2019 17:23 CDT: CM attempted to call [facility] [phone] to find out patients status at facility and if he was LTC / SNF bed. CM was going to find out if patient would need a ONEL before return to facility. CM was also going to inform them that family was seeking a different facility. CM will continue to follow and assist as needed with discharge planning / needs. DCPIA - Discharge Planning Initial Assessment Updated by [id number]: Suzy Chapman on 05/24/19 4:20 pm * How many steps to enter\\exit or inside your home? * PCP Amy SALCIDO * Pharmacy [facility] * Preadmission Environment [facility] * Facility Name [facility] * ADLs Partial Dependent * Partial ADLs (Assistance needed) Ambulation Bathing Dressing Eating Medication Management Toileting Transfers * Other Equipment BEDRAILS, WALKER W SEAT, STEP IN SHOWER WITH GRAB BARS * List name and contact numbers for known caregivers / representatives who currently or will assist patient after discharge: LINDA FERNANDEZ - - [phone] DEONNA / MARTHA HALL - SON/ [facility] - [phone], * Verbal permission to speak to the caregivers and representatives has been obtained from the patient. Yes * Community resources currently utilized None * Additional services required to return to the preadmission environment? No * Can the patient safely return to the preadmission environment? Yes * Has this patient been hospitalized within the prior 30 days at any hospital? Yes Coverage Notice Reviewer: [id number] Bennett Munoz Notice Issued Date-Time: 05/29/2019 14:10 Notice Type: IM Discharge Notice Notice Delivered To: Family Member Relationship to Patient: Spouse Returned Goods Repairer Name: LINDA FERNANDEZ Delivery Method: HAND - Hand Delivered Renetta Days: Prior Verbal Notification: Recipient Understood Notice: Yes Recipient Signature: Yes Med Rec Note Co-signed by Attending: Coverage Notice Comment: Reviewer: [id number] Munoz Notice Issued Date-Time: 05/27/2019 9:50 Notice Type: IM Discharge Notice Notice Delivered To: Family Member Relationship to Patient: Spouse Returned Goods Repairer Name: LINDA FERNANDEZ Delivery Method: HAND - Hand Delivered Renetta Days: Prior Verbal Notification: Recipient Understood Notice: Yes Recipient Signature: Yes Med Rec Note Co-signed by Attending: Coverage Notice Comment: Reviewer: [id number] Bennett Munoz Notice Issued Date-Time: 05/27/2019 9:50 Notice Type: Patient Choice Letter Notice Delivered To: Family Member Relationship to Patient: Spouse Returned Goods Repairer Name: LINDA FERNANDEZ Delivery Method: HAND - Hand Delivered Renetta Days: Prior Verbal Notification: Recipient Understood Notice: Yes Recipient Signature: Yes Med Rec Note Co-signed by Attending: Coverage Notice Comment: ELIER SINGH ENCSUZETTE Last DP export: 05/31/19 12:02 p Patient Name: CHUCK FERNANDEZ Page 12014 at 1357 All edits/amendments must be made on the electronic document DICTATION DATE: 05/31/19 1356 [employer]ICULTURAL PRODUCE COMMISSION AGENT: LITZY 05/31/19 1356 RPT#: [id number] DC DATE: STATUS: ADM IN [facility] [address] [place] [address] END OF REPORT
--- NOTE | 2019-05-31 15:51 | NUR ---
PT DISCHARGED TO [facility] VIA EMS. PAPERWORK GIVEN. ALL VALUABLES REMOVED FROM THE ROOM.
== END 2019-05-31 15:52 | DRG 177 ==
LOC: D.ER 01:52 → D.M2 03:12 → D.SDCHOLD 11:01 → D.M2 05-31 15:52
PROVIDERS: Family Medicine; ADMIT Legal Medicine; ATTEND Legal Medicine
DX: J69.0 Pneumonitis due to inhalation of food and vomit (principal); R53.2 Functional quadriplegia; F02.81 Dementia in other diseases classified elsewhere, unspecified severity, with behavioral disturbance; I48.92 Unspecified atrial flutter; G30.9 Alzheimer's disease, unspecified; I10 Essential (primary) hypertension; I44.0 Atrioventricular block, first degree

== ENCOUNTER 2019-06-26 17:20 | Inpatient (IN) | payer MEDICARE ==
[~2019-06-26] VITALS: Ht 180.3 cm; Wt 126.9 kg
[~2019-06-26 17:20] MED LIST changes: +FUROSEMIDE10 MG/M1 PO; +FUROSEMIDE20 MG PO; +IPRAT-ALBUT 0.5-3 ML UPD; +LEVOFLOXACIN500 MG PO
[2019-06-26 17:42] VITALS: BP 82/59
--- NOTE | 2019-06-26 18:46 | NUR ---
PT WAS ADMITTED TO [facility] FROM [facility] FOR AGGRESSION. PT CODEWORD IS PHYLICIA. PT IS DNR. PT BROUGHT PERSONAL W/C TO UNIT FROM [facility].
[2019-06-26 20:00] VITALS: BP 82/59
[2019-06-26] MEDS ORDERED: MYRBETRIQ25 MG PO (21:03)
[2019-06-26] MEDS ORDERED: ZOFRAN ODT4 MG/UDTAB PO (21:05)
[2019-06-26] MEDS ORDERED: K-TAB10 MEQ PO (21:06)
--- NOTE | 2019-06-27 00:04 | NUR ---
B.) PT IS ALERT AND ORIENTED TO SELF ONLY. HE HAS POOR INSIGHT INTO HIS SITUATION. HE IS RECEIVED IN THE DAYROOM IN HIS WHEELCHAIR. HE IS COOPERATIVE AND CAN MAKE HIS NEEDS KNOWN. I.) REDIRECT OFTEN. R.) PT IS EASY TO REDIRECT. P.) CONTINUE PLAN OF CARE
[2019-06-27 02:01] VITALS: BP 82/59; BMI 37.5
[2019-06-27 05:57] LABS: BASOPHILS 0.4 % (0-2); EOSINOPHILS 2.5 % (0-7); HEMATOCRIT 36.4 % (42.0-54.0); HEMOGLOBIN 11.9 g/dL (13.5-17.5); IMMATURE GRANULOCYTES 0.6 % (0-5); LYMPHOCYTES 37.9 % (15-50); MCH 30.6 pg (26.0-34.0); MCHC 32.7 g/dL (31.0-37.0); MCV 93.6 fL (80.0-100.0); MEAN PLATELET VOLUME 11.4 fL (7.4-10.4); MONOCYTES 12.6 % (2-11); PLATELET COUNT 186 10x3/uL (130-400); RBC 3.89 10x6/uL (4.20-6.10); RDW 14.3 % (11.5-14.5); WBC 7.9 10x3/uL (4.8-10.8)
[2019-06-27 06:11] LABS: ALBUMIN 2.9 g/dL (3.4-5.0); ANION GAP 12.2 mmol/L (8-16); BILIRUBIN - TOTAL 0.76 mg/dL (0.2-1.3); CALCIUM 9.1 mg/dL (8.5-10.1); CARBON DIOXIDE 28.2 mmol/L (21.0-32.0); CHOL - HDL RATIO 3.4 ratio (2.3-4.9); CREATININE - SERUM 1.5 mg/dL (0.6-1.3); LDL-HDL RATIO 1.8 ratio (1.5-3.5); POTASSIUM - SERUM 4.4 mmol/L (3.5-5.1); PROTEIN - SERUM 5.9 g/dL (6.4-8.2); THYROID STIMULATING HORMONE 2.03 uIU/mL (0.36-3.74)
[2019-06-27 08:58] VITALS: BP 90/61
[2019-06-27 09:48] LABS: APPEARANCE CLOUDY (CLEAR); BILIRUBIN NEGATIVE (NEGATIVE); COLOR DK YELLOW (YELLOW); EPITHELIAL CELLS 0-5 /hpf (0-5); GLUCOSE NEGATIVE (NEGATIVE); KETONE NEGATIVE (NEGATIVE); NITRITE NEGATIVE (NEGATIVE); PROTEIN 1+ mg/dL (NEGATIVE); SPECIFIC GRAVITY 1.025 (1.005-1.020); UROBILINOGEN NORMAL (NORMAL); WHITE CELLS - URINE 0-5 /hpf (NEGATIVE)
[2019-06-27 09:50] LABS: BACTERIA MODERATE /hpf (NEGATIVE); HYALINE CAST 0-5 /lpf (NONE SEEN); MUCUS <1+ /lpf (NONE SEEN)
--- NOTE | 2019-06-27 10:00 | NUR ---
RECEIVED PATIENT IN DINING ROOM FOR B'FAST, ALERT, CONFUSED, SARCASTIC, ARGUMENTATIVE. MEDS ADMIN PER ORDERS WITH COMPLETE MED COMPLIANCE NOTED. ENJOYS AGGRAVATING OTHER PATIENTS AND STAFF. FOR EXAMPLE PATIENT HAS BEEN DIRECTED FREQUENTLY TO NOT BLOCK DOORWAY WITH W/C. CONT POC DIRECTED.
--- NOTE | 2019-06-27 10:00 | NUR ---
MORNING ANTI-HYPERTENSIVES HELD DUE TO B/P .
[2019-06-27 10:44] VITALS: Ht 180.3 cm; Wt 126.9 kg
--- NOTE | 2019-06-27 15:10 | NUR ---
PATIENT SCOOTED HIS RECLINER CLOSE TO A FEMALE PATIENT AND TOOK OFF HIS SOCKS DESPITE RE-DIRECTION. FEMALE PATIENT STATED, "PUT YOUR SOCKS BACK ON. YOUR FEET STINK!" PT REFUSED TO PLACE SOCKS ON FEET AND CALLED THE FEMALE PT AN OLD BAT. PATIENT RE-LOCATED TO ANOTHER PART OF THE DAYROOM AWAY FROM OTHERS.
--- NOTE | 2019-06-27 17:51 | NUR ---
PATIENT TOOK A SIP OF WATER, SWALLOWED A SIP AND BEGAN COUGHING. STAFF SET PT UP. CLEAR PHLEGM NOTED. INTIAL O2 SAT 84% P-46 ON FINGER. 87% ON OTHER HAND. NURSE APPLIED PULSE OX TO EAR O2 SAT 97% P-86. RESPITORY APPLIED 02 AT 2 LPM AND ADMINISTERED DUONEB TREATMENT. PT NOTED WITH SOME WHEEZES BEFORE AND NONE NOTED AFTER. WILL CONT TO MONITOR. PT KARTIK NOT EAT MUCH OF DINNER STATING HE DID NOT FEEL WELL.
--- NOTE | 2019-06-27 18:27 | NUR ---
PATIENT CONT ATTENTION-SEEKING BEHAVIOR AND SARCASM. APPETITE POOR FOR SUPPER.
[2019-06-27 20:20] VITALS: BP 105/57
--- NOTE | 2019-06-28 00:57 | NUR ---
B) patient is alert and oriented to self, delusional at times, talking about leaving a car somewhere but could not remember where. I) Administered scheduled medications as ordered, monitored for safety R) Medication compliant, social with staff and peers P) Continue plan of care.
[2019-06-28 07:15] LABS: RAPID PLASMA REAGIN Non Reactive (Non Reactive)
[2019-06-28 08:57] VITALS: BP 93/45
--- NOTE | 2019-06-28 09:19 | NUR ---
RECEIVED PATIENT IN DINING ROOM FOR B'FAST, ALERT, CALM, COOPERATIVE, CONT OCCASIONAL SARCASM. MEDS ADMIN PER ORDERS WITH COMPLETE MED COMPLIANCE NOTED. CONT POC DIRECTED. APPETITE CONT POOR.
--- NOTE | 2019-06-28 17:30 | NUR ---
PT ASSISTED STAFF WITH TRANSFER FROM RECLINER CHAIR TO WHEELCHAIR. ENCOURAGEMENT NEEDED AT TIMES.
--- NOTE | 2019-06-28 17:41 | NUR ---
NEW PAIR OF NONSKID SOCKS APPLIED.
--- NOTE | 2019-06-28 18:27 | NUR ---
PT CAN BE MEAN AT TIMES. REDIRECTION GIVEN AND PT APOLOGIZED. REDIRECTION NEEDED OFTEN. PT IS FRIENDLY AT TIMES. CONFUSED AND ORIENTED TO SELF.
--- NOTE | 2019-06-28 19:45 | NUR ---
USING STERILE TECHNIQUE IN AND OUT ATTEMPTED TO OBTAIN URINE FOR CULTURE AND SENSITIVITY. NO URINE RETURNED.
--- NOTE | 2019-06-28 20:43 | NUR ---
PATIENT IS RUDE, CONDESCENDING TO OTHERS, COMPLIANT WITH MEDS, MAKES NEEDS KNOWN. HE IS CONFUSED. WILL FOLLOW POC
[2019-06-28 21:30] VITALS: BP 96/62
--- NOTE | 2019-06-29 09:22 | NUR ---
B) The patient is awake and alert, although, this am he is calling for "Tatyana" attempted to explain that she is not here as he is in the hospital and we have visiting hours and perhaps she will be here later. He said "Oh, hell she won't be here, she never comes to see me." At the breakfast table this nurse asked everyone if they were in a good mood and he said "No, I feel like killing someone right now." Asked him what was going on and he said "I just want to see my ." Again explained that she is not able to be here right now because he is in the hospital. He settled and began conversing with others. I) Provide prescribed meds. Redirect and reorient as needed. R) The patient is compliant with meds. P) Continue POC.
[2019-06-29 10:30] VITALS: BP 111/61
--- NOTE | 2019-06-29 11:06 | PN ---
PATIENT:CHUCK FERNANDEZ MEDICAL RECORD: [id number] LOCATION:[facility] ADMISSION DATE: 06/26/19 PROGRESS NOTE DATE OF SERVICE: 06/28/2019 SUBJECTIVE: The patient's case was discussed with staff. He has no new complaint. OBJECTIVE: The patient has not been aggressive. He is in good behavioral control. Unfortunately, he is not eating adequately for reasons that are unclear to me. This would be a long-term problem; however, currently, he is morbidly obese, weighing almost 280 pounds. I am not going to put him on an appetite stimulant at this time, but we will observe him. He is here for aggressive behavior when he went to the behavioral residential, they continued him on the medicines that I discharged him on 2 months ago. For reasons, I am not clear on he was subsequently transferred to a different residential that took him off the psychoactive medications and he became combative. Now, he is back and I have resumed the medicines. Unfortunately, they are making him a little sedated, but I think he will adjust and I may have to adjust the doses as well, but so far, I think he is tolerating them reasonably well and I would anticipate that this will be a short stay. ASSESSMENT: Dementia. PLAN: As above, current medicines will be maintained. I will be observing his behaviors monitoring his medicines and giving consideration of what to do about his intake. Yesterday, he ate 0 for dinner, 0 for lunch and only 10% of his breakfast. This is an acceptable even though I do want him to lose weight. TRANSINT:[id number] Voice Confirmation ID: [id number] DOCUMENT ID: [id number] GE HERNANDEZ MD at 1106 CC: [id number] DICTATION DATE: 06/28/19 1530 MACHINE STONECUTTER: 06/28/19 2323 ADM IN [facility] [address] [place] [address]
--- NOTE | 2019-06-29 13:20 | NUR ---
PATIENT C/O OF GENERAL NOT FEELING WELL. PT ASKED FOR HIS TEMP TO BE TAKEN. TEMPERATURE WAS 98.2 F ORAL. PT REFUSED TO EAT LUNCH STATING HE DOES NOT FEEL WELL.
--- NOTE | 2019-06-29 14:45 | NUR ---
Patient has had two loose BMs today that are liquid and yellowish in color. Called Jaylyn Rivero APN to let her know and she ordered a CDT, will wait for the results for further orders. Obtained the stool, will take it to lab now.
--- NOTE | 2019-06-29 14:54 | NUR ---
PT DRANK THICKEN ICED TEA AND ATE ONE DREA CRACKER THEN STATED "I DON'T FEEL WELL." PT SOUNDED LIKE HE BURPED AND I ASKED IF HE DID HE STATED "I ALMOST VOMITED." NURSE GAVE PT A PALE AND PT VOMITED 3X. NOTIFIED DR. CALLAWAY 4 MG IM ZOFRAN Q 4 HOUR PRN. WILL CONT TO MONITOR PT.
--- NOTE | 2019-06-29 15:47 | NUR ---
PT WAS VOMITING. ZOFRAN 4 MG IM GIVEN PER ORDERS. WILL CONT TO MONITOR FOR N/V.
--- NOTE | 2019-06-29 16:03 | NUR ---
The patient is upset. He says "I haven't seen my Mother or brother in a long time." He is getting irritable and he says "I just want to crystal my head in to a pole." He is making all sorts of aggressive statements and then he says "No one cares." Offered him and ativan to help to calm him down. He agreed. Ativan 0.5 mg po provided.
--- NOTE | 2019-06-29 16:24 | NUR ---
The patient's cdt came back negative. provided the patient Imodium 4 mg po now.
--- NOTE | 2019-06-29 19:40 | NUR ---
REC'D IN DAYROOM SITTING IN CHAIR AND PUSHING SELF AROUND. ORIENTED TO SELF ONLY. KEEPS CALLING NURSE OVER AND ASKING QUESTIONS. PT IS DEMANDING AND IS IMPATIENT WITH REQUEST. PT WAD NAUSEATED TODAY ALONG WITH DIARRHEA. ASKED PT IF HE WANTED TO TRY AND TAKE MEDICATION AND HE RELATED HE DID. ADMINISTER MEDS Q SHIFT AND MONITOR COMPLIANCE. REORIENT NEEDED. MED COMPLIANT. POOR REORIENTATION D/T INABILITY TO RETAIN INFORMATION. CONTINUE POC AND PROVIDE SAFE ENVIRONMENT.
--- NOTE | 2019-06-29 23:05 | NUR ---
[facility] CALLED. PATIENT WAS NOT RESPONDING EXCEPT TO STERNAL RUB. SKIN PALE. HAD NO CONTROL OF EXTREMITIES WHEN NURSE WOULD LIFT ARM. DID NOT FOLLOW VERBAL INSTRUCTIONS. FSBS 124. B/P124/66, HR72, RESP 18, T 97.5 O2 SAT 90 ON ROOM AIR. STAT LAB AND CHEST X RAY ORDERED PER [facility] TEAM.
[2019-06-29 23:24] LABS: BASOPHILS 0.2 % (0-2); EOSINOPHILS 1.7 % (0-7); HEMATOCRIT 37.9 % (42.0-54.0); HEMOGLOBIN 12.5 g/dL (13.5-17.5); IMMATURE GRANULOCYTES 0.7 % (0-5); LYMPHOCYTES 22.8 % (15-50); MCH 30.4 pg (26.0-34.0); MCV 92.2 fL (80.0-100.0); MEAN PLATELET VOLUME 11.4 fL (7.4-10.4); MONOCYTES 11.8 % (2-11); NEUTROPHILS 62.8 % (40-80); PLATELET COUNT 196 10x3/uL (130-400); RBC 4.11 10x6/uL (4.20-6.10); RDW 13.9 % (11.5-14.5); WBC 12.2 10x3/uL (4.8-10.8)
[2019-06-29 23:25] VITALS: BP 124/66
[2019-06-29 23:26] LABS: CALC OSMOLALITY 284 mosm/kg (275-300); CALCIUM 8.7 mg/dL (8.5-10.1); CARBON DIOXIDE 29.8 mmol/L (21.0-32.0); CHLORIDE - SERUM 107 mmol/L (98-107); CREATININE - SERUM 1.5 mg/dL (0.6-1.3); SODIUM 138 mmol/L (136-145); UREA NITROGEN 33 mg/dL (7-18); eGFR NON AFRICAN AMERICAN 48 mL/min (90-120)
[2019-06-29 23:29] LABS: GLUCOSE 132 mg/dL (74-106)
[2019-06-29 23:38] LABS: ALBUMIN 2.6 g/dL (3.4-5.0); ALKALINE PHOSPHATASE 99 U/L (46-116); ALT (SGPT) 17 U/L (10-68); BILIRUBIN - TOTAL 0.46 mg/dL (0.2-1.3); CREATINE KINASE 106 UL (21-232); PROTEIN - SERUM 5.4 g/dL (6.4-8.2); TROPONIN-I < 0.017 ng/mL (0.000-0.060)
--- NOTE | 2019-06-29 23:50 | NUR ---
HELGA DUMONT RN SPOKE WITH DR CALLAWAY. DID GIVE FURTHER ORDERS.
--- NOTE | 2019-06-29 23:51 | NUR ---
[facility] RESPON[facility] TEAM, HELGA, SPOKE WITH DR. CALLAWAY AND INFORMED OF PATIENT'S STATUS, DR. CALLAWAY SAID "OKAY" AND NO ORDERS WERE GIVEN. PATIENT REMAINS ON OXYGEN AT THIS TIME AND O2 SATS ARE HOLDING AT 93. PATIENT WILL OPEN HIS EYES AND LOOK AT NURSE WHEN HIS NAME IS CALLED AND SHOOK HIS HEAD YES ONCE WHEN ASKED IF HE WAS OKAY, HE HAS NOT SPOKEN. WILL MONITOR PATIENT AND WILL CALL [facility] IF NEEDED.
--- NOTE | 2019-06-30 00:49 | NUR ---
CALLED, JULIANA, AND INFORMED HER OF HIS STATUS AND HAVING HAD TO CALL A RAP[facility]. SHE STATED THAT SHE WOULD TRY HER BEST TO COME TOMORROW BUT THAT SHE WAS HAVING A LOT OF TROUBLE GETTING AROUND BECAUSE OF HER KNEE AND THAT IF SHE COULD NOT MAKE IT THEN SHE WOULD HAVE HER [id number], DAMIEN COME ON MONDAY
--- NOTE | 2019-06-30 01:37 | NUR ---
PATIENT IS RESTING QUIETLY, RESP. EVEN AND UNLABORED. WILL CONTINUE TO MONITOR
[2019-06-30 08:00] VITALS: BP 104/52
--- NOTE | 2019-06-30 10:45 | PN ---
PATIENT:CHUCK FERNANDEZ MEDICAL RECORD: [id number] LOCATION:[facility] ADMISSION DATE: 06/26/19 PROGRESS NOTE DATE OF SERVICE: 06/29/2019 SUBJECTIVE: The patient's case was discussed with staff. He has no new complaint. OBJECTIVE: The patient is cooperative today and more verbal than he has been in the past couple of days. He is denying that he would want to hurt himself. He wants to know who I am even though we have met many times, and after I reintroduced myself, he goes on to call me by a different name. Apparently, thinks I am someone he had friendship with or interacted with in the past since he is talking about some problems down the road and how we need to work on it. I tried to redirect him and I am not very successful. He then stops and looks to the left of me in the air and starts pointing and grabbing at something not present. ASSESSMENT: Dementia. PLAN: The patient is not eating. He yesterday ate 10% of breakfast, nothing for lunch and only 20% of dinner. I am going to start him on a scheduled dose of an antipsychotic medication to assist with his thought disorganization. TRANSINT:[id number] Voice Confirmation ID: [id number] DOCUMENT ID: [id number] GE HERNANDEZ MD at 1045 CC: [id number] DICTATION DATE: 06/29/19 1203 SENIOR RECRUITER: 06/29/19 1245 ADM IN [id number] [place] [address]
--- NOTE | 2019-06-30 12:29 | NUR ---
PT IS AWAKE AND ALERT TO PERSON ONLY. CALM AND COOPERATIVE WITH ASSESSMENT. MED COMPLIANT. REDIRECT AND REORIENT NEEDED. PT CAN BE VERY DEMANDING WITH STAFF AT TIMES. NO BEHAVIORS NOTED AT THIS TIME. FALL PRECAUTIONS IN PLACE. WILL CPOC.
--- NOTE | 2019-06-30 13:47 | NUR ---
PATIENT DRANK NECTAR THICKEN MILK. HE BURPED. BEGAN GURGLING AND VOMITED. PT CONT TO VOMIT. ONDANSETRON 4 MG GIVEN IM PER DOCTORS ORDER. WILL REASSES Q 1 HOUR FOR EFFECTIVENESS.
--- NOTE | 2019-06-30 20:09 | NUR ---
RECEIVED IN DAYROOM. MOVING ABOUT IN A WHEELCHAIR. SOCIALIZING WITH STAFF AT TIMES. CALM AND COOPERATIVE WITH CARE AND ASSESSMENT. NO SIGNS OF AGGRESSION. REDIRECT AND REORIENT NEEDED. CONTINUES TO SIT QUIETLY IN WHEELCHAIR. CONTINUE PLAN OF CARE
[2019-06-30 20:16] VITALS: BP 103/50
[2019-07-01 08:15] VITALS: BP 99/45
--- NOTE | 2019-07-01 14:08 | NUR ---
PT IS AWAKE AND ALERT TO PERSON ONLY. CALM AND COOEPRATIVE WITH ASSESSMENT. PT IS VERY DEMANDING WITH STAFF. MED COMPLIANT. REDIRECT AND REORIENT NEEDED. PT CAN BE VERY AGGRESSIVE WITH STAFF AND OTHERS PTS AT TIMES. FALL PRECAUTIONS IN PLACE. WILL CPOC.
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
--- NOTE | 2019-07-01 15:38 | PN ---
PATIENT:CHUCK FERNANDEZ MEDICAL RECORD: [id number] LOCATION:[facility] ADMISSION DATE: 06/26/19 PROGRESS NOTE DATE OF SERVICE: 06/30/2019 SUBJECTIVE: The patient's case was discussed with staff. He has no new complaint. OBJECTIVE: The patient is in good behavioral control with poor insight about his condition. He tolerates his medicines well. He is perhaps a little sedated. He still is not eating adequately. ASSESSMENT: Dementia. PLAN: The patient will have his Klonopin discontinued. I probably will start it at a lower dose tomorrow. Her long-term prognosis is guarded. TRANSINT:[id number] Voice Confirmation ID: [id number] DOCUMENT ID: [id number] GE HERNANDEZ MD at 1538 CC: [id number] DICTATION DATE: 06/30/19 1216 ADULT BASIC EDUCATION MANAGER: 06/30/19 1320 ADM IN [id number] [place] [address]
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
--- NOTE | 2019-07-01 18:44 | NUR ---
PATIENT'S SPOUSE CONTACTED AND MADE AWARE OF THIS AFTERNOON'S FALL. PT. CONT TO HAVE NO REPERCUSSIONS FROM FALL. CONT ON NEUROCHECKS PER PROTOCOL. NO INJURY NOTED.
[2019-07-01 20:06] VITALS: BP 114/58
--- NOTE | 2019-07-01 21:21 | NUR ---
RECEIVED IN DAYROOM. MOVING AROUND IN HIS WHEELCHAIR. CALM AND COOPERATIVE WITH CARE AND ASSESSMENT. NO SIGNS OF AGGRESSION. REDIRECT AND REORIENT NEEDED. IN BED WITH EYE OPEN AT THIS TIME. CONTINUE PLAN OF CARE
[2019-07-02 05:51] LABS: BASOPHILS 0.5 % (0-2); HEMATOCRIT 37.5 % (42.0-54.0); HEMOGLOBIN 12.3 g/dL (13.5-17.5); IMMATURE GRANULOCYTES 1.3 % (0-5); LYMPHOCYTES 32.5 % (15-50); MCH 30.4 pg (26.0-34.0); MCHC 32.8 g/dL (31.0-37.0); MCV 92.6 fL (80.0-100.0); MEAN PLATELET VOLUME 11.3 fL (7.4-10.4); MONOCYTES 12.2 % (2-11); NEUTROPHILS 50.5 % (40-80); PLATELET COUNT 186 10x3/uL (130-400); RBC 4.05 10x6/uL (4.20-6.10); WBC 8.6 10x3/uL (4.8-10.8)
[2019-07-02 06:36] LABS: ANION GAP 11.1 mmol/L (8-16); CALCIUM 8.6 mg/dL (8.5-10.1); CARBON DIOXIDE 27.2 mmol/L (21.0-32.0); CREATININE - SERUM 1.4 mg/dL (0.6-1.3); POTASSIUM - SERUM 4.3 mmol/L (3.5-5.1)
[2019-07-02 08:00] VITALS: BP 99/56
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
--- NOTE | 2019-07-02 13:22 | NUR ---
PATIENT EXHIBITING AGGRESSION, HITTING, CURSING STAFF. ATIVAN 0.5 MG AND HALDOL 2 MG ADMIN IM LEFT DELTOID, DAWN WELL.
--- NOTE | 2019-07-02 16:14 | NUR ---
Nutrition Follow-up: Diet: Regular, nectar thick PO intake: ~24% average x last 7 meals recorded Labs, meds, and nursing skin assessment reviewed Wt: 274# (06/30/19): Admit wt: 277# (06/26/19). Last BM 06/29/19. Consider adding megace. Continue current diet. Will add nectar thickened Ensure TID. Encourage PO intake. RD Following.
--- NOTE | 2019-07-02 19:49 | NUR ---
RECEIVED IN DAYROOM. SITTING IN A RECLINING CHAIR WITH EYES CLOSED. RESPONDS TO TOUCH. CALM AND COOPERATIVE WITH CARE AND ASSESSMENT. NO SIGNS OF AGGRESSION. REDIRECT AND RERIENT NEEDED. CONTINUE TO REST EYES CLOSED IN RECLINER. CONTINUE PLAN OF CARE
[2019-07-02 20:09] VITALS: BP 156/61
[2019-07-03 08:26] VITALS: BP 145/78
--- NOTE | 2019-07-03 10:00 | NUR ---
RECEIVED PATIENT IN DINING ROOM FOR B'FAST, ALERT, DEMANDING, CONFUSED, INSISTING THAT STAFF GO OUT TO HIS VAN AND GET HIS CLOTHES. MEDS ADMIN PER ORDERS WITH COMPLETE COMPLIANCE NOTED. CONT POC DIRECTED.
--- NOTE | 2019-07-03 10:10 | NUR ---
Immodium 4 mg admin po for diarrhea.
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
--- NOTE | 2019-07-03 18:53 | NUR ---
RECEIVED IN DAYROOM. SITTING IN A WHEELCHAIR WITH PEERS AT HIS SIDE. CONFUSED. NO SIGNS OF AGGRESSION. REDIRECT AND REORIENT NEEDED. CONTINUES TO SIT IN QUIETLY WHEELCHAIR. CONTINUE PLAN OF CARE
[2019-07-03 20:01] VITALS: BP 143/79
[2019-07-04 08:50] VITALS: BP 133/53
--- NOTE | 2019-07-04 12:15 | NUR ---
NUTRITION F/U PT TOLERATING REG DIET WITH NECTAR THICK LIQUIDS. RECENT PO INTAKE HAS BEEN POOR. ENSURE HAS BEEN ADDED TO MEALS. +BM 06/23/19. NOTE SLIGHT WT DECREASE. RD FOLLOWING
--- NOTE | 2019-07-04 13:42 | NUR ---
PT SITTING IN CHAIR IN DAY AREA WITH FEET PROPPED UP. PT CONTS TO REMOVE SOCKS STATING HE WANTS HIS SHOES. NURSE EXPLAINED THAT SHOES WILL NOT FIT HIS FEET AT THE MOMENT WITH THEM BEING TO SWOLLEN. PT IS ALERT AND ORIENTED TO SELF ONLY. CONFUSION NOTED. PT CAN BE VERBALLY AGRESSIVE WITH STAFF. REDIRECT AND REORIENT NEEDED. PT CAN MAKE NEEDS KNOW. PT CAN BE SARCASTIC AT TIMES. CHAIR ALARM IN PLACE AND ACTIVE. WILL CONT PLAN OF CARE.
--- NOTE | 2019-07-04 15:01 | PN ---
PATIENT:CHUCK FERNANDEZ MEDICAL RECORD: [id number] LOCATION:[facility] ADMISSION DATE: 06/26/19 PROGRESS NOTE DATE OF SERVICE: 07/03/2019 SUBJECTIVE: The patient's case was discussed with staff. He has no new complaint. OBJECTIVE: The patient is in good behavioral control with limited insight about his condition. He tolerates his medicines well. ASSESSMENT: Dementia. PLAN: The patient will be treated with a higher dose of Neurontin. Hopefully, the Neurontin will help with his behavior outbursts. He will be monitored for clinical changes associated with its use. TRANSINT:[id number] Voice Confirmation ID: [id number] DOCUMENT ID: [id number] GE HERNANDEZ MD at 1501 CC: [id number] DICTATION DATE: 07/03/19 170 VENEER SANDER: 07/03/19 2301 ADM IN [place] [id number] [place] [id number]
[2019-07-04 20:20] VITALS: BP 90/68
--- NOTE | 2019-07-04 22:16 | NUR ---
REC'D SITTING IN CHAIR IN THE DAYROOM. ORIENTED TO SELF ONLY. POOR INETERACTION WITH PEERS AND STAFF. QUESTIONS STAFF AT TIMES REGARDING CARE. RESERVED AT TIMES. AT TIMES WANTS STAFF TO CARE FOR HIM IF HE IS TOTAL CARE HOWEVER PATIENT IS CAPABLE OF TRANSFERRING SELF TO BED/CHAIR AND GOING TO THE BATHROOM. ADMINISTER MEDS AND MONITOR COMPLIANCE. ENCOURAGE PATIENT TO PERFORM ADLS INDEPENDENTLY. MED COMPLIANT. ATTEMPTED TO HAVE MHT PICK HIM UP AND HELP HIM TO BED HOWEVER WITH THE OTHER MHT PT STOOD AND TRANSFERRED SELF TO BED. PT IS CAPABLE WHEN ENCOURAGED. CONTINUE POC AND PROVIDE SAFE ENVIRONMENT.
--- NOTE | 2019-07-05 08:21 | NUR ---
B) The patient is awake and alert, he got up and was walking to the door in his room. He naked and when staff entered his room. He says "Why does everyone keep turning my lights on." Explained to him that it is time to get up. I) Provide prescribed meds. R) The patient is compliant with meds. P) The continue POC.
[2019-07-05 09:39] VITALS: BP 96/50
--- NOTE | 2019-07-05 14:51 | PN ---
PATIENT:CHUCK FERNANDEZ MEDICAL RECORD: [id number] LOCATION:[facility] ADMISSION DATE: 06/26/19 PROGRESS NOTE DATE OF SERVICE: 07/04/2019 SUBJECTIVE: The patient's case was discussed with staff. He has no new complaint. OBJECTIVE: The patient generally tolerates his medicines well. He has limited insight about his situation. He has not been aggressive today, although he is still quite irritable and short-tempered, which I am convinced is part of his core personality. ASSESSMENT: Dementia. PLAN: Supportive and educational interventions were made. Long-term prognosis is guarded. TRANSINT:[id number] Voice Confirmation ID: [id number] DOCUMENT ID: [id number] GE HERNANDEZ MD at 1451 CC: [id number] DICTATION DATE: 07/04/19 1553 CHLORINE CELLS OPERATOR: 07/04/19 1630 ADM IN [place] [address] [place] [id number]
[2019-07-05 20:00] VITALS: BP 126/54
--- NOTE | 2019-07-06 00:34 | NUR ---
B.) PT IS AWAKE AND ALERT. HE IS CALM AND COOPERATIVE WITH STAFF. HE IS ABLE TO MAKE HIS NEEDS KNOWN. HE USES A WHEELCHAIR/GERICHAIR TO AMBULATE. I.) PROVIDE PM MEDICATIONS. REDIRECT NEEDED. R.) COMPLIANT WITH ALL MEDICATIONS. EASY TO REDIRECT. P.) CONTINUE PLAN OF CARE
--- NOTE | 2019-07-06 08:02 | PN ---
PATIENT:CHUCK FERNANDEZ MEDICAL RECORD: [id number] LOCATION:[facility] ADMISSION DATE: 06/26/19 PROGRESS NOTE DATE OF SERVICE: 07/05/2019 SUBJECTIVE: The patient's case was discussed with staff. He has no new complaint. OBJECTIVE: The patient denies intent to harm himself or others. He is impaired cognitively and has not been aggressive today. His gabapentin was increased 2 days ago. I may try and push that dose higher before discharging him, but not today. ASSESSMENT: Dementia. PLAN: Current medicines have been reviewed. I think this patient is representing something of a real challenge. His underlying personality prior to becoming demented was exceptionally unpleasant. Now that he has become demented. He is disinhibited and even more unpleasant. That is a problem, but with this lack of inhibition, he also becomes combative periodically. This is a real challenge to treat pharmacologically. I am trying very hard not to sedate him that is obviously unacceptable and for all sorts of reasons, I will detail here. I am hoping that the gabapentin will smooth out his mood lability a little bit and perhaps if he had an extra fraction of a second to process before he acted or spoke he might be more manageable. I do not think it is realistic that he will have a dramatic improvement in his personality. I also do not think it is realistic to expect that he will never have an aggressive outburst. What may be more realistic is to consider a behavioral skilled nursing for him, so that he does not have to keep returning to an inpatient setting. ASSESSMENT: Dementia as above current medicines will be maintained. PROGNOSIS: Guarded. TRANSINT:[id number] Voice Confirmation ID: [id number] DOCUMENT ID: [id number] GE HERNANDEZ MD at 0802 CC: [id number] DICTATION DATE: 07/05/19 1520 GEOLOGICAL SCIENCE TEACHER: 07/05/19 2130 ADM IN [place] [address] [place] [address]
[2019-07-06 09:16] VITALS: BP 146/81
--- NOTE | 2019-07-06 10:07 | NUR ---
The patient is getting irritable he wants to make a phone call and staff explains to him that he can call at 5:30 pm, but then he says "What are we under Hitler's rules?" He then says he wants to go outside, staff tried to explain that "It is raining." He is argumentative. He says "To hell it is." He is able to self propel in his w/c. Provide prescribed meds. He is compliant with meds. Continue to monitor his mood. Continue POC.
--- NOTE | 2019-07-06 19:56 | NUR ---
RECEIVED IN DAYROOM. SOCIALIZING WITH STAFF AND PEERS. CALM AND COOPERATIVE WITH CARE AND ASSESSMENT. NO AGGRESSIVE OR ARGUMENTATIVE BEHAVIORS. REDIRECT REORIENT NEEDED. CONTINUES TO SOCIALIZE WHILE WAITING ON PM MEDICATIONS. CONTINUE PLAN OF CARE.
[2019-07-06 20:00] VITALS: BP 102/57
[2019-07-07 08:00] VITALS: BP 101/55
--- NOTE | 2019-07-07 17:02 | NUR ---
PATIENT BEHAVIOR MUCH IMPROVED. NO AGGRESSION OR SARCASM NOTED. MEDS ADMIN PER ORDERS WITH COMPLETE MED COMPLIANCE NOTED. COOPERATIVE WITH PLAN OF CARE. CONT POC DIRECTED.
[2019-07-07 20:10] VITALS: BP 114/57
--- NOTE | 2019-07-08 04:16 | NUR ---
B.) PT IS ALERT AND ORIENTED TO PERSON AND SITUATION. HE IS RECEIVED IN HIS WHEELCHAIR. HE IS PLEASANT WITH STAFF AND PEERS. HE IS ABLE TO MAKE HIS NEEDS KNOWN. I.) PROVIDED PM MEDICATIONS. R.) COMPLIANT WITH ALL MEDICATIONS. P.) CONTINUE PLAN OF CARE
[2019-07-08 08:28] VITALS: BP 85/41
--- NOTE | 2019-07-08 11:47 | NUR ---
REC'D PT IN HALLWAY SITTING IN W/C. AWAKE AND ALERT TO PERSON ONLY. CALM AND COOPERATIVE WITH ASSESSMENT. MED COMPLIANT. PT CAN BE VERY DEMANDING WITH STAFF AT TIMES. REDIRECT AND REORIENT NEEDED. FALL PRECAUTIONS IN PLACE. WILL CPOC.
--- NOTE | 2019-07-08 12:33 | NUR ---
SW CALLED PT'S AND GAVE UPDATE ON PT'S CONDITION AND DISCUSSED DISCHARGE PLANNING. MRS. FERNANDEZ STATED SHE HAS AN APPOINTMENT WITH RETIREMENT TOMORROW AND WILL CALL HEALTH ASSOCIATE WITH UPDATE TOMORROW. MRS. FERNANDEZ VERBALIZED UNDERSTNDING OF DISCUSSION
--- NOTE | 2019-07-08 15:49 | PN ---
PATIENT:CHUCK FERNANDEZ MEDICAL RECORD: [id number] LOCATION:[facility] ADMISSION DATE: 06/26/19 PROGRESS NOTE DATE OF SERVICE: 07/07/2019 SUBJECTIVE: The patient's case was discussed with staff. He has no new complaint. OBJECTIVE: The patient is in good behavioral control with poor insight about his condition. He does tolerate his medicines well. ASSESSMENT: Dementia. PLAN: I anticipate the [facility] can [facility] the [facility]. I think his prognosis is guarded and that it is unrealistic to think that he will not have any behavior outbursts. It is simply not consistent with his premorbid personality and as his dementia worsens, he is going to become more and more uninhibited. TRANSINT:[id number] Voice Confirmation ID: [id number] DOCUMENT ID: [id number] GE HERNANDEZ MD at 1549 CC: [id number] DICTATION DATE: 07/07/19 1202 SHOWROOM SALES ASSISTANT: 07/07/19 1213 ADM IN [facility] [address] [place] [id number]
--- NOTE | 2019-07-08 15:49 | PN ---
PATIENT:CHUCK FERNANDEZ MEDICAL RECORD: [id number] LOCATION:[facility] ADMISSION DATE: 06/26/19 PROGRESS NOTE DATE OF SERVICE: 07/06/2019 SUBJECTIVE: The patient's case was discussed with staff. He has no new complaint. OBJECTIVE: The patient denies intent to harm himself or others. He is irritable, but not aggressive. When asked about not eating, he says he is not hungry. ASSESSMENT: Dementia. PLAN: I am satisfied with the patient's improvement in his behavior, but not eating is a significant problem. He is morbidly obese at 270 pounds, but this is not the way I want him to lose weight. He is not trying to lose weight and I am just not clear on why he is refusing to eat. I am suspecting it is probably related to his underlying dementia and the dementia is advanced. TRANSINT:[id number] Voice Confirmation ID: [id number] DOCUMENT ID: [id number] GE HERNANDEZ MD at 1549 CC: [id number] DICTATION DATE: 07/06/1937 ADJUNCT PROFESSOR OF LAW: 07/06/19 0851 ADM IN [facility] [address] [place] [id number]
[2019-07-08 20:05] VITALS: BP 134/68
--- NOTE | 2019-07-08 21:19 | NUR ---
RECEIVED IN DAYROOM. SITTING IN A WHEELCHAIR WITH PEERS AT HIS SIDE. SOCIAL AT TIMES. CONTINUES TO ATTEMT TO STAND WITHOUT ASSIST. MARILYN ALARM SOUNDING. REDIRECT AND REORIENT NEEDED. SITTING QUIETLY WITH PEERS AT THIS TIME. CONTINUE PLAN OF CARE
[2019-07-09 08:18] VITALS: BP 80/40
--- NOTE | 2019-07-09 10:00 | NUR ---
DR. CALLAWAY NOTIFIED REGARDING PT'S CONDITION. PT O2 SAT DROPPING AT THIS TIME. PT PUT IN BED WIH HOB ELEVATED AND FEET OF BED ELEVATED TO HELP INCREASE B/P AND OXYGEN LEVEL. NEW ORDERS FOR CBC, CMP, UA WITH C&S, CXR AND IV WITH 0.9 NS AT 125ML/HR X 3 BAGS. V/S: B/P 71/39, R-16,P-43, T- 97.9, O2 AT 4L PER N/C PER ORDER. NEW ORDERS NOTED.
[2019-07-09 10:58] LABS: WBC 37.5 10x3/uL (4.8-10.8)
[2019-07-09 10:59] LABS: HEMATOCRIT 38.5 % (42.0-54.0); HEMOGLOBIN 12.4 g/dL (13.5-17.5); MCH 30.2 pg (26.0-34.0); MCHC 32.2 g/dL (31.0-37.0); MCV 93.9 fL (80.0-100.0); PLATELET COUNT 193 10x3/uL (130-400); RDW 14.6 % (11.5-14.5)
[2019-07-09 11:10] LABS: ALBUMIN 2.5 g/dL (3.4-5.0); ANION GAP 9.7 mmol/L (8-16); CALCIUM 9.1 mg/dL (8.5-10.1); CARBON DIOXIDE 29.4 mmol/L (21.0-32.0); CREATININE - SERUM 2.6 mg/dL (0.6-1.3); POTASSIUM - SERUM 5.1 mmol/L (3.5-5.1); PROTEIN - SERUM 5.3 g/dL (6.4-8.2)
[2019-07-09 11:31] LABS: LYMPHOCYTES 2 % (15-50); MONOCYTES 3 % (2-11); NEUTROPHILS 85 % (40-80); PLATELET ESTIMATE NORMAL
--- NOTE | 2019-07-09 12:33 | NUR ---
LAB AND CXR RESULTS REVIEWED. DR. CALLAWAY NOTIFIED. NEW ORDER TO TRANSFER PT TO MED SURGE. [facility] CALLED FOR ROOM #. DR. CALLAWAY PRESENT AT THIS TIME. 22G IV PLACED IN RIGHT FOREARM. 16FR F/C PLACED PER DR. CALLAWAY. FAXED ORDERS TO [facility]. FAMILY NOTIFIED OF TRANSFER TO MED FLOOR.
--- NOTE | 2019-07-09 13:28 | NUR ---
REPORT CALLED TO [facility] ON [facility]. ALL DISCHARGE PAPERWORK HAND DELIVERED. PT.TRANSFER TO [facility] RM 2110.
[2019-07-09 13:38] LABS: APPEARANCE CLOUDY (CLEAR); BILIRUBIN NEGATIVE (NEGATIVE); COLOR BROWN (YELLOW); GLUCOSE NEGATIVE (NEGATIVE); KETONE NEGATIVE (NEGATIVE); NITRITE NEGATIVE (NEGATIVE); PROTEIN 1+ mg/dL (NEGATIVE); UROBILINOGEN NORMAL (NORMAL)
[2019-07-09 13:39] LABS: RED CELLS - URINE >50 /hpf (0-5)
[2019-07-09 13:40] LABS: BACTERIA MODERATE /hpf (NEGATIVE); EPITHELIAL CELLS 0-5 /hpf (0-5)
[2019-07-09 13:41] LABS: AMORPHOUS SEDIMENT >1+ /lpf (NONE SEEN)
--- NOTE | 2019-07-09 15:28 | PN ---
PATIENT:CHUCK FERNANDEZ MEDICAL RECORD: [id number] LOCATION:[facility] ADMISSION DATE: 06/26/19 PROGRESS NOTE DATE OF SERVICE: 07/08/2019 SUBJECTIVE: The patient's case was discussed with staff. He has no new complaint. OBJECTIVE: The patient is in good behavioral control. He has limited insight about his condition. He does tolerate his medicines well. ASSESSMENT: Dementia. PLAN: The patient is still not eating adequately. When asked about this, he insists he is eating adequately. He will be monitored for clinical changes. TRANSINT:[id number] Voice Confirmation ID: [id number] DOCUMENT ID: [id number] GE HERNANDEZ MD at 1528 CC: [id number] DICTATION DATE: 07/08/19 1641 WARPER TENDER: 07/08/19 2150 ADM IN [facility] [address] [place] [address]
--- NOTE | 2019-07-09 15:29 | NUR ---
Nutrition Follow-up: Diet: Regular nectar thick + nectar thick ENSURE TID PO intake: ~63% average x last 9 meals Wt: 186# (07/09/19); Admit wt: 179# (06/30/19) Last BM 07/08/19 x 2 Meds and nursing skin assessment reviewed. No new labs. Continue current nutrition regimen. RD Following.
--- NOTE | 2019-07-11 15:25 | DS ---
PATIENT:CHUCK FERNANDEZ :37 MEDICAL RECORD: [id number] DISCHARGE SUMMARY ADMISSION DATE: 06/26/19 DISCHARGE DATE: 07/09/19 IDENTIFYING DATA: The patient is 83 years old and he was admitted to the hospital because of aggression. The patient lives in the [facility] skilled nursing and became aggressive and combative with staff. He has an advanced dementia and has no recollection of this. HOSPITAL COURSE: The patient was admitted to the hospital and evaluated from both a medical, psychological, and social standpoint. The patient is known to me from previous and fairly extensive clinical contact. Unfortunately, he has an advanced dementia associated with a loss of normal behavioral inhibitions and he is periodically regularly quite angry, irritable, threatening and aggressive. Efforts to treat him with combinations of various antipsychotic, mood stabilizing and memory enhancing medications were tried in an effort to bring his behaviors under sufficient control such that he could reasonably be managed in the skilled nursing. Unfortunately, he developed a loss of pulse and dropped his blood pressure and had an elevated white count and was transferred to the medical floor. DISCHARGE DIAGNOSES: AXIS I: Major neurocognitive disorder of the Alzheimer's type with behavioral disturbances. AXIS II: Cluster B personality traits. AXIS III: Obesity, hypertension, osteoarthritis, probable sepsis, source unknown. AXIS IV: Moderate. AXIS V: Global assessment of functioning is 35. PLAN: At the time of discharge, the patient was acutely ill and was transferred to the medical service. Once he is medically stabilized there, if his behaviors continue, I will be happy to accept him back on the behavioral unit for ongoing treatment. His long-term prognosis is unfortunately guarded. He is extremely large man almost 300 pounds and although he is 83 years old, he is still quite strong and is certainly capable of injuring another person. He is not responsible for what he is doing because of his dementia, but that does not make him any less dangerous. TRANSINT:[id number] Voice Confirmation ID: [id number] DOCUMENT ID: [id number] GE HERNANDEZ MD at 1525 CC: [id number] DICTATION DATE: 07/10/19 1503 TERRITORY SALES CONSULTANT: 07/11/19 0418 DIS IN 07/09/19 [id number] [place] [address]
--- NOTE | 2019-08-09 16:06 | PSY ---
PATIENT NAME:CHUCK FERNANDEZ MEDICAL RECORD: [id number] : 37 LOCATION:[facility] ADMISSION DATE: 06/26/19 ACCOUNT: [id number] PSYCHIATRIC EVALUATION DATE OF EVALUATION: 06/27/19 DATE OF SERVICE: 06/27/2019 IDENTIFYING DATA: The patient is 83 years old and he is known to me from previous clinical contact. CHIEF COMPLAINT: Aggression. HISTORY OF PRESENT ILLNESS: The patient is living at the [facility]. Apparently, he has become aggressive and even combative with the staff there. Unfortunately, he has no recollection of this. Even more mysterious to me is his circumstances. He was here a couple of months ago and had similar behaviors, and after he was stabilized on medications, he was discharged to the [facility], which is a behavioral home that specializes in taking care of patients who have behavior problems. Now, he is coming to us from a different senior living and he is not taking the medications that he was discharged on. I am not exactly sure how this happened. He certainly is unable to tell me. 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 PAST PHYSIATRIC HISTORY: Significant for an established diagnosis of dementia. The patient has had 1 previous hospitalization here just a few months ago. FAMILY HISTORY: Unknown. ALLERGIES: No known drug allergies. CURRENT MEDICATIONS: Include Aricept, Neurontin, Zoloft, Klonopin, and melatonin. SOCIAL HISTORY: The patient is . He is a retired [employer]. He has 3 children. MENTAL STATUS EXAMINATION: The patient is awake, alert, and oriented to person and place, but not to time or situation. His mood is flat. His affect is constricted. Thought processes are very disorganized. Memory, concentration, and abstraction abilities are at least moderately impaired and he denies that he would actively seek to harm himself or others as well as overt psychotic symptoms. ASSETS: Supportive family members. LIABILITIES: Limited insight. DIAGNOSTIC IMPRESSION: AXIS I: Major neurocognitive disorder of the Alzheimer's type with behavioral disturbances. AXIS II: Cluster B personality traits. AXIS III: Obesity, hypertension, and osteoarthritis. AXIS IV: Moderate psychosocial stressors. AXIS V: Global assessment of functioning is 30. PLAN: At this time, the patient will be maintained on current medications. He will be treated with other medications as his behavioral symptoms dictate. His long-term prognosis is guarded. EDITED FOR PT TYPE, [place] 08/09/19 TRANSINT:[id number] Voice Confirmation ID: [id number] DOCUMENT ID: [id number] GE HERNANDEZ MD at 1606 CC: [id number] DICTATION DATE: 06/27/19 1549 ATMOSPHERIC PHYSICIST: 06/27/19 2249 DIS IN 07/09/19 [id number] [place] [address]
== END 2019-07-09 13:30 | disposition short-term general hospital (02) | DRG 57 ==
LOC: D.PSYCH 17:20
PROVIDERS: Family Medicine; ADMIT Psychiatry & Neurology Psychiatry; ATTEND Psychiatry & Neurology Psychiatry
DX: G30.8 Other Alzheimer's disease (principal); F02.81 Dementia in other diseases classified elsewhere, unspecified severity, with behavioral disturbance; F33.9 Major depressive disorder, recurrent, unspecified; F60.89 Other specific personality disorders; W19.XXXA Unspecified fall, initial encounter; I10 Essential (primary) hypertension; E66.9 Obesity, unspecified; M19.90 Unspecified osteoarthritis, unspecified site; R32 Unspecified urinary incontinence; E78.5 Hyperlipidemia, unspecified; K21.9 Gastro-esophageal reflux disease without esophagitis; G62.9 Polyneuropathy, unspecified

== ENCOUNTER 2019-07-09 14:10 | Inpatient (IN) | payer OTHER ==
[~2019-07-09] VITALS: Ht 180.3 cm; Wt 127.0 kg
[~2019-07-09 14:10] MED LIST changes: +K-TAB10 MEQ PO; +MYRBETRIQ25 MG PO; +ZOFRAN ODT4 MG/UDTAB PO
--- NOTE | 2019-07-09 14:10 | NUR ---
RECEIVED FROM [facility] VIA W/C. HE ANSWERS TO NAME AND KNOWS WHERE HE IS. HE GETS AGITATED EASILY. MOSTLY COOPERATIVE. O2 ON AT 4L/M PER N/C. IV IN RIGHT WRIST SECURED WHEN HE TRIED TO REMOVE IT. NS INFUSING AT 30ML/HR. F/C IS PATENT WITH DARK HELGA URINE DRAINING. RESP EVEN WITHOUT LABOR. BBS ARE CLEAR. BED ALARM IS ON. BED IN LOWEST POSITION AND LOCKED. CAREPLAN REVIEW DONE WITH SAFETY PRECAUTIONS IN PLACE. CL IN REACH AND HE WAS ORIENT TO USE
[2019-07-09 16:08] VITALS: BP 83/29; BMI 39.1
--- NOTE | 2019-07-09 19:10 | NUR ---
REPORT RECEIVED, WILL CONTINUE POC. PATIENT IS RESTING WITH EYES CLOSED. NO S/S OF DISTRESS OBSERVED. RR EVEN AND UNLABORED ON 4L O2 VIA NC. F/C PATENT, DRAINING BY GRAVITY TO RIGT SIDE OF BED, DARK HELGA URINE NOTED. PATIENT DENIES FURTHER NEEDS AT THIS TIME. CL IN REACH, BED LOCKED AND LOWERED. MARILYN ALARM ON. WILL CTM.
[2019-07-09 21:04] VITALS: BP 102/39
--- NOTE | 2019-07-09 21:33 | NUR ---
PATIENT PULLED IV OUT, CATH TIP INTACT.
[2019-07-10 00:24] VITALS: BP 80/34
--- NOTE | 2019-07-10 04:10 | NUR ---
IV STARTED TO RT WRIST WITH 22G X2 ATTEMPTS. WRAPPED IN COBAN TO HELP PREVENT PATIENT FROM PULLING OUT AGAIN. PATIENT TOLERATED WELL. IV MEDS RESTARTED PER ORDERS.
[2019-07-10 04:30] VITALS: BP 80/43
[2019-07-10 05:45] LABS: BASOPHILS 0.1 % (0-2); EOSINOPHILS 0.8 % (0-7); HEMATOCRIT 34.3 % (42.0-54.0); HEMOGLOBIN 11.1 g/dL (13.5-17.5); IMMATURE GRANULOCYTES 0.6 % (0-5); LYMPHOCYTES 8.1 % (15-50); MCH 30.4 pg (26.0-34.0); MCHC 32.4 g/dL (31.0-37.0); MEAN PLATELET VOLUME 11.7 fL (7.4-10.4); MONOCYTES 3.4 % (2-11); PLATELET COUNT 170 10x3/uL (130-400); RBC 3.65 10x6/uL (4.20-6.10); RDW 14.7 % (11.5-14.5); WBC 25.6 10x3/uL (4.8-10.8)
[2019-07-10 05:57] LABS: ALBUMIN 2.1 g/dL (3.4-5.0); ANION GAP 7.2 mmol/L (8-16); BILIRUBIN - TOTAL 0.65 mg/dL (0.2-1.3); CALCIUM 8.5 mg/dL (8.5-10.1); CARBON DIOXIDE 32.2 mmol/L (21.0-32.0); CREATININE - SERUM 2.5 mg/dL (0.6-1.3); POTASSIUM - SERUM 4.4 mmol/L (3.5-5.1); PROTEIN - SERUM 4.9 g/dL (6.4-8.2); VANCOMYCIN - RANDOM 13.4 ug/mL (10.0-20.0)
--- NOTE | 2019-07-10 06:50 | NUR ---
REPORT RECEIVED. HE IS AWAKE TAKING HIS BREATHING TX. RESP EVEN WITHOUT LABOR IV SITE IS INFUSING. F/C WITH DARK HELGA URINE DRAINING. BED ALARM IS ON. BED IN LOWEST POSITION AND LOCKED. CAREPLAN REVIEW DONE WITH SAFETY PRECAUTIONS IN PLACE. CL IN REACH. HOB UP FOR ALL PO INTAKE CONTINUES ON NECTAR THICK LIQUIDS
[2019-07-10 12:12] VITALS: Ht 180.3 cm; Wt 127.0 kg
[2019-07-10 13:36] VITALS: BP 83/46
--- NOTE | 2019-07-10 14:20 | PN ---
PATIENT:CHUCK FERNANDEZ MEDICAL RECORD: [id number] LOCATION:[address] ADMISSION DATE: 07/09/19 PROGRESS NOTE DATE OF SERVICE: 07/09/2019 SUBJECTIVE: The patient's case was discussed with staff. He has no new complaint. OBJECTIVE: The patient is in good behavioral control with limited insight about his condition. Unfortunately, he has had some shortness of breath and laboratory reveals a very high white blood cell count of 37,000. ASSESSMENT: 1. Dementia. 2. Sepsis versus infection either urinary or pulmonary most likely. PLAN: The patient will be transferred to the medical floor for followup. There is nothing about his condition that makes him directly dangerous to other patients. He is on occasion combative with staff, particularly with personal care. Once he is adequately treated if he survives and his symptoms continue, I would be happy to accept him back here for additional psychiatric pharmacologic management. TRANSINT:[id number] Voice Confirmation ID: [id number] DOCUMENT ID: [id number] GE HERNANDEZ MD at 1420 CC: [id number] DICTATION DATE: 07/09/19 1554 WASHER ENGINEER HELPER: 07/09/19 2217 ADM IN [facility] [address] [place] [address]
[2019-07-10 18:23] VITALS: BP 88/44
[2019-07-10 20:00] VITALS: BP 100/39
--- NOTE | 2019-07-10 20:30 | NUR ---
PT CLIMBING OUT OF BED AND SWATTING AT STAFF. PT PULLED IV OUT AND TRYING TO PULL HORN OUT. PT WANTED TO SIT UP IN WHEELCHAIR SO WE GOT HIM IN IT. AID STAYED IN ROOM WITH HIM UNTIL WE PUT HIM BACK IN BED. PT IS IN BED AT THIS TIME WITH O2 @2L. MARILYN BED ALARM IN PLACE CALL LIGHT WITHIN REACH. WILL CONTINUE TO MONITOR.
--- NOTE | 2019-07-10 23:35 | NUR ---
PT RESTING IN BED WITH EYES CLOSED AT THIS TIME RR EVEN AND UNLABORED. NO S/S OF DISTRESS AT THIS TIME. BED LOW CALL LIGHT WITHIN REACH. WILL CONTINUE TO MONITOR. POSY BED ALARM IN PLACE.
[2019-07-11] VITALS: BP 107/38
--- NOTE | 2019-07-11 03:15 | NUR ---
22G IV ESTABLISHED PT'S LEFT WRIST. IV FLUIDS GOING AT 75ML/HR. BED LOW MARILYN BED ALARM IN PLACE. CALL LIGHT WITHIN REACH. VITALS STABLE. WILL CONTINUE TO MONITOR.
[2019-07-11 04:24] LABS: BASOPHILS 0.2 % (0-2); EOSINOPHILS 0.5 % (0-7); HEMATOCRIT 34.3 % (42.0-54.0); IMMATURE GRANULOCYTES 0.5 % (0-5); LYMPHOCYTES 8.2 % (15-50); MCHC 32.1 g/dL (31.0-37.0); MCV 93.5 fL (80.0-100.0); MONOCYTES 4.3 % (2-11); NEUTROPHILS 86.3 % (40-80); PLATELET COUNT 166 10x3/uL (130-400); RBC 3.67 10x6/uL (4.20-6.10); RDW 14.6 % (11.5-14.5); WBC 19.4 10x3/uL (4.8-10.8)
[2019-07-11 04:59] LABS: ANION GAP 8.9 mmol/L (8-16); CALCIUM 8.2 mg/dL (8.5-10.1); CARBON DIOXIDE 30.1 mmol/L (21.0-32.0); VANCOMYCIN - RANDOM 13.1 ug/mL (10.0-20.0)
[2019-07-11 05:11] LABS: CREATININE - SERUM 1.8 mg/dL (0.6-1.3)
--- NOTE | 2019-07-11 05:24 | NUR ---
PT RESTING COMFORTABLY AT THIS TIME. RR EVEN AND UNLABORED. NO S/S OF DISTRESS. BED LOW,MARILYN ALARM IN PLACE, CALL LIGHT WITHIN REACH. WILL CONTINUE TO MONITOR.
--- NOTE | 2019-07-11 06:23 | NUR ---
PT HORN OUTPUT 800ML OF RED COLORED URINE.
--- NOTE | 2019-07-11 07:54 | NUR ---
REPORT RECEIVED. WILL CONTINUE WITH POC. PT CURRENTLY LYING SEMI FOWLERS. CALL LIGHT W/I REACH. PT IS ASLEEP AT THIS TIME WITH EYES CLOSED. NS INFUSING @75ML/HR VIA L.WRIST PIV. NO S/S OF DISTRESS NOTED. MARILYN MAT IN PLACE. HORN IN PLACE AND DRAINING URINE. PT DENIES ANY NEEDS. WILL CTM.
[2019-07-11 09:18] VITALS: BP 113/47
--- NOTE | 2019-07-11 11:25 | NUR ---
PT IS ORIENTED TO SELF ONLY. WALKED IN THE ROOM TO FIND THAT THE PATIENT HAD PULLED HIS HORN CATHETER OUT, BULB INTACT, STATLOK IN PLACE. PT ALSO PULLED HIS PIV OUT, CATHETER TIP FULLY INTACT. IN RESPONSE TO ASKING WHY, PT WAS UNAWARE THAT HE HAD DONE SO. WILL INITIATE NEW PIV ACCESS AND START A NEW HORN CATH. WILL CTM.
--- NOTE | 2019-07-11 11:56 | NUR ---
18FR HORN CATHETER PLACED. IMMEDIATE BLOODY OUTPUT RECORDED. STATLOK PLACED. NEW 22GA INITIATED TO THE RIGHT FOREARM. X1 ATTEMPT. PT TOLERATED WELL. WILL CTM.
[2019-07-11 12:00] VITALS: BP 139/49
--- NOTE | 2019-07-11 15:58 | NUR ---
I have reviewed this patient and I concur with the Shift Assessment completed by the Licensed Practical Nurse today this shift.
[2019-07-11 18:04] VITALS: BP 142/64
--- NOTE | 2019-07-11 19:10 | NUR ---
PT RESTING IN BED ALERT AND ORIENTED X1. PT RR EVEN AND UNLABORED. O2 OFF PT UPON ENTERING ROOM. O2 @4L PUT BACK ON. NO S/S OF DISTRESS AT THIS TIME. PT DENIES ANY PAIN OR FURTHER NEEDS. BED LOW CALL LIGHT WITHIN REACH. WILL CONTINUE TO MONITOR.
[2019-07-12] VITALS: BP 129/51
--- NOTE | 2019-07-12 02:52 | NUR ---
PT RESTING IN BED WITH EYES CLOSED. RR EVEN AND UNLABORED. BED LOW, MARILYN ALARM IN PLACE, CALL LIGHT WITHIN REACH. WILL CONTINUE TO MONITOR.
[2019-07-12 04:00] VITALS: BP 151/54
[2019-07-12 04:02] LABS: BASOPHILS 0.2 % (0-2); EOSINOPHILS 1.3 % (0-7); HEMATOCRIT 36.6 % (42.0-54.0); HEMOGLOBIN 11.6 g/dL (13.5-17.5); IMMATURE GRANULOCYTES 0.6 % (0-5); LYMPHOCYTES 12.9 % (15-50); MCH 29.9 pg (26.0-34.0); MCHC 31.7 g/dL (31.0-37.0); MCV 94.3 fL (80.0-100.0); MEAN PLATELET VOLUME 11.7 fL (7.4-10.4); MONOCYTES 6.2 % (2-11); NEUTROPHILS 78.8 % (40-80); PLATELET COUNT 175 10x3/uL (130-400); RBC 3.88 10x6/uL (4.20-6.10); RDW 14.6 % (11.5-14.5)
[2019-07-12 04:10] LABS: WBC 14.1 10x3/uL (4.8-10.8)
[2019-07-12 04:21] LABS: ANION GAP 8.7 mmol/L (8-16); CALCIUM 8.5 mg/dL (8.5-10.1); CREATININE - SERUM 1.3 mg/dL (0.6-1.3); POTASSIUM - SERUM 3.7 mmol/L (3.5-5.1); VANCOMYCIN - RANDOM 12.2 ug/mL (10.0-20.0)
[2019-07-12 09:59] VITALS: BP 119/55
--- NOTE | 2019-07-12 12:00 | NUR ---
PT AGITATED AND MAKING THREATS LIKE "IM GONANPUNCH YOU IN THE MOUTH!". PT PULLED OUT RIGHT FA 22G IV WITH CATH INTACT AND PULLED OFF LEFT HAND DRESSING. GEODON SHOT GIVEN. WILL RESTART IV WHEN PT IS MORE CALM. COMPLETE LINEN CHANGE DONE.
[2019-07-12 13:28] VITALS: BP 115/51
--- NOTE | 2019-07-12 14:32 | CN ---
PATIENT NAME:CHUCK FERNANDEZ MEDICAL RECORD: [id number] : 37 LOCATION:[facility].2109 ADMIT DATE: 07/09/19 ACCOUNT: [id number] CONSULTING PHYSICIAN: GE HERNANDEZ MD REFERRING PHYSICIAN: OSITO CALLAWAY MD DATE OF CONSULTATION: 07/11/2019 IDENTIFYING DATA: The patient is 83 years old and he is admitted to the medical floor secondary to leukocytosis. CHIEF COMPLAINT: Agitation. HISTORY OF PRESENT ILLNESS: This patient is very well known to me from extensive inpatient treatment on the behavioral unit. He has an advanced dementia and it is manifested through behavior outbursts. He is disinhibited. He will yell, curse, even hit and kick nursing staff. He has very little recollection of what he has done almost no frontal lobe inhibition of impulses, and on a regular basis, he can be considered a dangerous man. He is tall. He is almost 300 pounds, and despite his age, he has no reservations about hitting or striking at staff member if he feels inclined to do so. ASSESSMENT: Dementia. PLAN: At this time, I am going to start the patient on medications for his behavior. If his behaviors continue after he completes his course of treatment on the medical floor, I would be happy to accept him back on the behavioral unit. He was actually an inpatient here on the behavioral unit when the leukocytosis precipitated his admission medically. TRANSINT:[id number] Voice Confirmation ID: [id number] DOCUMENT ID: [id number] GE HERNANDEZ MD at 1432 CC: [id number] DICTATION DATE: 07/11/19 1541 PARKS WORKER: 07/11/19 2153 ADM IN [facility] [address] [place] [address]
--- NOTE | 2019-07-12 14:47 | NUR ---
INSERTED RIGHT FA 22G IV ON FIRST ATTEMPT. HOOKED PT BACK UP TO NS AND VANCOMYCIN IVB.
--- NOTE | 2019-07-12 14:48 | NUR ---
NUTRITION F/U CHART REVIEWED, PT VISIT. NURSING REPORTS PT SPOUSE FED HIM LUNCH WITH ~25% INTAKE. TOLERATED SMALL AMT BREAKFAST. AWAIT RESULTS FROM SWALLOW EVAL. PT MAY REQUIRE NUTRITION SUPPORT. RD FOLLOWING
--- NOTE | 2019-07-12 15:02 | MORECARE ---
CASE MANAGEMENT DISCHARGE SUMMARY PATIENT: CHUCK FERNANDEZ UNIT: [id number] ADM DATE: 07/09/19 AGE: 83 : 36 SEX: M ROOM/BED: D.2110 AUTHOR: LARRY LOERA PHYSICIAN: REFERRING PHYSICIAN: OSITO CALLAWAY MD DATE OF SERVICE: 07/12/19 Discharge Plan Patient Name: CHUCK FERNANDEZ [facility] [facility] 1935 Planned Disposition: Inpatient Psych Facility Anticipated Discharge Date: Discharge Date: Expected LOS: Initial Reviewer: [id number] Initial Review Date: 07/12/2019 Generated: 07/12/19 4:02 pm Coverage Notice Reviewer: [id number] - Guy Almaraz Notice Issued Date-Time: 07/12/2019 12:55 Notice Type: Patient Choice Letter Notice Delivered To: Family Member Relationship to Patient: Spouse Stiff Straw Hat Washer Name: JULIANA FERNANDEZ Delivery Method: HAND - Hand Delivered Renetta Days: Prior Verbal Notification: Recipient Understood Notice: Yes Recipient Signature: Yes Med Rec Note Co-signed by Attending: Coverage Notice Comment: [facility], Patient Name: CHUCK FERNANDEZ Page [phone] at 1502 All edits/amendments must be made on the electronic document DICTATION DATE: 07/12/19 1502 SMALL KICK PRESS OPERATOR: LITZY 07/12/19 1502 RPT#: [id number] DC DATE: STATUS: ADM IN [facility] [address] [place] [address] END OF REPORT
--- NOTE | 2019-07-12 15:12 | MORECARE ---
CASE MANAGEMENT DISCHARGE SUMMARY PATIENT: CHUCK FERNANDEZ UNIT: [id number] ADM DATE: 07/09/19 AGE: 83 : 36 SEX: M ROOM/BED: D.2110 AUTHOR: EVARISTO,DOC PHYSICIAN: REFERRING PHYSICIAN: OSITO CALLAWAY MD DATE OF SERVICE: 07/12/19 Discharge Plan Patient Name: CHUCK FERNANDEZ [facility] [facility] 1935 Planned Disposition: Inpatient Psych Facility Anticipated Discharge Date: Discharge Date: Expected LOS: Initial Reviewer: STACIE Initial Review Date: 07/12/2019 Generated: 07/12/19 4:12 pm DCPIA - Discharge Planning Initial Assessment Updated by STACIE: Guy Almaraz on 07/12/19 3:08 pm * Is the patient Alert and Oriented? No * How many steps to enter\exit or inside your home? NONE * PCP DR. Amy MALIK * Pharmacy [facility] [place] * Preadmission Environment Custodial Half-Way * Facility Name [facility] * ADLs Total Dependent * Equipment Other Rolling Walker * Other Equipment BED RAILS, WALKER WITH SEAT, STEP IN SHOWER WITH GRAB BARS * List name and contact numbers for known caregivers / representatives who currently or will assist patient after discharge: JHONY FERNANDEZ, [phone]. [phone] * Verbal permission to speak to the caregivers and representatives has been obtained from the patient. N/A * Community resources currently utilized None * Please name any agencies selected above. NONE * Additional services required to return to the preadmission environment? No * Can the patient safely return to the preadmission environment? Yes * Has this patient been hospitalized within the prior 30 days at any hospital? Yes Coverage Notice Reviewer: [id number] Almaraz Notice Issued Date-Time: 07/12/2019 12:55 Notice Type: Patient Choice Letter Notice Delivered To: Family Member Relationship to Patient: Spouse Multiple Wire Sawyer Name: JULIANA FERNANDEZ Delivery Method: HAND - Hand Delivered Renetta Days: Prior Verbal Notification: Recipient Understood Notice: Yes Recipient Signature: Yes Med Rec Note Co-signed by Attending: Coverage Notice Comment: [facility], Reviewer: STACIE Almaraz Notice Issued Date-Time: 07/12/2019 12:55 Notice Type: IM Discharge Notice Notice Delivered To: Family Member Relationship to Patient: Spouse Multiple Wire Sawyer Name: JULIANA DUBOSE Delivery Method: HAND - Hand Delivered Renetta Days: Prior Verbal Notification: Recipient Understood Notice: Yes Recipient Signature: Yes Med Rec Note Co-signed by Attending: Coverage Notice Comment: Last DP export: 07/12/19 2:02 p Patient Name: CHUCK FERNANDEZ Page [phone] at 1512 All edits/amendments must be made on the electronic document DICTATION DATE: 07/12/191511 NEEDLE LOOM SETTER: LITZY 07/12/191511 RPT#: [id number] DC DATE: STATUS: ADM IN [facility] [address] [place] [address] END OF REPORT
--- NOTE | 2019-07-12 15:53 | NUR ---
I have reviewed this patient and I concur with the Shift Assessment completed by the Licensed Practical Nurse today this shift.
--- NOTE | 2019-07-12 16:00 | MORECARE ---
CASE MANAGEMENT DISCHARGE SUMMARY PATIENT: CHUCK FERNANDEZ UNIT: [id number] ADM DATE: 07/09/19 AGE: 83 : 36 SEX: M ROOM/BED: D.0 AUTHOR: EVARISTO,DOC PHYSICIAN: REFERRING PHYSICIAN: OSITO CALLAWAY MD DATE OF SERVICE: 07/12/19 Discharge Plan Patient Name: CHUCK FERNANDEZ [facility] [facility] 1935 Planned Disposition: Inpatient Psych Facility Anticipated Discharge Date: Discharge Date: Expected LOS: Initial Reviewer: [id number] Initial Review Date: 07/12/2019 Generated: 07/12/19 4:59 pm Comments DCP- Discharge Planning Updated by [email or web address]: Guy Almaraz on 07/12/19 2:[address] Patient Name: CHUCK FERNANDEZ Admission Status: Urgent Accout number: [id number] Admission Date: 07-09-2019 : 1935 Admission Diagnosis:SEPSIS, UNSPECIFIED ORGANISM Attending: OSITO CALLAWAY Current LOS: 3 Anticipated DC Date: Planned Disposition: Inpatient Psych Facility Primary Insurance: [employer] PLANNED EXTERNAL PROVIDER: [facility] Discharge Planning Comments: CM RECEIVED CALL FROM [facility] WHO ADVISED THAT THEY WILL NOT ACCEPT PT BACK INTO THEIR CARE AT DISCHARGE. CM MET WITH PT AND SPOUSE, JULIANA, IN ROOM TO DISCUSS DISCHARGE PLANNING AND NEEDS. PT'S SPOUSE HAD PLACED PT AT [facility] AFTER LAST HOSPITAL STAY SHE DID NOT WANT PT RETURNED TO [place] DUE TO "HORRIBLE CARE". PT WAS DECLINED BY [facility] AND [facility]. PT HAS DEMENTIA AND HAS AGGRESSIVE BEHAVIOR. CM DISCUSSED AVAILABILITY OF HOME HEALTH, REHAB SERVICES AND MEDICAL EQUIPMENT. PT'S SPOUSE REPORTS THAT THE PLAN IS FOR PT TO GO BACK TO [facility] AND SHE WOULD LIKE FOR PT TO BE PLACED AT THE [facility] HOME THEY SPECIALIZE IN CARE OF PT'S LIKE HER . CHOICE SIGNED, IMPORTANT MESSAGE FROM MEDICARE PROVIDED AND EXPLAINED. CM CALLED [facility], , SPOKE TO CHANTAL OF ADMISSIONS. SHE WILL FAX ADMISSION CHECKLIST TO CM; THE ADMISSIONS COMMITTEE MEETS EVERY MONDAY TO REVIEW POTENTIAL CANDIDATES FOR ADMISSION. CM WAITING FAX FROM [facility] TO FAX NEEDED DOCUMENTS FOR ADMISSION REVIEW. PT'S SPOUSE PLANS FOR PT TO READMIT TO [facility] WITH GOAL TO PLACE PT AT [facility]. Exhaust Emissions Automotive Technician: Guy Almaraz DCPIA - Discharge Planning Initial Assessment Updated by STACIE: Guy Almaraz on 07/12/19 3:08 pm * Is the patient Alert and Oriented? No * How many steps to enter\\exit or inside your home? NONE * PCP DR. Amy MALIK * Pharmacy [facility] [place] * Preadmission Environment Conflicts Analyst Care Home * Facility Name [facility] * ADLs Total Dependent * Equipment Other Rolling Walker * Other Equipment BED RAILS, WALKER WITH SEAT, STEP IN SHOWER WITH GRAB BARS * List name and contact numbers for known caregivers / representatives who currently or will assist patient after discharge: JHONY FERNANDEZ, [phone]. [phone] * Verbal permission to speak to the caregivers and representatives has been obtained from the patient. N/A * Community resources currently utilized None * Please name any agencies selected above. NONE * Additional services required to return to the preadmission environment? No * Can the patient safely return to the preadmission environment? Yes * Has this patient been hospitalized within the prior 30 days at any hospital? Yes Coverage Notice Reviewer: [id number] Almaraz Notice Issued Date-Time: 07/12/2019 12:55 Notice Type: Patient Choice Letter Notice Delivered To: Family Member Relationship to Patient: Spouse Gasoline Finisher Name: JULIANA FERNANDEZ Delivery Method: HAND - Hand Delivered Renetta Days: Prior Verbal Notification: Recipient Understood Notice: Yes Recipient Signature: Yes Med Rec Note Co-signed by Attending: Coverage Notice Comment: [facility], Reviewer: [id number] Bennett Almaraz Notice Issued Date-Time: 07/12/2019 12:55 Notice Type: IM Discharge Notice Notice Delivered To: Family Member Relationship to Patient: Spouse Gasoline Finisher Name: JULIANA DUBOSE Delivery Method: HAND - Hand Delivered Renetta Days: Prior Verbal Notification: Recipient Understood Notice: Yes Recipient Signature: Yes Med Rec Note Co-signed by Attending: Coverage Notice Comment: Last DP export: 07/12/19 2:12 p Patient Name: JIMMY FERNANDEZIE Page [phone] at 1600 All edits/amendments must be made on the electronic document DICTATION DATE: 07/12/191558 BULL DRIVER: LITZY 07/12/191558 RPT#: [id number] DC DATE: STATUS: ADM IN [facility] [address] [place] [address] END OF REPORT
[2019-07-12 17:32] VITALS: BP 184/73
--- NOTE | 2019-07-12 19:10 | NUR ---
BEDSIDE REPORT RECEIVED FROM DAY SHIFT, PT CARE ASSUMED. INTRODUCED SELF AND WROTE NAME ON BOARD. PT LYING IN BED WITH EYES CLOSED, RR EVEN AND NONLABORED, NO S/S OF DISTRESS, AROUSES EASILY TO VOICE. ORIENTED ONLY TO PERSON, REORIENTED TO PLACE, TIME, AND SITUATION. DENIES ANY NEEDS AT THIS TIME. BED IN LOWEST POSITION, SR X2, CALL LIGHT WITHIN REACH. WILL CONTINUE TO MONITOR.
[2019-07-12 20:00] VITALS: BP 167/79
--- NOTE | 2019-07-12 20:17 | NUR ---
RT TO ROOM.
--- NOTE | 2019-07-12 22:04 | NUR ---
PT SITTING UP IN BED WATCHING TV, A&A. PIV TO RIGHT FA FOUND IN FLOOR, CATHETER TIP INTACT, NO S/S OF BLEEDING FROM SITE. PT ORIENTED ONLY TO PERSON, REORIENTED TO TIME, PLACE, AND SITUATION. NIGHT TIME MEDS ADMINISTERED, PER ORDER. PT STATES, "GET THE HELL OUT OF MY ROOM." BED IN LOWEST POSITION, SR X3, BED ALARM ON, CALL LIGHT WITHIN REACH. WILL CONTINUE TO MONITOR.
[2019-07-13] VITALS: BP 160/72
[2019-07-13 04:56] LABS: BASOPHILS 0.4 % (0-2); CALC OSMOLALITY 293 mosm/kg (275-300); CALCIUM 8.3 mg/dL (8.5-10.1); CARBON DIOXIDE 25.9 mmol/L (21.0-32.0); CHLORIDE - SERUM 112 mmol/L (98-107); EOSINOPHILS 1.9 % (0-7); HEMATOCRIT 34.7 % (42.0-54.0); HEMOGLOBIN 11.1 g/dL (13.5-17.5); IMMATURE GRANULOCYTES 0.7 % (0-5); LYMPHOCYTES 11.7 % (15-50); MCH 30.5 pg (26.0-34.0); MCV 95.3 fL (80.0-100.0); MEAN PLATELET VOLUME 11.5 fL (7.4-10.4); MONOCYTES 7.7 % (2-11); NEUTROPHILS 77.6 % (40-80); PLATELET COUNT 180 10x3/uL (130-400); POTASSIUM - SERUM 3.9 mmol/L (3.5-5.1); RBC 3.64 10x6/uL (4.20-6.10); RDW 14.5 % (11.5-14.5); SODIUM 144 mmol/L (136-145); UREA NITROGEN 27 mg/dL (7-18); WBC 12.5 10x3/uL (4.8-10.8); eGFR NON AFRICAN AMERICAN 76 mL/min (90-120)
[2019-07-13 04:58] LABS: GLUCOSE 128 mg/dL (74-106)
--- NOTE | 2019-07-13 07:45 | NUR ---
PT AWAKE AND CONFUSED. ATTEMPTED TO CRAWL OUT OF BED. NIGHT NURSE STATES HE PULLED OUT HIS I/V AND IS REFUSING ANOTHER ONE AT THIS TIME. GOT PT BACK IN BED, PULLED HIM UP AND MADE HIM MORE COMFORTABLE. PT WAS PAYING NO MIND TO HIS CATHETER CORD. CONCERNED HE MAY ACCIDENTALLY OR ON PURPOSE PULL OUT HORN AT SOME POINT. WILL MONITOR CLOSELY. CL IN REACH, SRX3, MARILYN ALARM ON, BED ALARM ON, BOTH FUNCTIONING WNL.
[2019-07-13 08:16] VITALS: BP 155/78
[2019-07-13 11:45] VITALS: BP 147/51
[2019-07-13 16:36] VITALS: BP 151/67
--- NOTE | 2019-07-13 18:06 | NUR ---
PT HAS BEEN CONFUSED. TOOK MORING MEDS VERY LATE HE REFUSED FOR A LONG PERIOD OF TIME. AFTER HE TOOK THEM, HE REFUSED MORE MEDS. ATTEMPTED NEW I/V TWICE, PT BECOME ANGRY AND BLANTANTLY REFUSED, WILL ATTEMPT AGAIN WHEN PT SEEMS TO BE IN BETTER SPIRITS. FAMILY CAME IN AND AIDED PT IN EATING SUPPER. NO FAMILY PRESENT AT THIS TIME, PT RESTING PEACEFULLY. CL IN REACH, SRX3, BED ALARM ON, MARILYN ALARM ON.
--- NOTE | 2019-07-13 19:10 | NUR ---
BEDSIDE REPORT RECEIVED FROM DAY SHIFT, PT CARE ASSUMED. WROTE NAME ON BOARD, PT LYING IN BED, AAOX1, GOWN FOUND IN FLOOR. REORIENTED TO PLACE, TIME, AND SITUATION. [place], PROVIDED PT WITH CLEAN YELLOW GOWN. WHILE ASSISTING [place], WITH VS, PT WAS PULLING ON HORN. REINFORCED REASON FOR HORN AND HOW IT WORKS. PT HOLDS UP FIST TO THIS NURSE AND STATES, "I WAS ONLY GOING TO HIT YOU WITH THESE TWO KNUCKLES." EXPLAINED TO PT THAT PULLING HORN OUT WOULD CAUSE PAIN AND POSSIBLY DAMAGE. PT COOPERATED WITH VS, BUT REFUSED PIV INITIATION STATING, "GET THE HELL OUT OF HERE." BED IN LOWEST POSITION, SR X2, CALL LIGHT WITHIN REACH. WILL CONTINUE TO MONITOR.
[2019-07-13 20:00] VITALS: BP 126/57
[2019-07-13 23:44] VITALS: BP 117/61
[2019-07-14 04:05] VITALS: BP 125/60
--- NOTE | 2019-07-14 04:27 | NUR ---
PIV 22 GAUGE INITIATED
--- NOTE | 2019-07-14 04:28 | NUR ---
22 GAUGE PIV INITIATED TO LEFT FOREARM, X2 ATTEMPTS, PT TOLERATED WELL. IV INFUSING WITHOUT DIFFICULTY, SITE FREE OF S/S OF INFILTRATION, INFLAMMATION, AND PHLEBITIS, PT DENIES PAIN AT SITE. DENIES ANY OTHER NEEDS AT THIS TIME. BED IN LOWEST POSITION, SR X2, CALL LIGHT WITHIN REACH, MARILYN ALARM ON, BED ALARM ON. WILL CONTINUE TO MONITOR.
[2019-07-14 04:35] LABS: HEMOGLOBIN 11.9 g/dL (13.5-17.5); MCH 30.4 pg (26.0-34.0); MCHC 32.2 g/dL (31.0-37.0); MCV 94.4 fL (80.0-100.0); MEAN PLATELET VOLUME 11.3 fL (7.4-10.4); PLATELET COUNT 198 10x3/uL (130-400); RBC 3.92 10x6/uL (4.20-6.10); RDW 14.6 % (11.5-14.5); WBC 10.9 10x3/uL (4.8-10.8)
[2019-07-14 04:54] LABS: ALBUMIN 1.8 g/dL (3.4-5.0); ALKALINE PHOSPHATASE 100 U/L (46-116); ALT (SGPT) 17 U/L (10-68); BILIRUBIN - TOTAL 0.46 mg/dL (0.2-1.3); CALC OSMOLALITY 293 mosm/kg (275-300); CALCIUM 8.6 mg/dL (8.5-10.1); CARBON DIOXIDE 25.5 mmol/L (21.0-32.0); CHLORIDE - SERUM 114 mmol/L (98-107); CREATININE - SERUM 0.9 mg/dL (0.6-1.3); GLUCOSE 81 mg/dL (74-106); POTASSIUM - SERUM 3.8 mmol/L (3.5-5.1); SODIUM 146 mmol/L (136-145); UREA NITROGEN 24 mg/dL (7-18); eGFR NON AFRICAN AMERICAN 86 mL/min (90-120)
[2019-07-14 05:12] LABS: BASOPHILS 2 % (0-2); EOSINOPHILS 4 % (0-7); LYMPHOCYTES 23 % (15-50); MONOCYTES 8 % (2-11); NEUTROPHILS 60 % (40-80); PLATELET ESTIMATE NORMAL
--- NOTE | 2019-07-14 07:36 | NUR ---
PT ALERT AND CONFUSED, PICKING AT I/V SPOT. ATTEMTPED TO STOP HIM, WILL MONITOR CLOSELY. NO FAMILY PRESENT THIS A.M.. BED ALARM ON, MARILYN ALARM ON. CL IN REACH, SRX2.
[2019-07-14 08:08] VITALS: BP 165/87
[2019-07-14 11:44] VITALS: BP 104/48
[2019-07-14 16:27] VITALS: BP 128/62
--- NOTE | 2019-07-14 17:06 | NUR ---
I have reviewed this patient and I concur with the Shift Assessment completed by the Licensed Practical Nurse today this shift.
--- NOTE | 2019-07-14 18:31 | NUR ---
PT HAS BEEN MUCH MORE AWAKE TODAY, HAS ATE ALL THREE MEALS BY HISELF WITH MINIMAL SET UP ASSISTANCE. HAS TALKED CLEARLY, THOUGH STILL ONLY ORIENTED TO SELF. NO COMPLAINTS OR CONCERNS, ANSWERD FAMILY. I/V INTACT. CL IN REACH, SRX2.
--- NOTE | 2019-07-14 19:38 | NUR ---
PT CARE ASSUMED. PT RESTING IN BED RR EVEN AND UNLABORED ON 4L NC. NO S/SX OF DISTRESS NOTED AT THIS TIME. NO NEEDS EXPRESSED. SR X2, FALL PRECAUTIONS IN PLACE. CALL LIGHT IN REACH. WILL CTM.
[2019-07-14 20:20] VITALS: BP 155/55
--- NOTE | 2019-07-14 21:00 | NUR ---
PT COMBATIVE WHEN PROVIDING LINEN CHANGE.
--- NOTE | 2019-07-14 23:26 | NUR ---
PIV FOUND IN HALLWAY. CATHETER TIP INTACT.
--- NOTE | 2019-07-15 01:49 | NUR ---
ATTEMPTED TO SITE PIV. PT BECAME AGRESSIVE AND COMBATIVE. WILL CTM.
[2019-07-15 04:30] VITALS: BP 126/34
[2019-07-15 05:31] LABS: BASOPHILS 0.3 % (0-2); EOSINOPHILS 2.9 % (0-7); HEMATOCRIT 36.1 % (42.0-54.0); HEMOGLOBIN 11.5 g/dL (13.5-17.5); IMMATURE GRANULOCYTES 2.7 % (0-5); LYMPHOCYTES 24.2 % (15-50); MCHC 31.9 g/dL (31.0-37.0); MCV 94.3 fL (80.0-100.0); MEAN PLATELET VOLUME 11.2 fL (7.4-10.4); MONOCYTES 9.2 % (2-11); NEUTROPHILS 60.7 % (40-80); PLATELET COUNT 208 10x3/uL (130-400); RBC 3.83 10x6/uL (4.20-6.10); RDW 14.6 % (11.5-14.5); WBC 9.6 10x3/uL (4.8-10.8)
[2019-07-15 05:48] LABS: ALBUMIN 1.8 g/dL (3.4-5.0); BILIRUBIN - TOTAL 0.43 mg/dL (0.2-1.3); CALCIUM 8.6 mg/dL (8.5-10.1); CARBON DIOXIDE 28.6 mmol/L (21.0-32.0); CREATININE - SERUM 1.1 mg/dL (0.6-1.3); POTASSIUM - SERUM 3.7 mmol/L (3.5-5.1); PROTEIN - SERUM 4.9 g/dL (6.4-8.2)
[2019-07-15 06:07] LABS: ANION GAP 8.1 mmol/L (8-16)
--- NOTE | 2019-07-15 07:15 | NUR ---
PT RESTING PEACEFULLY, WOKE EASILY FOR VITAL SIGNS. NON VIOLENT AT THIS TIME, THOUGH NIGHT NURSE STATS HE WAS PHYSICALLY AGRESSIVE MULTIPLE TIMES LAST NIGHT, INCLUDING PULLING OUT HIS I/V. NO COMPLAINTS OR CONCERNS VOICED AT THIS TIME, NO FAMILY PRESENT AT BEDSIDE. WILL INFORM DR. HIS WBC IS WNL, WAS TOLD THAT WHEN THAT OCCURED PT WOULD GO BACK DOWN TO SR. CARE. CL INR EACH, SRX2, BED ALARM AND MARILYN ALARM ON.
[2019-07-15 07:57] VITALS: BP 131/64
[2019-07-15] MEDS ORDERED: AUGMENTIN 875-11 TAB PO (10:05)
[2019-07-15] MEDS ORDERED: DIFLUCAN100 MG PO (10:06)
[2019-07-15] MEDS ORDERED: RisperDAL PO (10:07)
[2019-07-15] MEDS ORDERED: KLONOPIN0.5 MG PO (10:08)
[2019-07-15] MEDS ORDERED: LEXAPRO10 MG PO (10:09)
[2019-07-15] MEDS ORDERED: COREG6.25 MG PO (10:09)
[2019-07-15] MEDS ORDERED: NYSTATIN1 PWD TOPICAL (10:12)
--- NOTE | 2019-07-15 10:24 | NUR ---
PHSICAL THERAPY WAS IN ROOM, GETTING PATIENT TO STAND AND WALK TO BEDSIDE RECLINER. WHILE DOING THIS, DISCOVERED PT DIRTY. ASSISTED WITH CLEAN UP BUT PT WAS STILL ACTIVELY HAVING A BOWEL MOVEMENT. TECH ASSISTED ME WITH CLEANING AND BED CHANGE BUT WHEN PT STOOD HE HAD LARGE GAS WHICH SQUIRTED BOWEL MOVEMENT ALL OVER THE BED AND FLOOR. CONTINUED TO CLEAN THE PT. PT CURRENLTY IN RECLINER NAPPING, BED LINNENS CHANGED, FLOOR MOPPED OF ALL BM. SPOKE TO DR. HERNANDEZ, CHANGED MEDS TO P.O SINCE PT REMOVEDHIS I/V THE NIGHT PREVIOUS. PER DR. CALLAWAY PT CAN GO BACK DOWN TO . [facility]. WILL LET KNOW WHEN SHE ARRIVES FOR HER MORNING VISIT.
--- NOTE | 2019-07-15 10:42 | NUR ---
I have reviewed this patient and I concur with the Shift Assessment completed by the Licensed Practical Nurse today this shift.
--- NOTE | 2019-07-15 10:52 | NUR ---
SPOKE WITH DR HEMPHILL REGARDING DISCHARGE TO PENITENTIARY AND D/C MEDS. NEW ORDERS PLACED.
[2019-07-15] MEDS ORDERED: LEVOFLOXACIN500 MG PO (10:55)
[2019-07-15] MEDS ORDERED: CLEOCIN HCL300 MG PO (10:55)
[2019-07-15] MEDS ORDERED: MUCINEX DM ER1 EAC1 PO (10:56)
[2019-07-15] MEDS ORDERED: IPRAT-ALBUT 0.5-3 ML UPD (10:56)
[2019-07-15] MEDS ORDERED: FLORAJEN3 CAPS460 MG PO (10:58)
[2019-07-15 11:37] VITALS: BP 97/52
--- NOTE | 2019-07-15 11:45 | MORECARE ---
CASE MANAGEMENT DISCHARGE SUMMARY PATIENT: CHUCK FERNANDEZ UNIT: [id number] ADM DATE: 07/09/19 AGE: 83 : 36 SEX: M ROOM/BED: D.2110 AUTHOR: EVARISTO,DOC PHYSICIAN: REFERRING PHYSICIAN: OSITO CALLAWAY MD DATE OF SERVICE: 07/15/19 Discharge Plan Patient Name: CHUCK FERNANDEZ [facility] [facility] 1935 Planned Disposition: Inpatient Psych Facility Anticipated Discharge Date: 07/15/19 Discharge Date: Expected LOS: 6 Initial Reviewer: [id number] Initial Review Date: 07/12/2019 Generated: 07/15/19 12:45 pm Comments DCP- Discharge Planning Updated by [id number]: Guy Munoz on 07/12/19 3:[address] Patient Name: CHUCK FERNANDEZ Admission Status: Urgent Accout number: [id number] Admission Date: 07-09-2019 : 1935 Admission Diagnosis:SEPSIS, UNSPECIFIED ORGANISM Attending: OSITO CALLAWAY Current LOS: 3 Anticipated DC Date: Planned Disposition: Inpatient Psych Facility Primary Insurance: [employer] PLANNED EXTERNAL PROVIDER: [facility] Discharge Planning Comments: CM RECEIVED CALL FROM [facility] WHO ADVISED THAT THEY WILL NOT ACCEPT PT BACK INTO THEIR CARE AT DISCHARGE. CM MET WITH PT AND SPOUSE, JULIANA, IN ROOM TO DISCUSS DISCHARGE PLANNING AND NEEDS. PT'S SPOUSE HAD PLACED PT AT [facility] AFTER LAST HOSPITAL STAY SHE DID NOT WANT PT RETURNED TO [facility] ON [employer] [facility] DUE TO "HORRIBLE CARE". PT WAS DECLINED BY [facility] AND [facility]. PT HAS DEMENTIA AND HAS AGGRESSIVE BEHAVIOR. CM DISCUSSED AVAILABILITY OF HOME HEALTH, REHAB SERVICES AND MEDICAL EQUIPMENT. PT'S SPOUSE REPORTS THAT THE PLAN IS FOR PT TO GO BACK TO [facility] AND SHE WOULD LIKE FOR PT TO BE PLACED AT THE [facility] THEY SPECIALIZE IN CARE OF PT'S LIKE HER . CHOICE SIGNED, IMPORTANT MESSAGE FROM MEDICARE PROVIDED AND EXPLAINED. CM CALLED [facility], , SPOKE TO CHANTAL OF ADMISSIONS. SHE WILL FAX ADMISSION CHECKLIST TO CM; THE ADMISSIONS COMMITTEE MEETS EVERY TERRIE TO REVIEW POTENTIAL CANDIDATES FOR ADMISSION. CM WAITING FAX FROM [facility] TO FAX NEEDED DOCUMENTS FOR ADMISSION REVIEW. PT'S SPOUSE PLANS FOR PT TO READMIT TO [facility] WITH GOAL TO PLACE PT AT [facility]. Sheet Metal Former: Guy Munoz DCPIA - Discharge Planning Initial Assessment Updated by STACIE: Guy Munoz on 07/12/19 3:08 pm * Is the patient Alert and Oriented? No * How many steps to enter\\exit or inside your home? NONE * PCP DR. Amy MALIK * Pharmacy [facility] [place] * Preadmission Environment Cement Mixer Half-Way * Facility Name [facility] * ADLs Total Dependent * Equipment Other Rolling Walker * Other Equipment BED RAILS, WALKER WITH SEAT, STEP IN SHOWER WITH GRAB BARS * List name and contact numbers for known caregivers / representatives who currently or will assist patient after discharge: JHONY FERNANDEZ, [phone]. [phone] * Verbal permission to speak to the caregivers and representatives has been obtained from the patient. N/A * Community resources currently utilized None * Please name any agencies selected above. NONE * Additional services required to return to the preadmission environment? No * Can the patient safely return to the preadmission environment? Yes * Has this patient been hospitalized within the prior 30 days at any hospital? Yes Coverage Notice Reviewer: STACIE Munoz Notice Issued Date-Time: 07/12/2019 12:55 Notice Type: Patient Choice Letter Notice Delivered To: Family Member Relationship to Patient: Spouse Electrostatic Powder Coating Technician Name: JULIANA FERNANDEZ Delivery Method: HAND - Hand Delivered Renetta Days: Prior Verbal Notification: Recipient Understood Notice: Yes Recipient Signature: Yes Med Rec Note Co-signed by Attending: Coverage Notice Comment: [facility], Reviewer: STACIE Munoz Notice Issued Date-Time: 07/12/2019 12:55 Notice Type: IM Discharge Notice Notice Delivered To: Family Member Relationship to Patient: Spouse Electrostatic Powder Coating Technician Name: JULIANA DUBOSE Delivery Method: HAND - Hand Delivered Renetta Days: Prior Verbal Notification: Recipient Understood Notice: Yes Recipient Signature: Yes Med Rec Note Co-signed by Attending: Coverage Notice Comment: Reviewer: STACIE Munoz Notice Issued Date-Time: 07/15/2019 11:30 Notice Type: IM Discharge Notice Notice Delivered To: Family Member Relationship to Patient: Spouse Electrostatic Powder Coating Technician Name: JHONY Hobson JIM Delivery Method: CERT - Certified Mail Renetta Days: Prior Verbal Notification: Recipient Understood Notice: Yes Recipient Signature: Med Rec Note Co-signed by Attending: Coverage Notice Comment: REVIEWED VIA PHONE BY HOLDEN MUNOZ WITH JHONY MelendezOlivia FERNANDEZ. Last DP export: 07/12/19 4:00 p Patient Name: CHUCK FERNANDEZ Page [id number] at 1145 All edits/amendments must be made on the electronic document DICTATION DATE: 07/15/19 1145 COLLEGE PRESIDENT: LITZY 07/15/19 1145 RPT#: [id number] DC DATE: STATUS: ADM IN [facility] [address] [place] [address] END OF REPORT
--- NOTE | 2019-07-15 12:01 | NUR ---
PT ESCORTED OUT VIA WHEELCHAIR TO CARE. ALL BELONGINS BROUGHT WITH HIM, LUNCH TRAY TAKEN.
--- NOTE | 2019-07-15 12:20 | MORECARE ---
CASE MANAGEMENT DISCHARGE SUMMARY PATIENT: CHUCK FERNANDEZ UNIT: [id number] ADM DATE: 07/09/19 AGE: 83 : 36 SEX: M ROOM/BED: D.2110 AUTHOR: EVARISTO,DOC PHYSICIAN: REFERRING PHYSICIAN: OSITO CALLAWAY MD DATE OF SERVICE: 07/15/19 Discharge Plan Patient Name: CHUCK FRENANDEZ [facility] [facility] 1935 Planned Disposition: Inpatient Psych Facility Anticipated Discharge Date: 07/15/19 Discharge Date: 07/15/2019 Expected LOS: 6 Initial Reviewer: [id number] Initial Review Date: 07/12/2019 Generated: 07/15/19 1:19 pm Comments DCP- Discharge Planning Updated by [email or web address]: Guy Munoz on 07/15/19 11:[address] Patient Name: CHUCK FERNANDEZ Encounter No: [id number] : 1935 Primary Insurance: NOVASYSMCR Anticipated DC Date: 07-15-2019 Planned Disposition: Inpatient Psych Facility External Planned Provider: [facility] DCP follow-up note: CM RECEIVED DISCHARGE ORDER, SPOKE TO PT'S VIA PHONE, SHE IS IN AGREEMENT WITH DISCHARGE TO [facility]. CM DISCUSSED IMPORTANT MESSAGE FROM MEDICARE, PT'S SPOUSE REMEMBERS THE ONE FROM LAST WEEK. CM ADVISED A NEW ONE WILL BE MAILED TO HER AT HOME. CM ADVISED THAT COLLETER IN [facility] WILL CONTINUE WORKING ON PLACEMENT FOR PT AT THE [facility]. CM CALLED AND SPOKE TO DIRECTOR OF [facility], JUANITA, WHO ADVISED THEY ARE AWARE OF DISCHARGE AND ARE ACCEPTING PT TODAY. CM CALLED TERRI AT [facility], ADVISED OF PT'S SPOUSE REQUEST FOR PLACEMENT AT [facility] AND CHECKLIST RECEIVED FROM THEM LATE MONDAY. CM FORWARDED CHECKLIST FOR ADMISSON PACKET FROM [facility] TO [facility]. PT TO DISCHARGE TO [facility]. ENTRY PROCESSOR NURSE NOTIFIED. COPY OF IMPORTANT MESSAGE FROM MEDICARE PROVIDED TO CM UNIT ADMINISTRATIVE ASSISTANCE NACHO TO MAIL TO PT'S SPOUSE, JHONY FERNANDEZ, [address] [place] [address]. [phone]. Guy Munoz, CASE MANAGEMENT DCP- Discharge Planning Updated by [id number]: Guy Munoz on 07/12/19 3:[address] Patient Name: CHUCK FERNANDEZ Admission Status: Urgent Accout number: [id number] Admission Date: 07-09-2019 : 1935 Admission Diagnosis:SEPSIS, UNSPECIFIED ORGANISM Attending: OSITO CALLAWAY Current LOS: 3 Anticipated DC Date: Planned Disposition: Inpatient Psych Facility Primary Insurance: [employer] PLANNED EXTERNAL PROVIDER: [facility] Discharge Planning Comments: CM RECEIVED CALL FROM [facility] WHO ADVISED THAT THEY WILL NOT ACCEPT PT BACK INTO THEIR CARE AT DISCHARGE. CM MET WITH PT AND SPOUSE, JULIANA, IN ROOM TO DISCUSS DISCHARGE PLANNING AND NEEDS. PT'S SPOUSE HAD PLACED PT AT [facility] AFTER LAST HOSPITAL STAY SHE DID NOT WANT PT RETURNED TO [facility] ON [address] DUE TO "HORRIBLE CARE". PT WAS DECLINED BY [facility] AND [facility]. PT HAS DEMENTIA AND HAS AGGRESSIVE BEHAVIOR. CM DISCUSSED AVAILABILITY OF HOME HEALTH, REHAB SERVICES AND MEDICAL EQUIPMENT. PT'S SPOUSE REPORTS THAT THE PLAN IS FOR PT TO GO BACK TO [facility] AND SHE WOULD LIKE FOR PT TO BE PLACED AT THE [facility] THEY SPECIALIZE IN CARE OF PT'S LIKE HER . CHOICE SIGNED, IMPORTANT MESSAGE FROM MEDICARE PROVIDED AND EXPLAINED. CM CALLED [facility], , SPOKE TO CHANTAL OF ADMISSIONS. SHE WILL FAX ADMISSION CHECKLIST TO ; THE ADMISSIONS COMMITTEE MEETS EVERY MONDAY TO REVIEW POTENTIAL CANDIDATES FOR ADMISSION. CM WAITING FAX FROM [facility] TO FAX NEEDED DOCUMENTS FOR ADMISSION REVIEW. PT'S SPOUSE PLANS FOR PT TO READMIT TO [facility] WITH GOAL TO PLACE PT AT [facility]. Supervisor Shipping: Guy Munoz DCPIA - Discharge Planning Initial Assessment Updated by [id number]: Guy Munoz on 07/12/19 3:08 pm * Is the patient Alert and Oriented? No * How many steps to enter\\exit or inside your home? NONE * PCP DR. Amy MALIK * Pharmacy [facility] [place] * Preadmission Environment Adoption Worker [facility] * Facility Name [facility] * ADLs Total Dependent * Equipment Other Rolling Walker * Other Equipment BED RAILS, WALKER WITH SEAT, STEP IN SHOWER WITH GRAB BARS * List name and contact numbers for known caregivers / representatives who currently or will assist patient after discharge: JHONY FERNANDEZ, [phone]. [phone] * Verbal permission to speak to the caregivers and representatives has been obtained from the patient. N/A * Community resources currently utilized None * Please name any agencies selected above. NONE * Additional services required to return to the preadmission environment? No * Can the patient safely return to the preadmission environment? Yes * Has this patient been hospitalized within the prior 30 days at any hospital? Yes Coverage Notice Reviewer: STACIE Munoz Notice Issued Date-Time: 07/15/2019 11:30 Notice Type: IM Discharge Notice Notice Delivered To: Family Member Relationship to Patient: Spouse Machine Shorthand Teacher Name: JHONY FERNANDEZ Delivery Method: CERT - Certified Mail Renetta Days: Prior Verbal Notification: Recipient Understood Notice: Yes Recipient Signature: Med Rec Note Co-signed by Attending: Coverage Notice Comment: REVIEWED VIA PHONE BY HOLDEN MUNOZ WITH JHONY FERNANDEZ. Reviewer: STACIE Munoz Notice Issued Date-Time: 07/12/2019 12:55 Notice Type: IM Discharge Notice Notice Delivered To: Family Member Relationship to Patient: Spouse Machine Shorthand Teacher Name: JULIANA DUBOSE Delivery Method: HAND - Hand Delivered Renetta Days: Prior Verbal Notification: Recipient Understood Notice: Yes Recipient Signature: Yes Med Rec Note Co-signed by Attending: Coverage Notice Comment: Reviewer: STACIE Munoz Notice Issued Date-Time: 07/12/2019 12:55 Notice Type: Patient Choice Letter Notice Delivered To: Family Member Relationship to Patient: Spouse Machine Shorthand Teacher Name: JULIANA FERNANDEZ Delivery Method: HAND - Hand Delivered Renetta Days: Prior Verbal Notification: Recipient Understood Notice: Yes Recipient Signature: Yes Med Rec Note Co-signed by Attending: Coverage Notice Comment: [facility], Last DP export: 07/15/19 10:45 a Patient Name: CHUCK FERNANDEZ Page [phone] at 1220 All edits/amendments must be made on the electronic document DICTATION DATE: 07/15/19 1219 HIDE AND SKIN FLESHING MACHINE OPERATOR: LITZY 07/15/19 1219 RPT#: [id number] DC DATE:07/15/19 STATUS: DIS IN [facility] [address] [place] [address] END OF REPORT
== END 2019-07-15 12:02 | DRG 871 ==
LOC: D.M2 14:10
PROVIDERS: Internal Medicine Pulmonary Disease; ADMIT Family Medicine; ATTEND Family Medicine
DX: A41.9 Sepsis, unspecified organism (principal); J18.1 Lobar pneumonia, unspecified organism; N17.0 Acute kidney failure with tubular necrosis; J44.1 Chronic obstructive pulmonary disease with (acute) exacerbation; J44.0 Chronic obstructive pulmonary disease with (acute) lower respiratory infection; F02.81 Dementia in other diseases classified elsewhere, unspecified severity, with behavioral disturbance; F33.1 Major depressive disorder, recurrent, moderate; G30.8 Other Alzheimer's disease; E66.9 Obesity, unspecified; Z68.39 Body mass index [BMI] 39.0-39.9, adult; E78.5 Hyperlipidemia, unspecified; K21.9 Gastro-esophageal reflux disease without esophagitis; I48.0 Paroxysmal atrial fibrillation; Z74.09 Other reduced mobility; B37.9 Candidiasis, unspecified; I10 Essential (primary) hypertension; R13.12 Dysphagia, oropharyngeal phase; K59.09 Other constipation; Z66 Do not resuscitate

== ENCOUNTER 2019-07-15 12:00 | Inpatient (IN) | payer MEDICARE ==
[~2019-07-15] VITALS: Ht 180.3 cm; Wt 128.4 kg
[~2019-07-15 12:00] MED LIST changes: +AUGMENTIN 875-11 TAB PO; +CLEOCIN HCL300 MG PO; +COREG6.25 MG PO; +DIFLUCAN100 MG PO; +LEXAPRO10 MG PO; +MUCINEX DM ER1 EAC1 PO; +NYSTATIN1 PWD TOPICAL; +RisperDAL PO
--- NOTE | 2019-07-15 14:20 | NUR ---
PT ADMITTED TO [facility] FROM [facility] FOR AGGRESSION. PT IS VERY AGGRESSIVE WITH STAFF AT THIS TIME. PT CODEWORD IS PHYLICIA. PT IS DNR. VERBAL CONSENT FROM JHONY FERNANDEZ.
[2019-07-15 15:15] VITALS: BP 106/54; BMI 38.6
[2019-07-15 17:17] VITALS: BP 106/54
[2019-07-15 21:37] VITALS: BP 101/50
--- NOTE | 2019-07-15 23:54 | NUR ---
RECEIVED IN HALLWAY OUTSIDE OF NURSES STATION. SITTING IN A RECLINING CHAIR. CALM AND COOPERATIVE WITH CARE AND ASSESSMENT. NO SIGNS OF AGGRESSION. REDIRECT AND REORIENT NEEDED. RESTING IN BED WITH EYES CLOSED. CONTINUE PLAN OF CARE
[2019-07-16 08:00] VITALS: BP 120/55
--- NOTE | 2019-07-16 11:00 | NUR ---
PATIENT IS CALM AND COOPERATIVE WITH CARE AND ASSESSMENT, NO AGGRESSION NOTED, ADMINISTERED PRESCRIBED MEDICATIONS WITH COMPLETE COMPLIANCE. REDIRECT AND REORIENT NEEDED. WILL CONTINUE PLAN OF CARE.
--- NOTE | 2019-07-16 12:52 | PSY ---
PATIENT NAME:CHUCK FERNANDEZ MEDICAL RECORD: [id number] : 37 LOCATION:[facility]7 ADMISSION DATE: 07/15/19 ACCOUNT: [id number] PSYCHIATRIC EVALUATION DATE OF EVALUATION: 07/15/19 IDENTIFYING DATA: The patient is 83 years old and well known to me from extensive clinical contact. CHIEF COMPLAINT: Agitation. HISTORY OF PRESENT ILLNESS: The patient was admitted to the behavioral unit about a month ago. He was being treated for agitation at the longterm. He subsequently developed sepsis and was transferred to the medical floor. He now returns to us. Currently, he is not particularly agitated and is wearing oxygen. PAST MEDICAL HISTORY: Significant for hypertension and obesity. He has also had a total knee replacement. PAST PSYCHIATRIC HISTORY: Significant for multiple hospitalizations because of behaviors associated with his dementia. He has apparently a longitudinal history consistent with being somewhat difficult and unpleasant and as his dementia has worsened he has become uninhibited and these symptoms have significantly worsened. FAMILY HISTORY: Noncontributory. ALLERGIES: No known drug allergies. CURRENT MEDICATIONS: Please see the admissions MAR. SOCIAL HISTORY: The patient is and has adult children. 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 MENTAL STATUS EXAMINATION: The patient is awake, alert and oriented to person and place, but not to time or situation. His mood is euthymic. His affect appropriate. Thought processes are disorganized with impairment of his memory, concentration, and abstraction abilities. He denies thoughts of harming himself or others. He denies psychotic symptoms. ASSETS: Supportive family members. LIABILITIES: Poor insight. DIAGNOSTIC IMPRESSION: AXIS I: Advanced major neurocognitive disorder of the Alzheimer's type with behavioral disturbances. AXIS II: Cluster B personality traits. AXIS III: Obesity, hypertension, osteoarthritis, pneumonia. AXIS IV: Moderate psychosocial stressors. AXIS V: Global assessment of functioning is 35. PLAN: At this time, the patient is admitted to the hospital after being treated for the pneumonia. He was close to being ready for discharge when he developed the pneumonia. His behaviors have resulted in a great deal of difficulty placing him and I have spoken to the social media senior associate about his situation today and she is going to expand the radius of longterm significantly in an effort to place him. Every effort will be made keeping this close to [place] as possible as his elderly wants to visit him and it is going to be a significant hardship upon her to have to go very far out of town. I do, however anticipate it would be several days before he can be placed because of the regulatory issues and I would like to make sure that his behaviors have not worsened since he was on the medical floor. Indeed, he did have some significant behavior outbursts there and I was consulted to adjust his psychiatric medications. TRANSINT:[id number] Voice Confirmation ID: [id number] DOCUMENT ID: [id number] GE HERNANDEZ MD at 1252 CC: [id number] DICTATION DATE: 07/15/19 1724 LANDSCAPE MANAGEMENT TECHNICIAN: 07/15/19 2104 ADM IN [place] [address] [place] [address]
--- NOTE | 2019-07-16 14:20 | NUR ---
TO RADIOLOGY VIA CHAIR FOR MODIFIED SWALLOW EVAL.
[2019-07-16 15:23] VITALS: Ht 180.3 cm; Wt 128.4 kg
--- NOTE | 2019-07-16 17:20 | NUR ---
DR. CALLAWAY CALLED REGARDING RESULTS OF SWALLOW EVAL. CONTINUE MECHANICAL SOFT DIET WITH HONEY THICKENED LIQUIDS UNTIL FAMILY DECIDES ABOUT WHETHER TO DO PEG TUBE PLACEMENT OR HOSPICE.
[2019-07-16 20:00] VITALS: BP 131/50
--- NOTE | 2019-07-16 21:55 | NUR ---
RECEIVED IN DAYROOM. RESTING IN RECLINER WITH EYES OPEN. CALM AND COOPERATIVE WITH CARE AND ASSESSMENT. NO AGGRESSIVE BEHAVIORS. REDIRECT AND REORIENT NEEDED. RESTING IN BED WITH EYES OPEN AT THIS TIME. CONTINUE PLAN OF CARE.
--- NOTE | 2019-07-17 12:02 | PN ---
PATIENT:CHUCK FERNANDEZ MEDICAL RECORD: [id number] LOCATION:JOSY Barnhart112 ADMISSION DATE: 07/15/19 PROGRESS NOTE DATE OF SERVICE: 07/16/2019 SUBJECTIVE: The patient's case was discussed with staff. He has no new complaint. OBJECTIVE: The patient is still disruptive and angry. He is attempting to hit some staff members. I am going to increase his Lexapro. Current medicines have been reviewed. The Lexapro will be increased. His is looking for a group home that is possibly going to be able to manage his behaviors as disruptive as they are. Our home health care social worker is assisting her with that effort. The patient's in association with our home health care social worker is looking at several facilities around the [facility] that might be willing to try to manage him. I suspect strongly that the pneumonia beast was in part and may be even fully associated with him being intermittently sedated, but he is potentially a dangerous man who is unable to make rational choices because of his dementia. I will continue to use sedatives if it is appropriate given the potential risk to other patients and staff ASSESSMENT: Dementia. PLAN: Current medicines have been reviewed and as mentioned above the Lexapro will be increased. TRANSINT:[id number] Voice Confirmation ID: [id number] DOCUMENT ID: [id number] GE HERNANDEZ MD at 1202 CC: [id number] DICTATION DATE: 07/16/19 1259 REFRIGERATOR TESTER: 07/16/19 1339 ADM IN [facility] [address] [place] [address]
--- NOTE | 2019-07-17 21:31 | NUR ---
PATIENT RECEIVED IN DAYROOM, SITTING IN ZIA-CHAIR, HE IS CONFUSED, CAN MAKE NEEDS KNOWN, COMPLIANT WITH MEDS, NO ADVERSE REACTION NOTED. WILL FOLLOW POC
[2019-07-17 23:46] VITALS: BP 133/38
--- NOTE | 2019-07-18 07:35 | NUR ---
B) The patient is awake and he asked me "Why is my skin looking like this?" Explained "As we get older are skin thins." He said "Well, how old am I?" Let him know he is 83. He said "My goodness, how'd that happen?" Explained that time just flies. The patient has a skin tear on his left arm that is scabbed. He is in a w/c and he self propels. He transfers with assist. I) Provide prescribed meds. R) The patient is compliant with meds. P) Continue POC.
[2019-07-18 09:24] VITALS: BP 116/51
--- NOTE | 2019-07-18 13:51 | PN ---
PATIENT:CHUCK FERNANDEZ MEDICAL RECORD: [id number] LOCATION:[facility]hart112 ADMISSION DATE: 07/15/19 PROGRESS NOTE DATE OF SERVICE: 07/17/2019 SUBJECTIVE: The patient's case was discussed with staff. He has no new complaint. OBJECTIVE: The patient has been disruptive and agitated at times. He unfortunately failed a swallowing evaluation. I have discussed the situation with both the treatment team and the hospice nurse who is here to evaluate him. ASSESSMENT: Dementia. PLAN: I think hospice is probably an appropriate move for this patient. I will refer him to a facility as soon as it can be arranged. A PEG tube has been refused by the family. I think that is probably appropriate. TRANSINT:[id number] Voice Confirmation ID: [id number] DOCUMENT ID: [id number] GE HERNANDEZ MD at 1351 CC: [id number] DICTATION DATE: 07/17/19 1228 WINDOW ASSEMBLER: 07/17/19 1244 ADM IN [place] [address] [place] [address]
--- NOTE | 2019-07-18 19:17 | NUR ---
RECEIVED PATIENT IN DAYROOM, HE IS ASLEEP IN ZIA-CHAIR. RECEIVED IN REPORT THAT THERE HAS BEEN NO CHANGE IN HIS THOUGHT PROCESS OR BEHAVIOR. HE IS COMPLIANT WITH MEDS, NO ADVERSE REACTION NOTED. WILL FOLLOW POC
[2019-07-18 22:12] VITALS: BP 132/49
[2019-07-19 10:35] VITALS: BP 86/50
[2019-07-19 10:52] VITALS: BP 86/50
--- NOTE | 2019-07-19 14:05 | PN ---
PATIENT:CHUCK FERNANDEZ MEDICAL RECORD: [id number] LOCATION:[facility] Gonzalez ADMISSION DATE: 07/15/19 PROGRESS NOTE DATE OF SERVICE: 07/18/2019 SUBJECTIVE: The patient's case was discussed with staff. He has no new complaint. OBJECTIVE: The patient is in reasonably good behavioral control, but very blunted and withdrawn. At times, he becomes quite agitated, but at this point, he is not. He did not eat anything yesterday. I am going to give him Megace to assist with appetite stimulation. The patient is morbidly obese, but I would like for him to lose weight in a much more deliberate and gradual fashion. Obviously, he is not doing this to lose weight. He has an advanced dementia and I think that is the reason he is not eating. In addition to this, his prognosis is unfortunately extremely poor and hospice has evaluated him and approved him. Hopefully, a assisted can be found as it is impractical for his family to care for him and he certainly needs a assisted that accepts and understands behaviorally disturbed patients. TRANSINT:[id number] Voice Confirmation ID: [id number] DOCUMENT ID: [id number] GE HERNANDEZ MD at 1405 CC: [id number] DICTATION DATE: 07/18/19 1604 ACCOUNTING/FINANCE TUTOR: 07/19/19 0011 ADM IN [facility] [address] [place] [id number]
--- NOTE | 2019-07-19 14:25 | NUR ---
PATIENT IS TALKING WITH ANOTHER PATIENT ABOUT ESCAPING AND HOLDING PEOPLE AT [facility] PLAN B. ABLE TO REDIRECT PT FROM CONVERSION.
[2019-07-19 20:30] VITALS: BP 130/34
--- NOTE | 2019-07-19 23:09 | NUR ---
B.) PT IS ALERT AND ORIENTED TO SELF ONLY. HE IS ABLE TO MAKE HIS NEEDS KNOWN AND IS RECEIVED IN THE FERNANDEZ IN A GERICHAIR. HE IS PLEASANT WITH STAFF AND PEERS. I.) PROVIDED PM MEDICATIONS. REDIRECT OFTEN R.) COMPLIANT WITH ALL MEDICATIONS. EASY TO REDIRECT. P.) CONTINUE PLAN OF CARE
[2019-07-20 08:00] VITALS: BP 121/53
--- NOTE | 2019-07-20 10:34 | NUR ---
B) The patient is awake and he is pleasant, he is in a good mood today. He is talkative and pleasant. He has poor short term memory recall. He has poor insight into his situation. He has not shown any aggression today. I) Provide prescribed meds. R) The patient is getting shaved right now and he is enjoying himself. P) Continue POC.
--- NOTE | 2019-07-20 12:13 | PN ---
PATIENT:CHUCK FERNANDEZ MEDICAL RECORD: [id number] LOCATION:[facility] Gonzalez ADMISSION DATE: 07/15/19 PROGRESS NOTE DATE OF SERVICE: 07/19/2019 SUBJECTIVE: The patient's case was discussed with staff. He has no new complaint. OBJECTIVE: The patient is in good behavioral control with poor insight about his condition. He is not eating adequately. He has been given thickened liquids and his family has declined a feeding tube. ASSESSMENT: Dementia. PLAN: The patient's prognosis is unfortunately exceedingly poor, especially with the recent developments regarding his swallowing abilities. At this point, I think that it is proper to just make him comfortable. He has been accepted by hospice. Obviously, he is at a very increased risk of aspiration; however, I think the family made the correct call with the feeding tube, which given his combative nature, he would not have kept in place. TRANSINT:[id number] Voice Confirmation ID: [id number] DOCUMENT ID: [id number] GE HERNANDEZ MD at 1213 CC: [id number] DICTATION DATE: 07/19/19 1423 PROPOSAL ANALYST: 07/19/19 1621 ADM IN [facility] [address] [place] [address]
[2019-07-20 19:30] VITALS: BP 118/84
--- NOTE | 2019-07-21 01:09 | NUR ---
B) Patient is alert and oriented to person and place, calm and coopertive, needy at times, able to express needs and wants, I) Administered scheduled medications, assisted with needs, assisted with ambulation, redirected as needed, R) Mediation compliant, able to transfer and ambulate short distances with assistance, follows directions , social with staff, P) Continue plan of care.
--- NOTE | 2019-07-21 01:54 | NUR ---
PT OBSERVED GETTING OOB. O2 SAT 77. PLACED ON 4L OXYGEN VIA NC. WILL CONTINUE TO MONITOR.
--- NOTE | 2019-07-21 02:04 | NUR ---
PT O2 SAT 81. TURNED OXYGEN TO 3L VIA NC. EXPIRATORY WHEEZES IN ALL HINDS. HOB 40 DEGREES. WILL CONTINUE TO MONITOR.
--- NOTE | 2019-07-21 03:08 | NUR ---
PT O2 98 HR 77. OXYGEN @ 3L VIA NC. WILL CONTINUE TO MONITOR
[2019-07-21 08:00] VITALS: BP 143/59
--- NOTE | 2019-07-21 09:29 | NUR ---
PT IS AWAKE AND ALERT TO PERSON ONLY. PT IS CALM AND COOPERATIVE WITH ASSESSMENT. PRESCRIBED MEDS PROVIDED PER STAFF. MED COMPLIANT. PT IS VERY CONFUSED AND HAS NO INSIGHT INTO HIS SITUATION. PT HAS POOR SHORT TERM MEMORY. REDIRECT AND REORIENT NEEDED. NO BEHAVIORS NOTED AT THIS TIME. FALL PRECAUTIONS IN PLACE. WILL CPOC.
--- NOTE | 2019-07-21 13:24 | NUR ---
02 SAT 77% RA. O2 APPLIED AT 4L PER N/C PER ORDER.
--- NOTE | 2019-07-21 14:08 | NUR ---
O2 SAT 95% N/C IN PLACE AT 4L PER ORDER. WILL CONTINUE TO MONITOR .
[2019-07-21 20:00] VITALS: BP 122/43
--- NOTE | 2019-07-21 20:49 | NUR ---
RECEIVED IN BEDROOM. ASSIST TO TRANSFERE TO BED. O2 AT 4 L VIA N/C. CALM AND COOPERATIVE WITH CARE AND ASSESSMENT. NO SIGNS OF AGGRESSION. REDIRECT AND REORIENT NEEDED. RESTING IN BED WITH EYES CLOSED AT THIS TIME. CONTINUE PLAN OF CARE
--- NOTE | 2019-07-21 20:53 | PN ---
PATIENT:CHUCK FERNANDEZ MEDICAL RECORD: [id number] LOCATION:[facility] ADMISSION DATE: 07/15/19 PROGRESS NOTE DATE OF SERVICE: 07/20/2019 SUBJECTIVE: The patient's case was discussed with staff. He has no new complaint. OBJECTIVE: The patient is disorganized with severe memory impairment. His oral intake is poor. He has not been aggressive. ASSESSMENT: Dementia. PLAN: Brief supportive and educational interventions were made. Long-term prognosis is guarded. I anticipate he can be transitioned to hospice care soon. TRANSINT:[id number] Voice Confirmation ID: [id number] DOCUMENT ID: [id number] GE HERNANDEZ MD at 2053 CC: [id number] DICTATION DATE: 07/20/19 1258 BOND TRADER: 07/20/19 1322 ADM IN [id number] [place] [address]
[2019-07-22 08:30] VITALS: BP 101/55
[2019-07-22] MEDS ORDERED: RisperDAL PO (11:06)
[2019-07-22] MEDS ORDERED: LEXAPRO10 MG PO (11:06)
[2019-07-22] MEDS ORDERED: FUROSEMIDE20 MG PO (11:07)
[2019-07-22] MEDS ORDERED: K-TAB10 MEQ PO (11:08)
[2019-07-22] MEDS ORDERED: MEGACE40 MG PO (11:09)
--- NOTE | 2019-07-22 14:15 | NUR ---
PATIENT IS AWAKE AND ALERT TO PERSON. CALM AND COOPERATIVE WITH CARE AND ASSESSMENT. ADMINISTER PRESCCRIBED MEDICATIONS. COMPLIANT WITH MEDICATIONS. NO BEHAVIORS NOTED. REDIRECT AND REORIENT NEEDED. CONTINUE PLAN OF CARE.
--- NOTE | 2019-07-22 15:00 | NUR ---
DISCHARGED TO [facility]. BELONGINGS GIVEN TO RECRUITMENT INTERN. REPORT CALLED TO KALRI AT [facility].
--- NOTE | 2019-07-22 15:38 | PN ---
PATIENT:CHUCK FERNANDEZ MEDICAL RECORD: [id number] LOCATION:[facility] ADMISSION DATE: 07/15/19 PROGRESS NOTE DATE OF SERVICE: 07/21/2019 SUBJECTIVE: The patient's case was discussed with staff. He has no new complaint. OBJECTIVE: The patient denies intent to harm himself or others. He is not eating adequately. ASSESSMENT: Dementia. PLAN: Supportive and educational interventions were made. Long-term prognosis is guarded. TRANSINT:[id number] Voice Confirmation ID: [id number] DOCUMENT ID: [id number] GE HERNANDEZ MD at 1538 CC: [id number] DICTATION DATE: 07/21/192103 WEIGHT ENGINEER: 07/22/19 0013 ADM IN [id number] [place] [address]
--- NOTE | 2019-07-23 11:54 | PN ---
PATIENT:CHUCK FERNANDEZ MEDICAL RECORD: [id number] LOCATION:[facility] ADMISSION DATE: 07/15/19 PROGRESS NOTE DATE OF SERVICE: 07/22/2019 SUBJECTIVE: The patient's case was discussed with staff. He has no new complaint. OBJECTIVE: The patient is in good behavioral control with limited insight about his condition. He is not aggressive today. ASSESSMENT: Dementia. PLAN: The patient's prognosis is exceedingly poor as I have documented and others have documented throughout the records of this current stay, recent and previous records. At this point, he is going to go to a [facility] and will receive comfort care through hospice. His family is aware of the situation and how grave it is. Followup will be through the primary care physician and/or hospice staff. TRANSINT:[id number] Voice Confirmation ID: [id number] DOCUMENT ID: [id number] GE HERNANDEZ MD at 1154 CC: [id number] DICTATION DATE: 07/22/19 164 SILVERING APPLICATOR: 07/22/191919 DIS IN 07/22/19 [facility] [address] [place] [address]
--- NOTE | 2019-07-24 12:24 | DS ---
PATIENT:CHUCK FERNANDEZ :37 MEDICAL RECORD: [id number] DISCHARGE SUMMARY ADMISSION DATE: 07/15/19 DISCHARGE DATE: 07/22/19 PSYCHIATRIC DISCHARGE SUMMARY IDENTIFYING DATA: The patient is very well known to me from previous clinical contact and he had recently been transferred from the behavioral unit to the medical unit for treatment of sepsis. He was agitated there and now returns for ongoing management of his behavior problems. HOSPITAL COURSE: The patient was readmitted to the behavioral unit as stated above after a brief treatment on the medical floor. He continues to be confused and at times agitated. Unfortunately, he seems to have also developed some sort of swallowing issue that we were not aware of prior to his leaving this unit a week ago. He failed a swallow evaluation and the options were discussed with the family. They elected not to have PEG tube placement for the patient and to risk the potential of aspiration. He was already approved for hospice and he was subsequently stabilized with some minor medication adjustments and transferred [place] a [place] [facility]. DISCHARGE DIAGNOSES: AXIS I: Advanced major neurocognitive disorder of the Alzheimer's type with behavioral disturbances. AXIS II: Cluster B personality traits. AXIS III: Obesity, hypertension, osteoarthritis, pneumonia. AXIS IV: Moderate psychosocial stressors. AXIS V: Global assessment of functioning is 35. PLAN: At the time of discharge, the patient was not openly or actively aggressive. His long-term prognosis is exceedingly poor given his inability to eat and drink without aspiration or risk of aspiration. He also has a very advanced dementia. He is under hospice care and I think it is appropriate to make him as comfortable as possible while maintaining the safety of those around him. TRANSINT:[id number] Voice Confirmation ID: [id number] DOCUMENT ID: [id number] GE HERNANDEZ MD at 1224 CC: [id number] DICTATION DATE: 07/23/19 1237 TUNNEL ELASTIC OPERATOR LOCKSTITCH: 07/24/19 0554 DIS IN 07/22/19 [id number] [place] [address]
== END 2019-07-22 15:00 | DRG 56 ==
LOC: D.PSYCH 12:00
PROVIDERS: ADMIT Psychiatry & Neurology Psychiatry; ATTEND Psychiatry & Neurology Psychiatry
DX: G30.9 Alzheimer's disease, unspecified (principal); J69.0 Pneumonitis due to inhalation of food and vomit; F02.81 Dementia in other diseases classified elsewhere, unspecified severity, with behavioral disturbance; F33.2 Major depressive disorder, recurrent severe without psychotic features; N17.9 Acute kidney failure, unspecified; E66.9 Obesity, unspecified; I10 Essential (primary) hypertension; M19.90 Unspecified osteoarthritis, unspecified site; Z68.38 Body mass index [BMI] 38.0-38.9, adult; Z74.09 Other reduced mobility; E78.2 Mixed hyperlipidemia; K21.9 Gastro-esophageal reflux disease without esophagitis; K59.01 Slow transit constipation; B37.9 Candidiasis, unspecified; R60.9 Edema, unspecified